=== PATIENT | female | born 1960 | race Caucasian/White ===

== ENCOUNTER 2020-01-24 10:11 | Outpatient (REF) | payer BC, SELFPAY ==
--- NOTE | 2020-01-24 10:43 | ECG_ITS ---
Test Reason : PREPROC CARDIOV EXAM Blood Pressure : / mmHG Vent. Rate : 066 BPM Atrial Rate : 066 BPM P-R Int : 158 ms QRS Dur : 082 ms QT Int : 404 ms P-R-T Axes : 062 -34 030 degrees QTc Int : 423 ms Normal sinus rhythm Left axis deviation Abnormal ECG When compared with ECG of 23-APR-2014 21:34, Vent. rate has decreased BY 39 BPM Referred By: Elmer Michelle Electronically Signed By:GISELLE HADLEY
[2020-01-24 15:58] LABS: MRSA Nasal PCR NEGATIVE (Negative); SA Nasal PCR POSITIVE (Negative)
== END 2020-01-24 10:12 | disposition home or self-care (01) ==
LOC: HO.LAB 10:11
PROVIDERS: Absent Provider Orthopaedic Surgery; PCP Internal Medicine; Visit Provider Internal Medicine
DX: Z01.810 Encounter for preprocedural cardiovascular examination (principal); E78.00 Pure hypercholesterolemia, unspecified; D51.9 Vitamin B12 deficiency anemia, unspecified; E55.9 Vitamin D deficiency, unspecified
CPT/HCPCS: 36415; 87640; 87641; 93005; 93010

== ENCOUNTER 2020-01-27 08:02 | Outpatient (REF) | payer BC, SELFPAY ==
--- NOTE | 2020-01-27 12:49 | MHC.AU.AEV ---
Adult Audiological Evaluation AUD- Audiology Adult New Evaluation Start: 01/27/20 11:34 Freq: Status: Active Protocol: Activity Type Activity Date Activity User E-Sign Co-Sign Detail Recorded Client Recorded Date Recorded By Document 01/27/20 11:35 LAKISHA [id number] 01/27/20 12:47 LAKISHA 01/27/20 11:35 Adult Audiological Evaluation [Date of Visit] -Date of Visit 01/27/20 [Reason For Appointment] -Reason for Appointment Audiologic re- evaluation due to increased hearing difficulties. Sharron reports a gradual change , particularly with understanding speech. She is asking others to repeat what was said more often and needs to raise the volume of the television significantly. Since the hearing test last year, Sharron was diagnosed with acute bronchitis in June to July 2019 and the hearing difficulties increased further. Sharron also continues to experience outer ear dermatitis/ psoriasis and uses eardrops prescribed by Dr. Wright on a regular basis . -Does patient feel they have a hearing Yes loss? -If Yes, Which Ear? Both Ears [Previous Testing] -Has hearing been tested previously? Yes -Previous Hearing Test Results 11/14/2018 Mild to moderate mixed hearing loss with 100% speech understanding at a listening level of 70 dB HL, bilateral [Hearing Instrument History- Right Ear] -Counter Former- Right Ear Oticon -Model- Right OPN 1 mini RITE -Serial Number- Right [id number] -Battery Size- Right 312 -Warranty- Right 11/30/2020 -Dispensed By [facility] -Date of Fittin11/10/2017 [Hearing Instrument History- Left] -Counter Former- Left Ear Oticon -Model- Left OPN 1 mini RITE -Serial Number- Left [id number] -Battery Size- Left 312 -Warranty- Left 11/30/2020 -Dispensed By [facility] -Date of Fittin11/10/2017 [Otoscopy] -Otoscopy- Right Ear Red canal with moisture visualized -Otoscopy- Left Ear Red canal with moisture visualized [Tympanometry] -Tympanometry- Right Ear Non-compliant Middle Ear System (Type B) -Tympanometry- Left Ear Non-compliant Middle Ear System (Type B) [Hearing Test Methods] -Transducer(s) Used Insert Earphones,Bone Conduction -Method Conventional Audiometry -Stimuli Used Pure Tones [Hearing- Right Ear] -Description of Hearing- Right Ear Mild to moderately- severe mixed hearing loss. [Hearing- Left Ear] -Description of Hearing- Left Ear Mild to moderately- severe mixed hearing loss. [Speech Recognition Threshold (SRT)] -Method Used Monitored Live Voice -Stimuli Used Spondee Words -Speech Recognition Threshold (SRT)- 40 dBHL Right Ear -Speech Recognition Threshold (SRT)- 45 dB HL Left Ear [Word Discrimination] -Method: Recorded Lists -Word Lists Used: NU-6 -Word Discrimination- Right Ear 96% at 80 dB HL -Word Discrimination- Left Ear 96% at 85 dB HL [Compared to Most Recent Evaluation:] -Compared to most recent evaluation: Hearing thresholds have decreased approximately 10-25 dB, left ear greater than right. Speech discrimination ability in the quiet ideal setting is stable for both ears. [Recommendations] -Recommendations Audiological re -evaluation in one year. -Recommendations (Other) Hearing aids were reprogrammed to today's test results, then further adjusted to Sharron's comfort in the office. If further adjustments are needed, she is advised to schedule another appointment. [Diagnosis] -Primary Diagnosis: H90.6 Mixed Hearing Loss, Bilateral -Secondary Diagnosis: H69.93 Unspecified Eustachian Tube Dysfunction, Bilateral [Services Performed] -Services Performed Comprehensive Audiological Evaluation (CPT 68300), Tympanometry ( CPT 81737) Signature [Window Installation Subcontractor] -Window Installation Subcontractor Clinician/Clinical No Fellow [Supervisory Statement] -I have reviewed/agreed with student/ N/A fellow documentation [Signature] -Provider Arnoldo Rondon, [facility]
== END 2020-01-27 08:03 | disposition home or self-care (01) ==
LOC: HO.SH 08:02
PROVIDERS: PCP Internal Medicine; Visit Provider Internal Medicine
DX: H90.6 Mixed conductive and sensorineural hearing loss, bilateral (principal); H69.93 Unspecified Eustachian tube disorder, bilateral
CPT/HCPCS: 92557; 92567

== ENCOUNTER 2020-01-27 10:36 | Outpatient (REF) | payer SELFPAY | END 2020-01-27 10:37 | disposition home or self-care (01) | LOC: HO.HAP 10:36 | PROVIDERS: Visit Provider Internal Medicine | DX: H90.6 Mixed conductive and sensorineural hearing loss, bilateral (principal); H69.93 Unspecified Eustachian tube disorder, bilateral | CPT/HCPCS: V5267 ==

== ENCOUNTER 2020-01-28 13:10 | Outpatient (REF) | payer SELFPAY | END 2020-01-28 13:11 | disposition home or self-care (01) | LOC: HO.HAP 13:10 | PROVIDERS: Visit Provider Internal Medicine | DX: H90.6 Mixed conductive and sensorineural hearing loss, bilateral (principal) | CPT/HCPCS: 92700 ==

== ENCOUNTER → 2020-01-29 08:32 | Outpatient (BNVA) | payer BC, SELFPAY | PROVIDERS: PCP Internal Medicine; Referring Provider Internal Medicine; Visit Provider Nurse Practitioner | DX: K59.04 Chronic idiopathic constipation (principal); L02.32 Furuncle of buttock; K63.3 Ulcer of intestine; K25.9 Gastric ulcer, unspecified as acute or chronic, without hemorrhage or perforation; Z77.22 Contact with and (suspected) exposure to environmental tobacco smoke (acute) (chronic) ==

== ENCOUNTER → 2020-01-31 09:27 | Outpatient (BNVA) | payer BC, SELFPAY | PROVIDERS: PCP Internal Medicine; Visit Provider Internal Medicine Pulmonary Disease | DX: Z76.89 Persons encountering health services in other specified circumstances (principal) ==

== ENCOUNTER 2020-02-06 10:20 | Outpatient (REF) | payer BC, SELFPAY | END 2020-02-06 10:21 | disposition home or self-care (01) | LOC: HO.LAB 10:20 | PROVIDERS: PCP Internal Medicine; Referring Provider Internal Medicine; Visit Provider Physician Assistant | DX: Z13.89 Encounter for screening for other disorder (principal) | CPT/HCPCS: 86850 ==

== ENCOUNTER 2020-02-10 06:08 | Inpatient (IN) | payer BC, SELFPAY ==
[2020-01-23 14:32] VITALS: BMI 34.3
[2020-01-24 12:41] VITALS: BP 140/68; PULSE 74; RESP 20; O2SAT 100; BMI 33.8
--- NOTE | 2020-01-24 13:35 | P.CONAN_ITS ---
Documented by User: Tonya Galeana 02/07/20 10:01 HPI - Anesthesia Eval Consult details Narrative: 59yo F for R total knee pcp cleared pulmonary cleared at low risk labs PMFSH Past Medical History Medical History Bronchitis Family history of Crohn's disease History of basal cell carcinoma Hx of diverticulitis of colon Hx of irritable bowel syndrome Intestinal perforation Lab test negative for COVID-19 virus Wears dentures Wears glasses Wears hearing aid in both ears Family History Family History Father Colitis COPD (chronic obstructive pulmonary disease) Mother Stroke Diabetes Hypertension Other Family history of Crohn's disease Family history of problems with anesthesia: No Surgical History Surgical History H/O colonoscopy History of colon resection History of colostomy reversal History of esophagogastroduodenoscopy (EGD) History of reversal of ileostomy History of tonsillectomy Hx of ileostomy Hx of tubal ligation History of Problems with Anesthesia: No Social History Social History Are you a primary youth care worker to a significant other at home: No Do you presently have visiting nurse or other home services: No Alcohol intake: never Smoking Status: Never smoker Second Hand Smoke Exposure: Yes Use of substances other than those prescribed or required for medical reasons: No Have you been hit, kicked, punched, or otherwise hurt by someone within the past year? If so, by whom?: No Ep[employer]opalian Healthcare Practices: pentecostal Advance Directives: Yes Advance Directives on File: Yes Advance Directives Date on File: 01/24/20 Recently lost weight without trying: No Narrative Narrative: asthma stabe >4 mets with edge blacker work as rn arthritis of sternum, cpwith cough non cardiav Meds Allergies Allergy/AdvReac Type Severity Reaction Status Date / Time bee pollen [BEE STINGS] Allergy Severe SWELLING,WE Verified 02/06/20 10:28 LTS Lactose Allergy Intermediate abdominal Verified 02/06/20 10:28 bloating, stomach upset latex [LATEX] Allergy Intermediate RASH Verified 02/06/20 10:28 Tetracyclines [TETRACYCLINES] Allergy Intermediate HIVES Verified 02/06/20 10:28 simvastatin AdvReac Intermediate myalgia Verified 02/06/20 10:28 Home Medications Medication Instructions Recorded Confirmed Type Lactobac. rhamnosus GG-inulin 1 cap PO BID 01/24/20 01/30/20 History [[facility]] albuterol sulfate [Ventolin HFA] 2 puff INHALATION Q4-6H PRN 01/24/20 01/30/20 History cholecalciferol (vitamin D3) 50 mcg PO DAILY 01/24/20 01/30/20 History [Vitamin D3] epinephrine [Epi E-Z Pen] 0.3 mg IM Q10M PRN 01/24/20 01/30/20 History folic acid 1 tab PO DAILY 01/24/20 01/30/20 History ipratropium-albuterol [DuoNeb] 3 ml INHALATION Q4-6H PRN 01/24/20 01/30/20 History lovastatin 1 tab PO BEDTIME 01/24/20 01/30/20 History methylcellulose (laxative) 1,000 mg PO BID 01/24/20 01/30/20 History [[facility]] montelukast 1 tab PO BEDTIME 01/24/20 01/30/20 History pseudoephedrine HCl [Sudafed] 30 mg PO Q4-6H PRN 01/24/20 01/30/20 History senna 17.2 mg PO BEDTIME 01/24/20 01/30/20 History baclofen 20 mg tablet 20 mg PO DAILY tab 01/29/20 01/30/20 History docusate sodium 100 mg capsule 100 mg PO DAILY 01/29/20 01/30/20 History Exam Exam Date and Time: January 24, 2020 1335 Height,Weight and Vital Signs: Height 5 ft 3 in Weight 86.636 kg Last Vital Signs Pulse 74 01/24/20 12:41 Resp 20 01/24/20 12:41 BP 140/68 H 01/24/20 12:41 Pulse Ox 100 01/24/20 12:41 Pertinent Lab Results Pertinent Lab Results: EKG 01/24/20 NSR @66, LAD Laboratory Tests 01/24/20 01/24/20 11:33 11:33 WBC 5.8 Hgb 11.0 L Hct 36.0 L Plt Count 219 Sodium 140 Potassium 4.4 Chloride 105 Carbon Dioxide 27 BUN 14 Creatinine 0.93 Total Bilirubin 0.4 AST 19 ALT 19 Alkaline Phosphatase 74 Total Protein 6.9 Albumin 4.1 Type and Screen done Airway Mallampati Class: I TM Dist: >3cm Neck ROM: Full Denture: Upper Loose/Missing/Broken Teeth: Lower (Capped molars, missing molars) Heart: RRR Lungs: CTAB Assessment and Plan Assessment Anesthesia Assessment: Anesthesia Plan Discussed, Consent Obtained and PAT Visit Documented by User: Tray Mackenzie MD 02/10/20 08:20 [facility] Past Medical History Medical History Bronchitis Family history of Crohn's disease History of basal cell carcinoma Hx of diverticulitis of colon Hx of irritable bowel syndrome Intestinal perforation Lab test negative for COVID-19 virus Wears dentures Wears glasses Wears hearing aid in both ears Family History Family History Father Colitis COPD (chronic obstructive pulmonary disease) Mother Stroke Diabetes Hypertension Other Family history of Crohn's disease Surgical History Surgical History H/O colonoscopy History of colon resection History of colostomy reversal History of esophagogastroduodenoscopy (EGD) History of reversal of ileostomy History of tonsillectomy Hx of ileostomy Hx of tubal ligation Social History Social History Are you a primary youth care worker to a significant other at home: No Do you presently have visiting nurse or other home services: No Alcohol intake: never Smoking Status: Never smoker Second Hand Smoke Exposure: Yes Use of substances other than those prescribed or required for medical reasons: No Have you been hit, kicked, punched, or otherwise hurt by someone within the past year? If so, by whom?: No [employer] Healthcare Practices: pentecostal Advance Directives: Yes Advance Directives on File: Yes Advance Directives Date on File: 01/24/20 Recently lost weight without trying: No Meds Allergies Allergy/AdvReac Type Severity Reaction Status Date / Time bee pollen [BEE STINGS] Allergy Severe SWELLING,WE Verified 02/06/20 10:28 LTS Lactose Allergy Intermediate abdominal Verified 02/06/20 10:28 bloating, stomach upset latex [LATEX] Allergy Intermediate RASH Verified 02/06/20 10:28 Tetracyclines [TETRACYCLINES] Allergy Intermediate HIVES Verified 02/06/20 10:28 simvastatin AdvReac Intermediate myalgia Verified 02/06/20 10:28 Home Medications Medication Instructions Recorded Confirmed Type Lactobac. rhamnosus GG-inulin 1 cap PO BID 01/24/20 01/30/20 History [[facility]] albuterol sulfate [Ventolin HFA] 2 puff INHALATION Q4-6H PRN 01/24/20 01/30/20 History cholecalciferol (vitamin D3) 50 mcg PO DAILY 01/24/20 01/30/20 History [Vitamin D3] epinephrine [Epi E-Z Pen] 0.3 mg IM Q10M PRN 01/24/20 01/30/20 History folic acid 1 tab PO DAILY 01/24/20 01/30/20 History ipratropium-albuterol [DuoNeb] 3 ml INHALATION Q4-6H PRN 01/24/20 01/30/20 History lovastatin 1 tab PO BEDTIME 01/24/20 01/30/20 History methylcellulose (laxative) 1,000 mg PO BID 01/24/20 01/30/20 History [[facility]] montelukast 1 tab PO BEDTIME 01/24/20 01/30/20 History pseudoephedrine HCl [Sudafed] 30 mg PO Q4-6H PRN 01/24/20 01/30/20 History senna 17.2 mg PO BEDTIME 01/24/20 01/30/20 History baclofen 20 mg tablet 20 mg PO DAILY tab 01/29/20 01/30/20 History docusate sodium 100 mg capsule 100 mg PO DAILY 01/29/20 01/30/20 History Exam Airway Mallampati Class: II TM Dist: >3cm Neck ROM: Full Denture: Upper Loose/Missing/Broken Teeth: No Heart: rrr Lungs: nl Other: ao3 Assessment and Plan Assessment Anesthesia Assessment: Anesthesia Plan Discussed, Consent Obtained, PAT Visit and Chart Reviewed Final Anesthetic Review NPO: Yes ASA Class: III Final Preanesthetic Review: No Changes in Pt Med Stat, Meds & Allergies Reviewed, Consent Obtained/Reviewed, Med/Surg/Anes Hx Reviewed and Anes Risks/Benef Reviewed Patient Risk: Intermediate Procedure Risk: Intermediate Anesthetic Plan Anesthetic Plan: MAC:, Spinal and Regional Block Disposition: Standard PACU
[2020-02-10] VITALS (11 sets, daily range): BP systolic 97–141; BP diastolic 50–74; PULSE 57–80; RESP 16–18; TEMP 35.8–37.1; O2SAT 98–100
[2020-02-10] MEDS: Gabapentin 600 MG TABLET PO (06:56)
[2020-02-10] MEDS: Lactated Ringers 1,000 ML 100 ML IVCONT (06:56)
[2020-02-10] MEDS: ceFAZolin Sodium/Dextrose,Iso 2 GM/50 ML PIGGYBACK IV ×2 (06:56→12:33)
--- NOTE | 2020-02-10 06:58 | MHC.SHP ---
Pre-Procedural Eval Section A The patient is an INPATIENT: No Changes since office visit: No Cold of Flu in the past 2 weeks, No New Medical Problems, No Changes in Medication and No Patient answered all questions The History & Physical has been completed within 30 days and I have reviewed it.: Yes Section B Chief Complaint: S/p right total knee replacement Allergies: Allergies Allergy/AdvReac Type Severity Reaction Status Date / Time bee pollen [BEE STINGS] Allergy Severe SWELLING,WE Verified 02/06/20 10:28 LTS Lactose Allergy Intermediate abdominal Verified 02/06/20 10:28 bloating, stomach upset latex [LATEX] Allergy Intermediate RASH Verified 02/06/20 10:28 Tetracyclines [TETRACYCLINES] Allergy Intermediate HIVES Verified 02/06/20 10:28 simvastatin AdvReac Intermediate myalgia Verified 02/06/20 10:28 Plan Patient has been examined and remains a candidate for the planned procedure
[2020-02-10 07:11] LABS: SARS COV2 PCR INHOUSE NEGATIVE (Negative)
--- NOTE | 2020-02-10 09:24 | P.PCNOP_ITS ---
Brief Operative Note Date of procedure: 02/10/20 Pre-op diagnosis: Osteoarthritis right knee Post-op diagnosis: same Procedure: right total knee arthroplasty- Danny NexGen CR flex size F right femur 4 x 10 to 3rd Surgeon: Elmer Michelle Industrial Specialist: Boyd Downing Estimated blood loss (mL): 30 Condition: stable Disposition: PACU
[2020-02-10] MEDS: 0.9 % Sodium Chloride 1,000 ML 80 ML IVCONT ×2 (11:14→22:32)
[2020-02-10] MEDS: Ketorolac Tromethamine 15 MG/ML VIAL IVPUSH ×3 (11:14→21:47)
[2020-02-10 12:21] LABS: Creatinine Clr Calc Pharmacy 74.2; Estimated Glomerular Filt Rate > 60
[2020-02-10] MEDS: oxyCODONE HCl Immed Release 5 MG TABLET 10 MG PO ×3 (12:33→23:13)
[2020-02-10] MEDS: Acetaminophen 325 MG TABLET 650 MG PO ×3 (12:33→23:13)
--- NOTE | 2020-02-10 12:57 | OP_ITS ---
SURGEON: Elmer Michelle MD PREOPERATIVE DIAGNOSIS: Osteoarthritis, right knee. POSTOPERATIVE DIAGNOSIS: Osteoarthritis, right knee. PROCEDURE PERFORMED: Right total knee arthroplasty - Danny NexGen CR-Flex size F, GSF femur, 4 x 10 mm monoblock tibial component, 32 mm monoblock patellar component. ESTIMATED BLOOD LOSS: COMPLICATIONS: ANESTHESIA: ASSISTANTS: SPECIMENS: CLINICAL NOTE: This lady has had ongoing problem with pain and discomfort involving her knee. She has failed nonoperative management. After explaining the risks, benefits, and alternatives and answering all her questions, it was mutually agreed upon to carry out the following procedure. DESCRIPTION OF PROCEDURE: Under regional block as well as a spinal anesthetic, the patient was placed supine on the operating table. Pneumatic tourniquet cuff was placed around the upper right thigh, inflated to 300 mmHg at the beginning of the case. The right knee was then prepped and draped in standard fashion with the right leg free. Surgical time-out was then performed. The patient was identified, procedure confirmed, site confirmed. Medical analogy and history reviewed. Preoperative antibiotics were given. Standard DVT prophylaxis was in place. All other items were discussed and agreed upon. Tranexamic acid was given as well. Standard midline incision of the knee was carried out, taken down through subcutaneous tissues. Hemostasis was achieved along the way using electrocautery, brought us down to the level of the extensor mechanism, where a medial parapatellar arthrotomy in a subvastus technique was then performed. The patella was retracted in a lateral gutter. Soft tissue elevated from the anterior aspect of the femur subperiosteally. At the level of the tibia, the soft tissue was elevated on the medial side of the knee, excising part of the medial meniscus and protecting the medial side of the soft tissues. Similarly on the lateral side, portion of the fat pad, portion of the meniscus was excised, and soft tissue elevated subperiosteally. The ACL was resected. We turned our attention to the femur. Standard intramedullary hole was established. Cutting guide was set for 5 degrees of valgus with standard cut. Surface was resected flat. It was then sized to a size F. The 3 degree external rotation pins were set. The all-in-one cutting guide was then placed over the pins and centered over the distal femur and following this, the anterior and anterior chamfer, posterior and posterior chamfer, and patellar recess cuts were all made. The lug holes were drilled. All the bony fragments were removed. The guide was removed. We turned our attention to the tibia. Extramedullary guide was used in standard fashion, referencing the tibial tubercle, subcutaneous port of the tibia, and the middle of the ankle. The slope was set. It was then set for minimal resection, referencing the medial side. It was resected flat. It was then sized to a size 4 and was aligned with the extramedullary guided pin. The 10 mm trial liner was put into place along with a size F, right CR-Flex GSF femur. This demonstrated excellent alignment, full extension, full flexion, stable mediolaterally at 0, 30, 60, and 90 degrees of flexion. We then turned our attention to the patella. Soft tissue elevated circumferentially. There was significant wear of the patella. It was resected flat. It sized to a 32. The lug hole for the 32 patella was placed. It was then trialed and it tracked centrally and therefore the size F right CR-Flex GSF femur with 4 x 10 mm monoblock tibial component and the 32 mm monoblock patellar component were selected and brought up on to the table. The trial components were all removed after the peg holes of the tibia was made. The tourniquet was then let down. Total tourniquet time was 38 minutes. The area of the lateral genicular artery was identified. There was no significant bleeding. The knee was then thoroughly irrigated. The permanent components were brought up on the table. The tibia followed by the femur, followed by the patella were all press-fit into place. The knee was placed through range of motion, demonstrated full flexion, full extension, stable mediolaterally at 0, 30, 60, and 90 degrees of flexion and the patella tracked centrally. Therefore, we proceeded to closure. Wound was thoroughly irrigated. The extensor mechanism was closed #2 Quill suture. Skin was approximated using interrupted 2-0 Dexon. Skin was closed with daniella. Sterile dressing was then applied. The patient's anesthesia was then reversed and transferred supine to the room bed, then taken to the recovery room in good condition. Intraoperatively, there was approximately 30 mL blood loss. No intraoperative transfusions or complications. A second unit of tranexamic acid was given at the time of closure. MD QUANG Majano/MODL / [id number]
--- NOTE | 2020-02-10 14:01 | P.CONIM_ITS ---
History of Present Illness Data of Consult Service Date: 02/10/20 Requesting physician: Elmer Michelle Primary Care Provider: Erlinda Newell MD [facility] Reason for consult: Medical management 59 emale with OA of knee, pernicious anemia on B12 replacement, mild ashma, HLD on lovastatin. She underwent elective right knee TKR due to osteoarthitis that no longer responded to conservative management. Doing well post op just hours ago. No other complaint. Review of Systems Review of Systems: Gen: well, no fever CV: no chest pain Resp: no SOB Musc Sk; knee pain from surgery Yes all other systems are reviewed and are negative [facility] Medical History Bronchitis Family history of Crohn's disease History of basal cell carcinoma Hx of diverticulitis of colon Hx of irritable bowel syndrome Intestinal perforation Lab test negative for COVID-19 virus Wears dentures Wears glasses Wears hearing aid in both ears Cognitive capacity: Functional capacity: independent ambulation Family History Father Colitis COPD (chronic obstructive pulmonary disease) Mother Stroke Diabetes Hypertension Other Family history of Crohn's disease Surgical History H/O colonoscopy History of colon resection History of colostomy reversal History of esophagogastroduodenoscopy (EGD) History of reversal of ileostomy History of tonsillectomy Hx of ileostomy Hx of tubal ligation Social History Are you a primary certified caregiver to a significant other at home: No Do you presently have visiting nurse or other home services: No Alcohol intake: never Smoking Status: Never smoker Second Hand Smoke Exposure: Yes Use of substances other than those prescribed or required for medical reasons: No Have you been hit, kicked, punched, or otherwise hurt by someone within the past year? If so, by whom?: No Jainism Healthcare Practices: jewish Advance Directives: Yes Advance Directives on File: Yes Advance Directives Date on File: 01/24/20 Recently lost weight without trying: No Meds Allergies Allergy/AdvReac Type Severity Reaction Status Date / Time bee pollen [BEE STINGS] Allergy Severe SWELLING,WE Verified 02/06/20 10:28 LTS Lactose Allergy Intermediate abdominal Verified 02/06/20 10:28 bloating, stomach upset latex [LATEX] Allergy Intermediate RASH Verified 02/06/20 10:28 Tetracyclines [TETRACYCLINES] Allergy Intermediate HIVES Verified 02/06/20 10:28 simvastatin AdvReac Intermediate myalgia Verified 02/06/20 10:28 Home Medications Medication Instructions Recorded Confirmed Type Lactobac. rhamnosus GG-inulin 1 cap PO BID 01/24/20 01/30/20 History [[facility]] albuterol sulfate [Ventolin HFA] 2 puff INHALATION Q4-6H PRN 01/24/20 01/30/20 History cholecalciferol (vitamin D3) 50 mcg PO DAILY 01/24/20 01/30/20 History [Vitamin D3] epinephrine [Epi E-Z Pen] 0.3 mg IM Q10M PRN 01/24/20 01/30/20 History folic acid 1 tab PO DAILY 01/24/20 01/30/20 History ipratropium-albuterol [DuoNeb] 3 ml INHALATION Q4-6H PRN 01/24/20 01/30/20 History lovastatin 1 tab PO BEDTIME 01/24/20 01/30/20 History methylcellulose (laxative) 1,000 mg PO BID 01/24/20 01/30/20 History [[facility]] montelukast 1 tab PO BEDTIME 01/24/20 01/30/20 History pseudoephedrine HCl [Sudafed] 30 mg PO Q4-6H PRN 01/24/20 01/30/20 History senna 17.2 mg PO BEDTIME 01/24/20 01/30/20 History baclofen 20 mg tablet 20 mg PO DAILY tab 01/29/20 01/30/20 History docusate sodium 100 mg capsule 100 mg PO DAILY 01/29/20 01/30/20 History Physical Exam Vital Signs and Narrative: Vital Signs: Last Vital Signs Temp 96.4 F L 02/10/20 11:55 Pulse 66 02/10/20 11:55 Resp 17 02/10/20 11:55 BP 119/54 L 02/10/20 11:55 Pulse Ox 100 02/10/20 11:55 Body Mass Index 33.8 Constitutional Awake and Alert, No apparent distress Neck Supple, No lymphadenopathy Cardiovascular RRR, No M/R/G, S1 S2, No S3 S4, No pedal edema Respiratory Lungs clear, No respiratory distress Gastrointestinal Non tender, Non-distended Skin No rash, knee dressing in place Neurological Alert & oriented x3 Psychological Appropriate affect Results Labs Labs: Laboratory Tests 01/24/20 02/06/20 02/10/20 13:30 11:38 05:50 Creatinine Estim Creat Clear Calc Estimated GFR Nasal Screen MRSA (PCR) Cancelled Nasal S. aureus Screen Cancelled Nasal MRSA/S.aureus Interp Cancelled Coronavirus (PCR) NEGATIVE Blood Type A Positive Antibody Screen NEGATIVE 02/10/20 10:58 Creatinine 0.83 Estim Creat Clear Calc 74.2 Estimated GFR > 60 Nasal Screen MRSA (PCR) Nasal S. aureus Screen Nasal MRSA/S.aureus Interp Coronavirus (PCR) Blood Type Antibody Screen Assessment and Plan (1) Asthma: Problem details: prn inhaler Status: Acute (2) HLD (hyperlipidemia): Status: Acute 1. s/p TKR, management by surgeon 2. HLD--continue Statin 3. Asthma stable, Albuterol PRN 4. B12-def, replacement on outpatient basi
--- NOTE | 2020-02-10 14:34 | MHC.CM.PN ---
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 PATIENT IS NOW S/P RIGHT TOTAL KNEE REPLACEMENT . OPERATIVE DAY. 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 AFTER REVIEW OF VNA AGENCIES SHE CHOSE THE [facility] FOR NRUSING ,NEW TO LOVENOX AND HOME PHYSICAL THEAPRY DISCAHRGE PLAN HOME WITH NEW REFERRAL TO THE [facility] FOR [facility]UR[facility] ([facility] [place]), AND HOME PHYSICAL THEAPRY PCP DR PERRY RCA PATIENT TO CALL FOR POST HOSPITAL DISCHARGE ORTHOPEDICAAL SURGICAL FLLOW UP PER DISCHARGE INSTRUCTIONS, TRANSPORTATION FAMILY
[2020-02-10] MEDS: Enoxaparin Sodium 40 MG/0.4 ML SYRINGE SUBCUT (15:12)
[2020-02-10] MEDS: Morphine Sulfate 2 MG/ML CARTRIDGE IVPUSH (18:50)
[2020-02-10] MEDS: Sennosides 8.6 MG TABLET PO (21:47)
[2020-02-10] MEDS: Docusate Sodium 100 MG CAPSULE PO (21:47)
[2020-02-10] MEDS: Omeprazole 20 MG CAPSULE.DR PO (21:47)
[2020-02-11] VITALS (11 sets, daily range): BP systolic 104–133; BP diastolic 39–55; PULSE 69–85; RESP 16–20; TEMP 36.3–37.8; O2SAT 90–99; BMI 33.8
[2020-02-11] MEDS: Morphine Sulfate 2 MG/ML CARTRIDGE IVPUSH ×3 (02:12→09:09)
[2020-02-11] MEDS: Acetaminophen 325 MG TABLET 650 MG PO ×3 (04:35→17:10)
[2020-02-11] MEDS: Ketorolac Tromethamine 15 MG/ML VIAL IVPUSH ×4 (04:35→22:31)
[2020-02-11] MEDS: oxyCODONE HCl Immed Release 5 MG TABLET 10 MG PO ×3 (04:36→17:09)
[2020-02-11 06:39] LABS: Hematocrit 30.1 % (37-47); Hemoglobin 9.3 g/dl (12.0-16.0)
--- NOTE | 2020-02-11 07:00 | XR_ITS ---
EXAMINATION: XR KNEE, RIGHT CLINICAL INFORMATION: Postop knee replacement COMPARISON: Previous x-ray May 2019 TECHNIQUE: Two views of the right knee. FINDINGS: There is a right knee replacement in satisfactory position. No fracture or dislocation is seen. There are postoperative changes to the soft tissues. IMPRESSION: Satisfactory appearance of right knee replacement.
--- NOTE | 2020-02-11 07:39 | PM.PNORT ---
Subjective Subjective Principal diagnosis: RT TKA Interval history: POD 1 s/p RT TKA -no overnight events, she has been out of bed working with PT. She amblated to the restroom this morning and felt pain afterwards. Has been resting with ice. Had some dizziness with getting up this morning, denies chest pain and sob. Physical Exam Vital Signs: Vital Signs: Vital Signs Temp Pulse Resp BP Pulse Ox 02/11/20 04:00 97.7 F 75 18 111/39 L 90 L 02/11/20 00:00 97.6 F 85 20 104/50 L 95 02/10/20 19:46 97.6 F 71 17 125/55 L 99 02/10/20 18:50 17 02/10/20 15:33 97.6 F 69 18 141/62 H 100 02/10/20 14:00 66 119/54 L 100 02/10/20 11:55 96.4 F L 66 17 119/54 L 100 02/10/20 09:57 57 16 125/60 99 02/10/20 09:40 97.4 F 67 16 116/65 99 02/10/20 09:35 68 16 113/61 98 02/10/20 09:30 68 16 101/54 L 98 02/10/20 09:25 98.7 F 80 16 97/50 L 98 Body Mass Index 33.8 Const: General: cooperative, healthy appearing and no acute distress Resp: Effort & Inspection: normal respiratory effort and able to speak in complete sentences Cardio: Rate: regular rate Peripheral pulses: Peripheral pulses 2+ throughout GI: Inspection: Yes normal to inspection Palpation (GI): Soft to palpation Skin: General skin exam: no rashes or lesions noted Extrem: Other: Right knee bandage intact, scant blood on dressing. No erythema, mild swelling, Calf supple non tender. Progress Note: A&P Assessment and plan (1) Status post total right knee replacement: Status: Acute Assessment and Plan: Continue pain mgmnt Begin PT for RT TKA begin lovenox for dvt ppx dispo planning-pending PT and pain mgmnt Fall Risk Details Current Medications: Current Medications Generic Name Dose Route Start Last Admin Trade Name Freq PRN Reason Stop Dose Admin Acetaminophen 650 mg 02/10/20 12:00 02/11/20 04:35 Acetaminophen 325 Mg Tablet PO 650 mg Q6H BETHANY Administration Docusate Sodium 100 mg 02/10/20 21:30 02/10/20 21:47 Docusate Sodium 100 Mg Capsule PO 100 mg DAILY BETHANY Administration Enoxaparin Sodium 40 mg 02/10/20 14:00 02/10/20 15:12 Enoxaparin Sodium 40 Mg/0.4 Ml Syringe SUBCUT 40 mg Q24H BETHANY Administration Ketorolac Tromethamine 15 mg 02/10/20 11:00 02/11/20 04:35 Ketorolac Tromethamine 15 Mg/Ml Vial IVPUSH 15 mg Q6H BETHANY Administration Morphine Sulfate 2 mg 02/10/20 10:42 02/11/20 05:52 Morphine Sulfate 2 Mg/Ml Cartridge IVPUSH 2 mg Q2H PRN Administration Pain, Severe (Pain Scale 7-10) Naloxone HCl 0.2 mg 02/10/20 10:42 Naloxone Hcl 0.4 Mg/Ml Vial IVPUSH Q2M PRN Excessive sedation or RR < 8 Omeprazole 20 mg 02/10/20 21:20 02/10/20 21:47 Omeprazole 20 Mg Capsule.Dr PO 20 mg BID BETHANY Administration Ondansetron HCl 4 mg 02/10/20 10:42 Ondansetron Hcl 4 Mg/2 Ml Vial IVPUSH Q8H PRN Nausea and Vomiting Oxycodone HCl 10 mg 02/10/20 12:00 02/11/20 04:36 Oxycodone Hcl Immed Release 5 Mg Tablet PO 10 mg Q6H BETHANY Administration Senna 8.6 mg 02/10/20 21:20 02/10/20 21:47 Sennosides 8.6 Mg Tablet PO 8.6 mg BEDTIME BETHANY Administration Sodium Chloride 3 ml 02/10/20 16:00 02/10/20 22:33 0.9 % Sodium Chloride Flush 3 Ml Syringe IVFLUSH Not Given QSHIFT BETHANY Time Spent With Patient Time: Total time spent is greater than 50% in coordination of care (as documented) at patient's floor/unit and/or counseling patient: Time with patient: 15 - 24 minutes
--- NOTE | 2020-02-11 08:05 | HO.POSTANES ---
Post Anesthesia Evaluation Post Anesthesia Evaluation Vital Signs: Vital Signs Temp Pulse Resp BP Pulse Ox 02/11/20 07:46 100.1 F 69 17 119/50 L 95 02/11/20 07:40 75 111/39 L 90 L 02/11/20 04:00 97.7 F 75 18 111/39 L 90 L 02/11/20 00:00 97.6 F 85 20 104/50 L 95 Anesthesia: Spinal Mental Status: Awake Pain Control: Satisfactory Nausea/Vomiting: None Hydration: Adequate Anesthesia-Related Issues: No Anes. Related Issues
[2020-02-11] MEDS: Docusate Sodium 100 MG CAPSULE PO (08:34)
[2020-02-11] MEDS: Omeprazole 20 MG CAPSULE.DR PO ×2 (08:34→22:30)
[2020-02-11] MEDS: 0.9 % Sodium Chloride Flush 3 ML SYRINGE IVFLUSH ×2 (08:34→17:11)
--- NOTE | 2020-02-11 09:12 | HO.PM.IMPN ---
Subjective Subjective Date of Service: 02/11/20 Interval History: Seen in follow up for for med consult for medical mangament s/p riht TKR on 02/09. Had some pain overnight but better this morning. Review of Systems Gen: no fever Muscular/sk: knee pain Physical Exam Vital Signs: Vital Signs: Vital Signs Temp Pulse Resp BP Pulse Ox 02/11/20 07:46 100.1 F 69 17 119/50 L 95 02/11/20 07:40 75 111/39 L 90 L 02/11/20 04:00 97.7 F 75 18 111/39 L 90 L 02/11/20 00:00 97.6 F 85 20 104/50 L 95 02/10/20 19:46 97.6 F 71 17 125/55 L 99 02/10/20 18:50 17 02/10/20 15:33 97.6 F 69 18 141/62 H 100 02/10/20 14:00 66 119/54 L 100 02/10/20 11:55 96.4 F L 66 17 119/54 L 100 02/10/20 09:57 57 16 125/60 99 02/10/20 09:40 97.4 F 67 16 116/65 99 02/10/20 09:35 68 16 113/61 98 02/10/20 09:30 68 16 101/54 L 98 02/10/20 09:25 98.7 F 80 16 97/50 L 98 Body Mass Index 33.8 Constitutional Awake and Alert, No apparent distress Neck Supple, No lymphadenopathy Cardiovascular RRR, No M/R/G, S1 S2, No S3 S4, No pedal edema Respiratory Lungs clear, No respiratory distress Gastrointestinal Non tender, Non-distended Skin No rash, knee dressing in place, generalized swelling around the knee Neurological Alert & oriented x3 Psychological Appropriate affect Objective Data Current Medications Generic Name Dose Route Start Last Admin Trade Name Freq PRN Reason Stop Dose Admin Acetaminophen 650 mg 02/10/20 12:00 02/11/20 04:35 Acetaminophen 325 Mg Tablet PO 650 mg Q6H BETHANY Administration Docusate Sodium 100 mg 02/10/20 21:30 02/11/20 08:34 Docusate Sodium 100 Mg Capsule PO 100 mg DAILY BETHANY Administration Enoxaparin Sodium 40 mg 02/10/20 14:00 02/10/20 15:12 Enoxaparin Sodium 40 Mg/0.4 Ml Syringe SUBCUT 40 mg Q24H BETHANY Administration Ketorolac Tromethamine 15 mg 02/10/20 11:00 02/11/20 04:35 Ketorolac Tromethamine 15 Mg/Ml Vial IVPUSH 15 mg Q6H BETHANY Administration Morphine Sulfate 2 mg 02/10/20 10:42 02/11/20 09:09 Morphine Sulfate 2 Mg/Ml Cartridge IVPUSH 2 mg Q2H PRN Administration Pain, Severe (Pain Scale 7-10) Naloxone HCl 0.2 mg 02/10/20 10:42 Naloxone Hcl 0.4 Mg/Ml Vial IVPUSH Q2M PRN Excessive sedation or RR < 8 Omeprazole 20 mg 02/10/20 21:20 02/11/20 08:34 Omeprazole 20 Mg Capsule.Dr PO 20 mg BID BETHANY Administration Ondansetron HCl 4 mg 02/10/20 10:42 Ondansetron Hcl 4 Mg/2 Ml Vial IVPUSH Q8H PRN Nausea and Vomiting Oxycodone HCl 10 mg 02/10/20 12:00 02/11/20 04:36 Oxycodone Hcl Immed Release 5 Mg Tablet PO 10 mg Q6H BETHANY Administration Senna 8.6 mg 02/10/20 21:20 02/10/20 21:47 Sennosides 8.6 Mg Tablet PO 8.6 mg BEDTIME BETHANY Administration Sodium Chloride 3 ml 02/10/20 16:00 02/11/20 08:34 0.9 % Sodium Chloride Flush 3 Ml Syringe IVFLUSH 3 ml QSHIFT BETHANY Administration Labs CBC & Chem 7: 02/11/20 05:52 Assessment and Plan (1) Status post total right knee replacement: Status: Acute (2) Asthma: Problem details: prn inhaler Status: Acute (3) HLD (hyperlipidemia): Status: Acute Assessment and Plan: 1. s/p TKR, management by surgeon 2. HLD--she says she take Lovastin but not on home med list, resume upon d/c 3. Asthma stable, Albuterol PRN 4. B12-def, replacement on outpatient basis PT/OT per ortho protocol Will sign off, call new issues.
--- NOTE | 2020-02-11 12:43 | MHC.CM.PN ---
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
[2020-02-11] MEDS: Enoxaparin Sodium 40 MG/0.4 ML SYRINGE SUBCUT (13:52)
--- NOTE | 2020-02-11 15:18 | PC.NURSE ---
Patient educated on lovenox. Able to self administer without difficulty.
[2020-02-11] MEDS: Sennosides 8.6 MG TABLET PO (22:30)
[2020-02-12] VITALS: BP 116/43; PULSE 71; RESP 16; TEMP 36.7; O2SAT 98
[2020-02-12] MEDS: oxyCODONE HCl Immed Release 5 MG TABLET 10 MG PO ×3 (00:31→12:18)
[2020-02-12] MEDS: Acetaminophen 325 MG TABLET 650 MG PO ×3 (00:33→12:17)
[2020-02-12] MEDS: 0.9 % Sodium Chloride Flush 3 ML SYRINGE IVFLUSH ×2 (00:36→10:45)
[2020-02-12 03:46] VITALS: BP 111/52; PULSE 78; RESP 16; TEMP 36.6; O2SAT 95
[2020-02-12] MEDS: Ketorolac Tromethamine 15 MG/ML VIAL IVPUSH ×2 (05:58→10:44)
[2020-02-12 07:23] VITALS: BP 114/41; PULSE 76; RESP 16; TEMP 36.1; O2SAT 96
[2020-02-12] MEDS: Docusate Sodium 100 MG CAPSULE PO (07:30)
[2020-02-12] MEDS: Omeprazole 20 MG CAPSULE.DR PO (07:30)
[2020-02-12 07:40] VITALS: O2SAT 95
[2020-02-12 08:02] VITALS: O2SAT 95
--- NOTE | 2020-02-12 08:04 | P.DS_ITS ---
DS: Providers Provider Date of admission: 02/10/20 06:08 Primary care physician: Erlinda Newell MD Consults: 02/10/20 10:42 Consult to Hospitalist Routine Consulting Provider: Hospitalist Reason for consultation: medical issues Has provider been notified: No DS: Diagnosis Discharge Diagnosis (1) Status post total right knee replacement: Status: Acute Problem details: 59 yo female presented to the office for ongoing rt knee pain. She was found to have osteoarthritis of the rt knee. she elected to proceed with a rt knee tka after failing all conservative treatment. (2) Asthma: Status: Acute Problem details: prn inhaler (3) HLD (hyperlipidemia): Status: Acute DS: Summary Hospital Course Hospital Course: pt. underwent a successful rt tka she was transferred to pacu and then to the floor where she recovered. POD1 she was started on lovenox for dvt ppx and received p.t. services twice a day. During her stay vitals were stable afebrile at 97.0. Labs unremarkable h/h 9.3/30.1. Prior to d/c aquacell dressing was changed. Incision was clean dry and intact. New aquacell dressing applied. Plan is to be d/c'ed home with VNA services. Time Spent with Patient Time attestation: Total time spent providing and/or coordinating discharge services: Physical Exam Vital Signs: Vital Signs: Vital Signs Temp Pulse Resp BP Pulse Ox 02/12/20 07:40 95 02/12/20 07:23 97.0 F 76 16 114/41 L 96 02/12/20 03:46 97.9 F 78 16 111/52 L 95 02/12/20 00:00 98.1 F 71 16 116/43 L 98 02/11/20 23:17 98.1 F 71 16 116/43 L 98 02/11/20 20:00 97.4 F 75 18 112/55 L 99 02/11/20 15:30 97.5 F 69 18 133/49 L 98 02/11/20 13:36 72 113/54 L 96 02/11/20 11:30 98.6 F 72 16 113/54 L 96 02/11/20 10:12 95 02/11/20 08:20 95 Body Mass Index 33.8 Extrem: Other: Rt knee daniella intact no drainage. ROM 0-90. Calf supple nontender. DS: Data Data Completed and Pending Completed studies during hospitalization [Text1]: Pending at discharge 02/10/20 09:09 Surgical [PTH] Routine Discharge Plan Discharge Patient Disposition: Home Health Service Referrals: jerilyn visiting nurse [Other] ([facility] for nrusing for sc lovenox reinforcement teaching and home physical thearpy patient to contact pcp and surgeon for post hospital discharge follow up) Boyd Downing PA-C [Physician [employer] Exchange Administrator] - (f/u with ortho 2 weeks post op ) Discharge Medications: New acetaminophen 325 mg Tablet 650 mg PO Q6H 30 Days Qty: 240 RF: 0 enoxaparin 40 mg/0.4 mL Syringe 40 mg subcut Q24H 14 Days Qty: 14 RF: 0 oxycodone 10 mg tablet 10 mg PO Q6H 7 Days Qty: 28 RF: 0 celecoxib [Celebrex] 200 mg capsule 200 mg PO BID 30 Days Qty: 60 RF: 0 Continued ipratropium-albuterol 0.5 mg-3 mg(2.5 mg base)/3 mL Solution For Nebulization 3 ml INHALATION Q4-6H PRN (Reason: Shortness Of Breath) RF: 0 lovastatin 10 mg tablet 1 tab PO BEDTIME RF: 0 Citrucel 500 mg Tablet 1,000 mg PO BID RF: 0 folic acid 1 mg tablet 1 tab PO DAILY RF: 0 pseudoephedrine HCl [Sudafed] 30 mg Tablet 30 mg PO Q4-6H PRN (Reason: Nasal Congestion) RF: 0 montelukast 10 mg tablet 1 tab PO BEDTIME RF: 0 epinephrine 0.3 mg/0.3 mL Auto-Injector 0.3 mg IM Q10M PRN (Reason: Anaphylaxis) RF: 0 albuterol sulfate [Ventolin HFA] 90 mcg/actuation HFA aerosol inhaler 2 puff inhalation Q4-6H PRN (Reason: Shortness Of Breath) RF: 0 senna 8.6 mg Capsule 17.2 mg PO BEDTIME RF: 0 cholecalciferol (vitamin D3) [Vitamin D3] 50 mcg (2,000 unit) Capsule 50 mcg PO DAILY RF: 0 Culturelle Digestive Health 10 billion cell -200 mg Capsule 1 cap PO BID RF: 0 fluticasone propion-salmeterol [Advair Diskus] 100-50 mcg/dose blister with device 1 inh inhalation BID 90 Days Qty: 3 RF: 4 (DME) walker Misc See Rx Instructions .MEDSUPPLY Qty: 1 RF: 0 omeprazole 20 mg capsule,delayed release(DR/EC) 20 mg PO BID 30 Days Qty: 60 RF: 3 docusate sodium [Colace] 100 mg capsule 100 mg PO DAILY RF: 0 baclofen 20 mg tablet 20 mg PO NEEDED PRN (Reason: Spasms) RF: 0 Discharge Orders: Discharge Order (Routine); Ordered 02/12/20 Ordered By: Boyd Downing Diet: regular diet Activity on Discharge: Use cane or walker Activity Restrictions/Additional Instructions: * Physical Therapy for ROM 0-120, quad strength, gait training . Use walker for ambulation * Limit stair climbing, No shower, No tub bath, No driving * Continue anticoagulant * Keep Aquacel dressing clean, dry and intact. * Follow up with orthopedics in 2 weeks Visit Report Forms: Patient Portal Discharge page Care Plan Goals: restore function of rt knee Health Concerns: none Plan of Treatment: Physical Therapy Pain management DVT prophylaxis
--- NOTE | 2020-02-12 09:06 | MHC.CM.PN ---
DC today. Female 59 S/P rt TKA. BECKY SMITH for post op management education and strengthening. Pt is independent w AC therapy. 02/11/20 She demonstrated ability to administer her daily Lovenox injection. Private transportation.
[2020-02-12 11:14] VITALS: BP 100/50; PULSE 72; RESP 17; TEMP 36.2; O2SAT 100
[2020-02-12] MEDS: Enoxaparin Sodium 40 MG/0.4 ML SYRINGE SUBCUT (12:18)
== END 2020-02-12 01:15 | disposition home health service (06) | DRG 302 ==
LOC: HO.SSSA 06:08 → HO.S3 09:34
PROVIDERS: Admitting Provider Orthopaedic Surgery; PCP Internal Medicine; Visit Provider Orthopaedic Surgery
PROC: 0SRC0JA Replacement of Right Knee Joint with Synthetic Substitute, Uncemented, Open Approach (ICD-10-PCS; CPT 27447; principal; 2020-02-10 07:30)
DX: M17.11 Unilateral primary osteoarthritis, right knee (principal); E78.5 Hyperlipidemia, unspecified; J45.909 Unspecified asthma, uncomplicated; Z20.828 Contact with and (suspected) exposure to other viral communicable diseases; Z79.51 Long term (current) use of inhaled steroids; Z79.899 Other long term (current) drug therapy
CPT/HCPCS: 36415; 73560; 82565; 85014; 85018; 86850; 86900; 86901; 87635; 88305; 88311; 97110; 97116; 97162; 97165; C1713; C1776; J0690; J1650; J1885; J2250; J2270

== ENCOUNTER → 2020-02-26 13:58 | Outpatient (BNVA) | payer BC, SELFPAY | PROVIDERS: PCP Internal Medicine; Referring Provider Internal Medicine; Visit Provider Physician Assistant | DX: Z76.89 Persons encountering health services in other specified circumstances (principal) ==

== ENCOUNTER 2020-03-16 10:18 | Outpatient (REF) | payer BC, SELFPAY | END 2020-03-16 10:19 | disposition home or self-care (01) | LOC: HO.HMGCLDS 10:18 | PROVIDERS: PCP Internal Medicine; Visit Provider Internal Medicine | DX: Z20.828 Contact with and (suspected) exposure to other viral communicable diseases (principal) | CPT/HCPCS: C9803; U0003 ==

== ENCOUNTER → 2020-04-07 10:01 | Outpatient (BNVA) | payer BC, SELFPAY | PROVIDERS: Visit Provider Orthopaedic Surgery | DX: Z76.89 Persons encountering health services in other specified circumstances (principal) ==

== ENCOUNTER 2020-05-22 09:09 | Outpatient (REF) | payer SELFPAY | END 2020-05-22 09:10 | disposition home or self-care (01) | LOC: HO.HAP 09:09 | PROVIDERS: Visit Provider Internal Medicine | DX: Z46.1 Encounter for fitting and adjustment of hearing aid (principal) | CPT/HCPCS: V5267 ==

== ENCOUNTER 2020-06-09 | Outpatient (REF) | payer SELFPAY ==
--- NOTE | ~2020-06-09 | XR_ITS ---
EXAMINATION: XR BILATERAL KNEE AP STANDING. LATERAL VIEW OF THE RIGHT KNEE. CLINICAL INFORMATION: Pain in right knee COMPARISON: 02/11/2020 TECHNIQUE: AP bilateral standing view of both knees and lateral view of the right knee were obtained. FINDINGS: Right knee: Status post right total knee arthroplasty including patellar prosthesis. Hardware remains well seated. No fracture, dislocation, or joint effusion. Left knee: Medial and lateral joint spaces are maintained. No fracture or dislocation seen. XR/XR knee standing BI IMPRESSION: Expected satisfactory postoperative appearance status post right total knee arthroplasty.
--- NOTE | ~2020-06-09 | XR_ITS ---
EXAMINATION: XR BILATERAL KNEE AP STANDING. LATERAL VIEW OF THE RIGHT KNEE. CLINICAL INFORMATION: Pain in right knee COMPARISON: 02/11/2020 TECHNIQUE: AP bilateral standing view of both knees and lateral view of the right knee were obtained. FINDINGS: Right knee: Status post right total knee arthroplasty including patellar prosthesis. Hardware remains well seated. No fracture, dislocation, or joint effusion. Left knee: Medial and lateral joint spaces are maintained. No fracture or dislocation seen. XR/XR knee RT 2V IMPRESSION: Expected satisfactory postoperative appearance status post right total knee arthroplasty.
== END 2020-06-09 00:01 | disposition home or self-care (01) ==
LOC: HO.HOSX
PROVIDERS: Visit Provider Orthopaedic Surgery
DX: M25.561 Pain in right knee (principal); M25.562 Pain in left knee
CPT/HCPCS: 73560; 73565

== ENCOUNTER → 2020-06-09 09:30 | Outpatient (BNVA) | payer BC, SELFPAY | PROVIDERS: PCP Internal Medicine; Visit Provider Orthopaedic Surgery | DX: M25.561 Pain in right knee (principal); M25.562 Pain in left knee ==

== ENCOUNTER → 2020-07-08 08:57 | Outpatient (BNVA) | payer BC, SELFPAY | PROVIDERS: PCP Internal Medicine; Visit Provider Internal Medicine Pulmonary Disease ==

== ENCOUNTER → 2020-07-27 11:07 | Outpatient (BNVA) | payer BC, SELFPAY | PROVIDERS: PCP Internal Medicine; Visit Provider Nurse Practitioner ==

== ENCOUNTER 2020-08-24 07:38 | Outpatient (REF) | payer BC, SELFPAY ==
[2020-08-24 12:23] LABS: Alanine Aminotransferase 13 U/L (0-31); Albumin Level 4.1 g/dL (3.5-5.0); Alkaline Phosphatase 74 U/L (39-117); Anion Gap 11 (12-20); Aspartate Amino Transferase 17 U/L (5-31); Bilirubin Total 0.4 mg/dL (0.0-1.0); Blood Urea Nitrogen 25 mg/dL (9-16); Calcium 9.4 mg/dL (8.4-10.2); Carbon Dioxide 29 mmol/L (22-29); Chloride 105 mmol/L (96-108); Cholesterol 187 mg/dL; Estimated Glomerular Filt Rate 55; Glucose Fasting 90 mg/dL (60-99); HDL Cholesterol 53 mg/dL; LDL Cholesterol Calculated 114 mg/dl; Potassium 4.4 mmol/L (3.3-5.1); Sodium 141 mmol/L (135-145); Total Protein 6.9 g/dL (6.5-8.0); Triglycerides 101 mg/dL
== END 2020-08-24 07:39 | disposition home or self-care (01) ==
LOC: HO.HMGCLDS 07:38
PROVIDERS: PCP Internal Medicine; Visit Provider Internal Medicine
DX: E78.00 Pure hypercholesterolemia, unspecified (principal); E78.5 Hyperlipidemia, unspecified
CPT/HCPCS: 36415; 80053; 80061

== ENCOUNTER → 2020-09-11 09:43 | Outpatient (BNVA) | payer BC, SELFPAY | PROVIDERS: PCP Internal Medicine; Visit Provider Orthopaedic Surgery ==

== ENCOUNTER 2020-09-16 10:54 | Outpatient (REF) | payer BC, SELFPAY | END 2020-09-16 10:55 | disposition home or self-care (01) | LOC: HO.LAB 10:54 | PROVIDERS: Visit Provider Nurse Practitioner Family | DX: L02.91 Cutaneous abscess, unspecified (principal) | CPT/HCPCS: 87071; 87077; 87186; 87205 ==

== ENCOUNTER 2020-09-29 10:40 | Outpatient (REF) | payer SELFPAY | END 2020-09-29 10:41 | disposition home or self-care (01) | LOC: HO.HAP 10:40 | PROVIDERS: Visit Provider Internal Medicine | DX: Z46.1 Encounter for fitting and adjustment of hearing aid (principal) | CPT/HCPCS: V5267 ==

== ENCOUNTER 2020-10-27 09:00 | Outpatient (RCR) | payer BC, SELFPAY ==
[2020-01-24 12:04] LABS: MANUAL DIFF FLAG NO
[2020-01-24 12:20] LABS: Basophils Percent Auto 0.3 % (0-2); Eosinophils Absolute Auto 0.1 X10*3/uL (0.0-0.4); Imm Gran Abs Auto 0.02 X10*3/uL (0.00-0.03); Imm Gran Pct Auto 0.3 % (0.0-0.4); Lymphocytes Absolute Auto 1.1 X10*3/uL (1.2-4.9); Lymphocytes Percent Auto 19.1 % (20-40); Mean Corpuscular HGB Conc 30.6 g/dl (31.0-35.0); Mean Corpuscular Hemoglobin 26.7 pg (27.0-33.0); Mean Corpuscular Volume 87.4 fL (80-98); Mean Platelet Volume 10.5 fL (9.4-12.3); Monocytes Absolute Auto 0.3 X10*3/uL (0.1-1.2); Monocytes Percent Auto 4.5 % (2-11); Neutrophils Absolute Auto 4.3 X10*3/uL (2.0-8.3); Neutrophils Percent Auto 74.8 % (45-73); Platelet Count 219 X10*3/uL (160-400); Red Blood Count 4.12 X10*6/uL (4.20-5.50); Red Cell Distribution Width 14.9 % (11.0-16.0); White Blood Count 5.8 X10*3/uL (4.8-10.8)
[2020-01-24 12:38] LABS: Cholesterol 174 mg/dL; HDL Cholesterol 66 mg/dL; LDL Cholesterol Calculated 100 mg/dl; Triglycerides 44 mg/dL
[2020-01-24 12:40] LABS: Alanine Aminotransferase 19 U/L (0-31); Albumin Level 4.1 g/dL (3.5-5.0); Alkaline Phosphatase 74 U/L (39-117); Anion Gap 12 (12-20); Aspartate Amino Transferase 19 U/L (5-31); Bilirubin Total 0.4 mg/dL (0.0-1.0); Blood Urea Nitrogen 14 mg/dL (9-16); Calcium 9.3 mg/dL (8.4-10.2); Carbon Dioxide 27 mmol/L (22-29); Chloride 105 mmol/L (96-108); Estimated Glomerular Filt Rate > 60; Glucose Random 95 mg/dL (60-115); Potassium 4.4 mmol/l (3.3-5.1); Sodium 140 mmol/L (135-145); Total Protein 6.9 g/dL (6.5-8.0)
[2020-01-24 12:59] LABS: Vitamin D 25-OH Total 54.1 ng/mL (>30)
--- NOTE | 2020-01-24 13:34 | MHC.HEMONC ---
Labs reviewed, Dr. Jalloh made aware. No new orders at this time.
[2020-01-24 13:41] LABS: Folate > 20.0 ng/mL (> or = 4.0); Vitamin B12 971 pg/mL (200-900)
[2020-04-30 09:34] LABS: MANUAL DIFF FLAG NO
[2020-04-30 09:36] VITALS: BP 137/63; PULSE 82; RESP 14; TEMP 36.6; O2SAT 99; BMI 34.2
[2020-04-30 09:38] LABS: Basophils Percent Auto 0.4 % (0-2); Eosinophils Absolute Auto 0.2 X10*3/uL (0.0-0.4); Hematocrit 37.4 % (37-47); Hemoglobin 11.2 g/dl (12.0-16.0); Imm Gran Abs Auto 0.03 X10*3/uL (0.00-0.03); Imm Gran Pct Auto 0.4 % (0.0-0.4); Lymphocytes Absolute Auto 1.3 X10*3/uL (1.2-4.9); Lymphocytes Percent Auto 15.7 % (20-40); Mean Corpuscular HGB Conc 29.9 g/dl (31.0-35.0); Mean Corpuscular Hemoglobin 27.1 pg (27.0-33.0); Mean Corpuscular Volume 90.6 fL (80-98); Monocytes Absolute Auto 0.4 X10*3/uL (0.1-1.2); Monocytes Percent Auto 4.9 % (2-11); Neutrophils Absolute Auto 6.3 X10*3/uL (2.0-8.3); Neutrophils Percent Auto 76.6 % (45-73); Platelet Count 233 X10*3/uL (160-400); Red Blood Count 4.13 X10*6/uL (4.20-5.50); Red Cell Distribution Width 16.1 % (11.0-16.0); White Blood Count 8.2 X10*3/uL (4.8-10.8)
--- NOTE | 2020-04-30 09:46 | PM.HEMONCPN ---
Medical Summary - Medical Summary Date of Service: 05/08/20 Chief complaint: Follow-up for: Multifactorial anemia 1. Iron deficiency 2. B12 deficiency. Medical Summary: DIAGNOSES: Multifactorial Anemia: 1. Iron deficiency. 2. B12 deficiency. CURRENT THERAPY: 1. Iron Dextran, last received in May 2014. 2. B12 injection monthly. 3. Folic acid 1 mg by mouth daily. Interval History Interval history: This is a pleasant 59-year-old lady, here for a follow-up visit. She is doing quite well. Denies much fatigue. No headache no dizziness. Denies chest pain or trouble breathing. She denies any abdominal pain nausea vomiting heartburn indigestion. Her bowels are working without any gross blood in the stools. She denies diarrhea. Her appetite is okay. She has gained weight. Energy level is reasonable but she gets tired at times. Part of it is related to her arthritis pain in her knees. She is in good spirits. Rest of the review of systems is unremarkable. 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 Previous history: She was seen in the emergency room on July 20 for flu like symptoms. Her COVID-19, flu swab and RSV were all negative. She was diagnosed with bronchitis. She was given a nebulizer treatment. She was sent home on oral antibiotics. She is currently on Advair inhaler, with DuoNeb p.r.n. She is feeling better. She had some GI complaints. She underwent an upper endoscopy and colonoscopy on May [address] Canales which revealed: Gastric ulcer with erosive gastritis, multiple erosions, and from the colonoscopy, ileal erosions. Pathology revealed: A. Stomach, random, biopsy: Antral-type and oxyntic mucosa with moderate chronic active inflammation; no Helicobacter organisms seen. B. Terminal ileum, biopsy: Terminal ileal mucosa with rare small lymphohistiocytic aggregates, mild expansion of lamina propria chronic inflammatory cells and focal partial villous blunting; no dysplasia seen. C. Colon, random right, biopsy: Colonic mucosa with few small lymphohistiocytic aggregates, crypt regenerative changes, surface epithelial injury and mild expansion of lamina propria chronic inflammatory cells; no dysplasia seen. D. Colon, random left, biopsy: Colonic mucosa with rare small lymphohistiocytic aggregates and mild melanosis coli; otherwise within normal limits; no dysplasis seen. Had dad had colitis and a sister has Crohn's disease. 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 She was advised to hold the nonsteroidals she was taking, for arthritis. The Celebrex and Daypro. She has just been reintroduced to the Celebrex couple weeks ago. Review of Systems - Constitutional Reports system reviewed and no additional complaints, except as documented - Eyes Reports system reviewed and no additional complaints, except as documented - ENT Reports system reviewed and no additional complaints, except as documented - Cardiovascular Reports system reviewed and no additional complaints, except as documented - Respiratory Reports no additional respiratory complaints - Gastrointestinal Reports system reviewed and no additional complaints, except as documented - Genitourinary Reports no additional female genitourinary complaints - Musculoskeletal Reports system reviewed and no additional complaints, except as documented - Integumentary/Breasts Skin/Breast: Reports no additional skin complaints - Neurologic Reports system reviewed and no additional complaints, except as documented - Psychiatric Reports system reviewed and no additional complaints, except as documented - Endocrine Reports no additional endocrine complaints - Hematologic/Lymphatic Reports system reviewed and no additional complaints, except as documented - Allergic/Immunologic Reports system reviewed and no additional complaints, except as documented PMF Medical History: Medical History (Last Reviewed 05/06/20 @ 09:53 by Erlinda Newell MD) Asthma Bronchitis Family history of Crohn's disease GERD (gastroesophageal reflux disease) History of basal cell carcinoma HLD (hyperlipidemia) Hx of diverticulitis of colon Hx of irritable bowel syndrome Intestinal perforation Lab test negative for COVID-19 virus Wears dentures Wears glasses Wears hearing aid in both ears Functional capacity: independent ambulation Patient : No Family History: Family History (Last Reviewed 02/26/20 @ 14:03 by BEE Mishra) Father Colitis COPD (chronic obstructive pulmonary disease) Mother Stroke Diabetes Hypertension Other Family history of Crohn's disease Surgical History: Surgical History (Last Reviewed 02/10/20 @ 19:25 by Galen Hinkle RN) H/O colonoscopy History of colon resection History of colostomy reversal History of esophagogastroduodenoscopy (EGD) History of reversal of ileostomy History of tonsillectomy Hx of ileostomy Hx of tubal ligation Home Medications and Allergies Home Medications Medication Instructions Recorded Confirmed Type Citrucel 1,000 mg PO BID 01/24/20 05/06/20 History [facility] 1 cap PO BID 01/24/20 05/06/20 History albuterol sulfate [Ventolin HFA] 2 puff INHALATION Q4-6H PRN 01/24/20 05/06/20 History cholecalciferol (vitamin D3) 50 mcg PO DAILY 01/24/20 05/06/20 History [Vitamin D3] epinephrine 0.3 mg IM Q10M PRN 01/24/20 05/06/20 History folic acid 1 tab PO DAILY 01/24/20 05/06/20 History ipratropium-albuterol 3 ml INHALATION Q4-6H PRN 01/24/20 05/06/20 History lovastatin 1 tab PO BEDTIME 01/24/20 05/06/20 History pseudoephedrine HCl [Sudafed] 30 mg PO Q4-6H PRN 01/24/20 05/06/20 History senna 17.2 mg PO BEDTIME 01/24/20 05/06/20 History baclofen 20 mg tablet 20 mg PO NEEDED PRN tab 01/29/20 05/06/20 History docusate sodium 100 mg capsule 100 mg PO DAILY 01/29/20 05/06/20 History Allergies Allergy/AdvReac Type Severity Reaction Status Date / Time bee pollen [BEE STINGS] Allergy Severe SWELLING,WE Verified 05/06/20 09:03 LTS Lactose Allergy Intermediate abdominal Verified 05/06/20 09:03 bloating, stomach upset latex [LATEX] Allergy Intermediate RASH Verified 05/06/20 09:03 Tetracyclines [TETRACYCLINES] Allergy Intermediate HIVES Verified 05/06/20 09:03 simvastatin AdvReac Intermediate myalgia Verified 05/06/20 09:03 Exam Vital signs: Vital Signs Temp 97.8 F 04/30/20 09:36 Pulse 82 04/30/20 09:36 Resp 14 04/30/20 09:36 BP 137/63 04/30/20 09:36 Pulse Ox 99 04/30/20 09:36 Intake & Output 04/29/20 04/30/20 04/30/20 18:59 06:59 18:59 Other: Weight 87.6 kg Weight 87.6 kg Body Mass Index 34.2 - Constitutional Present: no acute distress - Routine HEENT Exam Head: Present: normal inspection Eye: Present: normal appearance ENT: Present: mucous membranes moist - Routine Neck Exam Present: full ROM - Routine Respiratory Exam Present: CTAB - Routine Cardiovascular Exam Cardiovascular: Present: RRR, S1, S2 - Routine Abdominal Exam Present: soft, nontender - Routine Rectal Exam Patient deferred: digital exam - Routine Extremities Exam Present: nontender - Routine Back/Spine/Pelvis Exam Back/Spine: Present: full ROM - Routine Skin Exam Present: intact - Routine Neurological Exam Present: alert, oriented X3 - Routine Psychiatric Exam Present: normal affect Data - Labs CBC & Chem 7: 04/30/20 09:30 04/30/20 09:30 Labs: 01/24/20 11:33 CMP [Comprehensive Met. Panel] Routine Complete Blood Count Auto Diff Routine Lipid Panel Routine Vitamin B12 and Folate Routine Vitamin D 25-OH Total Routine 04/22/20 08:42 Cyanocobalamin (Vitamin B-12) [Vitamin B-12] 1,000 mcg IM ONCE ONE 04/30/20 09:30 Complete Blood Count Auto Diff Routine Laboratory Last Values WBC 8.2 X10*3/uL (4.8-10.8) 04/30/20 09:30 RBC 4.13 X10*6/uL (4.20-5.50) L 04/30/20 09:30 Hgb 11.2 g/dl (12.0-16.0) L D 04/30/20 09:30 Hct 37.4 % (37-47) D 04/30/20 09:30 MCV 90.6 fL (80-98) 04/30/20 09:30 MCH 27.1 pg (27.0-33.0) 04/30/20 09:30 MCHC 29.9 g/dl (31.0-35.0) L 04/30/20 09:30 RDW 16.1 % (11.0-16.0) H 04/30/20 09:30 Plt Count 233 X10*3/uL (160-400) 04/30/20 09:30 MPV 10.0 fL (9.4-12.3) 04/30/20 09:30 Immature Gran % (Auto) 0.4 % (0.0-0.4) 04/30/20 09:30 Neut % (Auto) 76.6 % (45-73) H 04/30/20 09:30 Lymph % (Auto) 15.7 % (20-40) L 04/30/20 09:30 [place] % (Auto) 4.9 % (2-11) 04/30/20 09:30 Eos % (Auto) 2.0 % (0-4) 04/30/20 09:30 Baso % (Auto) 0.4 % (0-2) 04/30/20 09:30 Neut # (Auto) 4.3 X10*3/uL (2.0-8.3) 01/24/20 11:33 Lymph # (Auto) 1.3 X10*3/uL (1.2-4.9) 04/30/20 09:30 [place] # (Auto) 0.4 X10*3/uL (0.1-1.2) 04/30/20 09:30 Eos # (Auto) 0.2 X10*3/uL (0.0-0.4) 04/30/20 09:30 Baso # (Auto) 0.0 X10*3/uL (0.0-0.2) 04/30/20 09:30 Abs Immat Gran (auto) 0.03 X10*3/uL (0.00-0.03) 04/30/20 09:30 Absolute Neuts (auto) 6.3 X10*3/uL (2.0-8.3) 04/30/20 09:30 Absolute Nucleated RBC 0.000 X10*3/uL (0.0-0.012) 04/30/20 09:30 Nucleated RBC % (auto) 0.0 /100WBC (0.0-0.2) 04/30/20 09:30 Sodium 140 mmol/L (135-145) 01/24/20 11:33 Potassium 4.4 mmol/l (3.3-5.1) 01/24/20 11:33 Chloride 105 mmol/L (96-108) 01/24/20 11:33 Carbon Dioxide 27 mmol/L (22-29) 01/24/20 11:33 Anion Gap 12 (12-20) 01/24/20 11:33 BUN 14 mg/dL (9-16) 01/24/20 11:33 Creatinine 0.93 mg/dL (0.5-1.4) 01/24/20 11:33 Estim Creat Clear Calc TNP 01/24/20 11:33 Estimated GFR > 60 01/24/20 11:33 Random Glucose 95 mg/dL (60-115) 01/24/20 11:33 Calcium 9.3 mg/dL (8.4-10.2) 01/24/20 11:33 Total Bilirubin 0.4 mg/dL (0.0-1.0) 01/24/20 11:33 AST 19 U/L (5-31) 01/24/20 11:33 ALT 19 U/L (0-31) 01/24/20 11:33 Alkaline Phosphatase 74 U/L (39-117) 01/24/20 11:33 Total Protein 6.9 g/dL (6.5-8.0) 01/24/20 11:33 Albumin 4.1 g/dL (3.5-5.0) 01/24/20 11:33 Triglycerides 44 mg/dL 01/24/20 11:33 Cholesterol 174 mg/dL 01/24/20 11:33 LDL Cholesterol, Calc 100 mg/dl 01/24/20 11:33 HDL Cholesterol 66 mg/dL 01/24/20 11:33 Vitamin B12 971 pg/mL (200-900) H 01/24/20 11:33 25-OH Vitamin D Total 54.1 ng/mL (>30) 01/24/20 11:33 Folate > 20.0 ng/mL (> or = 4.0) 01/24/20 11:33 Progress Note: A/P (1) Anemia Problem details: sees Dr. Jalloh/hx iron infusions/saw Dr. Jalloh 01/24/20 Status: Acute Assessment and plan: 59 year-old lady with history of Anemia, that is Bifactorial. She has Iron Deficiency as well as B12 Deficiency. She is currently on B12 replacement. She takes oral Folic Acid. She used to require intermittent parenteral Iron Therapy. Her last infusion was in September 2015. Her hemoglobin is a bit lower, although, she does feel rather fatigued. 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 She presented today for the B12 injection. Her iron studies, were normal back in August. She is holding stable. Hemoglobin is stable above 11. PLAN: If her H&H drops, to below 10 g, I will arrange for IV iron, since she is unable to tolerate p.o. on account of GI upset. The plan is to continue to follow her along. She will return monthly for the B12 injections. She will return for a followup in 6 months. She will call if she is more fatigued. Thank you, cc: Dr. Hanna Newell MD - Time Spent With Patient Total time spent is greater than 50% in coordination of care (as documented) at patient's floor/unit and/or counseling patient: 25 - 35 minutes
[2020-04-30 10:09] LABS: Alanine Aminotransferase 14 U/L (0-31); Albumin Level 3.9 g/dL (3.5-5.0); Alkaline Phosphatase 63 U/L (39-117); Anion Gap 15 (12-20); Aspartate Amino Transferase 24 U/L (5-31); Bilirubin Total 0.4 mg/dL (0.0-1.0); Blood Urea Nitrogen 23 mg/dL (9-16); Calcium 8.7 mg/dL (8.4-10.2); Carbon Dioxide 24 mmol/L (22-29); Chloride 107 mmol/L (96-108); Creatinine Clr Calc Pharmacy 70.4; Estimated Glomerular Filt Rate > 60; Glucose Random 93 mg/dL (60-115); Potassium 4.7 mmol/l (3.3-5.1); Sodium 141 mmol/L (135-145); Total Protein 7.1 g/dL (6.5-8.0)
[2020-04-30] MEDS: Cyanocobalamin (Vitamin B-12) 1,000 MCG/ML VIAL 1000 MCG IM (10:11)
--- NOTE | 2020-04-30 11:30 | MHC.HEMONCMA ---
Patient came in for a follow up, vitamin b12 deficiency. States she is feeling good, thinks she is going to retire in May when she turns 60. Medications and allergies reviewed and updated. She had her b12 injection today, and was scheduled for her next months.
[2020-05-28 10:33] VITALS: BP 137/70; PULSE 80; RESP 18; TEMP 36.6; O2SAT 97; BMI 34.7
[2020-05-28] MEDS: Cyanocobalamin (Vitamin B-12) 1,000 MCG/ML VIAL 1000 MCG IM (10:40)
[2020-10-27 09:26] VITALS: BP 131/62; PULSE 78; RESP 18; TEMP 36.2; O2SAT 100; BMI 35.2
--- NOTE | 2020-10-27 09:34 | PM.HEMONCPN ---
Medical Summary - Medical Summary Date of Service: 10/27/20 Chief complaint: follow-up for: Anemia. B12 deficiency. Medical Summary: DIAGNOSES: Multifactorial Anemia: 1. Iron deficiency. 2. B12 deficiency. CURRENT THERAPY: 1. Iron Dextran, last received in May 2014. 2. B12 injection monthly. 3. Folic acid 1 mg by mouth daily. Interval History Interval history: This is a pleasant 60 year-old lady, here for a follow-up visit. She is doing quite well. She recently retired. 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 Michelle. so work was getting to be a bit difficult to manage. Denies much fatigue. She is trying to exercise. She is up to 5000 steps a day. She walks outside twice a day. She still keeps her cane to be safe. If weather is not good she walks on the treadmill. No headache no dizziness. Denies chest pain or trouble breathing. She denies any abdominal pain nausea vomiting heartburn indigestion. Her bowels are working without any gross blood in the stools. She denies diarrhea. She has history of IBS. she also had ulcers in her small bowel. She is on omeprazole b.i.d. She has a family history of IBD. She follows with [facility]. Her appetite is okay. She has gained weight. Energy level is reasonable but she gets tired at times. She is in good spirits. Rest of the review of systems is unremarkable. Previous history: She was seen in the emergency room on July 21, 2019, for flu like symptoms. Her COVID-19, flu swab and RSV were all negative. She was diagnosed with bronchitis. She was given a nebulizer treatment. She was sent home on oral antibiotics. She is currently on Advair inhaler, with DuoNeb p.r.n. She is feeling better. She had some GI complaints. She underwent an upper endoscopy and colonoscopy on May [address] Canales which revealed: Gastric ulcer with erosive gastritis, multiple erosions, and from the colonoscopy, ileal erosions. Pathology revealed: A. Stomach, random, biopsy: Antral-type and oxyntic mucosa with moderate chronic active inflammation; no Helicobacter organisms seen. B. Terminal ileum, biopsy: Terminal ileal mucosa with rare small lymphohistiocytic aggregates, mild expansion of lamina propria chronic inflammatory cells and focal partial villous blunting; no dysplasia seen. C. Colon, random right, biopsy: Colonic mucosa with few small lymphohistiocytic aggregates, crypt regenerative changes, surface epithelial injury and mild expansion of lamina propria chronic inflammatory cells; no dysplasia seen. D. Colon, random left, biopsy: Colonic mucosa with rare small lymphohistiocytic aggregates and mild melanosis coli; otherwise within normal limits; no dysplasis seen. Had dad had colitis and a sister has Crohn's disease. 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 She was advised to hold the nonsteroidals she was taking, for arthritis. The Celebrex and Daypro. She has just been reintroduced to the Celebrex couple weeks ago. Review of Systems - Constitutional Reports no additional constitutional complaints, Reports lack of energy, Reports weakness, Reports weight gain - Eyes Reports no additional eye complaints - ENT Reports no additional ear, nose, mouth, and throat complaints, Denies vertigo - Cardiovascular Reports no additional cardiovascular complaints, Denies fast heart rate - Respiratory Reports no additional respiratory complaints, Denies chest congestion - Gastrointestinal Reports no additional gastrointestinal complaints, Denies black, tarry stools, Reports bloating, Denies diarrhea - Genitourinary Reports no additional female genitourinary complaints - Musculoskeletal Reports no additional musculoskeletal complaints - Integumentary/Breasts Skin/Breast: Reports no additional skin complaints - Neurologic Reports no additional neurologic complaints - Psychiatric Reports no additional psychiatric complaints - Endocrine Reports no additional endocrine complaints - Hematologic/Lymphatic Reports no additional hematologic/lymphatic complaints - Allergic/Immunologic Reports no additional allergic/immunologic complaints [facility] Medical History: Medical History (Last Reviewed 10/27/20 @ 09:41 by Vicki Birch RN) Asthma Bronchitis Family history of Crohn's disease GERD (gastroesophageal reflux disease) History of basal cell carcinoma HLD (hyperlipidemia) Hx of diverticulitis of colon Hx of irritable bowel syndrome Intestinal perforation Lab test negative for COVID-19 virus Wears dentures Wears glasses Wears hearing aid in both ears Functional capacity: independent ambulation Patient : No Family History: Family History (Last Reviewed 10/27/20 @ 09:41 by Vicki Birch RN) Father Colitis COPD (chronic obstructive pulmonary disease) Mother Stroke Diabetes Hypertension Other Family history of Crohn's disease Surgical History: Surgical History (Last Reviewed 05/21/21 @ 09:53 by Nisha Elizondo CMA) H/O colonoscopy History of colon resection History of colostomy reversal History of esophagogastroduodenoscopy (EGD) History of reversal of ileostomy History of tonsillectomy Hx of ileostomy Hx of total knee replacement Onset Date: ~01/2020 Hx of tubal ligation Social History: Social History (Last Reviewed 10/27/20 @ 09:41 by Vicki Birch RN) Living Situation History: Are you a primary child care to a significant other at home: No Do you presently have visiting nurse or other home services: No Alcohol History: Alcohol intake: never Tobacco History: Second Hand Smoke Exposure: Yes Advance Directives: Advance Directives: No Advance Directives Information Provided: Yes Advance Directives Date on File: 01/24/20 Nutrition Assessment: Patient : No Occupation Assessmet: service: No Current occupational status: employed Current occupational status: retired Current occupational status: disabled 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 - ECOG Performance Status ECOG Performance Status: 0 Home Medications and Allergies Current Medications: Current Medications Generic Name Dose Route Start Last Admin Trade Name Freq PRN Reason Stop Dose Admin Cyanocobalamin 1,000 mcg 10/27/20 09:15 Cyanocobalamin (Vitamin B-12) 1,000 Mcg/Ml Vial IM Q30D [facility] Home Medications Medication Instructions Recorded Confirmed Type Citrucel 1,000 mg PO BID 01/24/20 10/27/20 History [facility] 1 cap PO BID 01/24/20 10/27/20 History cholecalciferol (vitamin D3) 50 mcg PO DAILY 01/24/20 10/27/20 History [Vitamin D3] folic acid 1 tab PO DAILY 01/24/20 10/27/20 History ipratropium-albuterol 3 ml INHALATION Q4-6H PRN 01/24/20 10/27/20 History pseudoephedrine HCl [Sudafed] 30 mg PO Q4-6H PRN 01/24/20 10/27/20 History baclofen 20 mg tablet 20 mg PO NEEDED PRN tab 01/29/20 10/27/20 History mecobalamin (vitamin B12) 10,000 1,000 mcg IM QMONTH 07/27/20 10/27/20 History mcg solution for injection acetaminophen 650 mg PO Q8-10H 10/27/20 10/27/20 History celecoxib 200 mg PO QAM 10/27/20 10/27/20 History Allergies Allergy/AdvReac Type Severity Reaction Status Date / Time bee pollen [BEE STINGS] Allergy Severe SWELLING,WE Verified 07/27/20 11:09 LTS Lactose Allergy Intermediate abdominal Verified 07/27/20 11:09 bloating, stomach upset latex [LATEX] Allergy Intermediate RASH Verified 07/27/20 11:09 simvastatin AdvReac Intermediate myalgia Verified 07/27/20 11:09 Exam Vital signs: Vital Signs Temp 97.1 F 10/27/20 09:26 Pulse 78 10/27/20 09:26 Resp 18 10/27/20 09:26 BP 131/62 10/27/20 09:26 Pulse Ox 100 10/27/20 09:26 Intake & Output 10/26/20 10/27/20 10/27/20 18:59 06:59 18:59 Other: Weight 90.2 kg Weight in Grams [id number] Weight 90.2 kg Body Mass Index 35.2 - Constitutional Present: no acute distress - Routine HEENT Exam Head: Present: normal inspection Eye: Present: normal appearance ENT: Present: mucous membranes moist - Routine Neck Exam Present: full ROM - Routine Respiratory Exam Present: CTAB - Routine Cardiovascular Exam Cardiovascular: Present: RRR, S1, S2 - Routine Abdominal Exam Present: soft, tenderness. Absent: nontender - Routine Rectal Exam Patient deferred: digital exam - Routine Extremities Exam Present: nontender - Routine Back/Spine/Pelvis Exam Back/Spine: Present: full ROM - Routine Skin Exam Present: intact - Routine Neurological Exam Present: alert, oriented X3 - Routine Psychiatric Exam Present: normal affect Data - Labs CBC & Chem 7: 10/27/20 10:14 10/27/20 10:14 Labs: 01/24/20 11:33 CMP [Comprehensive Met. Panel] Routine Complete Blood Count Auto Diff Routine Lipid Panel Routine Vitamin B12 and Folate Routine Vitamin D 25-OH Total Routine 04/22/20 08:42 Cyanocobalamin (Vitamin B-12) [Vitamin B-12] 1,000 mcg IM ONCE ONE 04/30/20 09:30 Complete Blood Count Auto Diff Routine Laboratory Last Values WBC 8.2 X10*3/uL (4.8-10.8) 04/30/20 09:30 RBC 4.13 X10*6/uL (4.20-5.50) L 04/30/20 09:30 Hgb 11.2 g/dl (12.0-16.0) L D 04/30/20 09:30 Hct 37.4 % (37-47) D 04/30/20 09:30 MCV 90.6 fL (80-98) 04/30/20 09:30 MCH 27.1 pg (27.0-33.0) 04/30/20 09:30 MCHC 29.9 g/dl (31.0-35.0) L 04/30/20 09:30 RDW 16.1 % (11.0-16.0) H 04/30/20 09:30 Plt Count 233 X10*3/uL (160-400) 04/30/20 09:30 MPV 10.0 fL (9.4-12.3) 04/30/20 09:30 Immature Gran % (Auto) 0.4 % (0.0-0.4) 04/30/20 09:30 Neut % (Auto) 76.6 % (45-73) H 04/30/20 09:30 Lymph % (Auto) 15.7 % (20-40) L 04/30/20 09:30 Whitfield % (Auto) 4.9 % (2-11) 04/30/20 09:30 Eos % (Auto) 2.0 % (0-4) 04/30/20 09:30 Baso % (Auto) 0.4 % (0-2) 04/30/20 09:30 Neut # (Auto) 4.3 X10*3/uL (2.0-8.3) 01/24/20 11:33 Lymph # (Auto) 1.3 X10*3/uL (1.2-4.9) 04/30/20 09:30 Whitfield # (Auto) 0.4 X10*3/uL (0.1-1.2) 04/30/20 09:30 Eos # (Auto) 0.2 X10*3/uL (0.0-0.4) 04/30/20 09:30 Baso # (Auto) 0.0 X10*3/uL (0.0-0.2) 04/30/20 09:30 Abs Immat Gran (auto) 0.03 X10*3/uL (0.00-0.03) 04/30/20 09:30 Absolute Neuts (auto) 6.3 X10*3/uL (2.0-8.3) 04/30/20 09:30 Absolute Nucleated RBC 0.000 X10*3/uL (0.0-0.012) 04/30/20 09:30 Nucleated RBC % (auto) 0.0 /100WBC (0.0-0.2) 04/30/20 09:30 Sodium 140 mmol/L (135-145) 01/24/20 11:33 Potassium 4.4 mmol/l (3.3-5.1) 01/24/20 11:33 Chloride 105 mmol/L (96-108) 01/24/20 11:33 Carbon Dioxide 27 mmol/L (22-29) 01/24/20 11:33 Anion Gap 12 (12-20) 01/24/20 11:33 BUN 14 mg/dL (9-16) 01/24/20 11:33 Creatinine 0.93 mg/dL (0.5-1.4) 01/24/20 11:33 Estim Creat Clear Calc TNP 01/24/20 11:33 Estimated GFR > 60 01/24/20 11:33 Random Glucose 95 mg/dL (60-115) 01/24/20 11:33 Calcium 9.3 mg/dL (8.4-10.2) 01/24/20 11:33 Total Bilirubin 0.4 mg/dL (0.0-1.0) 01/24/20 11:33 AST 19 U/L (5-31) 01/24/20 11:33 ALT 19 U/L (0-31) 01/24/20 11:33 Alkaline Phosphatase 74 U/L (39-117) 01/24/20 11:33 Total Protein 6.9 g/dL (6.5-8.0) 01/24/20 11:33 Albumin 4.1 g/dL (3.5-5.0) 01/24/20 11:33 Triglycerides 44 mg/dL 01/24/20 11:33 Cholesterol 174 mg/dL 01/24/20 11:33 LDL Cholesterol, Calc 100 mg/dl 01/24/20 11:33 HDL Cholesterol 66 mg/dL 01/24/20 11:33 Vitamin B12 971 pg/mL (200-900) H 01/24/20 11:33 25-OH Vitamin D Total 54.1 ng/mL (>30) 01/24/20 11:33 Folate > 20.0 ng/mL (> or = 4.0) 01/24/20 11:33 Progress Note: A/P (1) Anemia Problem details: sees Dr. Jalloh/hx iron infusions/saw Dr. Jalloh 01/24/20 Status: Acute Assessment and plan: 60 year-old lady with history of Anemia, that is Mulitifactorial. She has ACD, Iron Deficiency as well as B12 Deficiency. She is currently on B12 replacement. She takes oral Folic Acid. She used to require intermittent parenteral Iron Therapy. Her last infusion was in September 2015. Her hemoglobin is actually improved, she does not feel fatigued. She presented today for the B12 injection. Her iron studies, were normal back in . She is holding stable. Hemoglobin is stable above 11.6, today. Iron studies from today: 56/303/18/49. They are consistent with ACD. PLAN: The plan is to continue to follow her along. She will return monthly for the B12 injections. She will return for a followup in 6 months. She will call if she is more fatigued. Thank you, CC: Dr. Hanna Newell MD. CHARLOTTE THOMPSON. - Time Spent With Patient 15 - 24 minutes
[2020-10-27] MEDS: Cyanocobalamin (Vitamin B-12) 1,000 MCG/ML VIAL 1000 MCG IM (09:43)
[2020-10-27 10:57] LABS: MANUAL DIFF FLAG NO
[2020-10-27 11:17] LABS: Basophils Percent Auto 0.4 % (0-2); Eosinophils Absolute Auto 0.1 X10*3/uL (0.0-0.4); Eosinophils Percent Auto 1.5 % (0-4); Hematocrit 37.6 % (37-47); Hemoglobin 11.6 g/dl (12.0-16.0); Imm Gran Abs Auto 0.02 X10*3/uL (0.00-0.03); Imm Gran Pct Auto 0.3 % (0.0-0.4); Lymphocytes Absolute Auto 1.2 X10*3/uL (1.2-4.9); Lymphocytes Percent Auto 17.8 % (20-40); Mean Corpuscular HGB Conc 30.9 g/dl (31.0-35.0); Mean Corpuscular Hemoglobin 27.7 pg (27.0-33.0); Mean Corpuscular Volume 89.7 fL (80-98); Mean Platelet Volume 10.5 fL (9.4-12.3); Monocytes Absolute Auto 0.3 X10*3/uL (0.1-1.2); Monocytes Percent Auto 4.7 % (2-11); Neutrophils Absolute Auto 5.2 X10*3/uL (2.0-8.3); Neutrophils Percent Auto 75.3 % (45-73); Platelet Count 207 X10*3/uL (160-400); Red Blood Count 4.19 X10*6/uL (4.20-5.50); Red Cell Distribution Width 14.8 % (11.0-16.0); White Blood Count 6.9 X10*3/uL (4.8-10.8)
[2020-10-27 11:21] LABS: Alanine Aminotransferase 14 U/L (0-31); Albumin Level 4.1 g/dL (3.5-5.0); Alkaline Phosphatase 79 U/L (39-117); Anion Gap 13 (12-20); Aspartate Amino Transferase 18 U/L (5-31); Bilirubin Total 0.5 mg/dL (0.0-1.0); Blood Urea Nitrogen 20 mg/dL (9-16); Calcium 9.5 mg/dL (8.4-10.2); Carbon Dioxide 26 mmol/L (22-29); Chloride 108 mmol/L (96-108); Creatinine Clr Calc Pharmacy 69.8; Estimated Glomerular Filt Rate > 60; Glucose Random 118 mg/dL (60-115); Iron 56 mcg/dL (30-160); Percent Iron Saturation 18 % (15-50); Potassium 4.3 mmol/L (3.3-5.1); Sodium 143 mmol/L (135-145); Total Iron Binding Capacity 303 mcg/dL (228-428); Total Protein 7.1 g/dL (6.5-8.0); Unsaturated Iron Binding 247 ug/dL
[2020-10-27 11:44] LABS: Ferritin 49 ng/mL (10-250)
== END 2020-12-03 10:58 | disposition home or self-care (01) ==
LOC: HO.ONC 09:00
PROVIDERS: PCP Internal Medicine; Visit Provider Internal Medicine Medical Oncology
DX: D51.9 Vitamin B12 deficiency anemia, unspecified (principal); D50.9 Iron deficiency anemia, unspecified; D63.8 Anemia in other chronic diseases classified elsewhere; Z79.899 Other long term (current) drug therapy
CPT/HCPCS: 36415; 80053; 80061; 82306; 82607; 82728; 82746; 83540; 85025; 96372; 99214

== ENCOUNTER → 2020-10-27 09:00 | Outpatient (BNV) | payer BC, SELFPAY | PROVIDERS: PCP Internal Medicine; Visit Provider Internal Medicine Medical Oncology | DX: E53.8 Deficiency of other specified B group vitamins (principal); D64.9 Anemia, unspecified | CPT/HCPCS: 99213 ==

== ENCOUNTER → 2020-11-10 14:28 | Outpatient (BNVA) | payer BC, SELFPAY | PROVIDERS: PCP Internal Medicine; Visit Provider Internal Medicine Pulmonary Disease ==

== ENCOUNTER → 2021-01-04 14:19 | Outpatient (BNVA) | payer BC, SELFPAY | PROVIDERS: Visit Provider Nurse Practitioner ==

== ENCOUNTER 2021-01-14 10:33 | Outpatient (REF) | payer BC, SELFPAY ==
--- NOTE | ~2021-01-14 | MM_ITS ---
EXAMINATION: MM SCREENING DIGITAL BREAST TOMOSYNTHESIS, BILATERAL CLINICAL INFORMATION: Screening. Asymptomatic. The lifetime risk of breast cancer based on the Tyrer-Cuzick Model is 7.4%. COMPARISON: Mammography: February 03, 2018 and studies dating back to December 22, 2015 TECHNIQUE: Digital breast tomosynthesis is performed in both the craniocaudal and mediolateral oblique views along with computer-aided detection (CAD). Synthesized 2D images are generated from the tomosynthesis. FINDINGS: There are scattered areas of fibroglandular density (ACR BI-RADS breast composition Category b). There are no significant masses, abnormal calcifications, or other abnormalities. MM/MM tomosynthesis screening BI IMPRESSION: There are no significant changes from prior study. ASSESSMENT: BI-RADS 1: Negative RECOMMENDATION: Routine annual mammography screening. This patient's information was entered into a reminder system with a target due date for their next mammogram.
== END 2021-01-14 10:34 | disposition home or self-care (01) ==
LOC: HO.MAMMO 10:33
PROVIDERS: PCP Internal Medicine; Visit Provider Internal Medicine
DX: Z12.31 Encounter for screening mammogram for malignant neoplasm of breast (principal)
CPT/HCPCS: 77063; 77067

== ENCOUNTER 2021-01-27 08:18 | Outpatient (REF) | payer BC, SELFPAY ==
--- NOTE | ~2021-01-27 | XR_ITS ---
EXAMINATION: XR KNEE, RIGHT XR KNEE AP STANDING CLINICAL INFORMATION: Pain. COMPARISON: Radiographs dated 06/09/2020. TECHNIQUE: AP and lateral views of the right knee. AP bilateral standing view of the knees was obtained. FINDINGS: Prosthetic components of the right total knee arthroplasty are appropriately aligned without periprosthetic fracture or lucency. No component migration. No joint effusion. The lateral and medial joint space compartment of the left knee are well-maintained and shows slight peripheral osteophyte formation. XR/XR knee RT 2V IMPRESSION: Appropriate alignment of the right total knee arthroplasty without evidence of complications.
--- NOTE | ~2021-01-27 | XR_ITS ---
EXAMINATION: XR KNEE, RIGHT XR KNEE AP STANDING CLINICAL INFORMATION: Pain. COMPARISON: Radiographs dated 06/09/2020. TECHNIQUE: AP and lateral views of the right knee. AP bilateral standing view of the knees was obtained. FINDINGS: Prosthetic components of the right total knee arthroplasty are appropriately aligned without periprosthetic fracture or lucency. No component migration. No joint effusion. The lateral and medial joint space compartment of the left knee are well-maintained and shows slight peripheral osteophyte formation. XR/XR knee standing BI IMPRESSION: Appropriate alignment of the right total knee arthroplasty without evidence of complications.
== END 2021-01-27 08:19 | disposition home or self-care (01) ==
LOC: HO.HOSX 08:18
PROVIDERS: Visit Provider Physician Assistant
DX: M25.561 Pain in right knee (principal); M25.562 Pain in left knee; E78.5 Hyperlipidemia, unspecified; J40 Bronchitis, not specified as acute or chronic; Z96.651 Presence of right artificial knee joint; Z88.8 Allergy status to other drugs, medicaments and biological substances; Z91.030 Bee allergy status; Z91.040 Latex allergy status; Z91.011 Allergy to milk products
CPT/HCPCS: 73560; 73565

== ENCOUNTER 2021-01-28 08:28 | Outpatient (REF) | payer BC, SELFPAY ==
--- NOTE | 2021-01-28 10:25 | MHC.AU.AHA ---
Adult Audiological Evaluation Date of Visit: 01/28/21 Reason for Appointment: Audiological re-evaluation to monitor the status of Ms. Aguilar's hearing loss. She has a known bilateral, mixed hearing loss and uses hearing aids binaurally. Ms. Aguilar has a history of middle-ear dysfunction and drainage from her ears. She notes that she continues to have difficulties hearing in the presence of background noise. Previous Hearing Test Results: [facility], 01/27/2020 - Bilateral mild to moderately-severe mixed hearing loss. 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 Clear canal Left Ear: Clear canal, some moisture in canal Tympanometry: Tympanometry performed due to: History of middle ear dysfunction Right Ear: Non-compliant Middle Ear System (Type B) Left Ear: Non-compliant Middle Ear System (Type B) Hearing Evaluation: Transducer(s) Used: Insert Earphones, Bone Conduction Method: Conventional Audiometry Stimuli Used: Pure Tones Right Ear: Description of Hearing: Mild to moderate mixed hearing loss from 250-500 Hz, rising to mild sensorineural hearing loss at 1000 Hz, then sloping to a moderate sensorineural hearing loss from 4931-4959 Hz, rising to a mild mixed hearing at 3000 Hz, and sloping to a moderate mixed hearing loss from 1820-2883 Hz. Left Ear: Description of Hearing: Mild to moderate mixed hearing loss from 250-1000 Hz, sloping to a moderately-severe sensorineural hearing loss from 1599-7616 Hz, rising to a moderate mixed hearing loss at 9015-5362 Hz. Speech Recognition Threshold (SRT): Method Used: Monitored Live Voice Stimuli Used: Spondee Words Right Ear: 40 dBHL Left Ear: 40 dBHL Word Discrimination: Method: Recorded Lists Word Lists Used: NU-6 Right Ear: 88% at 80 dBHL Left Ear: 92% at 80 dBHL Comparison: Compared to the most recent evaluation: Hearing is stable. Recommendations: Audiological re-evaluation in one year. Hearing aid maintenance performed today. Hearing aid(s) reprogrammed with updated test results. Ms. Aguilar notes that she may be interested in pursuing new hearing aids in the next few months. She was welcomed to return for a hearing aid consultation to talk about new hearing options, styles, and technologies. Medical clearance for hearing aid use is being requested from her PCP in preparation for pursuing new hearing aids. Ms. Aguilar may also benefit from following up with ENT or getting a second opinion from another ENT practice regarding her middle-ear dysfunction. Diagnosis: Primary Diagnosis: H90.6 Mixed Hearing Loss, Bilateral Secondary Diagnosis: H69.93 Unspecified Eustachian Tube Dysfunction, Bilateral Signature: Provider: Arnoldo Doll, CCC-A
--- NOTE | 2021-01-28 10:29 | MHC.AU.MED ---
Medical Clearance for Hearing Instrumentation Date: 01/28/21 Patient Name: Sharron Aguilar Date of : 1960 Referring Provider: Erlinda Newell MD We have seen your patient on 01/28/21 and have determined that they are a candidate for amplification (See accompanying report). Specifically, they would benefit from: Hearing aid use in both ears There is a statute that addresses Medical Evaluation Requirements prior to fitting a patient with a hearing aid. According to [place] statute 265 CMR:6.03(1), (a) General. Except as provided in 265 CMR 6.03(1)(b), a deaf and hard of hearing teacher shall not sell a hearing aid unless the prospective user has presented to the deaf and hard of hearing teacher a written statement signed by a licensed physician that states that the patient's hearing loss has been medically evaluated and the patient may be considered a candidate for a hearing aid. The medical evaluation must have taken place within the preceding six months. Please note: Due to the [place] Statute referenced above, we cannot accept a signature other than that of a licensed physician. FURNITURE STAINER and PA signatures cannot be accepted. I am in agreement with the above recommendation. There is no medical contraindication for hearing instrumentation. Physician Signature Date Physician Name (Printed)
== END 2021-01-28 08:29 | disposition home or self-care (01) ==
LOC: HO.SH 08:28
PROVIDERS: Visit Provider Internal Medicine
DX: H90.5 Unspecified sensorineural hearing loss (principal)
CPT/HCPCS: 92557; 92567

== ENCOUNTER 2021-01-28 10:01 | Outpatient (REF) | payer SELFPAY | END 2021-01-28 10:02 | disposition home or self-care (01) | LOC: HO.HAP 10:01 | PROVIDERS: Visit Provider Internal Medicine | DX: Z46.1 Encounter for fitting and adjustment of hearing aid (principal); H90.6 Mixed conductive and sensorineural hearing loss, bilateral | CPT/HCPCS: V5267 ==

== ENCOUNTER → 2021-04-06 12:49 | Outpatient (BNVA) | payer BC, SELFPAY | PROVIDERS: PCP Internal Medicine; Visit Provider Internal Medicine Pulmonary Disease ==

== ENCOUNTER 2021-04-27 08:48 | Outpatient (REF) | payer BC, SELFPAY | END 2021-04-27 08:49 | disposition home or self-care (01) | LOC: HO.LAB 08:48 | PROVIDERS: PCP Internal Medicine; Visit Provider Internal Medicine | DX: Z13.89 Encounter for screening for other disorder (principal) ==

== ENCOUNTER 2021-06-07 09:15 | Outpatient (REF) | payer BC, SELFPAY ==
[2021-06-09 20:51] LABS: HPV mRNA E6/E7 rflx Not Detected (Not Detected)
== END 2021-06-07 09:16 | disposition home or self-care (01) ==
LOC: HO.LAB 09:15
PROVIDERS: PCP Internal Medicine; Visit Provider Obstetrics & Gynecology
DX: Z01.419 Encounter for gynecological examination (general) (routine) without abnormal findings (principal); Z11.51 Encounter for screening for human papillomavirus (HPV)
CPT/HCPCS: 87624; 88142

== ENCOUNTER → 2021-07-05 14:19 | Outpatient (BNVA) | payer BC, SELFPAY | PROVIDERS: PCP Internal Medicine; Referring Provider Internal Medicine; Visit Provider Nurse Practitioner | DX: K21.9 Gastro-esophageal reflux disease without esophagitis (principal); K63.3 Ulcer of intestine; K25.9 Gastric ulcer, unspecified as acute or chronic, without hemorrhage or perforation; K59.04 Chronic idiopathic constipation; Z79.899 Other long term (current) drug therapy | CPT/HCPCS: 99212 ==

== ENCOUNTER → 2021-08-10 09:31 | Outpatient (BNVA) | payer BC, SELFPAY | PROVIDERS: PCP Internal Medicine; Visit Provider Internal Medicine Pulmonary Disease | DX: Z12.89 Encounter for screening for malignant neoplasm of other sites (principal) ==

== ENCOUNTER 2021-08-12 08:21 | Outpatient (REF) | payer BC, SELFPAY ==
--- NOTE | ~2021-08-12 | XR_ITS ---
EXAMINATION: XR KNEES, STANDING AP SR KNEE, LEFT CLINICAL INFORMATION: Knee pain COMPARISON: Standing AP knees 01/27/2021, right knee 02/11/2020, left knee 05/28/2019. TECHNIQUE: Standing AP view of both knees is performed. Left knee is also imaged in lateral x2 and axial patella views. FINDINGS: Left: There is tricompartment osteoarthritis with narrowing patellofemoral joint and lateral patellar spur. There is borderline lateralization patella. There is also narrowing medial knee joint compartment with osteophytes medial femoral condyle and tibial plateau. No erosive change or visible chondrocalcinosis. There is small linear calcification adjacent to the proximal portion lateral femoral condyle, similar to prior exam. No suprapatellar effusion. Hoffa's fat pad appears normal. There is spurring at the quadriceps insertion patella and at the origin of the patellar tendon. Right: Prior knee arthroplasty. Hardware intact. No destructive process or osteolysis. No periostitis. XR/XR knee LT 2V IMPRESSION: Left: -Tricompartment osteoarthritis. -Patella spurring at quadriceps insertion, origin patellar tendon, and lateral patella. Right: -Prior knee arthroplasty.
--- NOTE | ~2021-08-12 | XR_ITS ---
EXAMINATION: XR KNEES, STANDING AP SR KNEE, LEFT CLINICAL INFORMATION: Knee pain COMPARISON: Standing AP knees 01/27/2021, right knee 02/11/2020, left knee 05/28/2019. TECHNIQUE: Standing AP view of both knees is performed. Left knee is also imaged in lateral x2 and axial patella views. FINDINGS: Left: There is tricompartment osteoarthritis with narrowing patellofemoral joint and lateral patellar spur. There is borderline lateralization patella. There is also narrowing medial knee joint compartment with osteophytes medial femoral condyle and tibial plateau. No erosive change or visible chondrocalcinosis. There is small linear calcification adjacent to the proximal portion lateral femoral condyle, similar to prior exam. No suprapatellar effusion. Hoffa's fat pad appears normal. There is spurring at the quadriceps insertion patella and at the origin of the patellar tendon. Right: Prior knee arthroplasty. Hardware intact. No destructive process or osteolysis. No periostitis. XR/XR knee standing BI IMPRESSION: Left: -Tricompartment osteoarthritis. -Patella spurring at quadriceps insertion, origin patellar tendon, and lateral patella. Right: -Prior knee arthroplasty.
== END 2021-08-12 08:22 | disposition home or self-care (01) ==
LOC: HO.HOSX 08:21
PROVIDERS: Visit Provider Orthopaedic Surgery
DX: M17.12 Unilateral primary osteoarthritis, left knee (principal)
CPT/HCPCS: 73560; 73565

== ENCOUNTER → 2021-09-01 13:32 | Outpatient (RCR) | payer BC, SELFPAY ==
--- NOTE | 2020-03-03 13:37 | MHC.PT.EP ---
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 Pt is deemed an appropriate candidate to receive skilled PT services to address her physical impairments in order to improve her functional ability. Frequency and Duration: The patient will be seen 2x/ wk x 8 wks. Short Term Goals: In 1 week: initiate HEP with evidence of compliance. In 3 weeks: full knee extension ROM achieved; initial 12 degrees flexion. In 3 weeks: > 119 degrees knee flexion achieved; initial 80 degrees. In 6 weeks: performs stairs in reciprocal fashion w/o compensation. Auto Phone Installer Goals: In 8 weeks: Pt will be able to walk 1 mile with managed Sx; initial: unable or with extreme difficulty. In 8 weeks: I with home program. Treatment Plan: Modalities to reduce pain, spasms and effusion. Manual therapy to restore motion and function. Therapeutic exercise to improve strength and flexibility. Neuromuscular re-education for posture and balance. Therapeutic activities to return to functional activities of daily living. Please sign and return to therapist. Thank you for your referral.
--- NOTE | 2020-07-03 16:24 | MHC.PT.DC ---
[facility] [place] Office [place] [facility] [place] [facility] [address] David Ayala [address] [phone] F: [phone] F: [phone] F: [phone] F: [phone] Physical Therapy Discharge Report Diagnosis: R TKA DOS: 02/10/20 Date of Surgery: 02/10/20 Date of Evaluation: 03/03/20 Date of Discharge: 07/03/20 Treatments to Date: 33 Cancellations to Date: 0 No Shows to Date: 0 Discharge Status: Improved Function Independent with HEP Discharge Summary: Sharron has been an active participant in her therapy in and out of the clinic. Pt has had an extended course of PT d/t COVID 19 Dx early in her recovery and low motivation to adopt HEP early. Pt has achieved all of her therapeutic goals save for some compensation descending stairs though is descending reciprocally which she has not been able to do for years. knee ROM 3- 124 degrees. Pt is in agreement with Dc at this time and is I with her home program. Electronically signed by: Antonio Garg PT. Please sign and return to therapist. Thank you for your referral.
== END | disposition home or self-care (01) ==
LOC: HO.PTCHIC 03-03 09:38
PROVIDERS: PCP Internal Medicine; Visit Provider Physician Assistant
DX: Z47.1 Aftercare following joint replacement surgery (principal); Z96.651 Presence of right artificial knee joint
CPT/HCPCS: 97014; 97035; 97110; 97116; 97140; 97161; 97530

== ENCOUNTER 2021-10-21 10:51 | Outpatient (REF) | payer BC, SELFPAY ==
[2021-10-21 11:16] LABS: Prothrombin Time 11.6 SEC (10.0-13.1)
[2021-10-21 12:22] LABS: TSH reflex Free T4 1.38 uIU/mL (0.32-4.0)
== END 2021-10-21 10:52 | disposition home or self-care (01) ==
LOC: HO.LAB 10:51
PROVIDERS: PCP Internal Medicine; Visit Provider Nurse Practitioner Family
DX: Z01.818 Encounter for other preprocedural examination (principal)
CPT/HCPCS: 36415; 84443; 85610

== ENCOUNTER 2021-11-02 10:07 | Inpatient (IN) | payer BC, SELFPAY ==
--- NOTE | 2021-10-20 | ECG_ITS ---
Test Reason : preop Blood Pressure : / mmHG Vent. Rate : 066 BPM Atrial Rate : 066 BPM P-R Int : 182 ms QRS Dur : 080 ms QT Int : 400 ms P-R-T Axes : 015 -33 022 degrees QTc Int : 419 ms Normal sinus rhythm Left axis deviation Abnormal ECG When compared with ECG of 24-JAN-2020 10:46, No significant change was found Referred By: Viry Koroma Electronically Signed By:SATURNINO ADAMES
[2021-10-20 12:13] VITALS: BP 139/63; PULSE 70; RESP 20; O2SAT 98; BMI 36.7
--- NOTE | 2021-10-20 12:26 | HO.ANESPROP2 ---
Documented by User: Tonya Galeana NP 11/01/21 09:00 HPI - Anesthesia Eval Consult details Narrative: 61yo F for Left Knee Replacement Total s/p right side 01/2020 with spinal/block - went smoothly per pt PMFSH Active Problems Active Problems: All Active Problems (Updated 10/19/21 @ 09:36 by Jenny Veras, REGINALDO) Asthma (Acute) Hx of diverticulitis of colon (Acute) Anemia (Acute) Arthritis (Acute) Psoriasis (Acute) Recurrent boils of anus (Acute) Chronic idiopathic constipation (Acute) Gastric ulcer (Acute) Ileal erosions (Acute) Moderate persistent asthma (Acute) Environmental allergies (Acute) Encounter for preoperative pulmonary examination (Acute) Osteoarthritis of right knee (Acute) Primary osteoarthritis of right knee (Acute) HLD (hyperlipidemia) (Acute) Status post total right knee replacement (Acute) Bilateral otitis media (Acute) GERD (gastroesophageal reflux disease) (Acute) Abscess (Acute) B12 deficiency anemia (Acute) Hearing loss (Acute) Screening for cervical cancer (Acute) Well woman exam (Acute) Tricompartment osteoarthritis of left knee (Acute) Past Medical History Medical History Anemia Asthma Bronchitis COVID-19 vaccine series completed Family history of Crohn's disease GERD (gastroesophageal reflux disease) Hearing loss History of basal cell carcinoma History of COVID-19 HLD (hyperlipidemia) Hx of diverticulitis of colon Hx of irritable bowel syndrome Screening for cervical cancer Wears hearing aid in both ears Family History Family History (Updated 10/26/21 @ 08:31 by Torri Wood CMA) Father Colitis COPD (chronic obstructive pulmonary disease) Mother Diabetes Mental health disorder Hypertension Stroke Sister Lung cancer Paternal Grandmother Stomach cancer Family/Other Breast cancer Ovarian cancer Other Family history of Crohn's disease Family history of problems with anesthesia: No Surgical History Surgical History H/O colonoscopy History of colon resection History of colostomy reversal History of esophagogastroduodenoscopy (EGD) History of reversal of ileostomy History of tonsillectomy Hx of ileostomy Hx of total knee replacement (~01/2020) Hx of tubal ligation History of Problems with Anesthesia: No Social History Social History (Updated 10/26/21 @ 08:33 by Torri Wood [facility]) Household Members: Spouse, Family and Children Housing: House Are you a primary zoo caretaker to a significant other at home: No Do you presently have visiting nurse or other home services: No Alcohol intake: never Patient Tobacco Use Status: Never used Tobacco e-Cigarette/Vaping Use: Never Used Second Hand Smoke Exposure: Yes Use of substances other than those prescribed or required for medical reasons: No Have you been hit, kicked, punched, or otherwise hurt by someone within the past year? 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 needs: No Hearing needs: Yes Vision needs: Yes Narrative Narrative: No recent illness No CP/SOB within limits of knee pain Meds Allergies Allergy/AdvReac Type Severity Reaction Status Date / Time bee pollen [BEE STINGS] Allergy Severe SWELLING,WE Verified 10/28/21 13:57 LTS latex [LATEX] Allergy Mild RASH Verified 10/28/21 13:57 Lactose AdvReac Intermediate abdominal Verified 10/28/21 13:57 bloating, stomach upset simvastatin AdvReac Intermediate myalgia Verified 10/28/21 13:57 Home Medications Medication Instructions Recorded Confirmed Last Taken Type Lactobacillus rhamnosus GG 10 1 cap PO BID 01/24/20 10/26/21 Unknown History billion cell-inulin 200 mg capsule ([facility] [employer] [facility]) cholecalciferol (vitamin D3) 50 50 mcg PO DAILY 01/24/20 10/26/21 Unknown History mcg (2,000 unit) capsule (Vitamin D3) methylcellulose (laxative) 500 mg 1,000 mg PO BID 01/24/20 10/26/21 Unknown History tablet (Citrucel) baclofen 20 mg tablet 20 mg PO NEEDED PRN Spasms 01/29/20 10/26/21 Unknown History mecobalamin (vitamin B12) 10,000 1,000 mcg IM QMONTH 07/27/20 10/26/21 Unknown History mcg solution for injection celecoxib 200 mg capsule (Celebrex) 200 mg PO BID 10/27/20 10/26/21 Unknown History ciclopirox 0.77 % topical cream 1 appl topical BID 11/19/20 10/26/21 Unknown History ketoconazole 1 % shampoo 1 appl topical 2XW 11/19/20 10/26/21 Unknown History triamcinolone acetonide 0.025 % 1 appl topical BID 11/19/20 10/26/21 Unknown History topical cream fluticasone 250 mcg-salmeterol 50 1 inh inhalation BID 08/10/21 10/26/21 11/02/21 History mcg/dose blistr powdr for inhalation (Advair Diskus) lovastatin 10 mg tablet 10 mg PO BEDTIME 08/26/21 10/26/21 Unknown History famotidine 40 mg tablet 40 mg PO BEDTIME 10/19/21 10/26/21 Unknown History tacrolimus 0.1 % topical ointment 1 appl topical BID 10/19/21 10/26/21 Unknown History Exam Exam Date and Time: October 20, 2021 1226 Height,Weight and Vital Signs: Height 5 ft 3 in Weight 94.1 kg Last Vital Signs Pulse 70 10/20/21 12:13 Resp 20 10/20/21 12:13 BP 139/63 10/20/21 12:13 Pulse Ox 98 10/20/21 12:13 O2 Del Method 10/20/21 12:13 Pertinent Lab Results Pertinent Lab Results: Laboratory Tests 10/20/21 10/20/21 13:01 13:01 WBC 6.4 Hgb 11.1 L Hct 36.3 L Plt Count 230 Sodium 141 Potassium 4.6 Chloride 107 Carbon Dioxide 28 BUN 22 H Creatinine 0.92 Narrative Narrative: EKG 09/2021 Vent. Rate : 066 BPM ? ? Atrial Rate : 066 BPM ?? P-R Int : 182 ms? QRS Dur : 080 ms ? ? QT Int : 400 ms ? ? ? P-R-T Axes : 015 -33 022 degrees ?? QTc Int : 419 ms ? Normal sinus rhythm Left axis deviation Abnormal ECG When compared with ECG of 24-JAN-2020 10:46, No significant change was found Airway Mallampati Class: III TM Dist: >3cm Neck ROM: Full Denture: Upper Loose/Missing/Broken Teeth: Yes (Lower Molar missing, crowned lower molar x 2) Heart: RRR Lungs: CTAB Assessment and Plan Assessment Anesthesia Assessment: Anesthesia Plan Discussed and PAT Visit Final Anesthetic Review Family History of Problems with Anesthesia: No History of Problems with Anesthesia: No Documented by User: Darrel Lopez MD 11/02/21 16:32 [facility] Past Medical History Medical History Anemia Asthma Bronchitis COVID-19 vaccine series completed Family history of Crohn's disease GERD (gastroesophageal reflux disease) Hearing loss History of basal cell carcinoma History of COVID-19 HLD (hyperlipidemia) Hx of diverticulitis of colon Hx of irritable bowel syndrome Screening for cervical cancer Wears hearing aid in both ears Family History Family History (Updated 10/26/21 @ 08:31 by Torri Wood CMA) Father Colitis COPD (chronic obstructive pulmonary disease) Mother Diabetes Mental health disorder Hypertension Stroke Sister Lung cancer Paternal Grandmother Stomach cancer Family/Other Breast cancer Ovarian cancer Other Family history of Crohn's disease Surgical History Surgical History H/O colonoscopy History of colon resection History of colostomy reversal History of esophagogastroduodenoscopy (EGD) History of reversal of ileostomy History of tonsillectomy Hx of ileostomy Hx of total knee replacement (~01/2020) Hx of tubal ligation Social History Social History (Updated 10/26/21 @ 08:33 by Torri Wood CMA) Household Members: Spouse, Family and Children Housing: House Are you a primary zoo caretaker to a significant other at home: No Do you presently have visiting nurse or other home services: No Alcohol intake: never Patient Tobacco Use Status: Never used Tobacco e-Cigarette/Vaping Use: Never Used Second Hand Smoke Exposure: Yes Use of substances other than those prescribed or required for medical reasons: No Have you been hit, kicked, punched, or otherwise hurt by someone within the past year? 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 needs: No Hearing needs: Yes Vision needs: Yes Meds Allergies Allergy/AdvReac Type Severity Reaction Status Date / Time bee pollen [BEE STINGS] Allergy Severe SWELLING,WE Verified 10/28/21 13:57 LTS latex [LATEX] Allergy Mild RASH Verified 10/28/21 13:57 Lactose AdvReac Intermediate abdominal Verified 10/28/21 13:57 bloating, stomach upset simvastatin AdvReac Intermediate myalgia Verified 10/28/21 13:57 Home Medications Medication Instructions Recorded Confirmed Last Taken Type Lactobacillus rhamnosus GG 10 1 cap PO BID 01/24/20 10/26/21 Unknown History billion cell-inulin 200 mg capsule ([facility]) cholecalciferol (vitamin D3) 50 50 mcg PO DAILY 01/24/20 10/26/21 Unknown History mcg (2,000 unit) capsule (Vitamin D3) methylcellulose (laxative) 500 mg 1,000 mg PO BID 01/24/20 10/26/21 Unknown History tablet (Citrucel) baclofen 20 mg tablet 20 mg PO NEEDED PRN Spasms 01/29/20 10/26/21 Unknown History mecobalamin (vitamin B12) 10,000 1,000 mcg IM QMONTH 07/27/20 10/26/21 Unknown History mcg solution for injection celecoxib 200 mg capsule (Celebrex) 200 mg PO BID 10/27/20 10/26/21 Unknown History ciclopirox 0.77 % topical cream 1 appl topical BID 11/19/20 10/26/21 Unknown History ketoconazole 1 % shampoo 1 appl topical 2XW 11/19/20 10/26/21 Unknown History triamcinolone acetonide 0.025 % 1 appl topical BID 11/19/20 10/26/21 Unknown History topical cream fluticasone 250 mcg-salmeterol 50 1 inh inhalation BID 08/10/21 10/26/21 11/02/21 History mcg/dose blistr powdr for inhalation (Advair Diskus) lovastatin 10 mg tablet 10 mg PO BEDTIME 08/26/21 10/26/21 Unknown History famotidine 40 mg tablet 40 mg PO BEDTIME 10/19/21 10/26/21 Unknown History tacrolimus 0.1 % topical ointment 1 appl topical BID 10/19/21 10/26/21 Unknown History Assessment and Plan Assessment Anesthesia Assessment: Chart Reviewed Final Anesthetic Review NPO: Yes ASA Class: III Final Preanesthetic Review: Meds/Allgs Chart Reviewed, Consent Obtained/Reviewed and Anes Risks/Benef Reviewed Patient Risk: Intermediate Procedure Risk: Intermediate Anesthetic Plan Anesthetic Plan: Spinal and Regional Block
[2021-10-20 13:02] LABS: MANUAL DIFF FLAG NO
[2021-10-20 13:15] LABS: Basophils Percent Auto 0.5 % (0-2); Eosinophils Absolute Auto 0.1 X10*3/uL (0.0-0.4); Eosinophils Percent Auto 1.5 % (0-4); Hematocrit 35.3 % (37.0-47.0); Hemoglobin 11.2 g/dl (12.0-16.0); Imm Gran Abs Auto 0.04 X10*3/uL (0.00-0.03); Imm Gran Pct Auto 0.6 % (0.0-0.4); Lymphocytes Absolute Auto 1.2 X10*3/uL (1.2-4.9); Lymphocytes Percent Auto 19.2 % (20-40); Mean Corpuscular HGB Conc 31.7 g/dl (31.0-35.0); Mean Corpuscular Hemoglobin 28.4 pg (27.0-33.0); Mean Corpuscular Volume 89.6 fL (80.0-98.0); Mean Platelet Volume 10.1 fL (9.4-12.3); Monocytes Absolute Auto 0.4 X10*3/uL (0.1-1.2); Monocytes Percent Auto 6.3 % (2-11); Neutrophils Absolute Auto 4.5 x10*3/uL (2.0-8.3); Neutrophils Percent Auto 71.9 % (45-73); Platelet Count 225 X10*3/uL (160-400); Red Blood Count 3.94 X10*6/uL (4.20-5.50); Red Cell Distribution Width 14.6 % (11.0-16.0); White Blood Count 6.2 X10*3/uL (4.8-10.8)
[2021-10-20 13:16] LABS: Basophils Percent Auto 0.5 % (0-2); Eosinophils Absolute Auto 0.1 X10*3/uL (0.0-0.4); Eosinophils Percent Auto 1.4 % (0-4); Hematocrit 36.3 % (37.0-47.0); Hemoglobin 11.1 g/dl (12.0-16.0); Imm Gran Abs Auto 0.03 X10*3/uL (0.00-0.03); Imm Gran Pct Auto 0.5 % (0.0-0.4); Lymphocytes Absolute Auto 1.3 X10*3/uL (1.2-4.9); Lymphocytes Percent Auto 19.4 % (20-40); Mean Corpuscular HGB Conc 30.6 g/dl (31.0-35.0); Mean Corpuscular Hemoglobin 27.3 pg (27.0-33.0); Mean Corpuscular Volume 89.2 fL (80.0-98.0); Monocytes Absolute Auto 0.4 X10*3/uL (0.1-1.2); Monocytes Percent Auto 5.7 % (2-11); Neutrophils Absolute Auto 4.7 x10*3/uL (2.0-8.3); Neutrophils Percent Auto 72.5 % (45-73); Platelet Count 230 X10*3/uL (160-400); Red Blood Count 4.07 X10*6/uL (4.20-5.50); Red Cell Distribution Width 14.6 % (11.0-16.0); White Blood Count 6.4 X10*3/uL (4.8-10.8)
[2021-10-20 13:34] LABS: Anion Gap 10 (12-20); Blood Urea Nitrogen 21 mg/dL (9-16); Carbon Dioxide 28 mmol/L (22-29); Chloride 106 mmol/L (96-108); Creatinine Clr Calc Pharmacy 69.7; Estimated Glomerular Filt Rate > 60; Potassium 4.4 mmol/L (3.3-5.1); Sodium 140 mmol/L (135-145)
[2021-10-20 13:50] LABS: Alanine Aminotransferase 15 U/L (0-31); Albumin Level 4.1 g/dL (3.5-5.0); Alkaline Phosphatase 73 U/L (39-117); Anion Gap 11 (12-20); Aspartate Amino Transferase 16 U/L (5-31); Bilirubin Total 0.3 mg/dL (0.0-1.0); Blood Urea Nitrogen 22 mg/dL (9-16); Calcium 9.1 mg/dL (8.4-10.2); Carbon Dioxide 28 mmol/L (22-29); Chloride 107 mmol/L (96-108); Creatinine Clr Calc Pharmacy 68.3; Estimated Glomerular Filt Rate > 60; Glucose Random 112 mg/dL (60-115); Potassium 4.6 mmol/L (3.3-5.1); Sodium 141 mmol/L (135-145); Total Protein 7.2 g/dL (6.5-8.0)
[2021-10-20 13:58] LABS: Ferritin 64 ng/mL (10-250)
[2021-10-20 14:16] LABS: MRSA Nasal PCR NEGATIVE (Negative); SA Nasal PCR POSITIVE (Negative)
[2021-11-02] VITALS (10 sets, daily range): BP systolic 98–160; BP diastolic 37–65; PULSE 56–86; RESP 13–20; TEMP 36–36.6; O2SAT 95–100
--- NOTE | ~2021-11-02 | XR_ITS ---
EXAMINATION: XR KNEE, LEFT CLINICAL INFORMATION: Left knee replacement COMPARISON: Previous x-ray July 2021 TECHNIQUE: 2 of the left knee. FINDINGS: There is a new 3 component left knee replacement in satisfactory position. No fracture or dislocation is seen. There are postoperative changes to the soft tissues. XR/XR knee LT 2V IMPRESSION: Satisfactory appearance of left knee replacement.
[2021-11-02 10:48] LABS: Hematocrit 37.2 % (37.0-47.0); Hemoglobin 11.8 g/dl (12.0-16.0)
[2021-11-02 10:56] LABS: COVID-19 Test Negative (Negative)
[2021-11-02] MEDS: Lactated Ringers 1,000 ML 100 ML IVCONT ×3 (11:17→22:41)
--- NOTE | 2021-11-02 11:51 | MHC.SHP ---
Pre-Procedural Eval Section A Date of Service: 11/02/21 The patient is an INPATIENT: No Changes since office visit: Yes Patient answered all questions; No Cold of Flu in the past 2 weeks, No New Medical Problems and No Changes in Medication The History & Physical has been completed within 30 days and I have reviewed it.: Yes Section B Chief Complaint: Ortho surgery Allergies: Allergies Allergy/AdvReac Type Severity Reaction Status Date / Time bee pollen [BEE STINGS] Allergy Severe SWELLING,WE Verified 10/28/21 13:57 LTS latex [LATEX] Allergy Mild RASH Verified 10/28/21 13:57 Lactose AdvReac Intermediate abdominal Verified 10/28/21 13:57 bloating, stomach upset simvastatin AdvReac Intermediate myalgia Verified 10/28/21 13:57 Plan I have reviewed the history and physical and performed a pertinent physical examination on my patient. No changes have occurred unless specified.
--- NOTE | 2021-11-02 14:06 | P.BOP_ITS ---
Brief Operative Note Date of Service: 11/02/21 Pre-op diagnosis: Left knee OA Post-op diagnosis: same Procedure: Left TKA Implants: [place] Triathalon press fit cruciate retaining s/32a Surgeon: Broderick Graham MD Anesthesia: regional and spinal Was an Railroad Firer/Fireman used for this Procedure?: Yes Railroad Firer/Fireman: Boyd Downing Estimated blood loss (mL): 150 IV fluids (mL): 1,000 Pathology: other Condition: stable Disposition: PACU
--- NOTE | 2021-11-02 14:06 | PM.OP ---
Brief Operative Note Date of Service: 11/02/21 Pre-op diagnosis: Left knee OA Post-op diagnosis: same Procedure: Left TKA Implants: [place] Triathalon press fit cruciate retaining s/32a Surgeon: Broderick Graham MD Anesthesia: regional and spinal Was an Tool And Cutter Grinder used for this Procedure?: Yes Tool And Cutter Grinder: Boyd Downing Estimated blood loss (mL): 150 IV fluids (mL): 1,000 Pathology: other Condition: stable Disposition: PACU
[2021-11-02] MEDS: oxyCODONE HCl Immed Release 5 MG TABLET PO (15:12)
[2021-11-02] MEDS: HYDROmorphone HCl 0.5 MG/0.5 ML SYRINGE 0.25 MG IVPUSH (15:41)
[2021-11-02] MEDS: ondansetron HCL 4 MG/2 ML VIAL IVPUSH (16:20)
[2021-11-02] MEDS: ceFAZolin Sodium/Dextrose,Iso 2 GM/50 ML PIGGYBACK IV (18:11)
[2021-11-02] MEDS: oxyCODONE HCl Immed Release 5 MG TABLET 10 MG PO ×2 (18:16→22:03)
--- NOTE | 2021-11-02 18:33 | PC.NURSE ---
pt arrived to unit at 1430 , pt c/o pain in left knee 08/31 , pt given 5mg po oxycodone at 1512 , pt given ice pack . At 1541 pt given 0.25 iv Dilaudid for pain 12/01 . 1600 pt continues to c/o 10/10 pain Viry Koroma notified , pt thrashing around in bed, pain medication adjusted , IV Tylenol ordered, iv dilaudid increased to 0.5 mg and oxycodone increased to 10mg Q4H PRN . iv Tylenol given at 1640 with minimal relief , pt states pain is at an 8 . pt continues to cry in pain . Viry Watkins notified again and states to give 10mg oxycodone early . 10mg oxycodone given at 1816. new ice applied . pt oob to commode with 1 assist.
[2021-11-02] MEDS: HYDROmorphone HCl 0.5 MG/0.5 ML SYRINGE IVPUSH (20:18)
[2021-11-02] MEDS: Sennosides 8.6 MG TABLET 25.8 MG PO (20:19)
[2021-11-02] MEDS: Famotidine 20 MG TABLET 40 MG PO (20:20)
[2021-11-02] MEDS: oxyCODONE HCl ER 10 MG TAB.ER.12H PO (20:20)
[2021-11-02] MEDS: Pravastatin Sodium 10 MG TABLET PO (20:20)
[2021-11-02] MEDS: Celecoxib 200 MG CAPSULE PO (20:20)
[2021-11-02] MEDS: Docusate Sodium 100 MG CAPSULE PO (20:21)
[2021-11-02] MEDS: Montelukast Sodium 10 MG TABLET PO (20:21)
[2021-11-02] MEDS: Clotrimazole 1 % Cream 15 GM TUBE 1 APPL TOPICAL (20:35)
[2021-11-03] MEDS: HYDROmorphone HCl 0.5 MG/0.5 ML SYRINGE IVPUSH ×5 (01:00→19:44)
[2021-11-03] MEDS: oxyCODONE HCl Immed Release 5 MG TABLET 10 MG PO ×4 (03:08→22:32)
[2021-11-03 04:00] VITALS: BP 149/65; PULSE 87; RESP 18; TEMP 36.7; O2SAT 99
[2021-11-03] MEDS: Omeprazole 20 MG CAPSULE.DR PO (04:51)
[2021-11-03 05:52] LABS: MANUAL DIFF FLAG NO
[2021-11-03 05:56] LABS: Basophils Percent Auto 0.2 % (0-2); Hemoglobin 10.1 g/dl (12.0-16.0); Imm Gran Abs Auto 0.04 X10*3/uL (0.00-0.03); Imm Gran Pct Auto 0.4 % (0.0-0.4); Lymphocytes Percent Auto 10.4 % (20-40); Mean Corpuscular HGB Conc 31.6 g/dl (31.0-35.0); Mean Corpuscular Hemoglobin 27.9 pg (27.0-33.0); Mean Corpuscular Volume 88.4 fL (80.0-98.0); Mean Platelet Volume 10.5 fL (9.4-12.3); Monocytes Absolute Auto 0.5 X10*3/uL (0.1-1.2); Monocytes Percent Auto 5.3 % (2-11); Neutrophils Percent Auto 83.7 % (45-73); Platelet Count 182 X10*3/uL (160-400); Red Blood Count 3.62 X10*6/uL (4.20-5.50); Red Cell Distribution Width 14.5 % (11.0-16.0); White Blood Count 9.6 X10*3/uL (4.8-10.8)
[2021-11-03 06:27] LABS: Anion Gap 12 (12-20); Blood Urea Nitrogen 16 mg/dL (9-16); Calcium 8.3 mg/dL (8.4-10.2); Carbon Dioxide 26 mmol/L (22-29); Chloride 104 mmol/L (96-108); Creatinine Clr Calc Pharmacy 76.5; Estimated Glomerular Filt Rate > 60; Glucose Fasting 132 mg/dL (60-99); Potassium 4.1 mmol/L (3.3-5.1); Sodium 138 mmol/L (135-145)
[2021-11-03 07:17] VITALS: BP 118/60; PULSE 81; RESP 18; TEMP 36.8; O2SAT 95
--- NOTE | 2021-11-03 07:29 | PHA.MEDREC ---
Pharmacy Consult ? Medication Reconciliation Pharmacy has reviewed the medication reconciliation competed by nursing. Lisbeth Hurd, MohitD
[2021-11-03] MEDS: Cholecalciferol (Vitamin D3) 25 MCG TABLET 50 MCG PO (07:36)
[2021-11-03] MEDS: Folic Acid 1 MG TABLET PO (07:37)
[2021-11-03] MEDS: Docusate Sodium 100 MG CAPSULE PO ×2 (07:37→19:45)
[2021-11-03] MEDS: oxyCODONE HCl ER 10 MG TAB.ER.12H PO ×2 (07:37→19:45)
[2021-11-03] MEDS: Celecoxib 200 MG CAPSULE PO ×2 (07:37→19:45)
[2021-11-03] MEDS: Clotrimazole 1 % Cream 15 GM TUBE 1 APPL TOPICAL ×2 (07:39→19:47)
--- NOTE | 2021-11-03 08:05 | PM.PNORT ---
Subjective Subjective Date of Service: 11/03/21 Interval history: POD 1 s/p LT TKA overnight she had difficulty controllin her pain meds were adjusted multiple times she denies cp,palpitations, sob Physical Exam Vital Signs: Vital Signs: Last Vital Signs Temp 98.3 F 11/03/21 07:17 Pulse 81 11/03/21 07:17 Resp 18 11/03/21 07:17 BP 118/60 11/03/21 07:17 Pulse Ox 95 11/03/21 07:17 O2 Del Method 11/03/21 07:17 O2 Flow Rate 1.5 11/03/21 04:00 BMI result Body Mass Index 36.7 Const: General: cooperative, healthy appearing and no acute distress Resp: Effort & Inspection: normal respiratory effort and able to speak in complete sentences Cardio: Rate: regular rate Peripheral pulses: Peripheral pulses 2+ throughout GI: Palpation (GI): Soft to palpation Skin: General skin exam: no rashes or lesions noted Extrem: Other: incision clean dry and intact. [place] intact. No erythema or joint effusion. Calf supple nontender. Neurovascularly intact. Procedures Date of Service Date of Service: 11/03/21 Progress Note: A&P Assessment and plan (1) Status post total left knee replacement: Status: Acute Assessment and Plan: Continue pain mgmnt Begin lovenox for dvt begin PT for LT TKA Dispo planning-Pending PT eval, pain mgmnt Time Spent With Patient Time: Total time spent is greater than 50% in coordination of care (as documented) at patient's floor/unit and/or counseling patient: Quality Stroke Does the patient have a stroke diagnosis?: No VTE Prior VTE?: No VTE Risk Level:: Surgical - very high VTE Device Contraindication: N/A - Device Ordered VTE Drug Contraindication: N/A - Med Ordered
--- NOTE | 2021-11-03 08:49 | W.PM.OPN ---
Operative Note Operative Note Date of Service: 11/02/21 Narrative: Date of Service: 11/02/21 Pre-op diagnosis: Left knee OA Post-op diagnosis: same Procedure: Left TKA Implants: [place] Triathalon press fit cruciate retaining 3/4/9cs/32a Surgeon: Broderick Graham MD Anesthesia: regional and spinal Was an Plate Shear Operator used for this Procedure?: Yes Plate Shear Operator: Boyd Downing Estimated blood loss (mL): 150 IV fluids (mL): 1,000 Pathology: other Condition: stable Disposition: PACU Procedure in detail: The patient was brought to the operating room and prepped and draped in standard sterile fashion. A time-out was called to identify proper site proper procedure proper surgeon and IV antibiotics were administered. 1 g of IV tranexamic acid was administered. I began by making a midline incision to the retinaculum and performed a medial parapatellar arthrotomy. The patella was translated laterally and the knee was flexed up. The tibia-femoral joint was eburnated and the PFJ was defromed. I performed a small medial peel and resected the infrapatellar fat pad. Jessica's line was then used to drill my intramedullary femoral guide and my distal femur cut of 10 mm was made in 5 degrees of valgus while protecting the soft tissues. I then measured a #3 femur and placed my cutting guide and made my anterior posterior and chamfer cuts in 3 deg of valgus while protecting the soft tissues at all times. Once I was satisfied with my cuts I turned my attention to the tibia. I removed the meniscus medially and laterally and , using an external cutting guide, in line with the tibial crest and the third ray, I made my distal tibial cut in 3 deg slope of while protecting the PCL the posterior soft tissues at all times. An extension block was used to confirm appropriate amount of bony resection. I then sized a #4 tibia and once I was satisfied that there was complete tibial coverage I placed my trial and with the trial femur in place took the knee through range of motion. I was satisfied with the extension and flexion as well as the stability and balance at 0, 30 and 90 degrees. I then turned my attention to the patella where I removed 1 cm from the undersurface of the patella and then trialed a 32a patellar button. Again the knee was taken through range of motion I was satisfied with the tracking. I then returned to the femur and drilled my femoral lug holes and prepared the tibia. A femoral bone plug was placed and the knee was irrigated copiously. I then press fit the patella, tibia and femur in standard fashion. I trialed different inserts until I selected a #9 insert. The final insert was placed and a 3 minutes iodine soak with local TXA was performed. A Werewolf cautery wand was used to maintain hemostasis over the capsule and meniscal beds, the gutters and peripatellar soft tissues. The knee was then closed with a running Quill suture, a 3 0 Vicryl and daniella on the skin. Patient was then placed in sterile dressing and brought to recovery room in stable condition there were no known complications.
[2021-11-03] MEDS: Ketorolac Tromethamine 15 MG/ML VIAL IVPUSH (10:50)
[2021-11-03] MEDS: Enoxaparin Sodium 40 MG/0.4 ML SYRINGE SUBCUT (10:50)
--- NOTE | 2021-11-03 11:31 | HO.POSTANES ---
Post Anesthesia Evaluation Post Anesthesia Evaluation Vital Signs: Vital Signs Temp Pulse Resp BP Pulse Ox O2 Del Method O2 Flow Rate 11/03/21 07:17 98.3 F 81 18 118/60 95 Room Air 11/03/21 04:00 98.1 F 87 18 149/65 H 99 Nasal Cannula 1.5 11/02/21 23:56 97.2 F 71 17 140/63 H 95 Nasal Cannula 1.5 Anesthesia: Spinal and Nerve Block Mental Status: Awake Pain Control: Satisfactory (difficulty controlling pain) Nausea/Vomiting: None Hydration: Adequate Anesthesia-Related Issues: No Anes. Related Issues
[2021-11-03 11:45] VITALS: BP 112/57; PULSE 80; RESP 15; TEMP 36.3; O2SAT 94
[2021-11-03 15:30] VITALS: BP 128/54; PULSE 97; RESP 16; TEMP 36.7; O2SAT 95
[2021-11-03] MEDS: Lactated Ringers 1,000 ML 100 ML IVCONT (15:41)
--- NOTE | 2021-11-03 15:53 | MHC.CM.PN ---
EMR REVIEWED, PT ADMITTED S/P L TKA, PT REC'S STR, CM MET W/PT FOR INTAKE PT REPORTS SHE WOULD LIKE TO GO TO STR HER DOESN'T THINK HE'LL BE [place] TO MANAGE, PT PREFERS [facility] AND REFERRAL PLACED. PT REPORTS SHE HAS A WALKER, HIGH TOILET, WALK IN TUB AND GRAB BARS NEXT TO TOILET, PT DENIES HOME SERVICES AND REPORTS HER SON AND HCP LIZZY HIS GF AND THEIR 2 CHILDREN LIVE W/PT AND HER . PFIZER X3 ON FILE, HCP ON FILE IN EXPANSE D/C PLAN: STR W/BLS TRANSPORT
[2021-11-03 19:07] VITALS: BP 136/61; PULSE 104; RESP 18; TEMP 36.8; O2SAT 97
[2021-11-03] MEDS: Sennosides 8.6 MG TABLET 25.8 MG PO (19:45)
[2021-11-03] MEDS: Montelukast Sodium 10 MG TABLET PO (19:45)
[2021-11-03] MEDS: Famotidine 20 MG TABLET 40 MG PO (19:45)
[2021-11-03] MEDS: Pravastatin Sodium 10 MG TABLET PO (19:46)
[2021-11-03] MEDS: 0.9 % Sodium Chloride Flush 3 ML SYRINGE IVFLUSH (19:47)
[2021-11-03 23:11] VITALS: BP 121/59; PULSE 102; RESP 18; TEMP 36.7; O2SAT 92
[2021-11-04] MEDS: Lactated Ringers 1,000 ML 100 ML IVCONT (01:47)
[2021-11-04] MEDS: oxyCODONE HCl Immed Release 5 MG TABLET 10 MG PO ×4 (02:30→21:40)
[2021-11-04 03:42] VITALS: BP 110/58; PULSE 77; RESP 18; TEMP 36.2; O2SAT 97
[2021-11-04] MEDS: Omeprazole 20 MG CAPSULE.DR PO (05:16)
[2021-11-04 05:55] LABS: MANUAL DIFF FLAG NO
[2021-11-04 05:59] LABS: Basophils Percent Auto 0.2 % (0-2); Eosinophils Absolute Auto 0.1 X10*3/uL (0.0-0.4); Eosinophils Percent Auto 0.8 % (0-4); Hemoglobin 8.9 g/dl (12.0-16.0); Imm Gran Abs Auto 0.04 X10*3/uL (0.00-0.03); Imm Gran Pct Auto 0.5 % (0.0-0.4); Lymphocytes Absolute Auto 1.2 X10*3/uL (1.2-4.9); Mean Corpuscular HGB Conc 30.7 g/dl (31.0-35.0); Mean Corpuscular Hemoglobin 27.5 pg (27.0-33.0); Mean Corpuscular Volume 89.5 fL (80.0-98.0); Mean Platelet Volume 10.5 fL (9.4-12.3); Monocytes Absolute Auto 0.6 X10*3/uL (0.1-1.2); Monocytes Percent Auto 7.2 % (2-11); Neutrophils Absolute Auto 6.7 x10*3/uL (2.0-8.3); Neutrophils Percent Auto 77.3 % (45-73); Platelet Count 161 X10*3/uL (160-400); Red Blood Count 3.24 X10*6/uL (4.20-5.50); Red Cell Distribution Width 14.6 % (11.0-16.0); White Blood Count 8.6 X10*3/uL (4.8-10.8)
[2021-11-04 06:28] LABS: Anion Gap 12 (12-20); Blood Urea Nitrogen 13 mg/dL (9-16); Calcium 8.2 mg/dL (8.4-10.2); Carbon Dioxide 26 mmol/L (22-29); Chloride 105 mmol/L (96-108); Creatinine Clr Calc Pharmacy 72.2; Estimated Glomerular Filt Rate > 60; Glucose Fasting 103 mg/dL (60-99); Potassium 4.1 mmol/L (3.3-5.1); Sodium 139 mmol/L (135-145)
[2021-11-04 07:15] VITALS: BP 135/63; PULSE 96; RESP 17; TEMP 36.7; O2SAT 98
[2021-11-04] MEDS: Cholecalciferol (Vitamin D3) 25 MCG TABLET 50 MCG PO (07:31)
[2021-11-04] MEDS: Clotrimazole 1 % Cream 15 GM TUBE 1 APPL TOPICAL ×2 (07:32→20:20)
[2021-11-04] MEDS: Celecoxib 200 MG CAPSULE PO ×2 (07:32→20:19)
[2021-11-04] MEDS: oxyCODONE HCl ER 10 MG TAB.ER.12H PO ×2 (07:32→20:19)
[2021-11-04] MEDS: Folic Acid 1 MG TABLET PO (07:32)
[2021-11-04] MEDS: Docusate Sodium 100 MG CAPSULE PO ×2 (07:32→20:19)
--- NOTE | 2021-11-04 07:45 | P.CDIC_ITS ---
CDI Concurrent Query Documentation Clarification: PHYSICIAN'S DOCUMENTATION REQUEST Date of Query: 11/04/21 0745 Patient Name: Sharron Aguilar Admit Date: 11/02/21 Dear Doctor, A review of the medical record indicates additional documentation may be needed. Please review below and update the documentation accordingly. Clinical Indicators: Risk Factors/Clinical Indicators/Treatments Body mass index: 36.7 5' 3 in height TKR If possible, please provide an associated diagnosis related to the abnormal BMI, such as: For a BMI >= 35: * Overweight * Obesity * Due to excess calories * Drug induced * Due to other cause Or: * BMI is not significant * Other (please specify) * Unable to determine Use of terms such as suspected, likely, concern for, or probable (associated with a specific diagnosis that is being evaluated, monitored, or treated as if it exists) are acceptable and can be coded in the inpatient setting, when documented at the time of discharge. Thank you, Tennille An [facility], CDIS Extension: [phone] Please use your independent medical judgment in providing your response. THIS QUERY IS PART OF THE PERMANENT MEDICAL RECORD
--- NOTE | 2021-11-04 08:46 | PM.PNORT ---
Subjective Subjective Date of Service: 11/04/21 Interval history: POD2 s/p LTKA. Patient is resting in the chair. Awaiting physical therapy who is at bedside. No overnight evetns. Pain is manged. No additional complaints. Physical Exam Vital Signs: Vital Signs: Last Vital Signs Temp 98.0 F 11/04/21 07:15 Pulse 96 11/04/21 07:15 Resp 17 11/04/21 07:15 BP 135/63 11/04/21 07:15 Pulse Ox 98 11/04/21 07:15 O2 Del Method 11/04/21 07:15 O2 Flow Rate 1.5 11/03/21 04:00 BMI result Body Mass Index 36.7 Const: General: cooperative, healthy appearing and no acute distress Resp: Effort & Inspection: normal respiratory effort and able to speak in complete sentences Cardio: Rate: regular rate Peripheral pulses: Peripheral pulses 2+ throughout GI: Palpation (GI): Soft to palpation Skin: General skin exam: no rashes or lesions noted Extrem: Other: Incision clean dry and intact. [place] intact. No erythema or joint effusion. New Aquacel dressing applied. Calf supple non-tender. NVI. Procedures Date of Service Date of Service: 11/04/21 Progress Note: A&P Assessment and plan (1) Status post total left knee replacement: Status: Acute Plan Continue pain mgmnt Continue ASA for dvt ppx Continiue PT for LTKA Dispo planning-PT, pain mgmnt Time Spent With Patient Time: Total time spent is greater than 50% in coordination of care (as documented) at patient's floor/unit and/or counseling patient: Quality Stroke Does the patient have a stroke diagnosis?: No VTE Prior VTE?: No VTE Risk Level:: Surgical - very high VTE Device Contraindication: N/A - Device Ordered VTE Drug Contraindication: N/A - Med Ordered
--- NOTE | 2021-11-04 09:40 | MHC.CM.PN ---
CM MET W/PT TO DISCUSS STR OPTIONS REQUESTED [facility] IS NOT CONTRACTED W/PT'S INSURANCE, PT REPORTED SHE WOULD CALL AND DISCUSS W/HER , WHEN CM FOLLOWED UP W/PT SHE REPORTED SHE WILL GO HOME W/SERVICES AND NOT TO STR. REFERRAL PLACED TO NA.
[2021-11-04] MEDS: Enoxaparin Sodium 40 MG/0.4 ML SYRINGE SUBCUT (10:54)
[2021-11-04 11:39] VITALS: BP 116/53; PULSE 93; RESP 18; TEMP 36.9; O2SAT 97
[2021-11-04 15:03] VITALS: BP 103/50; PULSE 100; RESP 18; TEMP 36.6; O2SAT 95
[2021-11-04 19:26] VITALS: BP 120/59; PULSE 94; RESP 18; TEMP 36.7; O2SAT 98
[2021-11-04] MEDS: Famotidine 20 MG TABLET 40 MG PO (20:19)
[2021-11-04] MEDS: Sennosides 8.6 MG TABLET 25.8 MG PO (20:19)
[2021-11-04] MEDS: Montelukast Sodium 10 MG TABLET PO (20:19)
[2021-11-04] MEDS: Pravastatin Sodium 10 MG TABLET PO (20:19)
[2021-11-04 23:40] VITALS: BP 132/63; PULSE 89; RESP 18; TEMP 37.1; O2SAT 97
[2021-11-04] MEDS: 0.9 % Sodium Chloride Flush 3 ML SYRINGE IVFLUSH (23:54)
[2021-11-05 03:35] VITALS: BP 127/46; PULSE 86; RESP 18; TEMP 36.6; O2SAT 99
[2021-11-05 04:00] VITALS: RESP 18
[2021-11-05 05:41] LABS: MANUAL DIFF FLAG NO
[2021-11-05 05:46] LABS: Basophils Percent Auto 0.4 % (0-2); Eosinophils Absolute Auto 0.2 X10*3/uL (0.0-0.4); Eosinophils Percent Auto 2.6 % (0-4); Hematocrit 26.5 % (37.0-47.0); Hemoglobin 8.2 g/dl (12.0-16.0); Imm Gran Abs Auto 0.01 X10*3/uL (0.00-0.03); Imm Gran Pct Auto 0.1 % (0.0-0.4); Lymphocytes Absolute Auto 1.1 X10*3/uL (1.2-4.9); Lymphocytes Percent Auto 13.8 % (20-40); Mean Corpuscular HGB Conc 30.9 g/dl (31.0-35.0); Mean Corpuscular Hemoglobin 27.4 pg (27.0-33.0); Mean Corpuscular Volume 88.6 fL (80.0-98.0); Mean Platelet Volume 10.4 fL (9.4-12.3); Monocytes Absolute Auto 0.4 X10*3/uL (0.1-1.2); Monocytes Percent Auto 5.8 % (2-11); Neutrophils Absolute Auto 5.9 x10*3/uL (2.0-8.3); Neutrophils Percent Auto 77.3 % (45-73); Platelet Count 145 X10*3/uL (160-400); Red Blood Count 2.99 X10*6/uL (4.20-5.50); Red Cell Distribution Width 14.6 % (11.0-16.0); White Blood Count 7.6 X10*3/uL (4.8-10.8)
[2021-11-05 05:58] LABS: Anion Gap 12 (12-20); Blood Urea Nitrogen 13 mg/dL (9-16); Calcium 7.9 mg/dL (8.4-10.2); Carbon Dioxide 26 mmol/L (22-29); Chloride 105 mmol/L (96-108); Creatinine Clr Calc Pharmacy 75.7; Estimated Glomerular Filt Rate > 60; Glucose Fasting 107 mg/dL (60-99); Potassium 3.9 mmol/L (3.3-5.1); Sodium 139 mmol/L (135-145)
[2021-11-05] MEDS: Omeprazole 20 MG CAPSULE.DR PO (06:11)
[2021-11-05 07:33] VITALS: BP 113/57; PULSE 85; RESP 18; TEMP 36.3; O2SAT 95
[2021-11-05] MEDS: Folic Acid 1 MG TABLET PO (08:01)
[2021-11-05] MEDS: Docusate Sodium 100 MG CAPSULE PO (08:01)
[2021-11-05] MEDS: Cholecalciferol (Vitamin D3) 25 MCG TABLET 50 MCG PO (08:01)
[2021-11-05] MEDS: oxyCODONE HCl ER 10 MG TAB.ER.12H PO (08:01)
[2021-11-05] MEDS: oxyCODONE HCl Immed Release 5 MG TABLET 10 MG PO (08:03)
[2021-11-05] MEDS: Celecoxib 200 MG CAPSULE PO (08:03)
[2021-11-05] MEDS: 0.9 % Sodium Chloride Flush 3 ML SYRINGE IVFLUSH (08:04)
--- NOTE | 2021-11-05 08:09 | P.DS_ITS ---
DS: Providers Provider Date of Service: 11/05/21 Date of admission: 11/02/21 10:07 Primary care physician: Erlinda Newell MD DS: Diagnosis Discharge Diagnosis (1) Status post total left knee replacement: Status: Acute DS: Summary Hospital Course Hospital Course: The patient underwent a successful left total knee arthroplasty, they were transferred to PACU and then to the floor to recover. During their stay, their vitals were stable, afebrile at 97.6. Labs were unremarkable, H/H 8.2/26.5. POD 1 they were started on Lovenox for DVT ppx, they also received Physical Therapy services twice a day. Prior to discharge, their dressing was changed, incision clean dry and intact, new Aquacel dressing applied and the plan was to be discharged home with VNA services. Time Spent with Patient Time attestation: Total time spent providing and/or coordinating discharge services: Discharge coordination time: Less than 30 minutes Quality: Safe Use of Opioids Does Pt have an Active Cancer Diagnosis on the Problem List?: No Quality: Stroke Does the patient have a stroke diagnosis?: No Physical Exam Vital Signs: Vital Signs: Last Vital Signs Temp 97.4 F 11/05/21 07:33 Pulse 85 11/05/21 07:33 Resp 18 11/05/21 07:33 BP 113/57 L 11/05/21 07:33 Pulse Ox 95 11/05/21 07:33 O2 Del Method 11/05/21 07:33 O2 Flow Rate 1.5 11/03/21 04:00 BMI result Body Mass Index 36.7 Const: General: cooperative, healthy appearing and no acute distress Resp: Effort & Inspection: normal respiratory effort and able to speak in complete sentences Cardio: Rate: regular rate Peripheral pulses: Peripheral pulses 2+ throughout GI: Palpation (GI): Soft to palpation Skin: Lesions: no lesions Rashes: no rashes Extrem: Other: Left knee Aquacel clean, dry, and intact. Patient is ambulating in the hallway. Dorsiflex and plantarflex. NVI. DS: Data Data Completed and Pending Completed studies during hospitalization [Text1]: Pending at discharge 11/02/21 12:39 Surgical [PTH] Routine Procedures Replacement of Right Knee Joint with Synthetic Substitute, Uncemented, Open Approach (02/10/20) Labs on day of discharge: Laboratory Results - last 24 hr 11/05/21 11/05/21 05:18 05:18 WBC 7.6 RBC 2.99 L Hgb 8.2 L Hct 26.5 L MCV 88.6 MCH 27.4 MCHC 30.9 L RDW 14.6 Plt Count 145 L MPV 10.4 Immature Gran % (Auto) 0.1 Neut % (Auto) 77.3 H Lymph % (Auto) 13.8 L [place] % (Auto) 5.8 Eos % (Auto) 2.6 Baso % (Auto) 0.4 Lymph # (Auto) 1.1 L [place] # (Auto) 0.4 Eos # (Auto) 0.2 Baso # (Auto) 0.0 Abs Immat Gran (auto) 0.01 Absolute Neuts (auto) 5.9 Absolute Nucleated RBC 0.000 Nucleated RBC % (auto) 0.0 Sodium 139 Potassium 3.9 Chloride 105 Carbon Dioxide 26 Anion Gap 12 BUN 13 Creatinine 0.83 Estim Creat Clear Calc 75.7 Estimated GFR > 60 Fasting Glucose 107 H Calcium 7.9 L Discharge Plan Discharge Patient Disposition: Home Health Service Discharge Diagnosis: s/p LTKA Referrals: Ele[facility] TESFAYE [Outside] - 1 Day Viry Koroma PA-C [Physician Wireless Communications Engineer] - 2 Weeks (11/18/21 2:00 [facility] [place] [facility] Viry Koroma PA-C) Discharge Medications: New enoxaparin 40 mg/0.4 mL Syringe 40 mg subcut Q24H 42 Days Qty: 16.8 0RF docusate sodium 100 mg Capsule 100 mg PO BID 30 Days Qty: 60 0RF celecoxib [Celebrex] 200 mg capsule 200 mg PO BID PRN (Reason: pain) 30 Days Qty: 60 0RF oxycodone 10 mg tablet 10 mg PO Q4H PRN (Reason: pain) 7 Days Qty: 42 0RF Rx Instructions: Partial Fill upon patient request. Continued albuterol sulfate [ProAir HFA] 90 mcg/actuation HFA aerosol inhaler 2 puff inhalation Q6H PRN (Reason: shortness of breath or wheezing) 30 Days Qty: 8.5 6RF epinephrine 0.3 mg/0.3 mL auto-injector 0.3 mg IM Q10M PRN (Reason: Anaphylaxis) 30 Days Qty: 2 6RF montelukast 10 mg tablet 10 mg PO BEDTIME Qty: 30 0RF omeprazole 20 mg capsule,delayed release(DR/EC) 20 mg PO DAILY Qty: 30 6RF sennosides [Doreen-leora] 8.6 mg tablet 25.8 mg PO BEDTIME 90 Days Qty: 270 2RF folic acid 1 mg tablet 1 tab PO DAILY Qty: 90 3RF Citrucel 500 mg Tablet 1,000 mg PO BID cholecalciferol (vitamin D3) [Vitamin D3] 50 mcg (2,000 unit) Capsule 50 mcg PO DAILY [facility] 10 billion cell -200 mg Capsule 1 cap PO BID celecoxib [Celebrex] 200 mg capsule 200 mg PO BID tacrolimus 0.1 % ointment 1 appl topical BID famotidine 40 mg tablet 40 mg PO BEDTIME ketoconazole 1 % shampoo 1 appl topical 2XW triamcinolone acetonide 0.025 % cream 1 appl topical BID ciclopirox 0.77 % cream 1 appl topical BID lovastatin 10 mg tablet 10 mg PO BEDTIME azelastine 137 mcg (0.1 %) aerosol,spray 1 spray intranasal BID 30 Days Qty: 30 3RF Rx Instructions: administer into each nostril docusate sodium [Colace] 100 mg capsule 100 mg PO BID 30 Days Qty: 60 6RF baclofen 20 mg tablet 20 mg PO NEEDED PRN (Reason: Spasms) mecobalamin (vitamin B12) 10,000 mcg recon soln 1,000 mcg IM QMONTH fluticasone propion-salmeterol [Advair Diskus] 250-50 mcg/dose blister with device 1 inh inhalation BID ipratropium-albuterol 0.5 mg-3 mg(2.5 mg base)/3 mL solution for nebulization 3 ml INHALATION Q4-6H PRN (Reason: Shortness Of Breath) 30 Days Qty: 90 3RF Discharge Orders: Discharge Order (Routine); Ordered 11/05/21 Ordered By: Viry Koroma Diet: Regular diet Activity on Discharge: Use cane or walker Stand Alone Forms: Patient Portal Discharge page Activity Restrictions/Additional Instructions: Physical Therapy for ROM 0-120, quad strength, gait training. Use walker for ambulation Limit stair climbing, No shower, No tub bath, No driving Continue anticoagulant Keep Aquacel dressing clean, dry and intact. Follow up with orthopedics in 2 weeks Care Plan Goals: Restore function of joint Health Concerns: none Plan of Treatment: Physical Therapy Pain management DVT prophylaxis Assessment: Physical Therapy for Total knee arthroplasty: WBAT, gait training, ROM 0-12, quad strength * Limit stair climbing * No showering, no tub bath-keep dressing clean, dry and intact * No driving x6 weeks * Continue lovenox once a day x 6 weeks * Follow up with [facility] [place] [facility]ics in 2 weeks: * --you will also have your first out patient PT eval on the day of your post op appt-so please plan on being in the office that day for an extended period of time.
--- NOTE | 2021-11-05 08:29 | P.F2F_ITS ---
Service Date Service Date: 11/05/21 Encounter Date of encounter: 11/05/21 Reasons for Services Signs and symptoms assessed: Pt. is considered homebound due to recent surgery. Unable to drive, poor balance, poor gait mechanics. Reason for physical therapy: home safety and mobility, therapeutic exercises, restore joint function, gait/transfer training, assess need for DME and ADL training Reason for occupational therapy: home safety and mobility, therapeutic exercises, restore joint function, gait/transfer training, assess need for DME and ADL training Homebound: Leaving the home is medically contraindicated at this time without the asist of a device and/or another person due th the listed conditions above and below. Reason homebound: unsteady gait / fall risk, leg weakness, pain with ambulation, pain with transfers, poor balance / fall risk and unable to drive Certification: Based on the above findings, I certify that this patient is confined to the home and needs intermittent care home care, physical therapy and/or speech therapy, or continues to need occupational therapy. The patient is under my care, and I have initiated the establishment of the plan of care. The patient will be followed by a physician who will periodically review the plan of care.
--- NOTE | 2021-11-05 08:35 | MHC.CM.PN ---
PT MEDICALLY CLEARED FOR D/C HOME W/[facility] FOR HOME OT/PT, FAMILY FOR TRANSPORT
[2021-11-05 08:58] VITALS: BP 113/57; PULSE 85; O2SAT 95
[2021-11-05] MEDS: Enoxaparin Sodium 40 MG/0.4 ML SYRINGE SUBCUT (11:04)
[2021-11-05] MEDS: Clotrimazole 1 % Cream 15 GM TUBE 1 APPL TOPICAL (11:07)
== END 2021-11-05 11:47 | disposition home health service (06) | DRG 302 ==
LOC: HO.SSSA 11:13 → HO.S3 13:33
PROVIDERS: Internal Medicine Medical Oncology; Physician Assistant; Admitting Provider Orthopaedic Surgery; PCP Internal Medicine; Visit Provider Orthopaedic Surgery
PROC: 0SRD0JA Replacement of Left Knee Joint with Synthetic Substitute, Uncemented, Open Approach (ICD-10-PCS; CPT 27447; principal; 2021-11-02 11:30)
DX: M17.12 Unilateral primary osteoarthritis, left knee (principal); E78.5 Hyperlipidemia, unspecified; K21.9 Gastro-esophageal reflux disease without esophagitis; Z20.822 Contact with and (suspected) exposure to COVID-19; Z86.16 Personal history of COVID-19; Z97.4 Presence of external hearing-aid; Z96.651 Presence of right artificial knee joint; Z91.040 Latex allergy status; Z91.030 Bee allergy status; Z79.51 Long term (current) use of inhaled steroids; Z79.899 Other long term (current) drug therapy
CPT/HCPCS: 36415; 73560; 80048; 80051; 80053; 82565; 82728; 84520; 85014; 85018; 85025; 86850; 86900; 86901; 87635; 87640; 87641; 88305; 88311; 93005; 97110; 97116; 97162; 97530; C1776; J0131; J0690; J1170; J1650; J1885; J2250; J2405; J2795; J3010

== ENCOUNTER 2021-12-22 07:53 | Outpatient (REF) | payer BC, SELFPAY ==
[2021-12-22 11:48] LABS: Alanine Aminotransferase 13 U/L (0-31); Albumin Level 4.3 g/dL (3.5-5.0); Alkaline Phosphatase 70 U/L (39-117); Anion Gap 15 (12-20); Aspartate Amino Transferase 15 U/L (5-31); Bilirubin Total 0.3 mg/dL (0.0-1.0); Blood Urea Nitrogen 19 mg/dL (9-16); Calcium 9.3 mg/dL (8.4-10.2); Carbon Dioxide 26 mmol/L (22-29); Chloride 106 mmol/L (96-108); Cholesterol 163 mg/dL; Estimated Glomerular Filt Rate 59; Glucose Fasting 100 mg/dL (60-99); HDL Cholesterol 54 mg/dL; LDL Cholesterol Calculated 89 mg/dl; Potassium 4.3 mmol/L (3.3-5.1); Sodium 143 mmol/L (135-145); Total Protein 7.2 g/dL (6.5-8.0); Triglycerides 102 mg/dL
[2021-12-22 12:11] LABS: Vitamin D 25-OH Total 70.6 ng/mL (>30)
== END 2021-12-22 07:54 | disposition home or self-care (01) ==
LOC: HO.HMGCLDS 07:53
PROVIDERS: PCP Internal Medicine; Visit Provider Internal Medicine
DX: E55.9 Vitamin D deficiency, unspecified (principal); E78.00 Pure hypercholesterolemia, unspecified; E78.5 Hyperlipidemia, unspecified
CPT/HCPCS: 36415; 80053; 80061; 82306

== ENCOUNTER 2022-01-07 13:00 | Outpatient (RCR) | payer BC, SELFPAY ==
--- NOTE | 2021-11-18 14:54 | MHC.PT.EP ---
[facility] [place] Office [place] Office [place] Office [address] David Ayala [address] [phone] F: [phone] F: [phone] F: [phone] F: [phone] Physical Therapy Plan of Care Date of Evaluation: Date of Surgery: 11/02/21 Diagnosis: L TKA on 11/02/21 Assessment: pt is a 61 y/o female presenting to physical therapy evaluation in orthopedic office w/ referring diagnosis of L TKA on 11/02/21. Impairments include pain, decreased range of motion, decreased strength, impaired functional mobility, impaired postural awareness. pt is a good candidate for skilled PT due to age, potential remediation of impairments, typical disease/condition progression and prognosis, comorbidities, and motivation. pt would benefit from tailored strengthening and stretching exercise program, functional training, gait training, postural re-training, neuromuscular re-education, modalities as needed for pain, equipment safety demonstration. Frequency and Duration: The patient will be seen 2x/wk for 8 wks Short Term Goals: recumbent bike for warm-up, gait training (progression of ADs), stair training, transfer training, static and dynamic balance activities, B LE strengthening program, knee AAROM>AROM, cryotherapy as needed, scar tissue management Assisted Goals: Pt will report a statistically significant improvement in self-reported outcome measure, LEFI, to promote return to PLOF. Pt will ascend/descend 5 stairs mod I reciprocal pattern w/ LRAD to promote access to primary living spaces. Treatment Plan: Modalities to reduce pain, spasms and effusion. Manual therapy to restore motion and function. Therapeutic exercise to improve strength and flexibility. Neuromuscular re-education for posture and balance. Therapeutic activities to return to functional activities of daily living. Electronically signed by: Nena Dennye PT, DPT Please sign and return to therapist. Thank you for your referral.
--- NOTE | 2022-01-07 14:30 | MHC.PT.DC ---
[facility] [place] Office [place] Office [place] Office [address] David Ayala [address] [phone] F: [phone] F: [phone] F: [phone] F: [phone] Physical Therapy Discharge Report Diagnosis: L TKA on 11/02/21 Date of Surgery: 11/02/21 Date of Evaluation: 11/18/21 Date of Discharge: 01/07/22 Treatments to Date: 12 Cancellations to Date: 0 No Shows to Date: 0 Discharge Status: Achieved Goals Improved Function Independent with HEP Discharge Summary: Sharron has been an active and motivated participant in her therapy in and out of the clinic. She is in agreement with [place] today as she is I with her home program, has met her therapeutic goals and is managed of her pain. ROM 0-130 Electronically signed by: Antonio Garg PT. Please sign and return to therapist. Thank you for your referral.
== END 2022-01-07 14:31 | disposition home or self-care (01) ==
LOC: HO.PTCHIC 13:00
PROVIDERS: Visit Provider Physician Assistant
DX: Z96.652 Presence of left artificial knee joint (principal)
CPT/HCPCS: 97110; 97116; 97140; 97162; 97530

== ENCOUNTER 2022-01-18 10:19 | Outpatient (REF) | payer BC, SELFPAY ==
--- NOTE | ~2022-01-18 | MM_ITS ---
EXAMINATION: MM SCREENING DIGITAL BREAST TOMOSYNTHESIS, BILATERAL CLINICAL INFORMATION: Screening. Asymptomatic. The lifetime risk of breast cancer based on the Tyrer-Cuzick Model is 9%. COMPARISON: Mammography: 01/14/2021, 02/03/2018, 01/02/2017 TECHNIQUE: Digital breast tomosynthesis is performed in both the craniocaudal and mediolateral oblique views along with computer-aided detection (CAD). Synthesized 2D images are generated from the tomosynthesis. FINDINGS: There are scattered areas of fibroglandular density (ACR BI-RADS breast composition Category b). There are no significant masses, abnormal calcifications, or other abnormalities. Breast tissue composition borders on predominantly fatty. Background stromal markings are normal. No developing density. The skin contours are smooth. No significant changes. MM/MM tomosynthesis screening BI IMPRESSION: No mammographic evidence of malignancy. ASSESSMENT: BI-RADS 1: Negative RECOMMENDATION: Routine annual mammography screening. This patient's information was entered into a reminder system with a target due date for their next mammogram.
[2022-01-18 13:56] LABS: MANUAL DIFF FLAG NO
[2022-01-18 14:18] LABS: Basophils Percent Auto 0.5 % (0-2); Eosinophils Absolute Auto 0.1 X10*3/uL (0.0-0.4); Eosinophils Percent Auto 1.3 % (0-4); Hematocrit 36.8 % (37.0-47.0); Hemoglobin 11.2 g/dl (12.0-16.0); Imm Gran Abs Auto 0.02 X10*3/uL (0.00-0.03); Imm Gran Pct Auto 0.3 % (0.0-0.4); Lymphocytes Absolute Auto 1.3 X10*3/uL (1.2-4.9); Lymphocytes Percent Auto 20.9 % (20-40); Mean Corpuscular HGB Conc 30.4 g/dl (31.0-35.0); Mean Corpuscular Hemoglobin 27.3 pg (27.0-33.0); Mean Corpuscular Volume 89.8 fL (80.0-98.0); Mean Platelet Volume 10.5 fL (9.4-12.3); Monocytes Absolute Auto 0.4 X10*3/uL (0.1-1.2); Monocytes Percent Auto 6.1 % (2-11); Neutrophils Absolute Auto 4.5 x10*3/uL (2.0-8.3); Neutrophils Percent Auto 70.9 % (45-73); Platelet Count 272 X10*3/uL (160-400); Red Cell Distribution Width 15.3 % (11.0-16.0); White Blood Count 6.3 X10*3/uL (4.8-10.8)
== END 2022-01-18 10:20 | disposition home or self-care (01) ==
LOC: HO.MAMMO 10:19
PROVIDERS: PCP Internal Medicine; Visit Provider Internal Medicine
DX: Z12.31 Encounter for screening mammogram for malignant neoplasm of breast (principal); D64.9 Anemia, unspecified
CPT/HCPCS: 36415; 77063; 77067; 85025

== ENCOUNTER 2022-01-27 09:05 | Outpatient (REF) | payer BC, SELFPAY ==
--- NOTE | ~2022-01-27 | XR_ITS ---
EXAMINATION: XR AP BILATERAL KNEE XR RIGHT KNEE XR LEFT KNEE CLINICAL INFORMATION: Bilateral knee pain. COMPARISON: Right knee 11/02/2021. Left knee 08/12/2021. TECHNIQUE: AP bilateral knee standing. 2 views each knee. FINDINGS: AP Bilateral Knee: There are bilateral knee prosthesis with prosthetic components in satisfactory alignment. No loosening, periprosthetic fracture or soft tissue swelling. Right Knee: On lateral view and patellofemoral view the patella prosthesis is in alignment with the femoral component. No visible fracture or bony abnormality seen. There is no joint effusion seen either. Left Knee: There is a total knee prosthesis with prosthetic components in satisfactory alignment. No periprosthetic loosening or fracture seen. There is no abnormal joint effusion. XR/XR knee RT 2V IMPRESSION: Total bilateral knee prosthesis in alignment. No abnormality seen on the present exam. No major change. Since 08/12/2021, there is a left knee prosthesis. The right knee prosthesis is unchanged since 11/02/2021.
--- NOTE | ~2022-01-27 | XR_ITS ---
EXAMINATION: XR AP BILATERAL KNEE XR RIGHT KNEE XR LEFT KNEE CLINICAL INFORMATION: Bilateral knee pain. COMPARISON: Right knee 11/02/2021. Left knee 08/12/2021. TECHNIQUE: AP bilateral knee standing. 2 views each knee. FINDINGS: AP Bilateral Knee: There are bilateral knee prosthesis with prosthetic components in satisfactory alignment. No loosening, periprosthetic fracture or soft tissue swelling. Right Knee: On lateral view and patellofemoral view the patella prosthesis is in alignment with the femoral component. No visible fracture or bony abnormality seen. There is no joint effusion seen either. Left Knee: There is a total knee prosthesis with prosthetic components in satisfactory alignment. No periprosthetic loosening or fracture seen. There is no abnormal joint effusion. XR/XR knee standing BI IMPRESSION: Total bilateral knee prosthesis in alignment. No abnormality seen on the present exam. No major change. Since 08/12/2021, there is a left knee prosthesis. The right knee prosthesis is unchanged since 11/02/2021.
--- NOTE | ~2022-01-27 | XR_ITS ---
EXAMINATION: XR AP BILATERAL KNEE XR RIGHT KNEE XR LEFT KNEE CLINICAL INFORMATION: Bilateral knee pain. COMPARISON: Right knee 11/02/2021. Left knee 08/12/2021. TECHNIQUE: AP bilateral knee standing. 2 views each knee. FINDINGS: AP Bilateral Knee: There are bilateral knee prosthesis with prosthetic components in satisfactory alignment. No loosening, periprosthetic fracture or soft tissue swelling. Right Knee: On lateral view and patellofemoral view the patella prosthesis is in alignment with the femoral component. No visible fracture or bony abnormality seen. There is no joint effusion seen either. Left Knee: There is a total knee prosthesis with prosthetic components in satisfactory alignment. No periprosthetic loosening or fracture seen. There is no abnormal joint effusion. XR/XR knee LT 2V IMPRESSION: Total bilateral knee prosthesis in alignment. No abnormality seen on the present exam. No major change. Since 08/12/2021, there is a left knee prosthesis. The right knee prosthesis is unchanged since 11/02/2021.
== END 2022-01-27 09:06 | disposition home or self-care (01) ==
LOC: HO.HOSX 09:05
PROVIDERS: Visit Provider Orthopaedic Surgery
DX: M25.562 Pain in left knee (principal); M25.561 Pain in right knee
CPT/HCPCS: 73560; 73565

== ENCOUNTER 2022-02-22 14:02 | Outpatient (REF) | payer BC, SELFPAY ==
--- NOTE | ~2022-02-22 | XR_ITS ---
EXAMINATION: XR FOOT, RIGHT CLINICAL INFORMATION: Right foot pain COMPARISON: None TECHNIQUE: AP, lateral, and oblique views of the right foot. FINDINGS: There is hallux valgus deformity first MTP joint. Visualized ankle mortise, intertarsal and tarsometatarsal joint space is maintained normal. There is no fracture or dislocation. Especially no abnormality seen along the base of the fifth metatarsal where patient complains of pain. There is a small calcaneal heel enthesophyte. Minimal dorsal talar calcaneal spurring is seen. XR/XR foot RT min 3V IMPRESSION: 1. No acute fracture or dislocation. 2. Small calcaneal heel enthesophyte. 3. Minimal dorsal talar calcaneal spurring. 4.No abnormality seen along the base of fifth metatarsal where patient complains of pain.
== END 2022-02-22 14:03 | disposition home or self-care (01) ==
LOC: HO.HOSX 14:02
PROVIDERS: Visit Provider Physician Assistant
DX: M79.641 Pain in right hand (principal)
CPT/HCPCS: 73630

== ENCOUNTER → 2022-04-29 08:35 | Outpatient (BNVA) | payer BC, SELFPAY | PROVIDERS: PCP Internal Medicine; Visit Provider Psychiatry & Neurology Neurology | DX: R25.1 Tremor, unspecified (principal) ==

== ENCOUNTER → 2022-06-14 09:16 | Outpatient (BNVA) | payer BC, SELFPAY | PROVIDERS: PCP Internal Medicine; Visit Provider Obstetrics & Gynecology | DX: Z13.89 Encounter for screening for other disorder (principal) ==

== ENCOUNTER → 2022-07-29 08:47 | Outpatient (BNVA) | payer BC, SELFPAY | PROVIDERS: PCP Internal Medicine; Visit Provider Nurse Practitioner | DX: Z13.89 Encounter for screening for other disorder (principal) ==

== ENCOUNTER 2022-08-11 16:31 | Outpatient (REF) | payer BC, SELFPAY | END 2022-08-11 16:32 | disposition home or self-care (01) | LOC: HO.LAB 16:31 | PROVIDERS: Visit Provider Nurse Practitioner Family | DX: R30.0 Dysuria (principal) | CPT/HCPCS: 87086 ==

== ENCOUNTER → 2022-08-31 13:17 | Outpatient (BNVA) | payer BC, SELFPAY | PROVIDERS: PCP Internal Medicine; Visit Provider Internal Medicine Pulmonary Disease ==

== ENCOUNTER 2022-09-28 07:00 | Outpatient (REF) | payer MEDICARE, SELFPAY ==
[2022-09-28 11:40] LABS: Alanine Aminotransferase 15 U/L (0-31); Albumin Level 3.9 g/dL (3.5-5.0); Alkaline Phosphatase 82 U/L (39-117); Anion Gap 13 (12-20); Aspartate Amino Transferase 15 U/L (5-31); Bilirubin Total 0.5 mg/dL (0.0-1.0); Blood Urea Nitrogen 22 mg/dL (9-16); Calcium 9.6 mg/dL (8.4-10.2); Carbon Dioxide 28 mmol/L (22-29); Chloride 106 mmol/L (96-108); Cholesterol 178 mg/dL; Estimated Glomerular Filt Rate 56; Glucose Fasting 96 mg/dL (60-99); HDL Cholesterol 54 mg/dL; LDL Cholesterol Calculated 108 mg/dl; Potassium 4.5 mmol/L (3.3-5.1); Sodium 142 mmol/L (135-145); Triglycerides 80 mg/dL
== END 2022-09-28 07:01 | disposition home or self-care (01) ==
LOC: HO.HMGCLDS 07:00
PROVIDERS: PCP Internal Medicine; Visit Provider Internal Medicine
DX: E78.5 Hyperlipidemia, unspecified (principal); M19.90 Unspecified osteoarthritis, unspecified site
CPT/HCPCS: 36415; 80053; 80061

== ENCOUNTER 2022-11-30 07:57 | Outpatient (AMB) | payer BC, SELFPAY ==
[2022-11-30 08:00] VITALS: BP 122/62; PULSE 72; O2SAT 98; BMI 37.2
--- NOTE | 2022-11-30 08:00 | MHC.PC.OV ---
Vital Signs 11/30/22 08:00 Height 5 ft 3 in Weight 210 lb BMI 37.2 BP 122/62 Blood Pressure Location Lt brachial Position Sitting Pulse 72 Pulse Source Pulse Oximeter Pulse Oximetry (%) 98 Oxygen Delivery Method Room Air Intake Visit Reasons: asthma,bp Form Building Supervisor Required: No Accompanied by: Self / Same As Patient Allergies bee pollen [BEE STINGS] Allergy (Severe, Verified 11/30/22 08:20) SWELLING,WELTS latex [LATEX] Allergy (Mild, Verified 11/30/22 08:20) RASH simvastatin Adverse Reaction (Intermediate, Verified 11/30/22 08:20) myalgia Medication List - Last Reconciled 11/30/22 by Erlinda Newell MD albuterol sulfate 90 mcg/actuation (ProAir HFA) 2 puffs inhalation Q6H PRN 30 days azelastine 1 spray intranasal BID 30 days baclofen 20 mg PO NEEDED PRN celecoxib (Celebrex) 200 mg PO BID cholecalciferol (vitamin D3) 25 mcg PO DAILY 90 days ciclopirox 0.77% 1 appl topical BID docusate sodium (Colace) 100 mg PO BID 30 days epinephrine 0.3 mg (0.3 mL) IM Q10M PRN 30 days famotidine 40 mg PO BEDTIME fluticasone propion-salmeterol 500-50 mcg/dose (Advair Diskus) 1 inh inhalation BID 30 days ipratropium bromide 17 mcg/actuation 2 puffs inhalation TID 30 days ipratropium-albuterol 0.5 mg-3 mg(2.5 mg base)/3 mL 3 mL inhalation Q4-6H PRN 30 days ketoconazole 2% 2 appl topical DAILY lovastatin 10 mg PO BEDTIME 90 days mecobalamin (vitamin B12) 1,000 mcg IM QMONTH methylcellulose (laxative) (Citrucel) 1,000 mg PO BID montelukast 10 mg PO BEDTIME 90 days riuxqpcg-jddqfbkbc-PM 3.5-10,000-1 mg/mL-unit/mL-% 1 drp otic (ears) DAILY omeprazole 20 mg PO BID 30 days sennosides (Doreen-leora) 25.8 mg (3 x 8.6 mg) PO BEDTIME 90 days sodium,potassium,mag sulfates 17.5-3.13-1.6 gram (Suprep Bowel Prep Kit) 480 mL orally; tacrolimus 0.1% 1 appl topical BID triamcinolone acetonide 0.025% 1 appl topical BID Tobacco use date assessed: 08/11/22 Fall risk assessment: No Falls in past year Last assessed Fall Risk: 11/30/22 Dental Screening Dental Screen Date: 11/30/22 Did you have a dental visit in the last 12 months?: Yes Did you have a dental problem in the last 6 months where you did not have access to dental care?: No Was dental information given to patient?: Patient has dentist HPI HPI Comments History of Present Illness Details This is a 62-year-old female with GERD, chronic idiopathic constipation, hyperlipidemia, asthma and B12 deficiency that comes today accompanied by for follow-up on her conditions. GERD stable with famotidine and omeprazole. Follow by Gastroenterology. Constipation well controlled with docusate, Citrucel and senna. Will have colonoscopy next month. Cholesterol well controlled. She requires rescue inhaler 2 to 3 times a month and asthma is follow by pulmonology every 6 months. Has B12 deficiency on B12 injections and is follow by Hematology-Oncology. No chest pain or shortness of breath. She is obese with a BMI of 37.2 and was advised to diet and exercise to reach BMI goal less than 30. [facility] Medical History Anemia Asthma Bronchitis COVID-19 vaccine series completed Family history of Crohn's disease GERD (gastroesophageal reflux disease) Hearing loss History of basal cell carcinoma History of COVID-19 HLD (hyperlipidemia) Hx of diverticulitis of colon Hx of irritable bowel syndrome Screening for cervical cancer Wears hearing aid in both ears Surgical History H/O colonoscopy History of colon resection History of colostomy reversal History of esophagogastroduodenoscopy (EGD) History of left knee surgery History of reversal of ileostomy History of tonsillectomy Hx of ileostomy Hx of total knee replacement (~01/2020) Hx of tubal ligation Family History Father Colitis COPD (chronic obstructive pulmonary disease) Mother Diabetes Mental health disorder Hypertension Stroke Sister Lung cancer Paternal Grandmother Stomach cancer Family/Other Breast cancer Ovarian cancer Brother No problems noted. 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 1. Little interest or pleasure in doing things: not at all 2. Feeling down, depressed, or hopeless: not at all 3. Trouble falling or staying asleep, or sleeping too much: not at all 4. Feeling tired or having little energy: not at all 5. Poor appetite or overeating: not at all 6. Feeling bad about yourself - or that you are a failure or have let yourself or your family down: not at all 7. Trouble concentrating on things, such as reading the newspaper or watching television: not at all 8. Moving or speaking so slowly that other people could have noticed. Or the opposite - being so fidgety or restless that you have been moving around a lot more than usual: not at all 9. Thoughts that you would be better off or of hurting yourself in some way: not at all Total score: 0 Depression Screening Interpretation: Negative 85718 - PHQ-9 Billing: Yes Source: Developed by Drs. Azam Navarro, Aaliyah Lawrence, Yosvany Miranda and colleagues, with an educational julia from [employer]. Thrive Questionnaire Date Thrive assessed: 06/13/22 AUDIT C Alcohol Use Questionnaire (AUDIT-C) 1. How often do you have a drink containing alcohol?: Never Total Score: 0 Score Reviewed/Action Taken: No KENAN-7 AMB Questionnaire KENAN-7 Date KENAN - 7 assessed: 06/13/22 Source: Developed by Drs. Azam Navarro, Aaliyah Lawrence, Yosvany Miranda and colleagues, with an educational julia from [employer]. Review of Systems Const All systems reviewed & are unremarkable except as noted in HPI and below Eyes Reports no additional complaints, Denies change in vision and Denies other visual disturbances Card Denies chest pain at rest, Denies chest pain with activity, Denies edema, Denies irregular heart rhythm, Denies claudication, Denies dyspnea, Denies dyspnea on exertion, Denies orthopnea, Denies paroxysmal nocturnal dyspnea and Denies slow heart rate Resp Denies cough, Denies dyspnea and Denies dyspnea on exertion GI Denies abdominal pain, Denies change in bowel habits, Denies excessive flatus, Denies nausea and Denies vomiting Denies urinary incontinence, Denies urinary hesitancy and Denies urinary urgency Musc Denies abnormal gait, Denies atrophy, Denies deformity and Denies limited range of motion Skin/Breast Denies bleeding lesions, Denies changing lesions and Denies rash Neuro Denies abnormal gait and Denies lack of coordination Physical exam (Primary Care) Vital Signs: Last Vital Signs Pulse 72 11/30/22 08:00 BP 122/62 11/30/22 08:00 Pulse Ox 98 11/30/22 08:00 Oxygen Delivery Method Room Air 11/30/22 08:00 BMI result Body Mass Index 37.2 Tobacco/Smoking Status: Tobacco use Status Tobacco use date assessed 08/11/22 11/30/22 08:02 Patient Tobacco Use Status Never used Tobacco 11/30/22 08:02 e-Cigarette/Vaping Use Never Used 11/30/22 08:02 PHQ-9: PHQ-9 Score PHQ-9: Total score 0 11/30/22 08:23 Depression Screening Interpretation: Negative Thrive Assessment: Date of Thrive Assessment Date Thrive assessed 06/13/22 11/30/22 08:02 Eyes General: appearance normal, both eyes and all related structures Eyelids: Yes eyelids normal Conjunctivae: conjunctivae normal Neck Neck: Yes normal visual inspection and Yes supple Resp Effort & Inspection: normal respiratory effort Auscultation: clear to auscultation bilaterally Cardio Jugular venous distension: no JVD Rate: regular rate Rhythm: regular rhythm Heart sounds: S1 normal heart sound present and S2 normal heart sound present Extrem General: Yes full ROM Assessment and Plan Assessment & Plan (1) B12 deficiency anemia: Code(s): D51.9 - Vitamin B12 deficiency anemia, unspecified Plan: Continue B12 injections. Follow-up with Hematology-Oncology. (2) GERD (gastroesophageal reflux disease): Code(s): K21.9 - Gastro-esophageal reflux disease without esophagitis Qualifiers: Esophagitis presence: esophagitis presence not specified Qualified Code(s): K21.9 - Gastro-esophageal reflux disease without esophagitis Plan: Continue famotidine and omeprazole. Follow up with Gastroenterology. (3) HLD (hyperlipidemia): Code(s): E78.5 - Hyperlipidemia, unspecified Qualifiers: Hyperlipidemia type: pure hypercholesterolemia Qualified Code(s): E78.00 - Pure hypercholesterolemia, unspecified Plan: Continue statins (4) Chronic idiopathic constipation: Code(s): K59.04 - Chronic idiopathic constipation Plan: Continue docusate, Citrucel and senna. Follow up with Gastroenterology. (5) Asthma: Code(s): J45.909 - Unspecified asthma, uncomplicated Plan: Continue Advair. Use rescue inhaler as needed. Follow-up with pulmonology. Orders: Orders Comprehensive [place]. Panel Fast 5 Months M19.90 - Unspecified osteoarthritis, unspecified site Lipid Panel 5 Months E78.5 - Hyperlipidemia, unspecified Medications: Discontinued folic acid 1 tab PO DAILY 90 tabs 3RF Coding Level of Care Code Est Pt Level 4 (87567) Diagnoses B12 deficiency anemia D51.9 GERD (gastroesophageal reflux disease) K21.9 Esophagitis presence: esophagitis presence not specified HLD (hyperlipidemia) E78.00 Hyperlipidemia type: pure hypercholesterolemia Chronic idiopathic constipation K59.04 Asthma J45.909 Time Spent (min) 21
== END 2022-11-30 08:41 | disposition home or self-care (01) ==
PROVIDERS: Visit Provider Internal Medicine
DX: K21.9 Gastro-esophageal reflux disease without esophagitis (principal); J45.909 Unspecified asthma, uncomplicated; D51.9 Vitamin B12 deficiency anemia, unspecified; E78.00 Pure hypercholesterolemia, unspecified; K59.04 Chronic idiopathic constipation
CPT/HCPCS: 99214

== ENCOUNTER 2022-12-22 08:28 | Outpatient (REF) | payer MEDICARE, SELFPAY ==
--- NOTE | ~2022-12-22 | XR_ITS ---
EXAMINATIONS: BILATERAL KNEES 4 VIEWS CLINICAL INFORMATION: Pain. Pain COMPARISON: 01/27/2022 TECHNIQUE: AP, lateral, tunnel, sunrise views of each knee were obtained. FINDINGS: The right and left knee prostheses appear intact and demonstrate normal alignment. Left knee shows no effusion. Right lateral was not obtained. XR/XR knee LT 2V IMPRESSION: Intact right and left knee prosthesis. No acute abnormalities.
--- NOTE | ~2022-12-22 | XR_ITS ---
EXAMINATIONS: BILATERAL KNEES 4 VIEWS CLINICAL INFORMATION: Pain. Pain COMPARISON: 01/27/2022 TECHNIQUE: AP, lateral, tunnel, sunrise views of each knee were obtained. FINDINGS: The right and left knee prostheses appear intact and demonstrate normal alignment. Left knee shows no effusion. Right lateral was not obtained. XR/XR knee standing BI IMPRESSION: Intact right and left knee prosthesis. No acute abnormalities.
== END 2022-12-22 08:29 | disposition home or self-care (01) ==
LOC: HO.HOSX 08:28
PROVIDERS: Visit Provider Orthopaedic Surgery
DX: Z96.653 Presence of artificial knee joint, bilateral (principal)
CPT/HCPCS: 73560; 73565

== ENCOUNTER 2022-12-22 09:11 | Outpatient (AMB) | payer BC, SELFPAY ==
[2022-12-22 09:12] VITALS: BMI 37.2
--- NOTE | 2022-12-22 09:12 | MHC.OFFVIS ---
Intake Vital Signs 12/22/22 09:12 Height 5 ft 3 in Weight 210 lb BMI 37.2 Intake Visit Reasons: ov-S/P- Lt TKA 1 year follow up Intake Note: Sharron is a 62 year old female who presents today for her one year follow up of the left knee. Left TKA 11/02/21 Allergies bee pollen [BEE STINGS] Allergy (Severe, Verified 12/22/22 09:23) SWELLING,WELTS latex [LATEX] Allergy (Mild, Verified 12/22/22 09:23) RASH simvastatin Adverse Reaction (Intermediate, Verified 12/22/22 09:23) myalgia HPI ov-S/P- Lt TKA 1 year follow up HPI Details Sharron is a 62 year old woman ~13 months S/P left TKA. She has a hx of right TKA performed in by Dr. Michelle. She says she is doing well, without complaints, and is happy with the results of her surgery. She says she has some mild pain in her knees with prolonged walking, but this is tolerable. [facility] Medical History Anemia Asthma Bronchitis COVID-19 vaccine series completed Family history of Crohn's disease GERD (gastroesophageal reflux disease) Hearing loss History of basal cell carcinoma History of COVID-19 HLD (hyperlipidemia) Hx of diverticulitis of colon Hx of irritable bowel syndrome Screening for cervical cancer Wears hearing aid in both ears Surgical History H/O colonoscopy History of colon resection History of colostomy reversal History of esophagogastroduodenoscopy (EGD) History of left knee surgery History of reversal of ileostomy History of tonsillectomy Hx of ileostomy Hx of total knee replacement (~01/2020) Hx of tubal ligation Family History Father Colitis COPD (chronic obstructive pulmonary disease) Mother Diabetes Mental health disorder Hypertension Stroke Sister Lung cancer Paternal Grandmother Stomach cancer Family/Other Breast cancer Ovarian cancer Brother No problems noted. 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 needs: No Hearing needs: Yes Vision needs: Yes Female Reproductive History Menstrual Age of Menarche: 11 Review of Systems Const All systems reviewed & are unremarkable except as noted in HPI and below Physical Exam Vital Signs: BMI result Body Mass Index 37.2 Const General: no acute distress, alert and awake Orientation/consciousness: patient oriented x3 HEENT Head: Yes normocephalic and Yes atraumatic Eyes EOM: EOMs intact bilaterally Resp Effort & Inspection: normal respiratory effort and able to speak in complete sentences Cardio Jugular venous distension: no JVD Skin General skin exam: turgor normal Rashes: no rashes Neuro General: patient oriented x3 Extrem Other: Left Knee: No effusion 0-130 degrees ROM Stable to V/V stress Normal gait Psych Appearance: grossly normal Affect: normal affect Attitude: cooperative Results Reviewed Results Reviewed: I personally reviewed relevant radiographs. Left total knee arthroplasty in expected post operative position with no hardware complications or evidence of loosening Assessment & Plan Assessment & Plan (1) Status post total left knee replacement: Code(s): Z96.652 - Presence of left artificial knee joint Plan: This is a 62 year old woman S/P left TKA, DOS: 11/02/21. She is doing well, without complaints. I recommend she activity as tolerated. Discussed dental prophylaxis. She can follow up prn. (2) Status post total right knee replacement: Comment: 02/10/[address] Michelle Code(s): Z96.651 - Presence of right artificial knee joint Plan: No issues Plan Scribed for Broderick Graham MD by Js Hale, medical coordinator pesticide use, on 12/22/22 at 9:40 AM, EST. Orders: Orders XR knee LT 2V Today M25.569 - Pain in unspecified knee XR knee standing BI Today M25.569 - Pain in unspecified knee Medications: Discontinued folic acid 1 tab PO DAILY 90 tabs 3RF Coding Level of Care Code Est Pt Level 3 (82499) Diagnoses Status post total left knee replacement Z96.652 Status post total right knee replacement Z96.651
== END 2022-12-22 09:43 | disposition home or self-care (01) ==
PROVIDERS: Visit Provider Orthopaedic Surgery
DX: Z47.89 Encounter for other orthopedic aftercare (principal); Z96.653 Presence of artificial knee joint, bilateral
CPT/HCPCS: 99213

== ENCOUNTER 2023-01-06 14:01 | Outpatient (AMB) | payer BC, SELFPAY ==
--- NOTE | 2023-01-06 14:12 | A.OFFVIS_ITS ---
Intake Vital Signs 01/06/23 14:13 Weight 211 lb 10.3 oz BP 104/62 Blood Pressure Location Rt brachial Position Sitting Pulse 70 Pulse Source Doppler Pulse Oximetry (%) 100 Oxygen Delivery Method Room Air Intake Visit Reasons: COPD Allergies bee pollen [BEE STINGS] Allergy (Severe, Verified 01/06/23 14:14) SWELLING,WELTS latex [LATEX] Allergy (Mild, Verified 01/06/23 14:14) RASH simvastatin Adverse Reaction (Intermediate, Verified 01/06/23 14:14) myalgia HPI COPD HPI Details 62-year-old lady, nonsmoker, followed fo r underlying moderate persistent asthma, GERD, and environmental allergies. At the last office visit patient has been switched to Advair 500 with significant improvement in her symptom control. She continues to use nasal ipratropium as needed with good control of her allergic rhinitis symptoms. Her GERD is also better controlled on twice a day omeprazole. She denies any recent exacerbations. [facility] Medical History Anemia Asthma Bronchitis COVID-19 vaccine series completed Family history of Crohn's disease GERD (gastroesophageal reflux disease) Hearing loss History of basal cell carcinoma History of COVID-19 HLD (hyperlipidemia) Hx of diverticulitis of colon Hx of irritable bowel syndrome Screening for cervical cancer Wears hearing aid in both ears Surgical History H/O colonoscopy History of colon resection History of colostomy reversal History of esophagogastroduodenoscopy (EGD) History of left knee surgery History of reversal of ileostomy History of tonsillectomy Hx of ileostomy Hx of total knee replacement (~01/2020) Hx of tubal ligation Family History Father Colitis COPD (chronic obstructive pulmonary disease) Mother Diabetes Mental health disorder Hypertension Stroke Sister Lung cancer Paternal Grandmother Stomach cancer Family/Other Breast cancer Ovarian cancer Brother No problems noted. 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 needs: No Hearing needs: Yes Vision needs: Yes Female Reproductive History Menstrual Age of Menarche: 11 Review of Systems Const Denies daytime sleepiness, Denies excessive sweating, Denies fatigue, Denies fever(s), Denies lethargy, Denies malaise, Denies night sweats, Denies snoring and Denies weight loss Eyes Denies blurry vision and Denies itchy eyes ENT Denies nasal congestion, Denies post nasal drip, Denies sinus pain, Denies sinus pressure and Denies other ( Thrush) Card Denies chest pain, Denies pedal edema, Denies dyspnea, Denies orthopnea and Denies paroxysmal nocturnal dyspnea Resp Denies cough, Denies hemoptysis, Denies excessive phlegm production, Denies dyspnea, Denies snoring and Denies wheezing GI Denies abdominal pain and Denies heartburn Musc Denies myalgias, Denies arthralgias and Denies joint swelling Skin/Breast Denies rash Neuro Denies memory loss and Denies seizure-like activity Psych Denies abnormal sleep pattern, Denies anxiety and Denies memory loss Endo Denies excessive sweating, Denies fatigue and Denies heat intolerance Senthil/Lymph Denies easy bruising Aller/Immun Denies itchy eyes, Denies seasonal rhinorrhea and Denies wheezing Physical Exam Vital Signs: Last Vital Signs Pulse 70 01/06/23 14:13 BP 104/62 01/06/23 14:13 Pulse Ox 100 01/06/23 14:13 Oxygen Delivery Method Room Air 01/06/23 14:13 Const General: no acute distress and alert Nutritional Appearance: not obese Orientation/consciousness: Other orientation findings ( oriented) HEENT Head: Yes atraumatic Eyes General: appearance normal, both eyes and all related structures Sclerae: sclerae normal EOM: EOMs intact bilaterally Neck Neck: Yes supple Lymphatic: no lymphadenopathy noted Resp Effort & Inspection: normal respiratory effort and no use of accessory muscles Auscultation: clear to auscultation bilaterally Cardio Rate: regular rate Rhythm: regular rhythm Heart sounds: no gallops, no murmurs and no rubs Skin General skin exam: other ( warm) Extrem General: No clubbing, No cyanosis and No edema Assessment & Plan Assessment & Plan (1) Moderate persistent asthma: Code(s): J45.40 - Moderate persistent asthma, uncomplicated Plan: Well controlled on Advair 500 and albuterol MDI. Continue current regimen. (2) Environmental allergies: Code(s): Z91.09 - Other allergy status, other than to drugs and biological substances Plan: Will controlled on Singulair and nasal ipratropium. Continue current regimen. (3) GERD (gastroesophageal reflux disease): Code(s): K21.9 - Gastro-esophageal reflux disease without esophagitis Qualifiers: Esophagitis presence: esophagitis presence not specified Qualified Code(s): K21.9 - Gastro-esophageal reflux disease without esophagitis Plan: Well controlled on omeprazole 40 mg b.i.d.. Continue current regimen. Medications: Refilled montelukast 10 mg PO BEDTIME 90 tabs 3RF 90 days Z91.09 - Other allergy status, other than to drugs and biological substances Coding Level of Care Code Est Pt Level 4 (01941) Diagnoses Moderate persistent asthma J45.40 Environmental allergies Z91.09 Gastroesophageal reflux disease, unspecified whether esophagitis present K21.9 Esophagitis presence: esophagitis presence not specified
[2023-01-06 14:13] VITALS: BP 104/62; PULSE 70; O2SAT 100
== END 2023-01-06 14:40 | disposition home or self-care (01) ==
PROVIDERS: PCP Internal Medicine; Visit Provider Internal Medicine Pulmonary Disease
DX: J45.40 Moderate persistent asthma, uncomplicated (principal); Z91.09 Other allergy status, other than to drugs and biological substances; K21.9 Gastro-esophageal reflux disease without esophagitis
CPT/HCPCS: 99214

== ENCOUNTER → 2023-01-06 14:01 | Outpatient (BNVA) | payer BC, SELFPAY | PROVIDERS: PCP Internal Medicine; Visit Provider Internal Medicine Pulmonary Disease ==

== ENCOUNTER 2023-01-10 10:19 | Day surgery (SDC) | payer BC, SELFPAY ==
[2023-01-06 08:13] VITALS: BMI 36.7
--- NOTE | 2023-01-09 11:45 | P.CONAN_ITS ---
Documented by User: Tonya Galeana NP 01/09/23 11:46 HPI - Anesthesia Eval Consult details Narrative: 62yo F for Upper Endoscopy and Colonoscopy PMF Active Problems Active Problems: All Active Problems (Updated 11/28/22 @ 10:44 by Tonja Jalloh MD) Colon cancer screening (Acute) Dysuria (Acute) Physical exam (Acute) Tremors of nervous system (Acute) Anemia (Acute) Arthritis (Acute) Psoriasis (Acute) Recurrent boils of anus (Acute) Chronic idiopathic constipation (Acute) Gastric ulcer (Acute) Ileal erosions (Acute) Moderate persistent asthma (Acute) Environmental allergies (Acute) Encounter for preoperative pulmonary examination (Acute) Osteoarthritis of right knee (Acute) Primary osteoarthritis of right knee (Acute) Status post total right knee replacement (Acute) Bilateral otitis media (Acute) Abscess (Acute) B12 deficiency anemia (Acute) Well woman exam (Acute) Tricompartment osteoarthritis of left knee (Acute) Preoperative clearance (Acute) Obesity (BMI 30-39.9) (Acute) Osteoarthritis of left knee (Acute) Status post total left knee replacement (Acute) History of skin cancer (Acute) Resting tremor (Acute) Otitis media of right ear (Acute) High ankle sprain of right lower extremity (Acute) Asthma (Acute) Hx of diverticulitis of colon (Acute) HLD (hyperlipidemia) (Acute) GERD (gastroesophageal reflux disease) (Acute) Hearing loss (Acute) Screening for cervical cancer (Acute) Past Medical History Medical History Anemia COVID-19 vaccine series completed History of COVID-19 Screening for cervical cancer Hearing loss GERD (gastroesophageal reflux disease) HLD (hyperlipidemia) Family history of Crohn's disease Hx of irritable bowel syndrome Wears hearing aid in both ears History of basal cell carcinoma Hx of diverticulitis of colon Bronchitis Asthma Family History Family History Father Colitis COPD (chronic obstructive pulmonary disease) Mother Diabetes Mental health disorder Hypertension Stroke Sister Lung cancer Paternal Grandmother Stomach cancer Family/Other Breast cancer Ovarian cancer Brother No problems noted. Other Family history of Crohn's disease Family history of problems with anesthesia: No Surgical History Surgical History History of left knee surgery Hx of total knee replacement (~01/2020) History of tonsillectomy History of reversal of ileostomy Hx of ileostomy History of colostomy reversal History of colon resection Hx of tubal ligation History of esophagogastroduodenoscopy (EGD) H/O colonoscopy History of Problems with Anesthesia: No Social History Social History Household Members: Spouse, Family and Children Housing: House Are you a primary skin care specialist to a significant other at home: No Do you presently have visiting nurse or other home services: No Alcohol intake: never Patient Tobacco Use Status: Never used Tobacco e-Cigarette/Vaping Use: Never Used Second Hand Smoke Exposure: Yes Use of substances other than those prescribed or required for medical reasons: No Are you DNR?: No Advance Directives: No Advance Directives Information Provided: Yes Advance Directives Date on File: 01/24/20 service: No Current occupational status: retired and disabled 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 Cognitive needs: No Hearing needs: Yes Vision needs: Yes Meds Allergies Allergy/AdvReac Type Severity Reaction Status Date / Time bee pollen [BEE STINGS] Allergy Severe SWELLING,WE Verified 01/06/23 14:14 LTS latex [LATEX] Allergy Mild RASH Verified 01/06/23 14:14 simvastatin AdvReac Intermediate myalgia Verified 01/06/23 14:14 Home Medications Medication Instructions Recorded Confirmed Last Taken Type methylcellulose (laxative) 500 mg 1,000 mg PO BID 01/24/20 11/30/22 Unknown History tablet (Citrucel) baclofen 20 mg tablet 20 mg PO NEEDED PRN Spasms 01/29/20 11/30/22 Unknown History mecobalamin (vitamin B12) 10,000 1,000 mcg IM QMONTH 07/27/20 11/30/22 Unknown History mcg solution for injection celecoxib 200 mg capsule (Celebrex) 200 mg PO BID 10/27/20 01/10/23 01/10/23 History ciclopirox 0.77 % topical cream 1 appl topical BID 11/19/20 11/30/22 Unknown History triamcinolone acetonide 0.025 % 1 appl topical BID 11/19/20 11/30/22 Unknown History topical cream tacrolimus 0.1 % topical ointment 1 appl topical BID 10/19/21 11/30/22 Unknown History ketoconazole 2 % shampoo 2 appl topical DAILY 04/29/22 11/30/22 Unknown History xmiwzcaz-sfvedacha-biugyrone 3.5 1 drp otic (ears) DAILY 04/29/22 11/30/22 Unknown History mg-10,000 unit/mL-1 % ear drops,susp Exam Exam Date and Time: January 09, 2023 1145 Height,Weight and Vital Signs: Height 5 ft 3 in Weight 93.894 kg Pertinent Lab Results Pertinent Lab Results: Laboratory Tests 11/28/22 10:49 WBC 6.9 Hgb 11.9 L Hct 38.6 Plt Count 227 Sodium 141 Potassium 4.4 Chloride 106 Carbon Dioxide 25 BUN 17 H Creatinine 1.06 Assessment and Plan Assessment Anesthesia Assessment: Chart Reviewed Final Anesthetic Review Family History of Problems with Anesthesia: No History of Problems with Anesthesia: No Documented by User: Tray Mackenzie MD 01/10/23 11:32 [facility] Past Medical History Medical History Anemia COVID-19 vaccine series completed History of COVID-19 Screening for cervical cancer Hearing loss GERD (gastroesophageal reflux disease) HLD (hyperlipidemia) Family history of Crohn's disease Hx of irritable bowel syndrome Wears hearing aid in both ears History of basal cell carcinoma Hx of diverticulitis of colon Bronchitis Asthma Family History Family History Father Colitis COPD (chronic obstructive pulmonary disease) Mother Diabetes Mental health disorder Hypertension Stroke Sister Lung cancer Paternal Grandmother Stomach cancer Family/Other Breast cancer Ovarian cancer Brother No problems noted. Other Family history of Crohn's disease Surgical History Surgical History History of left knee surgery Hx of total knee replacement (~01/2020) History of tonsillectomy History of reversal of ileostomy Hx of ileostomy History of colostomy reversal History of colon resection Hx of tubal ligation History of esophagogastroduodenoscopy (EGD) H/O colonoscopy Social History Social History Household Members: Spouse, Family and Children Housing: House Are you a primary skin care specialist to a significant other at home: No Do you presently have visiting nurse or other home services: No Alcohol intake: never Patient Tobacco Use Status: Never used Tobacco e-Cigarette/Vaping Use: Never Used Second Hand Smoke Exposure: Yes Use of substances other than those prescribed or required for medical reasons: No Are you DNR?: No Advance Directives: No Advance Directives Information Provided: Yes Advance Directives Date on File: 01/24/20 service: No Current occupational status: 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 and disabled 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 Cognitive needs: No Hearing needs: Yes Vision needs: Yes Meds Allergies Allergy/AdvReac Type Severity Reaction Status Date / Time bee pollen [BEE STINGS] Allergy Severe SWELLING,WE Verified 01/06/23 14:14 LTS latex [LATEX] Allergy Mild RASH Verified 01/06/23 14:14 simvastatin AdvReac Intermediate myalgia Verified 01/06/23 14:14 Home Medications Medication Instructions Recorded Confirmed Last Taken Type methylcellulose (laxative) 500 mg 1,000 mg PO BID 01/24/20 11/30/22 Unknown History tablet (Citrucel) baclofen 20 mg tablet 20 mg PO NEEDED PRN Spasms 01/29/20 11/30/22 Unknown History mecobalamin (vitamin B12) 10,000 1,000 mcg IM QMONTH 07/27/20 11/30/22 Unknown History mcg solution for injection celecoxib 200 mg capsule (Celebrex) 200 mg PO BID 10/27/20 01/10/23 01/10/23 History ciclopirox 0.77 % topical cream 1 appl topical BID 11/19/20 11/30/22 Unknown History triamcinolone acetonide 0.025 % 1 appl topical BID 11/19/20 11/30/22 Unknown History topical cream tacrolimus 0.1 % topical ointment 1 appl topical BID 10/19/21 11/30/22 Unknown History ketoconazole 2 % shampoo 2 appl topical DAILY 04/29/22 11/30/22 Unknown History jgigtyse-atacvaokw-dkybprjow 3.5 1 drp otic (ears) DAILY 04/29/22 11/30/22 Unknown History mg-10,000 unit/mL-1 % ear drops,susp Exam Airway Mallampati Class: II TM Dist: >3cm Neck ROM: Full Denture: Upper Loose/Missing/Broken Teeth: Yes Assessment and Plan Assessment Anesthesia Assessment: Anesthesia Plan Discussed Final Anesthetic Review NPO: Yes ASA Class: III Final Preanesthetic Review: No Changes in Pt Med Stat, Meds/Allgs Chart Reviewed, Consent Obtained/Reviewed and Anes Risks/Benef Reviewed Patient Risk: Intermediate Procedure Risk: Low Anesthetic Plan Anesthetic Plan: MAC: Disposition: Standard PACU
[2023-01-10 10:39] VITALS: BP 136/70; PULSE 73; RESP 16; TEMP 36.3; O2SAT 100
[2023-01-10] MEDS: Lactated Ringers 1,000 ML 100 ML IVCONT (11:00)
--- NOTE | 2023-01-10 11:27 | MHC.SHP ---
Pre-Procedural Eval Section A Date of Service: 01/10/23 Section B Chief Complaint: Ulcer of intestine, Personal history of other dise Details of Present Illness: fh of ibd Relevant Family History (Specify if Yes): Yes Relevant Social History: None Present Medications: see Short Stay Collaborative assessment Medical History: Significant History (Anemia Asthma Bronchitis COVID-19 vaccine series completed Family history of Crohn's disease GERD (gastroesophageal reflux disease) Hearing loss History of basal cell carcinoma History of COVID-19 HLD (hyperlipidemia) Hx of diverticulitis of colon Hx of irritable bowel syndrome Screening for cervica) History of Previous Operations: Relevant previous surgery/procedure and date(s) (H/O colonoscopy History of colon resection History of colostomy reversal History of esophagogastroduodenoscopy (EGD) History of left knee surgery History of reversal of ileostomy History of tonsillectomy Hx of ileostomy Hx of total knee replacement (~01/2020) Hx of tubal ligation) Allergies: Allergies Allergy/AdvReac Type Severity Reaction Status Date / Time bee pollen [BEE STINGS] Allergy Severe SWELLING,WE Verified 01/06/23 14:14 LTS latex [LATEX] Allergy Mild RASH Verified 01/06/23 14:14 simvastatin AdvReac Intermediate myalgia Verified 01/06/23 14:14 Review of Systems Sugical H&P ROS: Negative: Constitution, Cardiovascular, Respiratory, Neurological, Psychiatric, Hem-Onc, Allergic/Immunologic, Gastrointestinal, Genitourinary, Musculoskeletal, Integumentary, Endocrine and Eyes/Ears/Nose/Throat Exam Surgical H&P Exam: Normal: HEENT, Normal: Heart, Normal: Lungs, Normal: Extremities, Normal: Abdomen, Normal: Skin and Normal: Neurological Plan Diagnosis/Plan: Unchanged I have reviewed the history and physical and performed a pertinent physical examination on my patient. No changes have occurred unless specified. Time Spent With Patient Time: Total time managing care of this patient today ____ minutes.
--- NOTE | 2023-01-10 11:55 | W.PM.OPN ---
Operative Note Operative Note Date of Service: 01/10/23 Narrative: Operative Information Procedure Description: EGD, Colonoscopy Indication: hx of gerd, colon screening Anesthesia: MAC FLEXIBLE TRANSORAL UPPER GASTROINTESTINAL ENDOSCOPY AND COLONOSCOPY PROCEDURE NOTE UPPER ENDOSCOPY Consent: Indications for the procedure and potential complications of bleeding, perforation, reaction to medications and missed diagnosis were discussed with the patient and informed consent was obtained. Instrument: Olympus GIF H 190 J mid size upper endoscope Monitoring: Vital signs and clinical assessment, continuous EKG monitoring, Pulse oximetry, Carbon Dioxide monitoring and blood pressure monitoring were done throughout the procedure. Procedure: The patient was placed in the left lateral decubitis position and pre-procedure medications were administered and a bite block was placed. The endoscope was inserted into the mouth and advanced under direct vision to the third part of duodenum. A careful inspection was made as the upper endoscope was withdrawn including a retroflexed examination of the proximal stomach; Findings and interventions are described below. Findings: Larynx:normal Esophagus: GE junction at 38 cm, diaphragm hiatus at 38 cm, irregular z line, bx from GEJ and distal esophagus Stomach: Mild erythema. Biopsies were obtained. Grade 2 flap valve on retroflexed examination of the cardia. Duodenum: Normal bulb and descending duodenum, Intervention: Biopsies as noted above COLONOSCOPY Instrument: Olympus variable stiffness pediatric scope 190L Colonoscopy Monitoring: Vital signs and clinical assessment, continuous EKG monitoring, Pulse oximetry, Carbon Dioxide monitoring and blood pressure monitoring were done throughout the procedure. Colon withdrawal time was 10 minutes. Procedure: The patient was placed in the left lateral decubitis position and pre-procedure medications were administered. After a digital rectal examination of the ano-rectum, the video colonoscope was inserted into the rectum and advanced through the colon to the cecum/TI. The colonoscope was slowly withdrawn in a retrograde panoramic fashion and the colon mucosa was carefully examined including a retroflexed view of the rectum. Findings and interventions are described below. Procedure Difficulty:easy Findings: Redundant colon Melanosis colon noted, worse on the left Terminal Ileum-normal Cecum: 4-5 mm sessile polyp removed with cold forceps, 8-9 mm sessile removed with cold snare Ascending Colon: normal Transverse Colon -normal Descending Colon:normal Sigmoid Colon: mild to moderate diverticulosis Rectum: Retroflexion with small internal hemorrhoids, grade I Anorectum - normal Colon preparation: [place] Bowel Preparation Scale Right colon; 2 Transverse colon: 3 Left colon; 3 (0 = Unprepared colon segment with mucosa not seen due to solid stool that cannot be cleared. 1 = Portion of mucosa of the colon segment seen, but other areas of the colon segment not well seen due to staining, residual stool and/or opaque liquid. 2 = Minor amount of residual staining, small fragments of stool and/or opaque liquid, but mucosa of colon segment seen well. 3 = Entire mucosa of colon segment seen well with no residual staining, small fragments of stool or opaque liquid) Impression and Post Procedure Diagnosis: Endoscopy Findings: mild gastritis mild esophagitis Colonoscopy Findings: polyps internal hemorrhoids diverticular disease redundant colon melanosis coli Plan: Await Pathology results Repeat Colonoscopy in 3-5 years due to polyps or earlier if clinically indicated High fiber diet leaflet avoid straining at stool, epsom salts and sitz bath, anusol supps or cream cont with PPI Above findings were reviewed with the patient and relevant handouts were provided if indicated.
[2023-01-10 12:20] VITALS: BP 136/70; PULSE 84; RESP 16; TEMP 36.1; O2SAT 97
[2023-01-10 12:35] VITALS: BP 147/67; PULSE 68; RESP 14; TEMP 36.1; O2SAT 97
== END 2023-01-10 13:02 | disposition home or self-care (01) ==
PROVIDERS: PCP Internal Medicine; Visit Provider Internal Medicine Gastroenterology
PROC: (CPT 45385; principal; 2023-01-10 12:10)
DX: Z12.11 Encounter for screening for malignant neoplasm of colon (principal); D12.0 Benign neoplasm of cecum; K57.30 Diverticulosis of large intestine without perforation or abscess without bleeding; Z87.19 Personal history of other diseases of the digestive system; Z90.49 Acquired absence of other specified parts of digestive tract; K64.0 First degree hemorrhoids; K63.89 Other specified diseases of intestine; K63.3 Ulcer of intestine; K21.9 Gastro-esophageal reflux disease without esophagitis; K22.89 Other specified disease of esophagus; K20.80 Other esophagitis without bleeding; K29.50 Unspecified chronic gastritis without bleeding; K44.9 Diaphragmatic hernia without obstruction or gangrene; D64.9 Anemia, unspecified; E78.5 Hyperlipidemia, unspecified; J45.909 Unspecified asthma, uncomplicated; Z79.899 Other long term (current) drug therapy; Z88.8 Allergy status to other drugs, medicaments and biological substances; Z91.040 Latex allergy status; Z85.828 Personal history of other malignant neoplasm of skin; Z86.16 Personal history of COVID-19
CPT/HCPCS: 45385; 45380; 43239; 88305; 88342

== ENCOUNTER → 2023-01-10 10:19 | Outpatient (BNV) | payer BC, SELFPAY | PROVIDERS: PCP Internal Medicine; Visit Provider Internal Medicine Gastroenterology | DX: K29.70 Gastritis, unspecified, without bleeding (principal); K20.90 Esophagitis, unspecified without bleeding; Z12.11 Encounter for screening for malignant neoplasm of colon; K63.89 Other specified diseases of intestine; K63.5 Polyp of colon; K57.90 Diverticulosis of intestine, part unspecified, without perforation or abscess without bleeding | CPT/HCPCS: 43239; 45380; 45385 ==

== ENCOUNTER 2023-01-23 09:39 | Outpatient (REF) | payer BC, SELFPAY ==
--- NOTE | ~2023-01-23 | MM_ITS ---
EXAMINATION: MM SCREENING DIGITAL BREAST TOMOSYNTHESIS, BILATERAL CLINICAL INFORMATION: Screening. Asymptomatic. COMPARISON: Mammography: 01/18/2022, 01/14/2021, 02/03/2018, 01/02/2017 TECHNIQUE: Digital breast tomosynthesis is performed in both the craniocaudal and mediolateral oblique views along with computer-aided detection (CAD). Synthesized 2D images are generated from the tomosynthesis. FINDINGS: There are scattered areas of fibroglandular density (ACR BI-RADS breast composition Category b). There are no suspicious masses, suspicious grouped calcifications, or areas of architectural distortion in either breast. The parenchymal pattern is stable from prior exams. No skin or axillary abnormalities. MM/MM tomosynthesis screening BI IMPRESSION: No mammographic evidence of malignancy. ASSESSMENT: BI-RADS BI-RADS 1 - Negative RECOMMENDATION: Routine annual mammography screening. 1 year F/U This examination should not preclude the clinical evaluation of a suspicious palpable abnormality. This patient's information was entered into a reminder system with a target due date for their next mammogram.
== END 2023-01-23 09:40 | disposition home or self-care (01) ==
LOC: HO.MAMMO 09:39
PROVIDERS: PCP Internal Medicine; Visit Provider Internal Medicine
DX: Z12.31 Encounter for screening mammogram for malignant neoplasm of breast (principal)
CPT/HCPCS: 77063; 77067

== ENCOUNTER → 2023-01-23 09:45 | Outpatient (BNV) | payer BC, SELFPAY | PROVIDERS: PCP Internal Medicine; Visit Provider Radiology Diagnostic Radiology | DX: Z12.31 Encounter for screening mammogram for malignant neoplasm of breast (principal) | CPT/HCPCS: 77063; 77067; 99213 ==

== ENCOUNTER 2023-01-25 13:10 | Outpatient (AMB) | payer MEDICARE, SELFPAY ==
[2023-01-25 13:15] VITALS: BP 133/63; PULSE 69; BMI 37.3
--- NOTE | 2023-01-25 13:15 | A.OFFVIS_ITS ---
Intake Vital Signs 01/25/23 13:15 Height 5 ft 3 in Weight 210 lb 5.136 oz BMI 37.3 BP 133/63 Blood Pressure Location Lt brachial Position Sitting Pulse 69 Intake Visit Reasons: S/p egd/colon- Gómez Intake Note: Patient presents to in office visit today in follow up of colonoscopy and EGD. Patient underwent EGD and colonoscopy on 01/10/23 w/Dr. Gómez. CC: Denies having any GI concerns today. Interventional Physician Required: No Accompanied by: Self / Same As Patient Allergies bee pollen [BEE STINGS] Allergy (Severe, Verified 01/25/23 13:17) SWELLING,WELTS latex [LATEX] Allergy (Mild, Verified 01/25/23 13:17) RASH simvastatin Adverse Reaction (Intermediate, Verified 01/25/23 13:17) myalgia HPI S/p egd/colon- Rico HPI Details Assessment & Plan (1) GERD (gastroesophageal reflux diseas e): Code(s): K21.9 - Gastro-esophageal reflux disease without esophagitis Qualifiers: Esophagitis presence: esophagitis presence not specified Qualified Code(s): K21.9 - Gastro-esophageal reflux disease without esophagitis Plan: She continues to do well, only very occasional LLQ pain. She feels that she continues to heal well after her severe bout of diverticulitis with a microperforation. She continues to utilize senna and Colace we needed to keep her bowels moving. Her GERD is well controlled on omeprazole in the morning and famotidine at night. She is agreeable to a colonoscopy. She also has PUD so an upper endoscopy will be ordered as well. There are no prior problems with anesthesia or sedation. Asthma well controlled,no cardiac - may need antibiotic prophylaxis for bilateral knee replacements. No ID problems. She has an FHX of IBD but unsure of CRC FHX. Sharron had severe TICS with microperf. She now is on Medicare, so will resend medications to [facility] because she was paying for all OTC. ROV 6 mos. (2) Gastric ulcer: Comment: discovered on 2019 EGD with erosive gastritis question related to NSAIDs Code(s): K25.9 - Gastric ulcer, unspecified as acute or chronic, without hemorrhage or perforation (3) Ileal erosions: Comment: uncertain etiology discovered on 2019 colonoscopy patient has a family history of Crohn's but also extensive NSAID use with a negative Axium NanofibersethBaseTrace genetics study this will bear watching Code(s): K63.3 - Ulcer of intestine (4) Hx of diverticulitis of colon: Comment: with perforation and abscess Code(s): Z87.19 - Personal history of other diseases of the digestive system (5) Pre-op exam: Code(s): Z01.818 - Encounter for other preprocedural examination Medications: New sodium polystyrene sulfonate Plea se disregard order for Go lytely as pt can not drink l arge volume 30 grams PO ONCE 30 grams 0RF Refilled sennosides (Doreen-k ot) 25.8 mg (3 x 8.6 m g) PO BEDTIME 90 d ays 270 tabs 2RF K59.04 - Chronic i diopathic constipa tion omeprazole 20 mg PO DAILY 30 caps 6RF K21.9 - Gastro-eso phageal reflux dis ease without esoph agitis famotidine 40 mg PO BEDTIME 30 tabs 6RF EGD/COLONOSCOPY 01/10/23 Findings: Larynx:normal Esophagus: GE junction at 38 cm, diaphragm hiatus at 38 cm, irregular z line, bx from GEJ and distal esophagus Stomach: Mild erythema. Biopsies were obtained. Grade 2 flap valve on retroflexed examination of the cardia. Duodenum: Normal bulb and descending duodenum, Findings: Redundant colon Melanosis colon noted, worse on the left Terminal Ileum-normal Cecum: 4-5 mm sessile polyp removed with cold forceps, 8-9 mm sessile removed with cold snare Ascending Colon: normal Transverse Colon -normal Descending Colon:normal Sigmoid Colon: mild to moderate diverticulosis Rectum: Retroflexion with small internal hemorrhoids, grade I Anorectum - normal Impression and Post Procedure Diagnosis: Endoscopy Findings: mild gastritis mild esophagitis Colonoscopy Findings: polyps internal hemorrhoids diverticular disease redundant colon melanosis coli Plan: Await Pathology results Repeat Colonoscopy in 3-5 years due to polyps or earlier if clinically indicated High fiber diet leaflet avoid straining at stool, epsom salts and sitz bath, anusol supps or cream cont with PPI BIOPSY Received: 01/10/23 Diagnosis A. Stomach, biopsy: Antral-type mucosa with mild chronic inactive inflammation; no Helicobacter organisms seen. B. GE junction, biopsy: - Cardiofundic-type mucosa with moderate chronic inactive inflammation; no intestinal metaplasia seen. - Squamous epithelium within normal limi ts. C. Esophagus, distal, biopsy: Squamous epithelium within normal limits; no inflammation seen. D. Cecum, polypectomies (2): Tubular adenomata; negative for high-grade dysplasia or carcinoma.. TODAY'S VISIT The procedure should be repeated in 5 years due finding of to cecal adenoma. The procedure was well tolerated. The results were explained and the patient is agreeable to the follow-up interval as stated. The bowel pattern has returned to normal. Education was provided to tell any 1st degree relatives about their findings to be sure that they are screened by age 45. Educated that they will be put on a recall list when it is time for their repeat scope but should they move out of state or away from the hospital they will need to remember along with their primary to repeat the procedure in a timely fashion to avoid any adverse complications. She continues to utilize senna and Colace we needed to keep her bowels moving. Her GERD is well controlled on omeprazole now bid, she also has famotidine available for breakthrough. She was on famotidine for a time because of voice problems and they wanted her on it for allergy reasons. But her voice improved when she was restarted on her Advair. Apparently, the Advair was not covered for a time r/t insurance. she fell recently and has scratches on her face and left hand pain. She tripped on something, maybe a crack in the sidewalk. Also, she has a bruise on the lateral right elbow from an unsuccessful IV stick. ROV 6 mos. [facility] Medical History Anemia COVID-19 vaccine series completed History of COVID-19 Screening for cervical cancer Hearing loss GERD (gastroesophageal reflux disease) HLD (hyperlipidemia) Family history of Crohn's disease Hx of irritable bowel syndrome Wears hearing aid in both ears History of basal cell carcinoma Hx of diverticulitis of colon Bronchitis Asthma Surgical History History of left knee surgery Hx of total knee replacement (~01/2020) History of tonsillectomy History of reversal of ileostomy Hx of ileostomy History of colostomy reversal History of colon resection Hx of tubal ligation History of esophagogastroduodenoscopy (EGD) H/O colonoscopy Family History Father Colitis COPD (chronic obstructive pulmonary disease) Mother Diabetes Mental health disorder Hypertension Stroke Sister Lung cancer Paternal Grandmother Stomach cancer Family/Other Breast cancer Ovarian cancer Brother No problems noted. 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 Cognitive needs: No Hearing needs: Yes Vision needs: Yes Female Reproductive History Menstrual Age of Menarche: 11 Review of Systems Const Denies fatigue, Denies fever(s), Denies night sweats, Denies poor appetite and Denies weight loss Eyes Details: glasses Reports requires corrective lenses ENT Reports Normal hearing present, Denies dental pain, Denies dysphagia, Denies hearing loss, Denies mouth pain, Denies odynophagia, Denies throat swelling, Denies tongue swelling and Reports other (Dentition adequate) Card Reports no additional complaints Resp Reports no additional complaints GI Denies abdominal pain, Denies melena, Denies bloating, Denies hematochezia, Reports constipation, Denies GI cramping, Denies dysphagia, Denies excessive flatus, Denies early satiety, Reports heartburn, Denies diarrhea, Denies nausea, Denies odynophagia, Denies vomiting and Denies hematemesis Skin/Breast Denies pruritus, Denies lesions, Denies rash and Denies jaundice Neuro Reports Normal hearing present and Denies Abnormal speech present Endo Denies fatigue Aller/Immun Denies throat swelling and Denies tongue swelling Physical Exam Vital Signs: Last Vital Signs Pulse 69 01/25/23 13:15 BP 133/63 01/25/23 13:15 BMI result Body Mass Index 37.3 Const General: cooperative, no acute distress, well developed and well groomed Nutritional Appearance: well nourished and obese Orientation/consciousness: oriented to person, oriented to place and oriented to time Limitations: No language barrier HEENT Head: Yes normocephalic and Yes atraumatic Eyes General: appearance normal, both eyes and all related structures Pupils: Equal, round and reactive pupils present Neck Neck: Yes normal visual inspection and Yes no lymphadenopathy Thyroid: Thyroid normal Resp Effort & Inspection: normal respiratory effort and able to speak in complete sentences Auscultation: clear to auscultation bilaterally Cardio Rate: regular rate Rhythm: regular rhythm Heart sounds: Normal, physiologic split S2 sound present Peripheral pulses: radial pulses present and posterior tibial pulses present GI Inspection: No distended, Yes Abdominal panniculus present and Yes obesity Palpation (GI): Soft to palpation, nontender, no guarding, not rigid and No hepatosplenomegaly present Percussion: Yes normal to percussion Auscultation: normal bowel sounds Rectal Exam - Female: deferred Skin General skin exam: no rashes or lesions noted, turgor normal, skin not dry, no jaundice, No spider nevi and no striae Rashes: no rashes Nails: normal Neuro General: oriented to person, oriented to place and oriented to time Cranial nerves: Yes Equal, round and reactive pupils present and Yes Normal hearing present Speech: No Abnormal speech present Extrem General: Yes normal to inspection, No clubbing, No cyanosis and No edema Psych Appearance: grossly normal and well kempt Mental Status: mental status grossly normal Speech and movement: Normal speech and movement present Affect: normal affect Attitude: cooperative Thought process: Normal thought process present and not confabulating Thought content: Normal thought content present Insight: Fair insight present (Psych) Judgement: Fair judgement present (Psych) Results Reviewed Results Reviewed: EGD/COLONOSCOPY 01/10/23 Findings: Larynx:normal Esophagus: GE junction at 38 cm, diaphragm hiatus at 38 cm, irregular z line, bx from GEJ and distal esophagus Stomach: Mild erythema. Biopsies were obtained. Grade 2 flap valve on retroflexed examination of the cardia. Duodenum: Normal bulb and descending duodenum, Findings: Redundant colon Melanosis colon noted, worse on the left Terminal Ileum-normal Cecum: 4-5 mm sessile polyp removed with cold forceps, 8-9 mm sessile removed with cold snare Ascending Colon: normal Transverse Colon -normal Descending Colon:normal Sigmoid Colon: mild to moderate diverticulosis Rectum: Retroflexion with small internal hemorrhoids, grade I Anorectum - normal Impression and Post Procedure Diagnosis: Endoscopy Findings: mild gastritis mild esophagitis Colonoscopy Findings: polyps internal hemorrhoids diverticular disease redundant colon melanosis coli Plan: Await Pathology results Repeat Colonoscopy in 3-5 years due to polyps or earlier if clinically indicated High fiber diet leaflet avoid straining at stool, epsom salts and sitz bath, anusol supps or cream cont with PPI BIOPSY Received: 01/10/23 Diagnosis A. Stomach, biopsy: Antral-type mucosa with mild chronic inactive inflammation; no Helicobacter organisms seen. B. GE junction, biopsy: - Cardiofundic-type mucosa with moderate chronic inactive inflammation; no intestinal metaplasia seen. - Squamous epithelium within normal limits. C. Esophagus, distal, biopsy: Squamous epithelium within normal limits; no inflammation seen. D. Cecum, polypectomies (2): Tubular adenomata; negative for high-grade dysplasia or carcinoma.. Assessment & Plan Assessment & Plan (1) Tubular adenoma of colon: Comment: 2022 scope=2 TA repeat in 1 year due to poor prep Code(s): D12.6 - Benign neoplasm of colon, unspecified Plan: The procedure should be repeated in 5 years due finding of to cecal adenoma. The procedure was well tolerated. The results were explained and the patient is agreeable to the follow-up interval as stated. The bowel pattern has returned to normal. Education was provided to tell any 1st degree relatives about their findings to be sure that they are screened by age 45. Educated that they will be put on a recall list when it is time for their repeat scope but should they move out of state or away from the hospital they will need to remember along with their primary to repeat the procedure in a timely fashion to avoid any adverse complications. She continues to utilize senna and Colace we needed to keep her bowels moving. Her GERD is well controlled on omeprazole now bid, she also has famotidine available for breakthrough. She was on famotidine for a time because of voice problems and they wanted her on it for allergy reasons. But her voice improved when she was restarted on her Advair. Apparently, the Advair was not covered for a time r/t insurance. she fell recently and has scratches on her face and left hand pain. She tripped on something, maybe a crack in the sidewalk. Also, she has a bruise on the lateral right elbow from an unsuccessful IV stick. ROV 6 mos. (2) Ileal erosions: Comment: uncertain etiology discovered on 2019 colonoscopy patient has a family history of Crohn's but also extensive NSAID use with a negative Axium NanofibersethBaseTrace genetics study this will bear watching Code(s): K63.3 - Ulcer of intestine (3) Gastric ulcer: Comment: discovered on 2019 EGD with erosive gastritis question related to NSAIDs Code(s): K25.9 - Gastric ulcer, unspecified as acute or chronic, without hemorrhage or perforation (4) Chronic idiopathic constipation: Code(s): K59.04 - Chronic idiopathic constipation (5) GERD (gastroesophageal reflux disease): Code(s): K21.9 - Gastro-esophageal reflux disease without esophagitis Qualifiers: Esophagitis presence: esophagitis presence not specified Qualified Code(s): K21.9 - Gastro-esophageal reflux disease without esophagitis Coding Level of Care Code Est Pt Level 3 (86274) Diagnoses Tubular adenoma of colon D12.6 Ileal erosions K63.3 Gastric ulcer K25.9 Chronic idiopathic constipation K59.04 Gastroesophageal reflux disease, unspecified whether esophagitis present K21.9 Esophagitis presence: esophagitis presence not specified
== END 2023-01-25 14:06 | disposition home or self-care (01) ==
PROVIDERS: PCP Internal Medicine; Visit Provider Nurse Practitioner
DX: D12.6 Benign neoplasm of colon, unspecified (principal); K63.3 Ulcer of intestine; K25.9 Gastric ulcer, unspecified as acute or chronic, without hemorrhage or perforation; K59.04 Chronic idiopathic constipation; K21.9 Gastro-esophageal reflux disease without esophagitis
CPT/HCPCS: 99213

== ENCOUNTER → 2023-01-25 13:10 | Outpatient (BNVA) | payer MEDICARE, SELFPAY | PROVIDERS: PCP Internal Medicine; Visit Provider Nurse Practitioner | DX: Z01.818 Encounter for other preprocedural examination (principal); K21.9 Gastro-esophageal reflux disease without esophagitis; K63.3 Ulcer of intestine; K25.9 Gastric ulcer, unspecified as acute or chronic, without hemorrhage or perforation; K59.04 Chronic idiopathic constipation; D12.6 Benign neoplasm of colon, unspecified; Z87.19 Personal history of other diseases of the digestive system | CPT/HCPCS: 99212 ==

== ENCOUNTER 2023-04-08 09:20 | Outpatient (AMB) | payer MEDICARE, SELFPAY ==
--- NOTE | 2023-04-08 10:41 | MHC.OFFWIV ---
Intake Vital Signs 04/08/23 10:42 Weight 92.079 kg BP 120/82 Blood Pressure Location Rt brachial Position Sitting Pulse 77 Pulse Source Pulse Oximeter Pulse Oximetry (%) 96 Oxygen Delivery Method Room Air Intake Visit Reasons: EP boil on buttucks Intake Note: Patient here for boil/cyst on buttocks. she has had this happen in the past but on thigh. Patient Tobacco Use Status: Never used Tobacco Allergies bee pollen [BEE STINGS] Allergy (Severe, Verified 04/08/23 10:44) SWELLING,WELTS latex [LATEX] Allergy (Mild, Verified 04/08/23 10:44) RASH simvastatin Adverse Reaction (Intermediate, Verified 04/08/23 10:44) myalgia Do you need a note to return to daycare/school/sports/work: No HPI HPI Comments History of Present Illness Details 1128 62 year old female presents w/ boil to buttocks has been worsening over the past few days. Patient reports she has had this before. She has been applying warm compresses to the area with little to no relief. She shows me a picture on her phone that appears like a developing abscess, no overlying erythema or warmth. Denies fevers, chills, chest pain, shortness of breath, abdominal pain. On exam there is a small 1 centimeter indurated area with surrounding erythema and warmth appears like developing abscess. No signs of fluctuance at this time. Rupa davila. This is likely developing abscess with overlying cellulitis. No signs of Darren is gangrene, acute abscess requiring drainage, necrotizing infection Will discharge on doxycycline and Keflex. Educated patient on diagnosis and treatment plan, answered all question, patient verbalizes understanding. At this time patient will be discharged home, advised to return with new or worsening symptoms. Educated on worrisome signs and symptoms and when to return. At this time I feel comfortable discharge home. [facility] Medical History Anemia COVID-19 vaccine series completed History of COVID-19 Screening for cervical cancer Hearing loss GERD (gastroesophageal reflux disease) HLD (hyperlipidemia) Family history of Crohn's disease Hx of irritable bowel syndrome Wears hearing aid in both ears History of basal cell carcinoma Hx of diverticulitis of colon Bronchitis Asthma Surgical History History of left knee surgery Hx of total knee replacement (~01/2020) History of tonsillectomy History of reversal of ileostomy Hx of ileostomy History of colostomy reversal History of colon resection Hx of tubal ligation History of esophagogastroduodenoscopy (EGD) H/O colonoscopy Family History Father Colitis COPD (chronic obstructive pulmonary disease) Mother Diabetes Mental health disorder Hypertension Stroke Sister Lung cancer Paternal Grandmother Stomach cancer Family/Other Breast cancer Ovarian cancer Brother No problems noted. 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 Cognitive needs: No Hearing needs: Yes Vision needs: Yes Female Reproductive History Menstrual Age of Menarche: 11 Review of Systems Const Details: Constitutional : No Weight loss, No Fever, No Chills, No Fatigue, No Malaise ENT/Mouth : No sore throat, No Rhinorrhea Eyes: No Eye Pain, No Swelling, No Redness Cardiovascular : No Chest Pain, No SOB, No Dyspnea on Exertion, No Orthopnea, No Edema, No Palpitations Respiratory : No Cough, No Sputum, No Wheezing Gastrointestinal : No Nausea, No Vomiting, No Diarrhea, No Constipation, No abdominal Pain, No Hematochezia, No Melena Genitourinary : No Dysuria, No Urinary Frequency, No Hematuria, Musculoskeletal : No joint pain, No Myalgias, No Joint Swelling Skin : No Skin Lesions, No rash, + developing abscess Neuro : No Weakness, No Numbness, No Dizziness, No Headache Psych : No Anxiety/Panic, No Depression All other systems reviewed and are negative All systems reviewed & are unremarkable except as noted in HPI and below Physical Exam Vital Signs: Last Vital Signs Pulse 77 04/08/23 10:42 BP 120/82 04/08/23 10:42 Pulse Ox 96 04/08/23 10:42 Oxygen Delivery Method Room Air 04/08/23 10:42 vss Appearance: Alert.? Oriented X3.? No acute distress.? Head: Normocephalic, atraumatic, no step-offs or deformities Eyes: Pupils equal, round and reactive to light.? ENT: Pharynx normal.? Neck: Normal inspection.? Neck supple.? CVS: Normal heart rate and rhythm.? Pulses normal.? Respiratory: No respiratory distress.? Breath sounds normal.? Abdomen: Soft and nontender.? Skin: Skin warm and dry.? Normal skin color.? Normal skin turgor.?small 1 centimeter indurated area with surrounding erythema and warmth appears like developing abscess. No signs of fluctuance at this time. 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 Extremities: No lower extremity edema.? No calf ttp. 5/5 strength to bilateral upper and lower extremities Neuro: Oriented X 3.? No motor deficit.? No sensory deficit. CN 2-12 intact Assessment & Plan Assessment & Plan (1) Abscess: Code(s): L02.91 - Cutaneous abscess, unspecified Plan Take your medications as prescribed. If you were prescribed antibiotics today, it is important that you take your medication to their entirety, do not skip any doses, do not finish them early. Follow-up with your primary care provider this week. Return to the emergency department with new or worsening symptoms. Such as fevers, chills, chest pain, shortness of breath, nausea, vomiting, dizziness, headache, vision changes, lethargy In case of emergency call 911 Medications: New cephalexin 500 mg PO QID 28 caps 0RF 7 days doxycycline hyclate 100 mg PO BID 14 caps 0RF 7 days Coding Level of Care Code Est Pt Level 3 (48273) Diagnoses Abscess L02.91
[2023-04-08 10:42] VITALS: BP 120/82; PULSE 77; O2SAT 96
== END 2023-04-08 11:06 | disposition home or self-care (01) ==
PROVIDERS: PCP Internal Medicine; Visit Provider Physician Assistant
DX: L02.91 Cutaneous abscess, unspecified (principal)
CPT/HCPCS: 99213

== ENCOUNTER 2023-05-25 07:16 | Outpatient (REF) | payer MEDICARE, SELFPAY ==
[2023-05-25 11:52] LABS: Alanine Aminotransferase 17 U/L (0-31); Albumin Level 3.7 g/dL (3.5-5.0); Alkaline Phosphatase 71 U/L (39-117); Anion Gap 11 (12-20); Aspartate Amino Transferase 16 U/L (5-31); Bilirubin Total 0.2 mg/dL (0.0-1.0); Blood Urea Nitrogen 23 mg/dL (9-16); Calcium 9.8 mg/dL (8.4-10.2); Carbon Dioxide 26 mmol/L (22-29); Chloride 107 mmol/L (96-108); Cholesterol 178 mg/dL (<200); Estimated Glomerular Filt Rate 54; Glucose Fasting 95 mg/dL (60-99); HDL Cholesterol 52 mg/dL (>40); LDL Cholesterol Calculated 110 mg/dL (<100); Potassium 4.2 mmol/L (3.3-5.1); Sodium 140 mmol/L (135-145); Total Protein 7.2 g/dL (6.5-8.0); Triglycerides 84 mg/dL (<150)
== END 2023-05-25 07:17 | disposition home or self-care (01) ==
LOC: HO.HMGCLDS 07:16
PROVIDERS: PCP Internal Medicine; Visit Provider Internal Medicine
DX: M19.90 Unspecified osteoarthritis, unspecified site (principal); E78.5 Hyperlipidemia, unspecified
CPT/HCPCS: 36415; 80053; 80061

== ENCOUNTER 2023-06-19 09:40 | Outpatient (AMB) | payer BC, SELFPAY ==
--- NOTE | 2023-06-19 09:43 | A.OFFVIS_ITS ---
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 No complaints. Last Pap/HPV was negative in 06/15 Last Mammogram was BI-RADS 1 in 02/13 Last Colonoscopy was in 01/14, the recommendation was to repeat in 3-5 years No previous screening DEXA scan PFSH Medical History Anemia COVID-19 vaccine series completed History of COVID-19 Screening for cervical cancer Hearing loss GERD (gastroesophageal reflux disease) HLD (hyperlipidemia) Family history of Crohn's disease Hx of irritable bowel syndrome Wears hearing aid in both ears History of basal cell carcinoma Hx of diverticulitis of colon Bronchitis Asthma Surgical History History of left knee surgery Hx of total knee replacement (~01/2020) History of tonsillectomy History of reversal of ileostomy Hx of ileostomy History of colostomy reversal History of colon resection Hx of tubal ligation History of esophagogastroduodenoscopy (EGD) H/O colonoscopy Family History Father Colitis COPD (chronic obstructive pulmonary disease) Mother Diabetes Mental health disorder Hypertension Stroke Sister Lung cancer Paternal Grandmother Stomach cancer Family/Other Breast cancer Ovarian cancer Brother No problems noted. 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 Cognitive needs: No Hearing needs: Yes Vision needs: Yes Female Reproductive History Menstrual Age of Menarche: 11 control method: none Total pregnancies: 3 Full term: 3 Number of Living Children: 3 Date of last pap smear: 06/08/22 History of abnormal pap smear: No History of STI: No Date of Mammogram: 01/23/23 History of abnormal mammogram: No Review of Systems Const All systems reviewed & are unremarkable except as noted in HPI and below Card Reports as per HPI Resp Reports as per HPI GI Reports as per HPI and Reports no additional complaints Reports as per HPI Physical Exam Vital Signs: Last Vital Signs BP 120/72 06/19/23 09:52 BMI result Body Mass Index 38.1 Const General: cooperative, healthy appearing and comfortable Chest Chest palpation & inspection: normal inspection of the chest and normal palpation of entire chest wall Breast/axilla inspection: normal inspection of the breasts and normal inspection of the axillae Breast/axilla palpation: normal palpation of the breasts, normal palpation of the axillae and no axillary lymphadenopathy Resp Effort & Inspection: normal respiratory effort Auscultation: clear to auscultation bilaterally Percussion: percussion normal Cardio Palpation: normal PMI Rate: regular rate Rhythm: regular rhythm Heart sounds: no murmurs and no rubs Peripheral pulses: Peripheral pulses 2+ throughout GI Inspection: Yes normal to inspection Palpation (GI): Soft to palpation, nontender, no guarding, not rigid and No hepatosplenomegaly present Percussion: Yes normal to percussion Auscultation: normal bowel sounds Rectal Exam - Female: deferred General: Yes bladder normal to palpation External Female Exam: No lesion Speculum Exam - Vagina: normal appearance of the vagina, normal palpation, n ormal vaginal discharge and not erythematous Speculum Exam - Cervix: normal appearance of the cervix and normal palpation Bimanual exam- vagina & uterus: normal bimanual exam, normal palpation, uterine size normal, bladder normal to palpation, consistency normal and normal palpation Bimanual Exam- Adnexa, other: normal adnexae, no masses and no tenderness Assessment & Plan Assessment & Plan (1) Well woman exam: Code(s): Z01.419 - Encounter for gynecological examination (general) (routine) without abnormal findings Plan: Co testing not indicated since the patient 's age is above 65 with no history of abnormal Pap smears last 25 years. Counseled the patient about the recommended dietary allowance of 1200 mg of Calcium & 800 IU of vitamin D. Instructions given to patient to schedule her neferred her for screening colonoscopy done. Will order DEXA scan . The patient was instructed to perform monthly self-breast exams and to schedule a 2 week DEXA scan follow-up appointment and an annual exam in a year; All questions answered and the patient verbalized understanding. Orders: Orders XR DEXA axial skeleton Today Z78.0 - Asymptomatic menopausal state Coding Level of Care Code Est Pt Prev Care >65y(57240) Diagnoses Well woman exam Z01.419
[2023-06-19 09:52] VITALS: BP 120/72; BMI 38.1
== END 2023-06-19 11:16 | disposition home or self-care (01) ==
LOC: HO.HWS 09:41
PROVIDERS: Visit Provider Obstetrics & Gynecology
DX: Z01.419 Encounter for gynecological examination (general) (routine) without abnormal findings (principal)
CPT/HCPCS: 99397

== ENCOUNTER → 2023-06-19 09:40 | Outpatient (BNVA) | payer BC, SELFPAY | PROVIDERS: Visit Provider Obstetrics & Gynecology ==

== ENCOUNTER 2023-06-22 08:19 | Outpatient (AMB) | payer MEDICARE, SELFPAY ==
[2023-06-22 08:23] VITALS: BP 132/70; BMI 37.6
--- NOTE | 2023-06-22 08:23 | A.OFFPC_ITS ---
Vital Signs 06/22/23 08:23 Height 5 ft 3 in Weight 212 lb BMI 37.6 BP 132/70 Blood Pressure Location Lt brachial Position Sitting Intake Visit Reasons: Annual exam Intake Note: Patient here for physical exam Forms Examiner Required: No Accompanied by: Self / Same As Patient Allergies bee pollen [BEE STINGS] Allergy (Severe, Verified 06/22/23 08:51) SWELLING,WELTS latex [LATEX] Allergy (Mild, Verified 06/22/23 08:51) RASH simvastatin Adverse Reaction (Intermediate, Verified 06/22/23 08:51) myalgia Medication List - Last Reconciled 06/22/23 by Erlinda Newell MD albuterol sulfate 90 mcg/actuation (ProAir HFA) 2 puffs inhalation Q6H PRN 30 days azelastine 1 spray intranasal BID 30 days baclofen 20 mg PO NEEDED PRN celecoxib (Celebrex) 200 mg PO BID cholecalciferol (vitamin D3) 25 mcg PO DAILY 90 days ciclopirox 0.77% 1 appl topical BID cyanocobalamin (vitamin B-12) 1,000 mcg IM QMONTH docusate sodium (Colace) 100 mg PO BID 30 days epinephrine 0.3 mg (0.3 mL) IM Q10M PRN 30 days famotidine 40 mg PO BEDTIME fluticasone propion-salmeterol 500-50 mcg/dose (Wixela Inhub) 1 inh inhalation BID 30 days ipratropium bromide 17 mcg/actuation 2 puffs inhalation TID 30 days ipratropium-albuterol 0.5 mg-3 mg(2.5 mg base)/3 mL 3 mL inhalation Q4-6H PRN 30 days ketoconazole 2% 2 appl topical DAILY lovastatin 10 mg PO BEDTIME 90 days methylcellulose (laxative) (Citrucel) 1,000 mg PO BID montelukast 10 mg PO BEDTIME 90 days vdamkujx-ifogadxrg-GK 3.5-10,000-1 mg/mL-unit/mL-% 1 drp otic (ears) DAILY omeprazole 20 mg PO BID 30 days sennosides (Doreen-leora) 25.8 mg (3 x 8.6 mg) PO BEDTIME 90 days tacrolimus 0.1% 1 appl topical BID triamcinolone acetonide 0.025% 1 appl topical BID Tobacco use date assessed: 06/22/23 Fall risk assessment: 1 Fall in past year Last assessed Fall Risk: 06/22/23 Dental Screening Dental Screen Date: 06/22/23 Did you have a dental visit in the last 12 months?: Yes Did you have a dental problem in the last 6 months where you did not have access to dental care?: No Was dental information given to patient?: Patient has dentist HPI HPI Comments History of Present Illness Details This is a 63-year-old female that comes for her physical exam. Last mammogram was 2022 and was normal. Last Pap smear was 2021 and was normal. Last colonoscopy was 2022 showing tubular adenoma next colonoscopy should be 2027. Is scheduled for bone density soon. Compliant with medications. 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 No chest pain or shortness of breath. Use hearing aids due to hearing loss. [facility] Medical History Anemia COVID-19 vaccine series completed History of COVID-19 Screening for cervical cancer Hearing loss GERD (gastroesophageal reflux disease) HLD (hyperlipidemia) Family history of Crohn's disease Hx of irritable bowel syndrome Wears hearing aid in both ears History of basal cell carcinoma Hx of diverticulitis of colon Bronchitis Asthma Surgical History History of left knee surgery Hx of total knee replacement (~01/2020) History of tonsillectomy History of reversal of ileostomy Hx of ileostomy History of colostomy reversal History of colon resection Hx of tubal ligation History of esophagogastroduodenoscopy (EGD) H/O colonoscopy Family History (Updated 06/22/23 @ 08:59 by Erlinda Newell MD) Father Colitis COPD (chronic obstructive pulmonary disease) Mother Diabetes Mental health disorder Hypertension Stroke Sister Lung cancer Ulcerative colitis Rheumatoid aortitis Paternal Grandmother Stomach cancer Family/Other Breast cancer Ovarian cancer Brother No problems noted. 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 1. Little interest or pleasure in doing things: not at all 2. Feeling down, depressed, or hopeless: not at all 3. Trouble falling or staying asleep, or sleeping too much: not at all 4. Feeling tired or having little energy: not at all 5. Poor appetite or overeating: not at all 6. Feeling bad about yourself - or that you are a failure or have let yourself or your family down: not at all 7. Trouble concentrating on things, such as reading the newspaper or watching television: not at all 8. Moving or speaking so slowly that other people could have noticed. Or the opposite - being so fidgety or restless that you have been moving around a lot more than usual: not at all 9. Thoughts that you would be better off or of hurting yourself in some way: not at all Total score: 0 Depression Screening Interpretation: Negative Depression Screening Done: Yes 08908 - PHQ-9 Billing: Yes Source: Developed by Drs. Azam Navarro, Aaliyah Lawrence, Yosvany Miranda and colleagues, with an educational julia from [employer]. Thrive Questionnaire Date Thrive assessed: 06/22/23 I am a: Patient What is your living situation today?: I have a steady place to live Within the past 12 months, did the food you bought not last and you didn't have the money to get more?: Never true Within the past 12 months, did you worry whether your food would run out before you got money to buy more?: Never true Do you have trouble paying for medicines?: No Do you have trouble getting transportation to medical appointments?: No Do you have trouble paying your heating and electricity bill?: No Do you have trouble taking care of your child, family member or friend?: No Do you have trouble with day-to-day activities such as bathing, preparing meals, shopping, managing finances, etc.?: No Are you currently unemployed and looking for a job?: No Are you interested in more education?: No Please select the resources that you would like help with: None Currently or been in a relationship where the following occur: no concerns reported THRIVE Score: 0 AUDIT C Alcohol Use Questionnaire (AUDIT-C) 1. How often do you have a drink containing alcohol?: Never Total Score: 0 Score Reviewed/Action Taken: No KENAN-7 AMB Questionnaire KENAN-7 Date KENAN - 7 assessed: 06/22/23 Feeling nervous, anxious, or on edge: 0 = Not at all Not being able to stop or control worryin = Not at all Worrying too much about different things: 0 = Not at all Trouble relaxin = Not at all Being so restless that it is hard to sit still: 0 = Not at all Becoming easily annoyed or irritable: 0 = Not at all Feeling afraid as if something awful might happen: 0 = Not at all Total KENAN-7 score (0-4 normal; 5-9 mild; 10-14 moderate; 15-21 severe): 0 Source: Developed by Drs. Azam Navarro, Aaliyah Lawrence, Yosvany Miranda and colleagues, with an educational julia from [employer]. KENAN-7 Assessment Billing KENAN-7 Assessment Tool: KENAN-7 Assessment 21078 Review of Systems Const All systems reviewed & are unremarkable except as noted in HPI and below Eyes Reports no additional complaints, Denies change in vision and Denies other visual disturbances Card Denies chest pain at rest, Denies chest pain with activity, Denies edema, Denies irregular heart rhythm, Denies claudication, Denies dyspnea, Denies dyspnea on exertion, Denies orthopnea, Denies paroxysmal nocturnal dyspnea and Denies slow heart rate Resp Denies cough, Denies dyspnea and Denies dyspnea on exertion GI Denies abdominal pain, Denies change in bowel habits, Denies excessive flatus, Denies nausea and Denies vomiting Denies urinary incontinence, Denies urinary hesitancy and Denies urinary urgency Musc Denies abnormal gait, Denies atrophy, Denies deformity and Denies limited range of motion Skin/Breast Denies bleeding lesions, Denies changing lesions and Denies rash Neuro Denies abnormal gait, Denies behavioral changes, Denies confusion and Denies lack of coordination Psych Denies behavioral changes and Denies confusion Physical exam (Primary Care) Vital Signs: Last Vital Signs BP 132/70 06/22/23 08:23 BMI result Body Mass Index 37.6 Tobacco/Smoking Status: Tobacco use Status Tobacco use date assessed 06/22/23 06/22/23 08:27 Patient Tobacco Use Status Never used Tobacco 06/22/23 08:27 e-Cigarette/Vaping Use Never Used 06/22/23 08:27 PHQ-9: PHQ-9 Score PHQ-9: Total score 0 06/22/23 09:16 Depression Screening Interpretation: Negative Thrive Assessment: Date of Thrive Assessment Date Thrive assessed 06/22/23 06/22/23 08:27 Currently or been in a relationship where the following occur: no concerns reported Const General: No confusion Orientation/consciousness: patient oriented x3 and No confusion HENMT Head: Yes normal to inspection, Yes normocephalic and Yes atraumatic Ears: external ears normal Eyes General: appearance normal, both eyes and all related structures Eyelids: Yes eyelids normal Conjunctivae: conjunctivae normal Neck Neck: Yes normal visual inspection and Yes supple Resp Effort & Inspection: normal respiratory effort Auscultation: clear to auscultation bilaterally Cardio Jugular venous distension: no JVD Rate: regular rate Rhythm: regular rhythm Heart sounds: S1 normal heart sound present and S2 normal heart sound present GI Inspection: Yes normal to inspection Palpation (GI): Soft to palpation and nontender Auscultation: normal bowel sounds Skin General skin exam: no rashes or lesions noted Neuro General: patient oriented x3, no focal motor deficits and No confusion Extrem General: Yes full ROM Psych Appearance: grossly normal Assessment and Plan Assessment & Plan (1) Physical exam: Code(s): Z00.00 - Encounter for general adult medical examination without abnormal findings Plan: Repeat in a year. Coding Level of Care Code Est Pt Prev Care >65y(42290) Diagnoses Physical exam Z00.00 Additional Codes KENAN-7 Assessment Billing - KENAN-7 Assessment Tool: KENAN-7 Assessment 02410 ([id number]) Time Spent (min) 32
== END 2023-06-22 09:55 | disposition home or self-care (01) ==
PROVIDERS: Visit Provider Internal Medicine
DX: Z00.00 Encounter for general adult medical examination without abnormal findings (principal)
CPT/HCPCS: 99397

== ENCOUNTER 2023-06-30 13:30 | Outpatient (REF) | payer MEDICARE, SELFPAY ==
--- NOTE | ~2023-06-30 | MM_ITS ---
EXAMINATION: BONE DENSITOMETRY CLINICAL INDICATION: Menopause. COMPARISON: This is the patient's baseline examination. TECHNIQUE: Using a [employer] DXA System (software version: 13.1) manufactured by [employer], dual-energy x-ray absorptiometry was performed of the lumbar spine and left hip. The images are of good technical quality. Summary results are attached. FINDINGS: LEFT FEMUR, NECK: BMD 0.876 g/cm2, Z-score -0.3, T-score -1.2, osteopenia. LEFT FEMUR, TOTAL: BMD 1.049 g/cm2, Z-score 0.8, T-score 0.3, normal. AP SPINE L1-L4: BMD 1.163 g/cm2, Z-score 0.5, T-score -0.1, normal. IDENTIFIED RISK FACTORS: Menopause, recurrent falls, glucocorticoids (chronic), secondary osteoporosis (intestinal or bowel disease). HISTORY OF FRACTURE: None listed. MEDICATIONS: Calcium, vitamin D. MM/XR DEXA axial skeleton IMPRESSION: 1. DIAGNOSIS: Osteopenia based on the lowest T-score value of -1.2 in the femoral neck applying World Health Organization criteria. 2. 10-YEAR FRACTURE RISK PREDICTION, FRAX: Major osteoporotic fracture (clinical spine, forearm, hip or shoulder) 12.0%. Hip fracture 1.1%. 3. Treatment Recommendations: NOF guidelines recommend consideration for treatment in postmenopausal women and men age 50 and older presenting with the following: -A hip or vertebral (clinical or morphometric) fracture. -T-score less than or equal to -2.5 at the femoral neck or spine after appropriate evaluation to exclude secondary causes. -Low bone mass at the hip or spine and a 10-year fracture probability by FRAX of greater than or equal to 3% for hip fracture or greater than or equal to 20% for major osteoporotic fracture based on the [place] adapted WHO algorithm. 4. Other Recommendations: All treatment decisions require clinical judgment and consideration of individual patient factors, including patient preferences, comorbidities, previous drug use, risk factors not captured in the FRAX model (e.g. frailty, falls, vitamin D deficiency, increased bone turnover, interval significant decline in bone density) and possible under or overestimation of fracture risk by FRAX. Additional medical evaluation for secondary cause of low bone mineral density may be appropriate. FUTURE SCAN RECOMMENDATION: People with diagnosed cases of osteoporosis or at high risk for fracture should have regular bone mineral density tests. For patients eligible for Medicare, routine testing is allowed once every 2 years. The testing frequency can be increased to one year for patients who have rapidly progressing disease, those who are receiving or discontinuing medical therapy to restore bone mass, or have additional risk factors.
== END 2023-06-30 13:31 | disposition home or self-care (01) ==
LOC: HO.MAMMO 13:30
PROVIDERS: PCP Internal Medicine; Visit Provider Obstetrics & Gynecology
DX: Z13.820 Encounter for screening for osteoporosis (principal); Z78.0 Asymptomatic menopausal state
CPT/HCPCS: 77080

== ENCOUNTER 2023-07-07 09:59 | Outpatient (AMB) | payer BC, SELFPAY ==
--- NOTE | 2023-07-07 10:12 | MHC.OFFVIS ---
Intake Vital Signs 07/07/23 10:13 Height 5 ft 3 in Weight 213 lb 13.574 oz BMI 37.9 BP 138/72 Blood Pressure Location Rt brachial Position Sitting Pulse 76 Pulse Source Doppler Pulse Oximetry (%) 99 Oxygen Delivery Method Room Air Intake Visit Reasons: COPD Allergies bee pollen [BEE STINGS] Allergy (Severe, Verified 07/07/23 10:15) SWELLING,WELTS latex [LATEX] Allergy (Mild, Verified 07/07/23 10:15) RASH simvastatin Adverse Reaction (Intermediate, Verified 07/07/23 10:15) myalgia HPI COPD HPI Details 63-year-old lady, nonsmoker, followed for underlying moderate persistent asthma, GERD, and environmental allergies. She continues on Wixela, duo nebs, and albuterol MDI with good control of her asthma symptoms. She has been using Singulair and as needed ipratropium bromide for her environmental allergies. Patient has GERD is reasonably well controlled on b.i.d. omeprazole. She denies recent exacerbations. Patient did have COVID in March of 2024, but now has recovered back to baseline. [facility] Medical History Anemia COVID-19 vaccine series completed History of COVID-19 Screening for cervical cancer Hearing loss GERD (gastroesophageal reflux disease) HLD (hyperlipidemia) Family history of Crohn's disease Hx of irritable bowel syndrome Wears hearing aid in both ears History of basal cell carcinoma Hx of diverticulitis of colon Bronchitis Asthma Surgical History History of left knee surgery Hx of total knee replacement (~01/2020) History of tonsillectomy History of reversal of ileostomy Hx of ileostomy History of colostomy reversal History of colon resection Hx of tubal ligation History of esophagogastroduodenoscopy (EGD) H/O colonoscopy Family History (Updated 06/22/23 @ 08:59 by Erlinda Newell MD) Father Colitis COPD (chronic obstructive pulmonary disease) Mother Diabetes Mental health disorder Hypertension Stroke Sister Lung cancer Ulcerative colitis Rheumatoid aortitis Paternal Grandmother Stomach cancer Family/Other Breast cancer Ovarian cancer Brother No problems noted. 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 Cognitive needs: No Hearing needs: Yes Vision needs: Yes Female Reproductive History Menstrual Age of Menarche: 11 Review of Systems Const Denies daytime sleepiness, Denies excessive sweating, Denies fatigue, Denies fever(s), Denies lethargy, Denies malaise, Denies night sweats, Denies snoring and Denies weight loss Eyes Denies blurry vision and Denies itchy eyes ENT Denies nasal congestion, Denies post nasal drip, Denies sinus pain, Denies sinus pressure and Denies other ( Thrush) Card Denies chest pain, Denies pedal edema, Denies dyspnea, Denies orthopnea and Denies paroxysmal nocturnal dyspnea Resp Reports cough, Denies hemoptysis, Denies excessive phlegm production, Denies dyspnea, Denies snoring and Denies wheezing GI Denies abdominal pain and Denies heartburn Musc Denies myalgias, Denies arthralgias and Denies joint swelling Skin/Breast Denies rash Neuro Denies memory loss and Denies seizure-like activity Psych Denies abnormal sleep pattern, Denies anxiety and Denies memory loss Endo Denies excessive sweating, Denies fatigue and Denies heat intolerance Senthil/Lymph Denies easy bruising Aller/Immun Denies itchy eyes, Denies seasonal rhinorrhea and Denies wheezing Physical Exam Vital Signs: Last Vital Signs Pulse 76 07/07/23 10:13 BP 138/72 07/07/23 10:13 Pulse Ox 99 07/07/23 10:13 Oxygen Delivery Method Room Air 07/07/23 10:13 BMI result Body Mass Index 37.9 Const General: no acute distress and alert Nutritional Appearance: not obese Orientation/consciousness: Other orientation findings ( oriented) HEENT Head: Yes atraumatic Eyes General: appearance normal, both eyes and all related structures Sclerae: sclerae normal EOM: EOMs intact bilaterally Neck Neck: Yes supple Lymphatic: no lymphadenopathy noted Resp Effort & Inspection: normal respiratory effort and no use of accessory muscles Auscultation: clear to auscultation bilaterally Cardio Rate: regular rate Rhythm: regular rhythm Heart sounds: no gallops, no murmurs and no rubs Skin General skin exam: other ( warm) Extrem General: No clubbing, No cyanosis and No edema Assessment & Plan Assessment & Plan (1) Moderate persistent asthma: Code(s): J45.40 - Moderate persistent asthma, uncomplicated Plan: Well controlled on Wixela, duo nebs, and albuterol MDI. Continue current regimen. (2) Environmental allergies: Code(s): Z91.09 - Other allergy status, other than to drugs and biological substances Plan: Well controlled on Singulair and as needed ipratropium nasal spray. Continue current regimen. (3) GERD (gastroesophageal reflux disease): Code(s): K21.9 - Gastro-esophageal reflux disease without esophagitis Qualifiers: Esophagitis presence: esophagitis presence not specified Qualified Code(s): K21.9 - Gastro-esophageal reflux disease without esophagitis Plan: Well controlled on b.i.d. omeprazole. Continue current regimen. Coding Level of Care Code Est Pt Level 4 (33753) Diagnoses Moderate persistent asthma J45.40 Environmental allergies Z91.09 Gastroesophageal reflux disease, unspecified whether esophagitis present K21.9 Esophagitis presence: esophagitis presence not specified
[2023-07-07 10:13] VITALS: BP 138/72; PULSE 76; O2SAT 99; BMI 37.9
== END 2023-07-07 10:27 | disposition home or self-care (01) ==
PROVIDERS: PCP Internal Medicine; Visit Provider Internal Medicine Pulmonary Disease
DX: J45.40 Moderate persistent asthma, uncomplicated (principal); Z91.09 Other allergy status, other than to drugs and biological substances; K21.9 Gastro-esophageal reflux disease without esophagitis
CPT/HCPCS: 99214

== ENCOUNTER → 2023-07-07 09:59 | Outpatient (BNVA) | payer BC, SELFPAY | PROVIDERS: PCP Internal Medicine; Visit Provider Internal Medicine Pulmonary Disease ==

== ENCOUNTER 2023-07-25 11:58 | Outpatient (AMB) | payer BC, SELFPAY ==
[2023-07-25 12:20] VITALS: BP 134/74; BMI 37.7
--- NOTE | 2023-07-25 12:20 | A.OFFVIS_ITS ---
Intake Vital Signs 07/25/23 12:20 Height 5 ft 3 in Weight 213 lb BMI 37.7 BP 134/74 Intake Visit Reasons: DEXA Results/DO NOT RS Engagement Liaison Required: No Allergies bee pollen [BEE STINGS] Allergy (Severe, Verified 07/25/23 12:21) SWELLING,WELTS latex [LATEX] Allergy (Mild, Verified 07/25/23 12:21) RASH simvastatin Adverse Reaction (Intermediate, Verified 07/25/23 12:21) myalgia Is last menstrual period known: No Post menopausal: Yes Patient : No HPI HPI Comments History of Present Illness Details The patient is presenting for follow up regarding DEXA scan results. T score @ spine and femoral Neck respectively were=-0.1 /-1.2 and 10 year FRAX risk = 12/1.1% for severe osteoporosis and fracture. [facility] Medical History Anemia COVID-19 vaccine series completed History of COVID-19 Screening for cervical cancer Hearing loss GERD (gastroesophageal reflux disease) HLD (hyperlipidemia) Family history of Crohn's disease Hx of irritable bowel syndrome Wears hearing aid in both ears History of basal cell carcinoma Hx of diverticulitis of colon Bronchitis Asthma Surgical History History of left knee surgery Hx of total knee replacement (~01/2020) History of tonsillectomy History of reversal of ileostomy Hx of ileostomy History of colostomy reversal History of colon resection Hx of tubal ligation History of esophagogastroduodenoscopy (EGD) H/O colonoscopy Family History Father Colitis COPD (chronic obstructive pulmonary disease) Mother Diabetes Mental health disorder Hypertension Stroke Sister Lung cancer Ulcerative colitis Rheumatoid aortitis Paternal Grandmother Stomach cancer Family/Other Breast cancer Ovarian cancer Brother No problems noted. 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 needs: No Hearing needs: Yes Vision needs: Yes Female Reproductive History Menstrual Age of Menarche: 11 control method: permanent sterilization Review of Systems Const All systems reviewed & are unremarkable except as noted in HPI and below Reports as per HPI and Reports no additional complaints GI Reports no additional complaints Reports no additional complaints Physical Exam Vital Signs: Last Vital Signs BP 134/74 07/25/23 12:20 BMI result Body Mass Index 37.7 Assessment & Plan Assessment & Plan (1) Osteopenia: Code(s): M85.80 - Other specified disorders of bone density and structure, unspecified site Plan: Discussed with the patient the DEXA results and FRAX risk. FRAX risk and T score showed no evidence of osteoporosis. Discussed with the patient all the options for osteoporosis prevention including lifestyle modifications including Ca+D supplements 1200 mg po qd/800 MIU, Weight bearing exercises and proteine supplements. The patient verbalized understanding and agreed plan will repeat DEXA in 2 years. Coding Level of Care Code Est Pt Level 3 (56377) Diagnoses Osteopenia M85.80
== END 2023-07-25 12:33 | disposition home or self-care (01) ==
PROVIDERS: PCP Internal Medicine; Visit Provider Obstetrics & Gynecology
DX: M85.80 Other specified disorders of bone density and structure, unspecified site (principal)
CPT/HCPCS: 99213

== ENCOUNTER → 2023-07-25 11:58 | Outpatient (BNVA) | payer BC, SELFPAY | PROVIDERS: PCP Internal Medicine; Visit Provider Obstetrics & Gynecology ==

== ENCOUNTER 2023-07-27 12:58 | Outpatient (AMB) | payer MEDICARE, SELFPAY ==
[2023-07-27 13:01] VITALS: BP 125/59; PULSE 80; BMI 37.6
--- NOTE | 2023-07-27 13:01 | A.OFFVIS_ITS ---
Intake Vital Signs 07/27/23 13:01 Height 5 ft 3 in Weight 212 lb 1.355 oz BMI 37.6 BP 125/59 L Blood Pressure Location Lt brachial Position Sitting Pulse 80 Intake Visit Reasons: 6 mnth follow up Intake Note: Patient presents to in office visit today in 6 months follow up of [facility]. CC: Patient reports doing well. She states she occasionally has abdominal pain but it goes away by itself. 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 The procedure was well tolerated. The results were explained and the patient is agreeable to the follow-up interval as stated. The bowel pattern has returned to normal. Education was provided to tell any 1st degree relatives about their findings to be sure that they are screened by age 45. Educated that they will be put on a recall list when it is time for their repeat scope but should they move out of state or away from the hospital they will need to remember along with their primary to repeat the procedure in a timely fashion to avoid any adverse complications. She continues to utilize senna and Colace we needed to keep her bowels moving. Her GERD is well controlled on omeprazole now bid, she also has famotidine available for breakthrough. She was on famotidine for a time because of voice problems and they wanted her on it for allergy reasons. But her voice improved when she was restarted on her Advair. Apparently, the Advair was not covered for a time r/t insurance. she fell recently and has scratches on her face and left hand pain. She tripped on something, maybe a crack in the sidewalk. Also, she has a bruise on the lateral right elbow from an unsuccessful IV stick. ROV 6 mos. (2) Ileal erosions: Comment: uncertain etiology discovered on 2019 colonoscopy patient has a family history of Crohn's but also extensive NSAID use with a negative [employer] genetics study this will bear watching Code(s): K63.3 - Ulcer of intestine (3) Gastric ulcer: Comment: discovered on 2019 EGD with erosive gastritis question related to NSAIDs Code(s): K25.9 - Gastric ulcer, unspecified as acute or chronic, without hemorrhage or perforation (4) Chronic idiopathic constipation: Code(s): K59.04 - Chronic idiopathic constipation (5) GERD (gastroesophageal reflux diseas e): Code(s): K21.9 - Gastro-esophageal reflux disease without esophagitis Qualifiers: Esophagitis presence: esophagitis presence not specified Qualified Code(s): K21.9 - Gastro-esophageal reflux disease without esophagitis Laboratory Tests 05/25/23 06/01/23 07:32 13:00 WBC 9.5 RBC 4.01 L Hgb 11.1 L Hct 35.1 L MCV 87.5 Plt Count 239 Estimated GFR 54 Total Bilirubin 0.2 AST 16 ALT 17 Alkaline Phosphata se 71 TODAY'S VISIT She continues on her omeprazole, famotidine and senna and Colace. She is due for repeat of her colonoscopy because of insufficient prep a year ago. She has occasional spasms that were usually on the LLQ but have happened on the RLQ, they will happen when she is moving her bowels. This is brief and not very painful. She says that her automotive salesperson, Dr. Link has been trying to change her GI medications, which is very strange. I advise her to inform him that she is managed by GI for her erosive gastritis and esophagitis. ROV 6 mos. PFS Medical History (Updated 07/27/23 @ 13:25 by CAMPBELL Bonner) Colon cancer screening Physical exam Tremors of nervous system Arthritis Asthma Encounter for preoperative pulmonary examination Osteoarthritis of right knee Primary osteoarthritis of right knee Bilateral otitis media Abscess Well woman exam Osteoarthritis of left knee Preoperative clearance History of skin cancer Otitis media of right ear High ankle sprain of right lower extremity Screening for cervical cancer Anemia COVID-19 vaccine series completed History of COVID-19 Hearing loss GERD (gastroesophageal reflux disease) HLD (hyperlipidemia) Family history of Crohn's disease Hx of irritable bowel syndrome Wears hearing aid in both ears History of basal cell carcinoma Hx of diverticulitis of colon Bronchitis Surgical History (Updated 07/27/23 @ 13:11 by CAMPBELL Bonner) Status post total right knee replacement Status post total left knee replacement History of left knee surgery Hx of total knee replacement (~01/2020) History of tonsillectomy History of reversal of ileostomy Hx of ileostomy History of colostomy reversal History of colon resection Hx of tubal ligation History of esophagogastroduodenoscopy (EGD) H/O colonoscopy Family History Father Colitis COPD (chronic obstructive pulmonary disease) Mother Diabetes Mental health disorder Hypertension Stroke Sister Lung cancer Ulcerative colitis Rheumatoid aortitis Paternal Grandmother Stomach cancer Family/Other Breast cancer Ovarian cancer Brother No problems noted. Other Family history of Crohn's disease Social History Household Members: Spouse, Family and Children Housing: House Are you a primary care director to a significant other at home: No Do you presently have visiting nurse or other home services: No Alcohol intake: never Comment: pt asleep Patient Tobacco Use Status: Never used Tobacco e-Cigarette/Vaping Use: Never Used Second Hand Smoke Exposure: Yes Use of substances other than those prescribed or required for medical reasons: No Have you been hit, kicked, punched, or otherwise hurt by someone within the past year? 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: No Hearing needs: Yes Vision needs: Yes Female Reproductive History Menstrual Age of Menarche: 11 Review of Systems Const Denies fatigue, Denies fever(s), Denies night sweats, Denies poor appetite and Denies weight loss Eyes Details: glasses Reports requires corrective lenses ENT Reports Normal hearing present, Denies dental pain, Denies dysphagia, Denies hearing loss, Denies mouth pain, Denies odynophagia, Denies throat swelling, Denies tongue swelling and Reports other (Dentition adequate) Card Reports no additional complaints and Reports dyspnea on exertion Resp Reports dyspnea on exertion GI Details: Denies abdominal pain, Denies melena, Denies bloating, Denies hematochezia, Reports constipation, Denies GI cramping, Denies dysphagia, Denies excessive flatus, Denies early satiety, Reports heartburn, Denies diarrhea, Denies nausea, Denies odynophagia, Denies vomiting and Denies hematemesis Skin/Breast Denies pruritus, Denies lesions, Denies rash and Denies jaundice Neuro Reports Normal hearing present and Denies Abnormal speech present Endo Denies fatigue Aller/Immun Denies throat swelling and Denies tongue swelling Physical Exam Vital Signs: Last Vital Signs Pulse 80 07/27/23 13:01 BP 125/59 L 07/27/23 13:01 BMI result Body Mass Index 37.6 Const General: cooperative, no acute distress, well developed and well groomed Nutritional Appearance: well nourished and obese Orientation/consciousness: oriented to person, oriented to place and oriented to time Limitations: No language barrier HEENT Head: Yes normocephalic and Yes atraumatic Eyes General: appearance normal, both eyes and all related structures Pupils: Equal, round and reactive pupils present Neck Neck: Yes normal visual inspection and Yes no lymphadenopathy Thyroid: Thyroid normal Resp Effort & Inspection: normal respiratory effort and able to speak in complete sentences Auscultation: clear to auscultation bilaterally Cardio Rate: regular rate Rhythm: regular rhythm Heart sounds: Normal, physiologic split S2 sound present Peripheral pulses: radial pulses present and posterior tibial pulses present GI Inspection: No distended, Yes Abdominal panniculus present and Yes obesity Palpation (GI): Soft to palpation, nontender, no guarding, not rigid and No hepatosplenomegaly present Percussion: Yes normal to percussion Auscultation: normal bowel sounds Rectal Exam - Female: deferred Skin General skin exam: no rashes or lesions noted, turgor normal, skin not dry, no jaundice, No spider nevi and no striae Rashes: no rashes Nails: normal Neuro General: oriented to person, oriented to place and oriented to time Cranial nerves: Yes Equal, round and reactive pupils present and Yes Normal hearing present Speech: No Abnormal speech present Extrem General: Yes normal to inspection, No clubbing, No cyanosis and No edema Psych Appearance: grossly normal and well kempt Mental Status: mental status grossly normal Speech and movement: Normal speech and movement present Affect: normal affect Attitude: cooperative Thought process: Normal thought process present and not confabulating Thought content: Normal thought content present Insight: Fair insight present (Psych) Judgement: Fair judgement present (Psych) Assessment & Plan Assessment & Plan (1) Chronic idiopathic constipation: Code(s): K59.04 - Chronic idiopathic constipation (2) GERD (gastroesophageal reflux disease): Code(s): K21.9 - Gastro-esophageal reflux disease without esophagitis Qualifiers: Esophagitis presence: esophagitis presence not specified Qualified Code(s): K21.9 - Gastro-esophageal reflux disease without esophagitis (3) Tubular adenoma of colon: Comment: 2022 scope=2 TA repeat in 5 year due to poor prep Code(s): D12.6 - Benign neoplasm of colon, unspecified (4) Gastric ulcer: Comment: discovered on 2019 EGD with erosive gastritis question related to NSAIDs Code(s): K25.9 - Gastric ulcer, unspecified as acute or chronic, without hemorrhage or perforation (5) Ileal erosions: Comment: uncertain etiology discovered on 2019 colonoscopy patient has a family history of Crohn's but also extensive NSAID use with a negative [employer] genetics study this will bear watching Code(s): K63.3 - Ulcer of intestine Plan She continues on her omeprazole, famotidine and senna and Colace. She is due for repeat of her colonoscopy because of insufficient prep a year ago. She has occasional spasms that were usually on the LLQ but have happened on the RLQ, they will happen when she is moving her bowels. This is brief and not very painful. She says that her automotive salesperson, Dr. Link has been trying to change her GI medications, which is very strange. I advise her to inform him that she is managed by GI for her erosive gastritis and esophagitis. ROV 6 mos. Medications: Refilled famotidine 40 mg PO BEDTIME 30 tabs 6RF omeprazole 20 mg PO BID 60 caps 6RF 30 days K21.9 - Gastro-esophageal reflux disease without esophagitis docusate sodium (Colace) 100 mg PO BID 60 caps 6RF 30 days sennosides (Doreen-leora) 25.8 mg (3 x 8.6 mg) PO BEDTIME 270 tabs 2RF 90 days K59.04 - Chronic idiopathic constipation Coding Level of Care Code Est Pt Level 3 (19539) Diagnoses Chronic idiopathic constipation K59.04 Gastroesophageal reflux disease, unspecified whether esophagitis present K21.9 Esophagitis presence: esophagitis presence not specified Tubular adenoma of colon D12.6 Gastric ulcer K25.9 Ileal erosions K63.3
== END 2023-07-27 14:31 | disposition home or self-care (01) ==
PROVIDERS: PCP Internal Medicine; Visit Provider Nurse Practitioner
DX: K59.04 Chronic idiopathic constipation (principal); K21.9 Gastro-esophageal reflux disease without esophagitis; D12.6 Benign neoplasm of colon, unspecified; K25.9 Gastric ulcer, unspecified as acute or chronic, without hemorrhage or perforation; K63.3 Ulcer of intestine
CPT/HCPCS: 99213

== ENCOUNTER → 2023-07-27 12:58 | Outpatient (BNVA) | payer MEDICARE, SELFPAY | PROVIDERS: PCP Internal Medicine; Visit Provider Nurse Practitioner | DX: K59.04 Chronic idiopathic constipation (principal); K21.9 Gastro-esophageal reflux disease without esophagitis; K25.9 Gastric ulcer, unspecified as acute or chronic, without hemorrhage or perforation; K63.3 Ulcer of intestine; D12.6 Benign neoplasm of colon, unspecified | CPT/HCPCS: 99212 ==

== ENCOUNTER 2023-10-24 12:45 | Outpatient (AMB) | payer MEDICARE, SELFPAY ==
[2023-10-24 13:01] VITALS: BP 110/68; PULSE 80; O2SAT 93; BMI 36.8
--- NOTE | 2023-10-24 13:01 | A.OFFPC_ITS ---
Vital Signs 10/24/23 13:01 Height 5 ft 3 in Weight 208 lb 0.6 oz BMI 36.8 BP 110/68 Blood Pressure Location Lt brachial Position Sitting Pulse 80 Pulse Source Pulse Oximeter Pulse Oximetry (%) 93 Oxygen Delivery Method Room Air Intake Visit Reasons: asthma Blending Kettle Tender Required: No Accompanied by: Self / Same As Patient Allergies bee pollen [BEE STINGS] Allergy (Severe, Verified 10/24/23 13:32) SWELLING,WELTS latex [LATEX] Allergy (Mild, Verified 10/24/23 13:32) RASH simvastatin Adverse Reaction (Intermediate, Verified 10/24/23 13:32) myalgia Medication List - Last Reconciled 10/24/23 by Erlinda Newell MD albuterol sulfate 90 mcg/actuation (ProAir HFA) 2 puffs inhalation Q6H PRN 30 days amoxicillin 2,000 mg (4 x 500 mg) PO ONCE 1 day azelastine 1 spray intranasal BID 30 days baclofen 20 mg PO NEEDED PRN celecoxib (Celebrex) 200 mg PO BID cholecalciferol (vitamin D3) 25 mcg PO DAILY 90 days ciclopirox 0.77% 1 appl topical BID cyanocobalamin (vitamin B-12) 1,000 mcg IM QMONTH docusate sodium (Colace) 100 mg PO BID 30 days epinephrine 0.3 mg (0.3 mL) IM Q10M PRN 30 days famotidine 40 mg PO BEDTIME fluticasone propion-salmeterol 500-50 mcg/dose (Wixela Inhub) 1 inh inhalation BID 30 days ipratropium bromide 17 mcg/actuation 2 puffs inhalation TID 30 days ipratropium-albuterol 0.5 mg-3 mg(2.5 mg base)/3 mL 3 mL inhalation Q4-6H PRN 30 days ketoconazole 2% 2 appl topical DAILY lovastatin 10 mg PO BEDTIME 90 days methylcellulose (laxative) (Citrucel) 1,000 mg PO BID montelukast 10 mg PO BEDTIME 90 days aanzzttb-eqsvbjxag-FV 3.5-10,000-1 mg/mL-unit/mL-% 1 drp otic (ears) DAILY omeprazole 20 mg PO BID 30 days sennosides (Doreen-leora) 25.8 mg (3 x 8.6 mg) PO BEDTIME 90 days tacrolimus 0.1% 1 appl topical BID triamcinolone acetonide 0.025% 1 appl topical BID Tobacco use date assessed: 06/22/23 Fall risk assessment: No Falls in past year Last assessed Fall Risk: 10/24/23 Dental Screening Dental Screen Date: 06/22/23 HPI HPI Comments History of Present Illness Details This is a 63-year-old female with moderate persistent asthma, chronic idiopathic constipation, GERD and hyperlipidemia that comes today accompanied by for follow-up on her conditions. Asthma has been well controlled with long-acting inhaler and this is follow by pulmonology. Constipation stable with medications as needed. Was advised a high-fiber diet. GERD stable with PPIs and famotidine. Cholesterol well controlled with statins. No chest pain or sh ortness on breath. She has obese with a BMI of 36.9 and was advised to do diet and exercise to reach BMI goal less than 30. [facility] Medical History (Updated 10/24/23 @ 14:52 by Erlinda Newell MD) Colon cancer screening Physical exam Tremors of nervous system Arthritis Asthma Encounter for preoperative pulmonary examination Osteoarthritis of right knee Primary osteoarthritis of right knee Bilateral otitis media Abscess Well woman exam Osteoarthritis of left knee Preoperative clearance History of skin cancer Otitis media of right ear High ankle sprain of right lower extremity Screening for cervical cancer Anemia COVID-19 vaccine series completed History of COVID-19 Hearing loss GERD (gastroesophageal reflux disease) HLD (hyperlipidemia) Family history of Crohn's disease Hx of irritable bowel syndrome Wears hearing aid in both ears History of basal cell carcinoma Hx of diverticulitis of colon Bronchitis Surgical History Status post total right knee replacement Status post total left knee replacement History of left knee surgery Hx of total knee replacement (~01/2020) History of tonsillectomy History of reversal of ileostomy Hx of ileostomy History of colostomy reversal History of colon resection Hx of tubal ligation History of esophagogastroduodenoscopy (EGD) H/O colonoscopy Family History Father Colitis COPD (chronic obstructive pulmonary disease) Mother Diabetes Mental health disorder Hypertension Stroke Sister Lung cancer Ulcerative colitis Rheumatoid aortitis Paternal Grandmother Stomach cancer Family/Other Breast cancer Ovarian cancer Brother No problems noted. 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 How often do you have a drink containing alcohol?: Never 3. How often do you have six or more drinks on one occasion?: Never Total Score: 0 Score Reviewed/Action Taken: No KENAN-7 AMB Questionnaire KENAN-7 Date KENAN - 7 assessed: 06/22/23 Source: Developed by Drs. Azam Navarro, Aaliyah Lawrence, Yosvany Miranda and colleagues, with an educational julia from Seen. Review of Systems Const All systems reviewed & are unremarkable except as noted in HPI and below Card Denies chest pain at rest, Denies chest pain with activity, Denies edema, Denies irregular heart rhythm, Denies claudication, Denies dyspnea, Denies dyspnea on exertion, Denies orthopnea, Denies paroxysmal nocturnal dyspnea and Denies slow heart rate Resp Denies cough, Denies dyspnea and Denies dyspnea on exertion GI Denies abdominal pain, Denies change in bowel habits, Denies excessive flatus, Denies nausea and Denies vomiting Denies urinary incontinence, Denies urinary hesitancy and Denies urinary urgency Physical exam (Primary Care) Vital Signs: Last Vital Signs Pulse 80 10/24/23 13:01 BP 110/68 10/24/23 13:01 Pulse Ox 93 10/24/23 13:01 Oxygen Delivery Method Room Air 10/24/23 13:01 BMI result Body Mass Index 36.8 BMI Assessment/Plan discussion: High BMI High, discussed plan: lifestyle, weight reduction, dietary and physical activity Tobacco/Smoking Status: Tobacco use Status Tobacco use date assessed 06/22/23 10/24/23 13:02 Patient Tobacco Use Status Never used Tobacco 10/24/23 13:02 e-Cigarette/Vaping Use Never Used 10/24/23 13:02 Thrive Assessment: Date of Thrive Assessment Date Thrive assessed 06/22/23 10/24/23 13:02 Resp Effort & Inspection: normal respiratory effort Auscultation: clear to auscultation bilaterally Cardio Jugular venous distension: no JVD Rate: regular rate Rhythm: regular rhythm Heart sounds: S1 normal heart sound present and S2 normal heart sound present Extrem General: Yes full ROM Assessment and Plan Assessment & Plan (1) Chronic idiopathic constipation: Code(s): K59.04 - Chronic idiopathic constipation Plan: Continue senna as needed. (2) GERD (gastroesophageal reflux disease): Code(s): K21.9 - Gastro-esophageal reflux disease without esophagitis Qualifiers: Esophagitis presence: esophagitis presence not specified Qualified Code(s): K21.9 - Gastro-esophageal reflux disease without esophagitis Plan: Continue PPIs and famotidine. (3) HLD (hyperlipidemia): Code(s): E78.5 - Hyperlipidemia, unspecified Qualifiers: Hyperlipidemia type: pure hypercholesterolemia Qualified Code(s): E78.00 - Pure hypercholesterolemia, unspecified Plan: Continue statins. (4) Moderate persistent asthma: Code(s): J45.40 - Moderate persistent asthma, uncomplicated Qualifiers: Asthma complication type: uncomplicated Qualified Code(s): J45.40 - Moderate persistent asthma, uncomplicated Plan: Continue long-acting inhaler. Use rescue inhaler as needed. Follow-up with pulmonology. Coding Level of Care Code Est Pt Level 4 (37927) Complex EM visit Add On G2211 Diagnoses Chronic idiopathic constipation K59.04 Gastroesophageal reflux disease, unspecified whether esophagitis present K21.9 Esophagitis presence: esophagitis presence not specified Pure hypercholesterolemia E78.00 Hyperlipidemia type: pure hypercholesterolemia Moderate persistent asthma without complication J45.40 Asthma complication type: uncomplicated Time Spent (min) 23
== END 2023-10-24 13:50 | disposition home or self-care (01) ==
PROVIDERS: PCP Internal Medicine; Visit Provider Internal Medicine
DX: K59.04 Chronic idiopathic constipation (principal); K21.9 Gastro-esophageal reflux disease without esophagitis; E78.00 Pure hypercholesterolemia, unspecified; J45.40 Moderate persistent asthma, uncomplicated
CPT/HCPCS: 99214; G2211

== ENCOUNTER 2023-11-15 09:10 | Outpatient (AMB) | payer MEDICARE, SELFPAY ==
--- NOTE | 2023-11-15 09:13 | A.OFFVIS_ITS ---
Vital Signs 11/15/23 09:17 Height 5 ft 3 in Weight 207 lb BMI 36.7 BP 145/65 H Blood Pressure Location Rt brachial Position Sitting Pulse 80 Intake Visit Reasons: Cyst on buttock Intake Note: Patient referred for recurrent cyst on buttock near rectum. Patient c/o: tender to touch, oozing at times. Remote Broadcast Technician Required: No Accompanied by: Self / Same As Patient Allergies bee pollen [BEE STINGS] Allergy (Severe, Verified 11/15/23 09:18) SWELLING,WELTS latex [LATEX] Allergy (Mild, Verified 11/15/23 09:18) RASH simvastatin Adverse Reaction (Intermediate, Verified 11/15/23 09:18) myalgia HPI Comments Details: PATIENT PRESENTS FOR EVALUATION OF A RECURRENT CYST INVOLVING HER RIGHT PERITONEUM. HAS BEEN GOING ON FOR MANY YEARS TIME. IT GETS INFECTED AND SPONTANEOUSLY DRAINED. SHE WOULD LIKE TO HAVE REMOVED. Chart was reviewed and patient evaluated. Patient has very complex past surgical history including perforated diverticulitis with ostomy, reanastomosis with anastomotic leak, diverting ileostomy which was then reversed. This happened [facility] Medical History Colon cancer screening Physical exam Tremors of nervous system Arthritis Asthma Encounter for preoperative pulmonary examination Osteoarthritis of right knee Primary osteoarthritis of right knee Bilateral otitis media Abscess Well woman exam Osteoarthritis of left knee Preoperative clearance History of skin cancer Otitis media of right ear High ankle sprain of right lower extremity Screening for cervical cancer Anemia COVID-19 vaccine series completed History of COVID-19 Hearing loss GERD (gastroesophageal reflux disease) HLD (hyperlipidemia) Family history of Crohn's disease Hx of irritable bowel syndrome Wears hearing aid in both ears History of basal cell carcinoma Hx of diverticulitis of colon Bronchitis Surgical History Status post total right knee replacement Status post total left knee replacement History of left knee surgery Hx of total knee replacement (~01/2020) History of tonsillectomy History of reversal of ileostomy Hx of ileostomy History of colostomy reversal History of colon resection Hx of tubal ligation History of esophagogastroduodenoscopy (EGD) H/O colonoscopy Family History Father Colitis COPD (chronic obstructive pulmonary disease) Mother Diabetes Mental health disorder Hypertension Stroke Sister Lung cancer Ulcerative colitis Rheumatoid aortitis Paternal Grandmother Stomach cancer Family/Other Breast cancer Ovarian cancer Brother No problems noted. 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 Multiple scars all well healed Other: Patient was a large right perineal mass/cyst wishes the symptomatic problem. This measures approximately 4 x 3 cm Assessment & Plan Assessment & Plan (1) Perineal mass in female: Code(s): N90.89 - Other specified noninflammatory disorders of vulva and perineum Category: Surgical Plan Patient has noted above like to have this removed. Risks, benefits, alternatives of perineal right side cyst excision were reviewed with the patient and included but not limited to bleeding, infection, recurrence, numbness, pain, scarring, wound dehiscence, seroma formation and the patient wishes to proceed. All questions answered. Arrangements were made for this. Coding Level of Care Code New Pt Level 5 (83260) Diagnoses Perineal mass in female N90.89
[2023-11-15 09:17] VITALS: BP 145/65; PULSE 80; BMI 36.7
== END 2023-11-15 09:29 | disposition home or self-care (01) ==
PROVIDERS: PCP Internal Medicine; Visit Provider Surgery
DX: N90.89 Other specified noninflammatory disorders of vulva and perineum (principal)
CPT/HCPCS: 99204

== ENCOUNTER → 2023-11-15 09:10 | Outpatient (BNVA) | payer MEDICARE, SELFPAY | PROVIDERS: PCP Internal Medicine; Visit Provider Surgery | DX: N90.89 Other specified noninflammatory disorders of vulva and perineum (principal) | CPT/HCPCS: 99202 ==

== ENCOUNTER 2023-12-08 08:47 | Day surgery (SDC) | payer MEDICARE, SELFPAY ==
[2023-12-06 09:00] VITALS: BMI 36.7
--- NOTE | 2023-12-06 14:45 | HO.ANESPROP2 ---
Documented by User: Tonya Galeana NP 12/06/23 14:46 HPI - Anesthesia Eval Consult details Narrative: 63yo F for Wide Local Excision of Mass Perineal Mass PMFSH Active Problems Active Problems: All Active Problems Perineal mass in female (Acute) Osteopenia (Acute) Tubular adenoma of colon (Acute) Dysuria (Acute) Resting tremor (Acute) Obesity (BMI 30-39.9) (Acute) Tricompartment osteoarthritis of left knee (Acute) B12 deficiency anemia (Acute) Environmental allergies (Acute) Moderate persistent asthma (Acute) Ileal erosions (Acute) Gastric ulcer (Acute) Chronic idiopathic constipation (Acute) Recurrent boils of anus (Acute) Psoriasis (Acute) Anemia (Acute) Hx of diverticulitis of colon (Acute) HLD (hyperlipidemia) (Acute) GERD (gastroesophageal reflux disease) (Acute) Hearing loss (Acute) Past Medical History Medical History Wears hearing aid in both ears Seasonal allergies Colon cancer screening Physical exam Tremors of nervous system High ankle sprain of right lower extremity Otitis media of right ear History of skin cancer Osteoarthritis of left knee Preoperative clearance Anemia COVID-19 vaccine series completed History of COVID-19 Well woman exam Screening for cervical cancer Hearing loss Abscess GERD (gastroesophageal reflux disease) Bilateral otitis media HLD (hyperlipidemia) Primary osteoarthritis of right knee Osteoarthritis of right knee Encounter for preoperative pulmonary examination Family history of Crohn's disease Hx of irritable bowel syndrome Wears hearing aid in both ears History of basal cell carcinoma Arthritis Hx of diverticulitis of colon Bronchitis Asthma Family History Family History Father Colitis COPD (chronic obstructive pulmonary disease) Mother Diabetes Mental health disorder Hypertension Stroke Sister Lung cancer Ulcerative colitis Rheumatoid aortitis Paternal Grandmother Stomach cancer Family/Other Breast cancer Ovarian cancer Brother No problems noted. Other Family history of Crohn's disease Family history of problems with anesthesia: No Surgical History Surgical History Hx of basal cell carcinoma excision History of left knee surgery Status post total left knee replacement Hx of total knee replacement (~01/2020) Status post total right knee replacement History of tonsillectomy History of reversal of ileostomy Hx of ileostomy History of colostomy reversal History of colon resection Hx of tubal ligation History of esophagogastroduodenoscopy (EGD) H/O colonoscopy History of Problems with Anesthesia: No Social History Social History Household Members: Spouse, Family and Children Housing: House Are you a primary acute care occupational therapist to a significant other at home: No Do you presently have visiting nurse or other home services: No Alcohol intake: never Comment: pt asleep Patient Tobacco Use Status: Never used Tobacco e-Cigarette/Vaping Use: Never Used Second Hand Smoke Exposure: Yes Use of substances other than those prescribed or required for medical reasons: No Have you been hit, kicked, punched, or otherwise hurt by someone within the past year? 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 Hearing needs: Yes Vision needs: Yes Meds Allergies Allergy/AdvReac Type Severity Reaction Status Date / Time bee pollen [BEE STINGS] Allergy Severe SWELLING,WE Verified 12/08/23 09:05 LTS latex [LATEX] Allergy Mild RASH Verified 12/08/23 09:05 simvastatin AdvReac Intermediate myalgia Verified 12/08/23 09:05 Home Medications ?Medication ?Instructions ?Recorded ?Confirmed ?Last Taken ?Type methylcellulose (laxative) 500 mg 1,000 mg PO BID 01/24/20 12/08/23 Unknown History tablet (Citrucel) baclofen 20 mg tablet 20 mg PO NEEDED PRN Spasms 01/29/20 12/08/23 Unknown History celecoxib 200 mg capsule (Celebrex) 200 mg PO BID 10/27/20 12/08/23 12/05/23 History ciclopirox 0.77 % topical cream 1 appl topical BID 11/19/20 12/08/23 Unknown History triamcinolone acetonide 0.025 % 1 appl topical BID 11/19/20 12/08/23 Unknown History topical cream tacrolimus 0.1 % topical ointment 1 appl topical BID 10/19/21 12/08/23 Unknown History ketoconazole 2 % shampoo 2 appl topical DAILY 04/29/22 12/08/23 Unknown History pgzupswi-oydzmswli-hdddwktyc 3.5 1 drp otic (ears) DAILY 04/29/22 12/08/23 Unknown History mg-10,000 unit/mL-1 % ear drops,susp azelastine 137 mcg (0.1 %) nasal 1 spray intranasal BID PRN Allergy 12/06/23 12/08/23 Unknown History spray Symptoms Exam Height,Weight and Vital Signs: Height 5 ft 3 in Weight 93.894 kg Pertinent Lab Results Pertinent Lab Results: Laboratory Tests 11/30/23 11:10 WBC 7.5 Hgb 11.0 L Hct 34.9 L Plt Count 188 Sodium 140 Potassium 4.2 Chloride 107 Carbon Dioxide 27 BUN 16 Creatinine 1.04 Assessment and Plan Assessment Anesthesia Assessment: Chart Reviewed Final Anesthetic Review Family History of Problems with Anesthesia: No History of Problems with Anesthesia: No Documented by User: Lila Lakhani MD 12/08/23 10:57 HPI - Anesthesia Eval Consult details Narrative: 63yo F for Wide Local Excision of Perineal Mass PMFSH Past Medical History Medical History Wears hearing aid in both ears Seasonal allergies Colon cancer screening Physical exam Tremors of nervous system High ankle sprain of right lower extremity Otitis media of right ear History of skin cancer Osteoarthritis of left knee Preoperative clearance Anemia COVID-19 vaccine series completed History of COVID-19 Well woman exam Screening for cervical cancer Hearing loss Abscess GERD (gastroesophageal reflux disease) Bilateral otitis media HLD (hyperlipidemia) Primary osteoarthritis of right knee Osteoarthritis of right knee Encounter for preoperative pulmonary examination Family history of Crohn's disease Hx of irritable bowel syndrome Wears hearing aid in both ears History of basal cell carcinoma Arthritis Hx of diverticulitis of colon Bronchitis Asthma Family History Family History Father Colitis COPD (chronic obstructive pulmonary disease) Mother Diabetes Mental health disorder Hypertension Stroke Sister Lung cancer Ulcerative colitis Rheumatoid aortitis Paternal Grandmother Stomach cancer Family/Other Breast cancer Ovarian cancer Brother No problems noted. Other Family history of Crohn's disease Family history of problems with anesthesia: No Surgical History Surgical History Hx of basal cell carcinoma excision History of left knee surgery Status post total left knee replacement Hx of total knee replacement (~01/2020) Status post total right knee replacement History of tonsillectomy History of reversal of ileostomy Hx of ileostomy History of colostomy reversal History of colon resection Hx of tubal ligation History of esophagogastroduodenoscopy (EGD) H/O colonoscopy History of Problems with Anesthesia: No Social History Social History Household Members: Spouse, Family and Children Housing: House Are you a primary acute care occupational therapist to a significant other at home: No Do you presently have visiting nurse or other home services: No Alcohol intake: never Comment: pt asleep Patient Tobacco Use Status: Never used Tobacco e-Cigarette/Vaping Use: Never Used Second Hand Smoke Exposure: Yes Use of substances other than those prescribed or required for medical reasons: No Have you been hit, kicked, punched, or otherwise hurt by someone within the past year? 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 Hearing needs: Yes Vision needs: Yes Meds Allergies Allergy/AdvReac Type Severity Reaction Status Date / Time bee pollen [BEE STINGS] Allergy Severe SWELLING,WE Verified 12/08/23 09:05 LTS latex [LATEX] Allergy Mild RASH Verified 12/08/23 09:05 simvastatin AdvReac Intermediate myalgia Verified 12/08/23 09:05 Home Medications ?Medication ?Instructions ?Recorded ?Confirmed ?Last Taken ?Type methylcellulose (laxative) 500 mg 1,000 mg PO BID 10/02/20 08/16/24 Unknown History tablet (Citrucel) baclofen 20 mg tablet 20 mg PO NEEDED PRN Spasms 01/29/20 12/08/23 Unknown History celecoxib 200 mg capsule (Celebrex) 200 mg PO BID 10/27/20 12/08/23 12/05/23 History ciclopirox 0.77 % topical cream 1 appl topical BID 11/19/20 12/08/23 Unknown History triamcinolone acetonide 0.025 % 1 appl topical BID 11/19/20 12/08/23 Unknown History topical cream tacrolimus 0.1 % topical ointment 1 appl topical BID 10/19/21 12/08/23 Unknown History ketoconazole 2 % shampoo 2 appl topical DAILY 04/29/22 12/08/23 Unknown History atsloxyb-srnnfekwo-nsvlzprmt 3.5 1 drp otic (ears) DAILY 04/29/22 12/08/23 Unknown History mg-10,000 unit/mL-1 % ear drops,susp azelastine 137 mcg (0.1 %) nasal 1 spray intranasal BID PRN Allergy 12/06/23 12/08/23 Unknown History spray Symptoms Exam Height,Weight and Vital Signs: Height 5 ft 3 in Weight 93.894 kg Vital Signs Temp Pulse Resp BP Pulse Ox O2 Del Method 12/08/23 09:09 97.5 F 73 16 150/69 H 99 Room Air Airway Mallampati Class: II TM Dist: >3cm Neck ROM: Full Denture: Upper Loose/Missing/Broken Teeth: Yes (Dentures top. Denies loose or broken teeth) Heart: RRR Lungs: CTAB Assessment and Plan Assessment Anesthesia Assessment: Anesthesia Plan Discussed and Chart Reviewed Final Anesthetic Review Family History of Problems with Anesthesia: No History of Problems with Anesthesia: No NPO: Yes ASA Class: III Final Preanesthetic Review: No Changes in Pt Med Stat, Meds/Allgs Chart Reviewed, Consent Obtained/Reviewed and Anes Risks/Benef Reviewed Patient Risk: Intermediate Procedure Risk: Low Assessment/Block/Sedation in SS: Assess/Block/Sedation-SS Anesthetic Plan Anesthetic Plan: GA and TIVA Disposition: Standard PACU
--- NOTE | 2023-12-07 10:02 | MHC.SHP ---
Pre-Procedural Eval Section A - 24 Hr Update-Section A only Date of Service: 12/08/23 The patient is an INPATIENT: No Changes since office visit: No Cold of Flu in the past 2 weeks, No New Medical Problems, No Changes in Medication and No Patient answered all questions Section B - Complete if H&P > 30 days Chief Complaint: noninflammatory disorders of vulva Allergies: Allergies Allergy/AdvReac Type Severity Reaction Status Date / Time bee pollen [BEE STINGS] Allergy Severe SWELLING,WE Verified 11/30/23 11:18 LTS latex [LATEX] Allergy Mild RASH Verified 11/30/23 11:18 simvastatin AdvReac Intermediate myalgia Verified 11/30/23 11:18 Review of Systems Sugical H&P ROS: Negative: Constitution, Cardiovascular, Respiratory, Neurological, Psychiatric, Hem-Onc, Allergic/Immunologic, Gastrointestinal, Genitourinary, Musculoskeletal, Integumentary, Endocrine and Eyes/Ears/Nose/Throat Exam Surgical H&P Exam: Normal: HEENT, Normal: Heart, Normal: Lungs, Normal: Extremities, Normal: Abdomen, Normal: Skin and Normal: Neurological Plan I have reviewed the history and physical and performed a pertinent physical examination on my patient. No changes have occurred unless specified. Time Spent With Patient Time: Total time managing care of this patient today ____ minutes.
[2023-12-08 09:09] VITALS: BP 150/69; PULSE 73; RESP 16; TEMP 36.4; O2SAT 99
[2023-12-08] MEDS: Lactated Ringers 1,000 ML 100 ML IVCONT (10:05)
--- NOTE | 2023-12-08 10:06 | MHC.SHP ---
Pre-Procedural Eval Section A - 24 Hr Update-Section A only Date of Service: 12/08/23 The patient is an INPATIENT: No Changes since office visit: No Cold of Flu in the past 2 weeks, No New Medical Problems, No Changes in Medication and No Patient answered all questions Section B - Complete if H&P > 30 days Chief Complaint: noninflammatory disorders of vulva Allergies: Allergies Allergy/AdvReac Type Severity Reaction Status Date / Time bee pollen [BEE STINGS] Allergy Severe SWELLING,WE Verified 12/08/23 09:05 LTS latex [LATEX] Allergy Mild RASH Verified 12/08/23 09:05 simvastatin AdvReac Intermediate myalgia Verified 12/08/23 09:05 Plan I have reviewed the history and physical and performed a pertinent physical examination on my patient. No changes have occurred unless specified. Time Spent With Patient Time: Total time managing care of this patient today ____ minutes.
--- NOTE | 2023-12-08 10:50 | P.OP_ITS ---
Operative Note Operative Note Date of Service: 12/08/23 Narrative: Preoperative diagnosis: [] Right perineal/para- Vulval symptomatic recurrent sebaceous cyst Postop diagnosis: [] The same Procedure [] wide local excision perineal sebaceous cyst Surgeon: [] Mehrdad Cardiothoracic Physiotherapist: [] Type of Anesthesia: [] Mass Indication for surgery: [] Final specimen measured roughly 4 x 2 cm consistent with a large sebaceous cyst Findings: [] Patient was brought to the operating room, placed on operative table supine position, after an adequate level of MAC anesthesia was induced, patient was placed in lithotomy position and right perineal area was prepped and draped in usual sterile fashion. Using a longitudinal by elliptical incision encompassing seeing the sebaceous cyst/ mass , this carried down through skin, subcutaneous tissue, and undermined using Bovie. Specimen was sent to pathology. Wound was irrigated, secured hemostasis, and closed using interrupted inverted dermal 3-0 Vicryl sutures followed by Steri-Strips sterile dressings. Wound was infiltrated the beginning at the end with 0.5% Marcaine/1% lidocaine. Sponge, needle, and instrument counts were reported correct. Patient tolerated the procedure well and emerged from anesthesia stable condition. EBL minimal
[2023-12-08 10:57] VITALS: BP 136/60; PULSE 83; RESP 16; TEMP 36.6; O2SAT 97
[2023-12-08 11:13] VITALS: BP 123/60; PULSE 75; RESP 16; TEMP 36.8; O2SAT 97
[2023-12-08 11:28] VITALS: BP 138/54; PULSE 73; RESP 18; TEMP 36.8; O2SAT 98
== END 2023-12-08 12:31 | disposition home or self-care (01) ==
PROVIDERS: PCP Internal Medicine; Visit Provider Surgery
PROC: (CPT 11424; principal; 2023-12-08 10:10)
DX: L72.3 Sebaceous cyst (principal); J45.909 Unspecified asthma, uncomplicated
CPT/HCPCS: 11424; 88304; J0690; J1100; J1596; J2250; J2405; J2704; J2795; J3010

== ENCOUNTER → 2023-12-08 08:47 | Outpatient (BNV) | payer MEDICARE, SELFPAY | PROVIDERS: PCP Internal Medicine; Visit Provider Surgery | DX: L72.0 Epidermal cyst (principal) | CPT/HCPCS: 11424 ==

== ENCOUNTER → 2023-12-12 09:40 | Outpatient (BNVA) | payer MEDICARE, SELFPAY | PROVIDERS: PCP Internal Medicine; Visit Provider Surgery | DX: Z48.00 Encounter for change or removal of nonsurgical wound dressing (principal) | CPT/HCPCS: 99211 ==

== ENCOUNTER 2023-12-19 09:52 | Outpatient (AMB) | payer MEDICARE, SELFPAY ==
--- NOTE | 2023-12-19 09:55 | A.OFFVIS_ITS ---
Intake Visit Reasons: S/P WLE Rt. perineal mass Intake Note: Patient here s/p WLE R. perianal mass on 12-08-2023. Reports incision healing well. Patient c/o: swelling, tender to touch. Had a nurse visit with [place] on 12-12-23. No longer taking rx pain meds. 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 She has no wound issues or complaints. Pathology is benign. [facility] Medical History (Updated 12/19/23 @ 10:11 by Earnest Cronin MD) Wears hearing aid in both ears Seasonal allergies Colon cancer screening Physical exam Tremors of nervous system High ankle sprain of right lower extremity Otitis media of right ear History of skin cancer Osteoarthritis of left knee Preoperative clearance Anemia COVID-19 vaccine series completed History of COVID-19 Well woman exam Screening for cervical cancer Hearing loss Abscess GERD (gastroesophageal reflux disease) Bilateral otitis media HLD (hyperlipidemia) Primary osteoarthritis of right knee Osteoarthritis of right knee Encounter for preoperative pulmonary examination Family history of Crohn's disease Hx of irritable bowel syndrome Wears hearing aid in both ears History of basal cell carcinoma Arthritis Hx of diverticulitis of colon Bronchitis Asthma Surgical History (Updated 12/15/23 @ 09:18 by YOLY Menjivar) Hx of surgical procedure (12/08/23) Hx of basal cell carcinoma excision History of left knee surgery Status post total left knee replacement Hx of total knee replacement (~01/2020) Status post total right knee replacement History of tonsillectomy History of reversal of ileostomy Hx of ileostomy History of colostomy reversal History of colon resection Hx of tubal ligation History of esophagogastroduodenoscopy (EGD) H/O colonoscopy Family History Father Colitis COPD (chronic obstructive pulmonary disease) Mother Diabetes Mental health disorder Hypertension Stroke Sister Lung cancer Ulcerative colitis Rheumatoid aortitis Paternal Grandmother Stomach cancer Family/Other Breast cancer Ovarian cancer Brother No problems noted. 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 Assessment & Plan Assessment & Plan (1) Postop check: Code(s): Z09 - Encounter for follow-up examination after completed treatment for conditions other than malignant neoplasm Category: Medical Plan Patient was given local instructions including avoiding strenuous activities next few weeks time and will otherwise follow-up p.r.n.. All questions answered. Coding Level of Care Code Global (22903) Diagnoses Postop check Z09
== END 2023-12-19 10:05 | disposition home or self-care (01) ==
PROVIDERS: PCP Internal Medicine; Visit Provider Surgery
DX: Z09 Encounter for follow-up examination after completed treatment for conditions other than malignant neoplasm (principal)
CPT/HCPCS: 99024

== ENCOUNTER → 2023-12-19 09:52 | Outpatient (BNVA) | payer MEDICARE, SELFPAY | PROVIDERS: PCP Internal Medicine; Visit Provider Surgery | DX: Z09 Encounter for follow-up examination after completed treatment for conditions other than malignant neoplasm (principal) | CPT/HCPCS: 99212 ==

== ENCOUNTER 2024-01-17 09:50 | Outpatient (AMB) | payer BC, SELFPAY ==
[2024-01-17 09:55] VITALS: BP 122/67; PULSE 64; O2SAT 100; BMI 36.5
--- NOTE | 2024-01-17 09:55 | MHC.OFFVIS ---
Vital Signs 01/17/24 09:55 Height 5 ft 3 in Weight 206 lb 2.115 oz BMI 36.5 BP 122/67 Blood Pressure Location Rt brachial Position Sitting Pulse 64 Pulse Source Doppler Pulse Oximetry (%) 100 Oxygen Delivery Method Room Air Intake Visit Reasons: COPD Allergies bee pollen [BEE STINGS] Allergy (Severe, Verified 12/19/23 09:56) SWELLING,WELTS latex [LATEX] Allergy (Mild, Verified 12/19/23 09:56) RASH simvastatin Adverse Reaction (Intermediate, Verified 12/19/23 09:56) myalgia HPI HPI COPD: Details: 63-year-old lady, nonsmoker, followed for underlying moderate persistent asthma, GERD, and environmental allergies. She continues on Wixela, duo nebs, and albuterol MDI with good control of her asthma symptoms. She has been using Singulair and as needed ipratropium bromide for her environmental allergies. Patient has GERD is reasonably well controlled on b.i.d. omeprazole and famotidine. She denies recent exacerbations. Patient does complain of significant snoring and is interested in evaluation for obstructive sleep apnea. [facility] Medical History (Updated 01/17/24 @ 10:10 by Ced Link MD) Wears hearing aid in both ears Seasonal allergies Colon cancer screening Physical exam Tremors of nervous system High ankle sprain of right lower extremity Otitis media of right ear History of skin cancer Osteoarthritis of left knee Preoperative clearance Anemia COVID-19 vaccine series completed History of COVID-19 Well woman exam Screening for cervical cancer Hearing loss Abscess GERD (gastroesophageal reflux disease) Bilateral otitis media HLD (hyperlipidemia) Primary osteoarthritis of right knee Osteoarthritis of right knee Encounter for preoperative pulmonary examination Family history of Crohn's disease Hx of irritable bowel syndrome Wears hearing aid in both ears History of basal cell carcinoma Arthritis Hx of diverticulitis of colon Bronchitis Asthma Surgical History (Updated 12/15/23 @ 09:18 by YOLY Menjivar) Hx of surgical procedure (12/08/23) Hx of basal cell carcinoma excision History of left knee surgery Status post total left knee replacement Hx of total knee replacement (~01/2020) Status post total right knee replacement History of tonsillectomy History of reversal of ileostomy Hx of ileostomy History of colostomy reversal History of colon resection Hx of tubal ligation History of esophagogastroduodenoscopy (EGD) H/O colonoscopy Family History Father Colitis COPD (chronic obstructive pulmonary disease) Mother Diabetes Mental health disorder Hypertension Stroke Sister Lung cancer Ulcerative colitis Rheumatoid aortitis Paternal Grandmother Stomach cancer Family/Other Breast cancer Ovarian cancer Brother No problems noted. 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 Cognitive needs: No Hearing needs: Yes Vision needs: Yes Female Reproductive History Menstrual Age of Menarche: 11 Review of Systems Const Reports daytime sleepiness, Denies excessive sweating, Denies fatigue, Denies fever(s), Denies lethargy, Denies malaise, Denies night sweats, Reports snoring and Denies weight loss Eyes Denies blurry vision and Denies itchy eyes ENT Denies nasal congestion, Denies post nasal drip, Denies sinus pain, Denies sinus pressure and Denies other ( Thrush) Card Denies chest pain, Denies pedal edema, Denies dyspnea, Denies orthopnea and Denies paroxysmal nocturnal dyspnea Resp Denies cough, Denies hemoptysis, Denies excessive phlegm production, Denies dyspnea, Reports snoring and Denies wheezing GI Denies abdominal pain and Denies heartburn Musc Denies myalgias, Denies arthralgias and Denies joint swelling Skin/Breast Denies rash Neuro Denies memory loss and Denies seizure-like activity Psych Denies abnormal sleep pattern, Denies anxiety and Denies memory loss Endo Denies excessive sweating, Denies fatigue and Denies heat intolerance Senthil/Lymph Denies easy bruising Aller/Immun Denies itchy eyes, Denies seasonal rhinorrhea and Denies wheezing Physical Exam Vital Signs: Last Vital Signs Pulse 64 01/17/24 09:55 BP 122/67 01/17/24 09:55 Pulse Ox 100 01/17/24 09:55 Oxygen Delivery Method Room Air 01/17/24 09:55 BMI result Body Mass Index 36.5 Const General: no acute distress and alert Nutritional Appearance: obese Orientation/consciousness: Other orientation findings ( oriented) HEENT Head: Yes atraumatic Eyes General: appearance normal, both eyes and all related structures Sclerae: sclerae normal EOM: EOMs intact bilaterally Neck Neck: Yes supple Lymphatic: no lymphadenopathy noted Resp Effort & Inspection: normal respiratory effort and no use of accessory muscles Auscultation: clear to auscultation bilaterally Cardio Rate: regular rate Rhythm: regular rhythm Heart sounds: no gallops, no murmurs and no rubs Skin General skin exam: other ( warm) Extrem General: No clubbing, No cyanosis and No edema Assessment & Plan Assessment & Plan (1) Moderate persistent asthma: Code(s): J45.40 - Moderate persistent asthma, uncomplicated Category: Medical Qualifiers: Asthma complication type: uncomplicated Qualified Code(s): J45.40 - Moderate persistent asthma, uncomplicated Plan: Well controlled on current regimen of Wixela, duo nebs, and albuterol MDI. Continue current regimen. (2) Environmental allergies: Code(s): Z91.09 - Other allergy status, other than to drugs and biological substances Category: Medical Plan: Well controlled on Singulair and nasal ipratropium. Continue current regimen. (3) GERD (gastroesophageal reflux disease): Code(s): K21.9 - Gastro-esophageal reflux disease without esophagitis Category: Medical Qualifiers: Esophagitis presence: esophagitis presence not specified Qualified Code(s): K21.9 - Gastro-esophageal reflux disease without esophagitis Plan: Well controlled on current regimen of omeprazole and famotidine. Continue current regimen. (4) KETAN (obstructive sleep apnea): Code(s): G47.33 - Obstructive sleep apnea (adult) (pediatric) Category: Medical Plan: Snoring, unrestful sleep, daytime sleepiness. Bowie Sleepiness Scale score of 16. Will obtain home sleep study. Orders: Orders RT home sleep study Today G47.33 - Obstructive sleep apnea (adult) (pediatric) Medications: Changed From albuterol sulfate 90 mcg/actuation (ProAir HFA) 2 puffs inhalation Q6H 30 days PRN 8.5 grams 6RF shortness of breath or wheezing To albuterol sulfate 90 mcg/actuation 2 puffs inhalation Q6H PRN 8.5 grams 6RF shortness of breath or wheezing 30 days Coding Level of Care Code Est Pt Level 5 (25716) Diagnoses Moderate persistent asthma without complication J45.40 Asthma complication type: uncomplicated Environmental allergies Z91.09 Gastroesophageal reflux disease, unspecified whether esophagitis present K21.9 Esophagitis presence: esophagitis presence not specified KETAN (obstructive sleep apnea) G47.33
== END 2024-01-17 10:09 | disposition home or self-care (01) ==
PROVIDERS: PCP Internal Medicine; Visit Provider Internal Medicine Pulmonary Disease
DX: J45.40 Moderate persistent asthma, uncomplicated (principal); G47.33 Obstructive sleep apnea (adult) (pediatric); K21.9 Gastro-esophageal reflux disease without esophagitis
CPT/HCPCS: 99214

== ENCOUNTER → 2024-01-17 09:50 | Outpatient (BNVA) | payer BC, SELFPAY | PROVIDERS: PCP Internal Medicine; Visit Provider Internal Medicine Pulmonary Disease ==

== ENCOUNTER 2024-01-25 08:02 | Outpatient (AMB) | payer BC, SELFPAY ==
[2024-01-25 08:07] VITALS: BP 124/80; PULSE 64; O2SAT 98; BMI 36.8
--- NOTE | 2024-01-25 08:07 | AM.OFFWIN_ITS ---
Intake Vital Signs 01/25/24 08:07 Height 5 ft 3 in Weight 208 lb BMI 36.8 BP 124/80 Blood Pressure Location Rt brachial Position Sitting Pulse 64 Pulse Source Pulse Oximeter Pulse Oximetry (%) 98 Oxygen Delivery Method Room Air Intake Visit Reasons: EP Abscess on groin/leg Intake Note: Patient here for abscess in groin area that has been present for some time now and is now open. Patient Tobacco Use Status: Never used Tobacco Allergies bee pollen [BEE STINGS] Allergy (Severe, Verified 01/25/24 08:15) SWELLING,WELTS latex [LATEX] Allergy (Mild, Verified 01/25/24 08:15) RASH simvastatin Adverse Reaction (Intermediate, Verified 01/25/24 08:15) myalgia Do you need a note to return to daycare/school/sports/work: No HPI HPI Comments History of Present Illness Details Patient is a 63-year-old female complaining of an abscess in her right groin. She states it has been there for awhile but all of a sudden in the middl e of the night last night it started bleeding. She denies any purulent fluid from the wound or any clear fluid, she said it has just been mostly blood. She states it is tender and hard deeper in the skin. She tells me she had a cyst removed on the left side in November and was supposed to have this 1 removed soon but was waiting into the other 1 healed completely. 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 PFSH Medical History (Updated 01/25/24 @ 08:38 by Aspen Grimaldo PA-C) Abscess Wears hearing aid in both ears Seasonal allergies Colon cancer screening Physical exam Tremors of nervous system High ankle sprain of right lower extremity Otitis media of right ear History of skin cancer Osteoarthritis of left knee Preoperative clearance Anemia COVID-19 vaccine series completed History of COVID-19 Well woman exam Screening for cervical cancer Hearing loss GERD (gastroesophageal reflux disease) Bilateral otitis media HLD (hyperlipidemia) Primary osteoarthritis of right knee Osteoarthritis of right knee Encounter for preoperative pulmonary examination Family history of Crohn's disease Hx of irritable bowel syndrome Wears hearing aid in both ears History of basal cell carcinoma Arthritis Hx of diverticulitis of colon Bronchitis Asthma Surgical History (Updated 12/15/23 @ 09:18 by YOLY Menjivar) Hx of surgical procedure (12/08/23) Hx of basal cell carcinoma excision History of left knee surgery Status post total left knee replacement Hx of total knee replacement (~01/2020) Status post total right knee replacement History of tonsillectomy History of reversal of ileostomy Hx of ileostomy History of colostomy reversal History of colon resection Hx of tubal ligation History of esophagogastroduodenoscopy (EGD) H/O colonoscopy Family History Father Colitis COPD (chronic obstructive pulmonary disease) Mother Diabetes Mental health disorder Hypertension Stroke Sister Lung cancer Ulcerative colitis Rheumatoid aortitis Paternal Grandmother Stomach cancer Family/Other Breast cancer Ovarian cancer Brother No problems noted. 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 needs: No Hearing needs: Yes Vision needs: Yes Female Reproductive History Menstrual Age of Menarche: 11 Review of Systems Const All systems reviewed & are unremarkable except as noted in HPI and below Physical Exam Vital Signs: Last Vital Signs Pulse 64 01/25/24 08:07 BP 124/80 01/25/24 08:07 Pulse Ox 98 01/25/24 08:07 Oxygen Delivery Method Room Air 01/25/24 08:07 BMI result Body Mass Index 36.8 Const General: cooperative, healthy appearing, comfortable, no acute distress and well developed Orientation/consciousness: patient oriented x3 Limitations: no limitations HEENT Head: Yes normal to inspection Ears: hearing grossly normal bilaterally General nose exam: Normal external nose present Face and sinus: Yes normal facial exam Eyes General: appearance normal, both eyes and all related structures Neck Neck: Yes normal visual inspection and Yes full ROM Resp Effort & Inspection: normal respiratory effort and able to speak in complete sentences Skin Other: right groin has 1cm round hard area over area that has scant blood - no erythema or ecchymosis noted, TTP Neuro General: patient oriented x3 Extrem General: Yes normal to inspection Assessment & Plan Assessment & Plan (1) Abscess: Code(s): L02.91 - Cutaneous abscess, unspecified Plan: Sent antibiotics to pharmacy to cover both MSSA and MRSA. Plan see above Medications: New cefuroxime axetil 500 mg PO Q12H 10 tabs 0RF doxycycline hyclate 100 mg PO Q12H 10 tabs 0RF Coding Level of Care Code Est Pt Level 3 (28297) Diagnoses Abscess L02.91
== END 2024-01-25 08:50 | disposition home or self-care (01) ==
PROVIDERS: PCP Internal Medicine; Visit Provider Physician Assistant
DX: L02.91 Cutaneous abscess, unspecified (principal)

== ENCOUNTER → 2024-01-25 08:02 | Outpatient (BNVA) | payer BC, SELFPAY | PROVIDERS: PCP Internal Medicine ==

== ENCOUNTER 2024-01-26 10:36 | Outpatient (AMB) | payer MEDICARE, SELFPAY ==
--- NOTE | 2024-01-26 10:50 | MHC.OFFVIS ---
Vital Signs 01/26/24 11:00 Height 5 ft 3 in Weight 205 lb 11.06 oz BMI 36.4 BP 140/64 H Blood Pressure Location Lt brachial Position Sitting Pulse 66 Intake Visit Reasons: Follow up 6 months Intake Note: Patient presents to in office follow up of CIC. CC: Patient reports having acid reflux and that her ENT went down my throat and it still red . 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 Accompanied by: Self / Same As Patient Allergies bee pollen [BEE STINGS] Allergy (Severe, Verified 01/26/24 11:06) SWELLING,WELTS latex [LATEX] Allergy (Mild, Verified 01/26/24 11:06) RASH simvastatin Adverse Reaction (Intermediate, Verified 01/26/24 11:06) myalgia HPI HPI Follow up 6 months: Details: Assessment & Plan (1) Chronic idiopathic constipation: Code(s): K59.04 - Chronic idiopathic constipation (2) GERD (gastroesophageal reflux disease): Code(s): K21.9 - Gastro-esophageal reflux disease without esophagitis Qualifiers: Esophagitis presence: esophagitis presence not specified Qualified Code(s): K21.9 - Gastro-esophageal reflux disease without esophagitis (3) Tubular adenoma of colon: Comment: 2022 scope=2 TA repeat in 5 year due to poor prep Code(s): D12.6 - Benign neoplasm of colon, unspecified (4) Gastric ulcer: Comment: discovered on 2019 EGD with erosive gastritis question related to NSAIDs Code(s): K25.9 - Gastric ulcer, unspecified as acute or chronic, without hemorrhage or perforation (5) Ileal erosions: Comment: uncertain etiology discovered on 2019 colonoscopy patient has a family history of Crohn's but also extensive NSAID use with a negative [employer] genetics study this will bear watching Code(s): K63.3 - Ulcer of intestine Plan She continues on her omeprazole, famotidine and senna and Colace. She is due for repeat of her colonoscopy because of insufficient prep a year ago. She has occasional spasms that were usually on the LLQ but have happened on the RLQ, they will happen when she is moving her bowels. This is brief and not very painful. She says that her ceramic plater, Dr. Link has been trying to change her GI medications, which is very strange. I advise her to inform him that she is managed by GI for her erosive gastritis and esophagitis. ROV 6 mos. Medications: Refilled famotidine 40 mg PO BEDTIME 30 tabs 6RF omeprazole 20 mg PO BID 60 caps 6RF 30 days K21.9 - Gastro-esophageal reflux disease without esophagitis docusate sodium (Colace) 100 mg PO BID 60 caps 6RF 30 days sennosides (Doreen-leora) 25.8 mg (3 x 8.6 mg) PO BEDTIME 270 tabs 2RF 90 days K59.04 - Chronic idiopathic constipation CORRESPONDENCE On 09/19/23 @ 11:16 Charlotte Ramos Wrote To Charlotte Ramos (2) No, I will refer her to gen surgery as urgent. Its also ok if she wants to see me to have me look at it. On 09/19/23 @ 09:00 Sri Mcdaniel Wrote To Charlotte Ramos Should patient follow up with PCP for this? or schedule with you for a follow up to then be referred? sorry for the many messages, I was out of office on Monday and health portal messages were not addressed. 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 I have been on antibiotics a lot of times. Through urgent care. I am not on anything at this point but it is near rectum tree area. Could you assist me in getting it taken care of? It has been coming back since 2014 when I had my perforated bowel surgeries. Sharron Aguilar 1960 TODAY'S VISIT She continues on her omeprazole, famotidine and senna and Colace. She had her labial cyst removed but now she has 2 more in the inguinal areas. She was told not to take her omeprazole and famotidine while she is on abs - she just started today. She is still getting hoarse and she just saw her ENT and he said her vocal cords are still red. We will change form o2o 20mg bid to pantoprazole 40mg bid. She also will be having a sleep study soon r/t snoring. ROV 8 weeks. [facility] Medical History (Updated 01/26/24 @ 11:39 by CAMPBELL Bonner) Hx of diverticulitis of colon Abscess Wears hearing aid in both ears Seasonal allergies Colon cancer screening Physical exam Tremors of nervous system High ankle sprain of right lower extremity Otitis media of right ear History of skin cancer Osteoarthritis of left knee Preoperative clearance Anemia COVID-19 vaccine series completed History of COVID-19 Well woman exam Screening for cervical cancer Hearing loss GERD (gastroesophageal reflux disease) Bilateral otitis media HLD (hyperlipidemia) Primary osteoarthritis of right knee Osteoarthritis of right knee Encounter for preoperative pulmonary examination Family history of Crohn's disease Hx of irritable bowel syndrome Wears hearing aid in both ears History of basal cell carcinoma Arthritis Bronchitis Asthma Surgical History Hx of surgical procedure (12/08/23) Hx of basal cell carcinoma excision History of left knee surgery Status post total left knee replacement Hx of total knee replacement (~01/2020) Status post total right knee replacement History of tonsillectomy History of reversal of ileostomy Hx of ileostomy History of colostomy reversal History of colon resection Hx of tubal ligation History of esophagogastroduodenoscopy (EGD) H/O colonoscopy Family History Father Colitis COPD (chronic obstructive pulmonary disease) Mother Diabetes Mental health disorder Hypertension Stroke Sister Lung cancer Ulcerative colitis Rheumatoid aortitis Paternal Grandmother Stomach cancer Family/Other Breast cancer Ovarian cancer Brother No problems noted. 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 Cognitive needs: No Hearing needs: Yes Vision needs: Yes Female Reproductive History Menstrual Age of Menarche: 11 Review of Systems Const Denies fatigue, Denies fever(s), Denies night sweats, Denies poor appetite, Reports snoring, Reports weight gain and Denies weight loss Eyes Details: glasses Reports requires corrective lenses ENT Reports Normal hearing present, Denies dental pain, Denies dysphagia, Denies hearing loss, Reports hoarseness, Denies mouth pain, Denies odynophagia, Denies throat swelling, Denies tongue swelling and Reports other (Dentition adequate) Card Reports no additional complaints Resp Reports snoring GI Details: Denies abdominal pain, Denies melena, Denies bloating, Denies hematochezia, Reports constipation, Denies GI cramping, Denies dysphagia, Denies excessive flatus, Denies early satiety, Reports heartburn, Denies diarrhea, Denies nausea, Denies odynophagia, Denies vomiting and Denies hematemesis Skin/Breast Reports furuncle, Denies pruritus, Denies lesions, Denies rash and Denies jaundice Neuro Reports Normal hearing present and Denies Abnormal speech present Endo Denies fatigue Aller/Immun Denies throat swelling and Denies tongue swelling Physical Exam Vital Signs: Last Vital Signs Pulse 66 01/26/24 11:00 BP 140/64 H 01/26/24 11:00 BMI result Body Mass Index 36.4 Const General: cooperative, no acute distress, well developed and well groomed Nutritional Appearance: well nourished and obese Orientation/consciousness: oriented to person, oriented to place and oriented to time Limitations: No language barrier HEENT Head: Yes normocephalic and Yes atraumatic Eyes General: appearance normal, both eyes and all related structures Pupils: Equal, round and reactive pupils present Neck Neck: Yes normal visual inspection and Yes no lymphadenopathy Thyroid: Thyroid normal Resp Effort & Inspection: normal respiratory effort and able to speak in complete sentences Auscultation: clear to auscultation bilaterally Cardio Rate: regular rate Rhythm: regular rhythm Heart sounds: Normal, physiologic split S2 sound present Peripheral pulses: radial pulses present and posterior tibial pulses present GI Inspection: No distended and No Abdominal panniculus present Palpation (GI): Soft to palpation, nontender, no guarding, not rigid, No hepatosplenomegaly present and Hepatosplenomegaly present Percussion: Yes normal to percussion Auscultation: normal bowel sounds Rectal Exam - Female: deferred Skin General skin exam: no rashes or lesions noted, turgor normal, skin not dry, no jaundice, No spider nevi and no striae Rashes: no rashes Nails: normal Neuro General: oriented to person, oriented to place and oriented to time Cranial nerves: Yes Equal, round and reactive pupils present and Yes Normal hearing present Speech: No Abnormal speech present Extrem General: Yes normal to inspection, No clubbing, No cyanosis and No edema Psych Thought process: Normal thought process present and not confabulating Thought content: Normal thought content present Insight: Good insight present (Psych) Judgement: Good judgement present (Psych) Assessment & Plan Assessment & Plan (1) Gastric ulcer: Comment: discovered on 2019 EGD with erosive gastritis question related to NSAIDs Code(s): K25.9 - Gastric ulcer, unspecified as acute or chronic, without hemorrhage or perforation Category: Medical (2) GERD (gastroesophageal reflux disease): Code(s): K21.9 - Gastro-esophageal reflux disease without esophagitis Category: Medical Qualifiers: Esophagitis presence: esophagitis presence not specified Qualified Code(s): K21.9 - Gastro-esophageal reflux disease without esophagitis (3) Chronic idiopathic constipation: Code(s): K59.04 - Chronic idiopathic constipation Category: Medical Plan She continues on her omeprazole, famotidine and senna and Colace. She had her labial cyst removed but now she has 2 more in the inguinal areas. She was told not to take her omeprazole and famotidine while she is on abs - she just started today. She is still getting hoarse and she just saw her ENT and he said her vocal cords are still red. We will change form o2o 20mg bid to pantoprazole 40mg bid. She also will be having a sleep study soon r/t snoring. ROV 8 weeks. Medications: New pantoprazole (Protonix) 40 mg PO BID 60 tabs 6RF 30 days K21.9 - Gastro-esophageal reflux disease without esophagitis, K25.9 - Gastric ulcer, unspecified as acute or chronic, without hemorrhage or perforation Discontinued omeprazole Discontinued Reason: Doctor's Order 20 mg PO BID 30 days 60 caps 6RF K21.9 - Gastro-esophageal reflux disease without esophagitis Coding Level of Care Code Est Pt Level 3 (36605) Diagnoses Gastric ulcer K25.9 Gastroesophageal reflux disease, unspecified whether esophagitis present K21.9 Esophagitis presence: esophagitis presence not specified Chronic idiopathic constipation K59.04
[2024-01-26 11:00] VITALS: BP 140/64; PULSE 66; BMI 36.4
== END 2024-01-26 16:12 | disposition home or self-care (01) ==
PROVIDERS: PCP Internal Medicine; Referring Provider Internal Medicine; Visit Provider Nurse Practitioner
DX: K25.9 Gastric ulcer, unspecified as acute or chronic, without hemorrhage or perforation (principal); K21.9 Gastro-esophageal reflux disease without esophagitis; K59.04 Chronic idiopathic constipation
CPT/HCPCS: 99213

== ENCOUNTER → 2024-01-26 10:36 | Outpatient (BNVA) | payer MEDICARE, SELFPAY | PROVIDERS: PCP Internal Medicine; Visit Provider Nurse Practitioner | DX: K59.04 Chronic idiopathic constipation (principal); K21.9 Gastro-esophageal reflux disease without esophagitis; K25.9 Gastric ulcer, unspecified as acute or chronic, without hemorrhage or perforation | CPT/HCPCS: 99212 ==

== ENCOUNTER 2024-01-29 09:28 | Outpatient (REF) | payer MEDICARE, SELFPAY ==
--- NOTE | ~2024-01-29 | MM_ITS ---
EXAMINATION: MM SCREENING DIGITAL BREAST TOMOSYNTHESIS, BILATERAL CLINICAL INFORMATION: Screening. Asymptomatic. COMPARISON: Mammography: Comparison is made with available priors TECHNIQUE: Digital breast mammography with tomosynthesis is performed in both the craniocaudal and mediolateral oblique views along with computer-aided detection (CAD). FINDINGS: There are scattered areas of fibroglandular density (ACR BI-RADS breast composition Category b). There are no significant masses, abnormal calcifications, or other abnormalities. MM/MM tomosynthesis screening BI IMPRESSION: No mammographic evidence of malignancy. ASSESSMENT: BI-RADS BI-RADS 1 - Negative RECOMMENDATION: Routine annual mammography screening. 1 year F/U This examination should not preclude the clinical evaluation of a suspicious palpable abnormality. This patient's information was entered into a reminder system with a target due date for their next mammogram. Electronically signed by: Bridget Lee DO 02/09/2024 09:51 AM EDT
== END 2024-01-29 09:29 | disposition home or self-care (01) ==
LOC: HO.MAMMO 09:28
PROVIDERS: PCP Internal Medicine; Visit Provider Internal Medicine
DX: Z12.31 Encounter for screening mammogram for malignant neoplasm of breast (principal)
CPT/HCPCS: 77063; 77067

== ENCOUNTER → 2024-01-29 09:45 | Outpatient (BNV) | payer MEDICARE, SELFPAY | PROVIDERS: PCP Internal Medicine; Visit Provider Internal Medicine | DX: Z12.31 Encounter for screening mammogram for malignant neoplasm of breast (principal) | CPT/HCPCS: 77063; 77067 ==

== ENCOUNTER 2024-02-20 13:37 | Outpatient (AMB) | payer MEDICARE, SELFPAY ==
--- NOTE | 2024-02-20 13:38 | MHC.OFFVIS ---
Vital Signs 02/20/24 13:43 Height 5 ft 3 in Weight 206 lb BMI 36.5 BP 162/68 H Blood Pressure Location Rt brachial Position Sitting Pulse 82 Intake Visit Reasons: wound check~ Rt buttock Intake Note: Patient called to schedule today's appointment. C/o re-current cyst on Rt buttock. Patient c/o: inflammation, pain when sitting. Denies bleeding, oozing. Hx of WLE cyst /Right perineal on 12-08-2023. 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 She has been given antibiotics with what she said has been a very good response and presents here for follow-up. Patient whom I know well from previous evaluations. [facility] History (Updated 01/26/24 @ 11:39 by CAMPBELL Bonner) Hx of diverticulitis of colon Abscess Wears hearing aid in both ears Seasonal allergies Colon cancer screening Physical exam Tremors of nervous system High ankle sprain of right lower extremity Otitis media of right ear History of skin cancer Osteoarthritis of left knee Preoperative clearance Anemia COVID-19 vaccine series completed History of COVID-19 Well woman exam Screening for cervical cancer Hearing loss GERD (gastroesophageal reflux disease) Bilateral otitis media HLD (hyperlipidemia) Primary osteoarthritis of right knee Osteoarthritis of right knee Encounter for preoperative pulmonary examination Family history of Crohn's disease Hx of irritable bowel syndrome Wears hearing aid in both ears History of basal cell carcinoma Arthritis Bronchitis Asthma Surgical History (Updated 02/20/24 @ 13:51 by Earnest Cronin MD) Hx of surgical procedure (12/08/23) Hx of basal cell carcinoma excision History of left knee surgery Status post total left knee replacement Hx of total knee replacement (~01/2020) Status post total right knee replacement History of tonsillectomy History of reversal of ileostomy Hx of ileostomy History of colostomy reversal History of colon resection Hx of tubal ligation History of esophagogastroduodenoscopy (EGD) H/O colonoscopy Family History Father Colitis COPD (chronic obstructive pulmonary disease) Mother Diabetes Mental health disorder Hypertension Stroke Sister Lung cancer Ulcerative colitis Rheumatoid aortitis Paternal Grandmother Stomach cancer Family/Other Breast cancer Ovarian cancer Brother No problems noted. 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 No evidence of any active infection, cellulitis, or abscess. Both areas show resolving/healing inflammation Assessment & Plan Assessment & Plan (1) Carbuncle and furuncle of buttock: Code(s): L02.33 - Carbuncle of buttock Category: Surgical (2) Carbuncle and furuncle of leg: Code(s): L02.429 - Furuncle of limb, unspecified; L02.439 - Carbuncle of limb, unspecified Category: Surgical Plan At present, we will continue conservative therapy. Patient has been given local instructions including warm compresses and will otherwise follow-up p.r.n.. All questions answered. Coding Level of Care Code Est Pt Level 4 (05304) Diagnoses Carbuncle and furuncle of buttock L02.33 Carbuncle and furuncle of leg L02.429; L02.439
[2024-02-20 13:43] VITALS: BP 162/68; PULSE 82; BMI 36.5
== END 2024-02-20 14:11 | disposition home or self-care (01) ==
LOC: HO.HGS 13:37
PROVIDERS: PCP Internal Medicine; Visit Provider Surgery
DX: L02.33 Carbuncle of buttock (principal); L02.429 Furuncle of limb, unspecified; L02.439 Carbuncle of limb, unspecified
CPT/HCPCS: 99214

== ENCOUNTER → 2024-02-20 13:37 | Outpatient (BNVA) | payer MEDICARE, SELFPAY | PROVIDERS: PCP Internal Medicine; Visit Provider Surgery | DX: L02.33 Carbuncle of buttock (principal); L02.429 Furuncle of limb, unspecified; L02.439 Carbuncle of limb, unspecified | CPT/HCPCS: 99212 ==

== ENCOUNTER → 2024-02-29 12:37 | Outpatient (REF) | payer MEDICARE, SELFPAY | LOC: HO.SL 12:37 | PROVIDERS: PCP Internal Medicine; Visit Provider Internal Medicine Pulmonary Disease | DX: G47.33 Obstructive sleep apnea (adult) (pediatric) (principal) | CPT/HCPCS: 95806 ==

== ENCOUNTER → 2024-02-29 12:54 | Outpatient (BNV) | payer MEDICARE, SELFPAY | PROVIDERS: PCP Internal Medicine; Visit Provider Internal Medicine | DX: R06.83 Snoring (principal); G47.10 Hypersomnia, unspecified | CPT/HCPCS: 95806 ==

== ENCOUNTER 2024-03-11 13:06 | Outpatient (AMB) | payer MEDICARE, SELFPAY ==
--- NOTE | 2024-03-11 13:16 | A.OFFPC_ITS ---
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 Accompanied by: Spouse Allergies bee pollen [BEE STINGS] Allergy (Severe, Verified 03/11/24 13:44) SWELLING,WELTS latex [LATEX] Allergy (Mild, Verified 03/11/24 13:44) RASH simvastatin Adverse Reaction (Intermediate, Verified 03/11/24 13:44) myalgia Medication List - Last Reconciled 03/11/24 by Erlinda Newell MD albuterol sulfate 90 mcg/actuation 2 puffs inhalation Q6H PRN 30 days azelastine 1 spray intranasal BID PRN baclofen 20 mg PO NEEDED PRN celecoxib (Celebrex) 200 mg PO BID cholecalciferol (vitamin D3) 25 mcg PO DAILY 90 days ciclopirox 0.77% 1 appl topical BID cyanocobalamin (vitamin B-12) 1,000 mcg IM QMONTH docusate sodium (Colace) 100 mg PO BID 30 days epinephrine 0.3 mg (0.3 mL) IM Q10M PRN 30 days famotidine 40 mg PO BEDTIME fluticasone propion-salmeterol 500-50 mcg/dose (Wixela Inhub) 1 inh inhalation BID 30 days ipratropium bromide 17 mcg/actuation 2 puffs inhalation TID 30 days ipratropium-albuterol 0.5 mg-3 mg(2.5 mg base)/3 mL 3 mL inhalation Q4-6H PRN 30 days ketoconazole 2% 2 appl topical DAILY lovastatin 10 mg PO BEDTIME 90 days methylcellulose (laxative) (Citrucel) 1,000 mg PO BID montelukast 10 mg PO BEDTIME 90 days ukohoywl-ydsxclorv-SN 3.5-10,000-1 mg/mL-unit/mL-% 1 drp otic (ears) DAILY pantoprazole (Protonix) 40 mg PO BID 30 days sennosides (Doreen-leora) 25.8 mg (3 x 8.6 mg) PO BEDTIME 90 days tacrolimus 0.1% 1 appl topical BID triamcinolone acetonide 0.025% 1 appl topical BID Tobacco use date assessed: 06/22/23 Fall risk assessment: No Falls in past year Last assessed Fall Risk: 03/11/24 Dental Screening Dental Screen Date: 03/11/24 Did you have a dental visit in the last 12 months?: Yes Did you have a dental problem in the last 6 months where you did not have access to dental care?: No Was dental information given to patient?: Patient has dentist HPI HPI Comments History of Present Illness Details The patient is a 63-year-old female presenting for a routine follow-up regarding her chronic medical conditions and to discuss recent test results. She has a history of allergic rhinitis, noted by her use of nasal spray, and a significant allergy profile including latex and reaction to simvastatin that caused myalgias. She uses epinephrine as needed for anaphylaxis. The patient is diagnosed with obesity, as indicated by a body mass index (BMI) of 35.6. While recent weight is down to 201 pounds, weight management remains a concern. She reports no specific exercise regimen. B12 deficiency is under the care of hematology/oncology, with regular follow-up. Constipation is managed with Colace and RICH as needed. Hyperlipidemia, managed with lovastatin, appears to be under control. For gastroesophageal reflux disease, she has transitioned from omeprazole to pantoprazole, resulting in improved symptom control. Muscle spasms are managed with baclofen as needed, and she denies any ongoing issues. She has experienced occasional shortness of breath but no chest pain, indicating stable asthma for which she follows with pulmonology and uses Wixela twice daily as part of her management. The patient underwent a colonoscopy last year, which revealed a tubular adenoma; a repeat is advised in five years. Additionally, her recent sleep study showed minimal snoring and no significant findings. FORMERLY [facility], LAT[facility] Medical History (Updated 03/11/24 @ 16:17 by Erlinda Newell MD) Hx of diverticulitis of colon Abscess Wears hearing aid in both ears Seasonal allergies Colon cancer screening Physical exam Tremors of nervous system High ankle sprain of right lower extremity Otitis media of right ear History of skin cancer Osteoarthritis of left knee Preoperative clearance Anemia COVID-19 vaccine series completed History of COVID-19 Well woman exam Screening for cervical cancer Hearing loss GERD (gastroesophageal reflux disease) Bilateral otitis media HLD (hyperlipidemia) Primary osteoarthritis of right knee Osteoarthritis of right knee Encounter for preoperative pulmonary examination Family history of Crohn's disease Hx of irritable bowel syndrome Wears hearing aid in both ears History of basal cell carcinoma Arthritis Bronchitis Asthma Surgical History Hx of surgical procedure (12/08/23) Hx of basal cell carcinoma excision History of left knee surgery Status post total left knee replacement Hx of total knee replacement (~01/2020) Status post total right knee replacement History of tonsillectomy History of reversal of ileostomy Hx of ileostomy History of colostomy reversal History of colon resection Hx of tubal ligation History of esophagogastroduodenoscopy (EGD) H/O colonoscopy Family History Father Colitis COPD (chronic obstructive pulmonary disease) Mother Diabetes Mental health disorder Hypertension Stroke Sister Lung cancer Ulcerative colitis Rheumatoid aortitis Paternal Grandmother Stomach cancer Family/Other Breast cancer Ovarian cancer Brother No problems noted. 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 Azam Navarro, Aaliyah Lawrence, Yosvany Miranda and colleagues, with an educational julia from [employer]. Review of Systems Const All systems reviewed & are unremarkable except as noted in HPI and below Card Denies chest pain at rest, Denies chest pain with activity, Denies edema, Denies irregular heart rhythm, Denies claudication, Denies dyspnea, Denies dyspnea on exertion, Denies orthopnea, Denies paroxysmal nocturnal dyspnea and Denies slow heart rate Resp Denies cough, Denies dyspnea and Denies dyspnea on exertion Physical exam (Primary Care) Vital Signs: Last Vital Signs Pulse 61 03/11/24 13:28 BP 140/70 H 03/11/24 13:28 Pulse Ox 98 03/11/24 13:28 Oxygen Delivery Method Room Air 03/11/24 13:28 BMI result Body Mass Index 35.6 BMI Assessment/Plan discussion: High BMI High, discussed plan: lifestyle, weight reduction, dietary and physical activity Tobacco/Smoking Status: Tobacco use Status Tobacco use date assessed 06/22/23 03/11/24 13:20 Patient Tobacco Use Status Never used Tobacco 03/11/24 13:20 e-Cigarette/Vaping Use Never Used 03/11/24 13:20 Thrive Assessment: Date of Thrive Assessment Date Thrive assessed 06/22/23 03/11/24 13:20 Resp Effort & Inspection: normal respiratory effort Auscultation: clear to auscultation bilaterally Cardio Jugular venous distension: no JVD Rate: regular rate Rhythm: regular rhythm Heart sounds: S1 normal heart sound present and S2 normal heart sound present Extrem General: Yes full ROM Coding Level of Care Code Est Pt Level 4 (82854) Complex EM visit Add On G2211 Diagnoses Gastroesophageal reflux disease, unspecified whether esophagitis present K21.9 Esophagitis presence: esophagitis presence not specified Pure hypercholesterolemia E78.00 Hyperlipidemia type: pure hypercholesterolemia Chronic idiopathic constipation K59.04 Moderate persistent asthma without complication J45.40 Asthma complication type: uncomplicated B12 deficiency anemia D51.9 Muscle spasm M62.838 Time Spent (min) 24 Assessment & Plan Assessment & Plan (1) GERD (gastroesophageal reflux disease): Code(s): K21.9 - Gastro-esophageal reflux disease without esophagitis Category: Medical Qualifiers: Esophagitis presence: esophagitis presence not specified Qualified Code (s): K21.9 - Gastro-esophageal reflux disease without esophagitis (2) HLD (hyperlipidemia): Code(s): E78.5 - Hyperlipidemia, unspecified Category: Medical Qualifiers: Hyperlipidemia type: pure hypercholesterolemia Qualified Code(s): E78.00 - Pure hypercholesterolemia, unspecified (3) Chronic idiopathic constipation: Code(s): K59.04 - Chronic idiopathic constipation Category: Medical (4) Moderate persistent asthma: Code(s): J45.40 - Moderate persistent asthma, uncomplicated Category: Medical Qualifiers: Asthma complication type: uncomplicated Qualified Code(s): J45.40 - Moderate persistent asthma, uncomplicated (5) B12 deficiency anemia: Code(s): D51.9 - Vitamin B12 deficiency anemia, unspecified Category: Medical (6) Muscle spasm: Code(s): M62.838 - Other muscle spasm Category: Medical Plan - Continue current management for allergic rhinitis and monitor for any exacerbations. - Encourage weight loss strategies to address obesity, with specific attention to dietary and exercise modifications. - Maintain current level monitoring and follow-up with hematology/oncology. - Continue using Colace and RICH for constipation management. - Continue lovastatin for hyperlipidemia and monitor lipid levels regularly. - Monitor and adjust pantoprazole dosage as needed for gastroesophageal reflux disease. - Continue as-needed baclofen for muscle spasms. - Monitor for any asthma symptoms, encourage adherence to Wixela and follow-up with pulmonology. - Follow-up with gastroenterology for repeat colonoscopy in five years. Patient was informed and verbally consented to the use of an ambient scribe for clinic note documentation during this visit. During this visit, we discussed the patient's chronic conditions and recent test results. I informed the patient that her recent sleep study was normal, showing only minimal snoring. We talked about the importance of weight management given the obesity and emphasized the role of dietary changes and exercise. We reviewed her medication regimen and affirmed that current treatments for allergic rhinitis, constipation, and hyperlipidemia are effective. Management of her GERD with pantoprazole was noted as improved, an important aspect of her care. The plan is to ensure continual follow-up and adherence to treatment plans, especially considering her history of a tubular adenoma and awaiting the next colonoscopy. We will continue to monitor B12 levels through hematology and adjust treatments as necessary for optimal management of her asthma and other conditions. Patient Instructions: - Continue all current medications as prescribed. - Maintain dietary modifications and increased physical activity for weight management. - Monitor for symptoms of allergic reactions and use Epipen as needed. - Follow hematology recommendations for B12 supplementation. - Use nasal spray and Wixela as directed for respiratory symptoms. - Schedule a new ENT consultation as we discussed. - Follow-up fasting blood work in June. - Report any sudden changes in symptoms or new concerns promptly.
[2024-03-11 13:28] VITALS: BP 140/70; PULSE 61; O2SAT 98; BMI 35.6
== END 2024-03-11 14:02 | disposition home or self-care (01) ==
PROVIDERS: PCP Internal Medicine; Visit Provider Internal Medicine
DX: K21.9 Gastro-esophageal reflux disease without esophagitis (principal); E78.00 Pure hypercholesterolemia, unspecified; K59.04 Chronic idiopathic constipation; J45.40 Moderate persistent asthma, uncomplicated; D51.9 Vitamin B12 deficiency anemia, unspecified; M62.838 Other muscle spasm

== ENCOUNTER → 2024-03-11 13:06 | Outpatient (BNVA) | payer MEDICARE, SELFPAY | PROVIDERS: PCP Internal Medicine; Visit Provider Internal Medicine | DX: K21.9 Gastro-esophageal reflux disease without esophagitis (principal); E78.00 Pure hypercholesterolemia, unspecified; K59.04 Chronic idiopathic constipation; J45.40 Moderate persistent asthma, uncomplicated; D51.9 Vitamin B12 deficiency anemia, unspecified; M62.838 Other muscle spasm | CPT/HCPCS: 99212 ==

== ENCOUNTER 2024-05-02 09:32 | Outpatient (AMB) | payer MEDICARE, SELFPAY ==
[2024-05-02 09:33] VITALS: BP 128/66; PULSE 92; O2SAT 97; BMI 35.7
--- NOTE | 2024-05-02 09:33 | A.OFFVIS_ITS ---
Vital Signs 05/02/24 09:33 Height 5 ft 3 in Weight 201 lb 8.04 oz BMI 35.7 BP 128/66 Blood Pressure Location Rt brachial Position Sitting Pulse 92 Pulse Source Pulse Oximeter Pulse Oximetry (%) 97 Oxygen Delivery Method Room Air Intake Visit Reasons: follow up [facility]IC Intake Note: ESTABLISHED PATIENT Reason; ~ 2-3 mos FU Changes/concerns? Pt states that the pantoprazole has been working well. Pt would like to discuss citrucel and culturelle, difficulties with obtaining them. 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 Allergies bee pollen [BEE STINGS] Allergy (Severe, Verified 05/02/24 09:34) SWELLING,WELTS latex [LATEX] Allergy (Mild, Verified 05/02/24 09:34) RASH simvastatin Adverse Reaction (Intermediate, Verified 05/02/24 09:34) myalgia HPI HPI follow up CIC: Details: Assessment & Plan (1) Gastric ulcer: Comment: discovered on 2019 EGD with erosive gastritis question related to NSAIDs Code(s): K25.9 - Gastric ulcer, unspecified as acute or chronic, without hemorrhage or perforation Category: Medical (2) GERD (gastroesophageal reflux disease): Code(s): K21.9 - Gastro-esophageal reflux disease without esophagitis Category: Medical Qualifiers: Esophagitis presence: esophagitis presence not specified Qualified Code(s): K21.9 - Gastro-esophageal reflux disease without esophagitis (3) Chronic idiopathic constipation: Code(s): K59.04 - Chronic idiopathic constipation Category: Medical Plan She continues on her omeprazole, famotidine and senna and Colace. She had her labial cyst removed but now she has 2 more in the inguinal areas. She was told not to take her omeprazole and famotidine while she is on abs - she just started today. She is still getting hoarse and she just saw her ENT and he said her vocal cords are still red. We will change form o2o 20mg bid to pantoprazole 40mg bid. She also will be having a sleep study soon r/t snoring. ROV 8 weeks. Medications: New pantoprazole (Protonix) 40 mg PO BID 60 tabs 6RF 30 days K21.9 - Gastro- esophageal reflux disease without esophagitis, K25.9 - Gastric ulcer, unspecified as acute or chronic, without hemorrhage or perforation Discontinued omeprazole Discontinued Reason: Doctor's Order 20 mg PO BID 30 days 60 caps 6RF K21.9 - Gastro-esophageal reflux disease without esophagitis . TODAY'S VISIT She is doing well. She has concerns about getting her fiber and probiotics as both her citrucel and the CUlturelle are getting hard to find. I suggest Benefiber and she can consider ExactFlat or [employer] or even [employer] brand. She is having better GERD control with the pantorpazole and her itchy throat is resolved. She is getting over an URI and was on prdenisone and and abx and this has uset her stooling somewhat, which is quite common. She can stop the famotidine at night since she has bid pantorpazole. She was told by the surgeon that her intermittent LLQ pain that resolves with rubbing is an inguinal hernia. She was told she also has a right inguinal hernia and an small umbilical hernia. ROV 6 mos. FORMERLY [facility], [facility] Medical History Hx of diverticulitis of colon Abscess Wears hearing aid in both ears Seasonal allergies Colon cancer screening Physical exam Tremors of nervous system High ankle sprain of right lower extremity Otitis media of right ear History of skin cancer Osteoarthritis of left knee Preoperative clearance Anemia COVID-19 vaccine series completed History of COVID-19 Well woman exam Screening for cervical cancer Hearing loss GERD (gastroesophageal reflux disease) Bilateral otitis media HLD (hyperlipidemia) Primary osteoarthritis of right knee Osteoarthritis of right knee Encounter for preoperative pulmonary examination Family history of Crohn's disease Hx of irritable bowel syndrome Wears hearing aid in both ears History of basal cell carcinoma Arthritis Bronchitis Asthma Surgical History Hx of surgical procedure (12/08/23) Hx of basal cell carcinoma excision History of left knee surgery Status post total left knee replacement Hx of total knee replacement (~01/2020) Status post total right knee replacement History of tonsillectomy History of reversal of ileostomy Hx of ileostomy History of colostomy reversal History of colon resection Hx of tubal ligation History of esophagogastroduodenoscopy (EGD) H/O colonoscopy Family History Father Colitis COPD (chronic obstructive pulmonary disease) Mother Diabetes Mental health disorder Hypertension Stroke Sister Lung cancer Ulcerative colitis Rheumatoid aortitis Paternal Grandmother Stomach cancer Family/Other Breast cancer Ovarian cancer Brother No problems noted. 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 occupational exposures/hazards: No Cognitive needs: No Hearing needs: Yes Vision needs: Yes Female Reproductive History Menstrual Age of Menarche: 11 Review of Systems Const Denies fatigue, Denies fever(s), Denies night sweats, Denies poor appetite and Denies weight loss Eyes Details: glasses Reports requires corrective lenses ENT Reports Normal hearing present, Denies dental pain, Denies dysphagia, Denies hearing loss, Denies mouth pain, Denies odynophagia, Denies throat swelling, Denies tongue swelling and Reports other (Dentition adequate) Card Reports no additional complaints Resp Reports chest congestion and Reports cough GI Details: Reports abdominal pain, Denies melena, Denies bloating, Denies hematochezia, Reports constipation, Denies GI cramping, Denies dysphagia, Denies excessive flatus, Denies early satiety, Reports heartburn, Denies diarrhea, Denies nausea, Denies odynophagia, Denies vomiting and Denies hematemesis Skin/Breast Denies pruritus, Denies lesions, Denies rash and Denies jaundice Neuro Reports Normal hearing present and Denies Abnormal speech present Endo Denies fatigue Aller/Immun Denies throat swelling and Denies tongue swelling Physical Exam Vital Signs: BMI result Body Mass Index 35.7 Const General: cooperative, no acute distress, well developed and well groomed Nutritional Appearance: well nourished and obese morbidly obese Orientation/consciousness: oriented to person, oriented to place and oriented to time Limitations: No language barrier HEENT Head: Yes normocephalic and Yes atraumatic Eyes General: appearance normal, both eyes and all related structures Pupils: Equal, round and reactive pupils present Neck Neck: Yes normal visual inspection and Yes no lymphadenopathy Thyroid: Thyroid normal Resp Effort & Inspection: normal respiratory effort and able to speak in complete sentences Auscultation: clear to auscultation bilaterally Cardio Rate: regular rate Rhythm: regular rhythm Heart sounds: Normal, physiologic split S2 sound present Peripheral pulses: radial pulses present and posterior tibial pulses present GI Inspection: No distended, Yes Abdominal panniculus present and Yes obesity Palpation (GI): Soft to palpation, nontender, no guarding, not rigid and No hepatosplenomegaly present Percussion: Yes normal to percussion Auscultation: normal bowel sounds Rectal Exam - Female: deferred Skin General skin exam: no rashes or lesions noted, turgor normal, skin not dry, no jaundice, No spider nevi and no striae Rashes: no rashes Nails: normal Neuro General: oriented to person, oriented to place and oriented to time Cranial nerves: Yes Equal, round and reactive pupils present and Yes Normal hearing present Speech: No Abnormal speech present Extrem General: Yes normal to inspection, No clubbing, No cyanosis and No edema Psych Appearance: grossly normal and well kempt Mental Status: mental status grossly normal Speech and movement: Normal speech and movement present Affect: normal affect Attitude: cooperative Thought process: Normal thought process present and not confabulating Thought content: Normal thought content present Insight: Good insight present (Psych) Judgement: Good judgement present (Psych) Assessment & Plan Assessment & Plan (1) Chronic idiopathic constipation: Code(s): K59.04 - Chronic idiopathic constipation Category: Medical (2) Gastric ulcer: Comment: discovered on 2019 EGD with erosive gastritis question related to NSAIDs Code(s): K25.9 - Gastric ulcer, unspecified as acute or chronic, without hemorrhage or perforation Category: Medical (3) Ileal erosions: Comment: uncertain etiology discovered on 2019 colonoscopy patient has a family history of Crohn's but also extensive NSAID use with a negative [employer] genetics study this will bear watching Code(s): K63.3 - Ulcer of intestine Category: Medical (4) GERD (gastroesophageal reflux disease): Code(s): K21.9 - Gastro-esophageal reflux disease without esophagitis Category: Medical Qualifiers: Esophagitis presence: esophagitis presence not specified Qualified Code(s): K21.9 - Gastro-esophageal reflux disease without esophagitis Plan She is doing well. She has concerns about getting her fiber and probiotics as both her citrucel and the CUlturelle are getting hard to find. I suggest Benefiber and she can consider ExactFlat or [employer] or even [employer]. She is having better GERD control with the pantorpazole and her itchy throat is resolved. She is getting over an URI and was on prdenisone and and abx and this has uset her stooling somewhat, which is quite common. She can stop the famotidine at night since she has bid pantorpazole. She was told by the surgeon that her intermittent LLQ pain that resolves with rubbing is an inguinal hernia. She was told she also has a right inguinal hernia and an small umbilical hernia. ROV 6 mos. Coding Level of Care Code Est Pt Level 3 (51332) Diagnoses Chronic idiopathic constipation K59.04 Gastric ulcer K25.9 Ileal erosions K63.3 Gastroesophageal reflux disease, unspecified whether esophagitis present K21.9 Esophagitis presence: esophagitis presence not specified
== END 2024-05-02 10:03 | disposition home or self-care (01) ==
PROVIDERS: PCP Internal Medicine; Visit Provider Nurse Practitioner
DX: K59.04 Chronic idiopathic constipation (principal); K25.9 Gastric ulcer, unspecified as acute or chronic, without hemorrhage or perforation; K63.3 Ulcer of intestine; K21.9 Gastro-esophageal reflux disease without esophagitis
CPT/HCPCS: 99213

== ENCOUNTER → 2024-05-02 09:32 | Outpatient (BNVA) | payer MEDICARE, SELFPAY | PROVIDERS: PCP Internal Medicine; Visit Provider Nurse Practitioner | DX: K59.04 Chronic idiopathic constipation (principal); K25.9 Gastric ulcer, unspecified as acute or chronic, without hemorrhage or perforation; K63.3 Ulcer of intestine; K21.9 Gastro-esophageal reflux disease without esophagitis | CPT/HCPCS: 99212 ==

== ENCOUNTER 2024-06-24 09:51 | Outpatient (AMB) | payer BC, SELFPAY ==
--- NOTE | 2024-06-24 10:07 | MHC.OFFVIS ---
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 No complaints. Last Pap/HPV was negative in 06/15 Last Mammogram was BI-RADS 1 in 02/14 Last Colonoscopy was done in 07/13, the recommendation was to repeat in 3-5 years Last DEXA scan was done in 07/15 [facility] Medical History (Updated 06/24/24 @ 10:30 by Roverto Dahl MD) Well woman exam Hx of diverticulitis of colon Abscess Wears hearing aid in both ears Seasonal allergies Colon cancer screening Physical exam Tremors of nervous system High ankle sprain of right lower extremity Otitis media of right ear History of skin cancer Osteoarthritis of left knee Preoperative clearance Anemia COVID-19 vaccine series completed History of COVID-19 Screening for cervical cancer Hearing loss GERD (gastroesophageal reflux disease) Bilateral otitis media HLD (hyperlipidemia) Primary osteoarthritis of right knee Osteoarthritis of right knee Encounter for preoperative pulmonary examination Family history of Crohn's disease Hx of irritable bowel syndrome Wears hearing aid in both ears History of basal cell carcinoma Arthritis Bronchitis Asthma Surgical History Hx of surgical procedure (12/08/23) Hx of basal cell carcinoma excision History of left knee surgery Status post total left knee replacement Hx of total knee replacement (~01/2020) Status post total right knee replacement History of tonsillectomy History of reversal of ileostomy Hx of ileostomy History of colostomy reversal History of colon resection Hx of tubal ligation History of esophagogastroduodenoscopy (EGD) H/O colonoscopy Family History Father Colitis COPD (chronic obstructive pulmonary disease) Mother Diabetes Mental health disorder Hypertension Stroke Sister Lung cancer Ulcerative colitis Rheumatoid aortitis Paternal Grandmother Stomach cancer Family/Other Breast cancer Ovarian cancer Brother No problems noted. 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 Current occupational exposures/hazards: No Cognitive needs: No Hearing needs: Yes Vision needs: Yes Female Reproductive History Menstrual Age of Menarche: 11 control method: permanent sterilization Date of last pap smear: 06/08/21 Date of Mammogram: 02/29/24 Review of Systems Const All systems reviewed & are unremarkable except as noted in HPI and below Card Reports as per HPI Resp Reports as per HPI GI Reports as per HPI and Reports no additional complaints Reports as per HPI Physical Exam Vital Signs: Last Vital Signs BP 116/68 06/24/24 10:08 BMI result Body Mass Index 36.0 Const General: cooperative, healthy appearing and comfortable Chest Chest palpation & inspection: normal inspection of the chest and normal palpation of entire chest wall Breast/axilla inspection: normal inspection of the breasts and normal inspection of the axillae Breast/axilla palpation: normal palpation of the breasts, normal palpation of the axillae and no axillary lymphadenopathy Resp Effort & Inspection: normal respiratory effort Auscultation: clear to auscultation bilaterally Percussion: percussion normal Cardio Palpation: normal PMI Rate: regular rate Rhythm: regular rhythm Heart sounds: no murmurs and no rubs Peripheral pulses: Peripheral pulses 2+ throughout GI Inspection: Yes normal to inspection Palpation (GI): Soft to palpation, nontender, no guarding, not rigid and No hepatosplenomegaly present Percussion: Yes normal to percussion Auscultation: normal bowel sounds Rectal Exam - Female: deferred General: Yes bladder normal to palpation External Female Exam: No lesion Speculum Exam - Vagina: normal appearance of the vagina, normal palpation, normal vaginal discharge and not erythematous Speculum Exam - Cervix: normal appearance of the cervix and normal palpation Bimanual exam- vagina & uterus: normal bimanual exam, normal palpation, uterine size normal, bladder normal to palpation, consistency normal and normal palpation Bimanual Exam- Adnexa, other: normal adnexae, no masses and no tenderness Assessment & Plan Assessment & Plan (1) Well woman exam: Code(s): Z01.419 - Encounter for gynecological examination (general) (routine) without abnormal findings Category: Medical Plan: Co testing not indicated since the patient 's age is above 65 with no history of abnormal Pap smears last 25 years. Counseled the patient about the recommended dietary allowance of 1200 mg of Calcium & 800 IU of vitamin D. Instructions given to patient to schedule next screening Mammogram in 02/15. The patient was instructed to perform monthly self-breast exams and to schedule an annual exam in a year; All questions answered and the patient verbalized understanding. Orders: Orders XR DEXA axial skeleton Today Z78.0 - Asymptomatic menopausal state Coding Level of Care Code Est Pt Prev Care >65y(52753) Diagnoses Well woman exam Z01.419
[2024-06-24 10:08] VITALS: BP 116/68; BMI 36.0
--- OUTSIDE RECORDS SUMMARY | 2024-06-24 11:02 | XMS_ITS | Clinical Summary ---
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 Name Role Phone Unavailable Primary Care Provider Unavailabl e Immunizations Name Administration Dates Next Due Influenza, seasonal, injectable, preservative fr ee 01/15/2024 Social History Tobacco Use Types Packs/Day Years Used Date Smoking Tobacco: Never Assessed Comments Unknown Sex and Gender Information Value Date Recorded Sex Assigned at Female 01/16/2024 2:19 PM EDT Legal Sex Female 2:17 PM EDT Gender Identity Female 01/16/2024 2:19 PM EDT Sexual Orientation Don't know 01/16/2024 2: 19 PM EDT Plan of Treatment Health Maintenance Due Date Last Done Comments CT Colonography 1958 Colonoscopy 1958 Colorectal Cancer Screening 1958 Depression Screening 1958 FIT DNA/Cologuard 1958 FIT 1958 FOBT 1958 SDOH Screening 1958 Sigmoidoscopy 1958 Alcohol/Substance Use Screening 1970 Tobacco Screening 1970 Hepatitis C Screening 1976 Mammogram 1998 Pneumococcal Vaccine: 50+ Years (2 of 2 - PCV) 01/25/2008 01/24/2007 Zoster Vaccines (1 of 2) 2008 DTaP/Tdap/Td Vaccines (2 - Td or Tdap) 02/05/2017 02/05/2007 RSV Patients and Patients Aged 60 years or older (1 - Risk 60-74 years 1-dose series) 2018 COVID-19 Vaccine ( - 2023- season) 2023 Influenza Vaccine Completed 01/15/2024, , 03/29/2010, Additional history exists HIB Vaccines Aged Out No longer eligi ble based on patient's age to complete this topic HPV Vaccines Aged Out No longer eligi ble based on patient's age to complete this topic Hepatitis A Vaccines Aged Out No long er eligible based on patient's age to complete this topic Hepatitis B Vaccines Aged Out No long er eligible based on patient's age to complete this topic IPV Vaccines Aged Out No longer eligi ble based on patient's age to complete this topic Meningococcal Vaccine Aged Out No chandrakant enrike eligible based on patient's age to complete this topic RSV under 20 months Aged Out No longe r eligible based on patient's age to complete this topic Rotavirus Vaccines Aged Out No longer eligible based on patient's age to complete this topic Insurance [employer] [place] [place] PPO
== END 2024-06-24 10:45 | disposition home or self-care (01) ==
PROVIDERS: Visit Provider Obstetrics & Gynecology
DX: Z01.419 Encounter for gynecological examination (general) (routine) without abnormal findings (principal)
CPT/HCPCS: 99397; 99459

== ENCOUNTER → 2024-06-24 09:51 | Outpatient (BNVA) | payer BC, SELFPAY | PROVIDERS: Visit Provider Obstetrics & Gynecology | DX: Z01.419 Encounter for gynecological examination (general) (routine) without abnormal findings (principal) | CPT/HCPCS: G0101 ==

== ENCOUNTER 2024-07-09 07:16 | Outpatient (REF) | payer BC, SELFPAY ==
--- OUTSIDE RECORDS SUMMARY | 2024-07-09 07:19 | XMS_ITS | Clinical Summary ---
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
[2024-07-09 10:37] LABS: Cholesterol 179 mg/dL (<200); HDL Cholesterol 62 mg/dL (>40); LDL Cholesterol Calculated 105 mg/dL (<100); Triglycerides 62 mg/dL (<150)
== END 2024-07-09 07:17 | disposition home or self-care (01) ==
LOC: HO.HMGCLDS 07:16
PROVIDERS: PCP Internal Medicine; Visit Provider Internal Medicine
DX: E78.5 Hyperlipidemia, unspecified (principal)
CPT/HCPCS: 36415; 80061

== ENCOUNTER 2024-07-18 10:00 | Outpatient (AMB) | payer BC, SELFPAY ==
--- NOTE | 2024-07-18 10:12 | A.OFFPC_ITS ---
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 Required: No Accompanied by: Self / Same As Patient Allergies bee pollen [BEE STINGS] Allergy (Severe, Verified 07/18/24 10:28) SWELLING,WELTS latex [LATEX] Allergy (Mild, Verified 07/18/24 10:28) RASH simvastatin Adverse Reaction (Intermediate, Verified 07/18/24 10:28) myalgia Medication List - Last Reconciled 07/18/24 by Erlinda Newell MD albuterol sulfate 90 mcg/actuation 2 puffs inhalation Q6H PRN 30 days azelastine 1 spray intranasal BID PRN baclofen 20 mg PO NEEDED PRN celecoxib (Celebrex) 200 mg PO BID cholecalciferol (vitamin D3) 25 mcg PO DAILY 90 days ciclopirox 0.77% 1 appl topical BID cyanocobalamin (vitamin B-12) 1,000 mcg IM QMONTH docusate sodium (Colace) 100 mg PO BID 30 days epinephrine 0.3 mg (0.3 mL) IM Q10M PRN 30 days famotidine 40 mg PO BEDTIME fluticasone propion-salmeterol 500-50 mcg/dose (Wixela Inhub) 1 inh inhalation BID 30 days ipratropium bromide 17 mcg/actuation 2 puffs inhalation TID 30 days ipratropium-albuterol 0.5 mg-3 mg(2.5 mg base)/3 mL 3 mL inhalation Q4-6H PRN 30 days ketoconazole 2% 2 appl topical DAILY lovastatin 10 mg PO BEDTIME 90 days methylcellulose (laxative) (Citrucel) 1,000 mg PO BID montelukast 10 mg PO BEDTIME 90 days gomeaill-qmtxdqgvt-RN 3.5-10,000-1 mg/mL-unit/mL-% 1 drp otic (ears) DAILY pantoprazole 40 mg PO BID sennosides (Doreen-leora) 25.8 mg (3 x 8.6 mg) PO BEDTIME 90 days tacrolimus 0.03% 0.03 appl topical DAILY triamcinolone acetonide 0.025% 1 appl topical BID Tobacco use date assessed: 07/18/24 Fall risk assessment: No Falls in past year Last assessed Fall Risk: 07/18/24 Dental Screening Dental Screen Date: 07/18/24 Did you have a dental visit in the last 12 months?: Yes Did you have a dental problem in the last 6 months where you did not have access to dental care?: No Was dental information given to patient?: Patient has dentist HPI HPI Comments History of Present Illness Details The patient is a 64-year-old female presenting for a routine physical examination. Her medical history includes osteopenia managed with calcium and vitamin D supplements, following a diagnosis made through bone density scans scheduled last in June 2023. She described receiving a steroid injection last month for thinning of her rotator cuff, suggesting persistent issues with her shoulder. She manages visual disorders, specifically cataracts and early-stage macular degeneration, with supplements such as L-lysine and vitamins, sourced over the counter. Her gastrointestinal issues, notably GERD, are treated with pantoprazole alongside managing constipation with docusate as needed. Past surgical interventions include knee replacements and multiple abdominal procedu res involving her colon and resulting in a temporary colostomy. Her comprehensive medication regimen includes medications for lipid management, acid reflux, and allergies, with attention to her recorded sensitivities to bees, latex, and simvastatin. Additionally, a family history of several chronic conditions and diseases contributes contextually to her current health focus and maintenance plans. - Received Tdap vaccine in 2019. - Pneumococcal vaccine administered prio r to age 63. - Recent colonoscopy performed in 2022, with the next scheduled in five years. - Mammogram completed in January 2023. - Bone density scan scheduled for June 2025. - Routine monitoring of fasting blood samayoa gar performed with a result of 88 mg/dL. [facility] Medical History (Updated 07/18/24 @ 21:08 by Erlinda Newell MD) Physical exam Well woman exam Hx of diverticulitis of colon Abscess Wears hearing aid in both ears Seasonal allergies Colon cancer screening Tremors of nervous system High ankle sprain of right lower extremity Otitis media of right ear History of skin cancer Osteoarthritis of left knee Preoperative clearance Anemia COVID-19 vaccine series completed History of COVID-19 Screening for cervical cancer Hearing loss GERD (gastroesophageal reflux disease) Bilateral otitis media HLD (hyperlipidemia) Primary osteoarthritis of right knee Osteoarthritis of right knee Encounter for preoperative pulmonary examination Family history of Crohn's disease Hx of irritable bowel syndrome Wears hearing aid in both ears History of basal cell carcinoma Arthritis Bronchitis Asthma Surgical History Hx of surgical procedure (12/08/23) Hx of basal cell carcinoma excision History of left knee surgery Status post total left knee replacement Hx of total knee replacement (~01/2020) Status post total right knee replacement History of tonsillectomy History of reversal of ileostomy Hx of ileostomy History of colostomy reversal History of colon resection Hx of tubal ligation History of esophagogastroduodenoscopy (EGD) H/O colonoscopy Family History (Updated 07/18/24 @ 10:36 by Erlinda Newell MD) Father Colitis COPD (chronic obstructive pulmonary disease) Ulcerative colitis Mother Diabetes Mental health disorder Hypertension Stroke Sister Lung cancer Rheumatoid aortitis Crohn's disease Paternal Grandmother Stomach cancer Family/Other Breast cancer Ovarian cancer Brother No problems noted. 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 1. Little interest or pleasure in doing things: not at all 2. Feeling down, depressed, or hopeless: not at all 3. Trouble falling or staying asleep, or sleeping too much: not at all 4. Feeling tired or having little energy: not at all 5. Poor appetite or overeating: not at all 6. Feeling bad about yourself - or that you are a failure or have let yourself or your family down: not at all 7. Trouble concentrating on things, such as reading the newspaper or watching television: not at all 8. Moving or speaking so slowly that other people could have noticed. Or the opposite - being so fidgety or restless that you have been moving around a lot more than usual: not at all 9. Thoughts that you would be better off or of hurting yourself in some way: not at all Total score: 0 Depression Screening Interpretation: Negative Depression Screening Done: Yes 81775 - PHQ-9 Billing: Yes Source: Developed by Drs. Azam Navarro, Aaliyah Lawrence, Yosvany Miranda and colleagues, with an educational julia from [employer]. Thrive Questionnaire Date Thrive assessed: 07/18/24 I am a: Patient What is your living situation today?: I have a steady place to live Within the past 12 months, did the food you bought not last and you didn't have the money to get more?: Never true Within the past 12 months, did you worry whether your food would run out before you got money to buy more?: Never true Do you have trouble paying for medicines?: No Do you have trouble getting transportation to medical appointments?: No Do you have trouble paying your heating and electricity bill?: No Do you have trouble taking care of your child, family member or friend?: No Do you have trouble with day-to-day activities such as bathing, preparing meals, shopping, managing finances, etc.?: No Are you currently unemployed and looking for a job?: I choose not to answer this question Are you interested in more education?: I choose not to answer this question Please select the resources that you would like help with: None Currently or been in a relationship where the following occur: No concerns reported THRIVE Score: 0 AUDIT C Alcohol Use Questionnaire (AUDIT-C) 1. How often do you have a drink containing alcohol?: Never Total Score: 0 Score Reviewed/Action Taken: No KENAN-7 AMB Questionnaire KENAN-7 Date KENAN - 7 assessed: 07/18/24 Feeling nervous, anxious, or on edge: 0 = Not at all Not being able to stop or control worryin = Not at all Worrying too much about different things: 0 = Not at all Trouble relaxin = Not at all Being so restless that it is hard to sit still: 0 = Not at all Becoming easily annoyed or irritable: 0 = Not at all Feeling afraid as if something awful might happen: 0 = Not at all Total KENAN-7 score (0-4 normal; 5-9 mild; 10-14 moderate; 15-21 severe): 0 Source: Developed by Drs. Azam Navarro, Aaliyah Lawrence, Yosvany Miranda and colleagues, with an educational julia from [employer]. KENAN-7 Assessment Billing KENAN-7 Assessment Tool: KENAN-7 Assessment 39917 Review of Systems Const All systems reviewed & are unremarkable except as noted in HPI and below Card Denies chest pain at rest, Denies chest pain with activity, Denies edema, Denies irregular heart rhythm, Denies claudication, Denies dyspnea, Denies dyspnea on exertion, Denies orthopnea, Denies paroxysmal nocturnal dyspnea and Denies slow heart rate Resp Denies cough, Denies dyspnea and Denies dyspnea on exertion GI Denies abdominal pain, Denies change in bowel habits, Denies excessive flatus, Denies nausea and Denies vomiting Denies urinary incontinence, Denies urinary hesitancy and Denies urinary urgency Musc Denies atrophy, Denies deformity and Denies limited range of motion Skin/Breast Denies bleeding lesions, Denies changing lesions and Denies rash Physical exam (Primary Care) Vital Signs: Last Vital Signs BP 130/70 07/18/24 10:14 BMI result Body Mass Index 36.3 BMI Assessment/Plan discussion: High BMI High, discussed plan: lifestyle, weight reduction, dietary and physical activity Tobacco/Smoking Status: Tobacco use Status Tobacco use date assessed 07/18/24 07/18/24 10:19 Patient Tobacco Use Status Never used Tobacco 07/18/24 10:14 e-Cigarette/Vaping Use Never Used 07/18/24 10:14 PHQ-9: PHQ-9 Score PHQ-9: Total score 0 07/18/24 10:31 Depression Screening Interpretation: Negative Thrive Assessment: Date of Thrive Assessment Date Thrive assessed 07/18/24 07/18/24 10:14 Currently or been in a relationship where the following occur: No concerns reported HENMT Head: Yes normal to inspection, Yes normocephalic and Yes atraumatic Ears: external ears normal Eyes General: appearance normal, both eyes and all related structures Eyelids: Yes eyelids normal Conjunctivae: conjunctivae normal Neck Neck: Yes normal visual inspection and Yes supple Resp Effort & Inspection: normal respiratory effort Auscultation: clear to auscultation bilaterally Cardio Jugular venous distension: no JVD Rate: regular rate Rhythm: regular rhythm Heart sounds: S1 normal heart sound present and S2 normal heart sound present GI Inspection: Yes normal to inspection Palpation (GI): Soft to palpation and nontender Auscultation: normal bowel sounds Skin General skin exam: no rashes or lesions noted Neuro General: no focal motor deficits Extrem General: Yes full ROM Psych Appearance: grossly normal Coding Level of Care Code Est Pt Prev Care >65y(65022) Diagnoses Physical exam Z00.00 Additional Codes KENAN-7 Assessment Billing - KENAN-7 Assessment Tool: KENAN-7 Assessment 57114 ([id number]) PHQ-9 - 54861 - PHQ-9 Billing: Yes ([id number]) Time Spent (min) 31 Assessment & Plan Assessment & Plan (1) Physical exam: Code(s): Z00.00 - Encounter for general adult medical examination without abnormal findings Category: Medical Plan We will maintain current strategies for managing osteopenia with calcium and vitamin D supplements, alongside planned future bone density evaluations. For eye health concerning cataracts and macular degeneration, continued use of supporting supplements is encouraged. Rotator cuff issues post-steroid injection are to be managed with potential non-surgical interventions including therapeutic exercises. Any decision for surgery could be revisited based on symptom severity progression. Osteoarthritis and spondylolisthesis symptom management will include posture adjustments and optional physical therapy to reduce pain. Existing GERD treatment with pantoprazole will continue, and constipation is managed as needed with docusate. Vigilance regarding allergies to bees, latex, and statins is paramount, ensuring continued adherence to therapeutic medications. Screening tests reveal stable metabolic function, with continued emphasis on regular monitoring through scheduled healthcare assessments. Patient was informed and verbally consented to the use of an ambient scribe for clinic note documentation during this visit. I addressed concerns including improved attention to visual health maintenance with appropriate self-care supplementation for cataracts and macular degeneration. The management of osteopenia was reviewed, reinforcing the telma efits of supplements. The shoulder joint's condition was acknowledged, and current relief methods evaluated, potentially expanding to surgical options based upon future assessment. Continued GERD control and gastrointestinal system health care were confirmed in alignment with the overall wellness plan. Discussed family disease predisposition, ensuring awareness in health-related activities and consultations. Current adjustments in medication and allergy management strategies were reiterated. Screening and follow-up adherence are underlined to ensure ongoing early detection and intervention, ultimately supporting general wellness objectives. Medications: Discontinued famotidine Discontinued Reason: Patient Completed Course 40 mg PO BEDTIME 30 tabs 6RF Patient Instructions: - Continue calcium and vitamin D supplementation for bone health. - Maintain regular commercial interior designer visits and gwdy-[id number] supplements for eye conditions. - Follow current regimen for GERD management and take docusate as needed for constipation. - Remain observant of any allergic reactions, particularly to bees, latex, and medications. - Monitor shoulder symptoms post-injection and consider therapeutic exercises. - Plan for bi-annual health screenings, including scheduled colonoscopy and mammograms. - Discuss new or worsening symptoms during regular check-ups.
[2024-07-18 10:14] VITALS: BP 130/70; BMI 36.3
--- OUTSIDE RECORDS SUMMARY | 2024-07-18 12:36 | XMS_ITS | Clinical Summary ---
Author Organization [facility] Address [address] [facility] [place] [address] Care Team Providers Care Liquor Runner Name Role Phone Erlinda Newell MD Primary Care Provider Daphnie lucio Allergies Active Allergy Reactions Severity Noted Date Comments Bee Stings 05/01/2012 Latex Rash/Dermatitis 06/30/2014 Seasonal Allergies 05/01/2012 Tetracycline Hcl 07/26/2017 Medications Medication Sig Dispensed Refills Start Date End Date Status oxaprozin (DAYPRO) 600 MG tablet Take 1,200 mg by mouth daily. 0 Active hydrocortisone 2.5 % lotion Apply 1 - 2 drops to affected areas as needed 59 mL 1 06/28/2013 Active Sennosides (SENNA) 8.6 MG Cap Take 8.6 mg by mouth 2 times daily. 0 Active folic acid (FOLVITE) 1 MG tablet 0 09/03/2014 Active VENTOLIN HFA 108 (90 BASE) MCG/ACT Aero Soln USE 2 INHALATIONS FOUR TIMES A DAY NEEDED 18 g 3 07/25/2017 Active Beclomethasone Dipropionate (QNASL) 80 MCG/ACT Aero SolnIndications:Asth ma, unspecified asthma severity, unspecified whether complicated, unspecified whether persistent,Allergic rhinitis, unspecified chronicity, unspecified seasonality, unspecified trigger,Seasonal allergic rhinitis, unspecified chronicity, unspecified trigger,Multiple environmental allergies 1 [place] by Nasal route 2 times daily. 1 Inhaler 0 08/02/2017 Active Cholecalciferol (VITAMIN D3) 2000 UNITS Tab Take 1 Tab by mouth daily. 0 Active Calcium 600 MG Tab Take 1 Tab by mouth every other day. 0 Active baclofen (LIORESAL) 20 MG tablet Take 20 mg by mouth at bedtime as needed. 0 Active ranitidine (ZANTAC) 150 MG tablet Take 150 mg by mouth 2 times daily. 0 Active ketoconazole (NIZORAL) 2 % cream Apply topically 2 times daily. 0 Active desonide (DESOWEN) 0.05 % cream Apply topically 2 times daily. 0 Active tacrolimus (PROTOPIC) 0.03 % ointment Apply topically 2 times daily. 0 Active ketoconazole (NIZORAL) 2 % shampoo Apply topically daily as needed. 0 Active Clobetasol Propionate 0.05 % Shampoo Apply topically. 0 Active Linaclotide 72 MCG Cap Take 1 Cap by mouth daily. 0 Active montelukast (SINGULAIR) 10 MG tablet Take 1 Tab by mouth at bedtime. 90 Tab 4 10/10/2018 Active Active Problems Problem Noted Date HIstory of Perforated diverticulum 07/26 Overview: April 2014, with colostomy, then ileostomy, reversal and closure Dr. Ag at [facility] Irritable bowel syndrome with constipati on 07/26/2017 Iron deficiency anemia 07/26/2017 Thalamic pain syndrome (hyperesthetic) 0 07/26/2017 Lactose intolerance 07/26/2017 Dyslipidemia 02/04/2013 Diverticulosis Psoriasis Osteoarthritis Asthma Allergic rhinitis Immunizations Name Administration Dates Next Due Influenza (> 6 Months) 04/04/2011,03/29/2010,04/2008 Pneumoccoccal(Adult) Polysaccharide PPSV23 01/24 Tdap (Adacel) 02/05/2007 Family History Medical History Relation Name Comments cancer Father kidney CA Breast Father's side aunt, two cous ins Diabetes Mother CAD, HTN, [place] CA Breast Mother's side 1 cousin Cancer, Other Mother's side 2 cousin CA Colon Negative Hx Relation Name Status Comments Father Father's side Mother Mother's side 1 Mother's side 2 Social History Tobacco Use Types Packs/Day Years Used Date Smoking Tobacco: Never Smokeless Tobacco: Never Alcohol Use Standard Drinks/Week Comments Yes 0 (1 standard drink = 0.6 oz pur e alcohol) rare Sex Assigned at Date Recorded Not on file Last Filed Vital Signs Vital Sign Reading Time Taken Comments Blood Pressure 118/58 08/07/2018 9:17 AM EDT Pulse 71 08/07/2018 9:17 AM EDT Temperature 36.7 ??C (98 ??F) 06/30/2014 9:51 AM EDT Respiratory Rate 16 08/07/2018 9:17 AM EDT Oxygen Saturation 98% 08/07/2018 9:17 AM EDT Inhaled Oxygen Concentration - - Weight 81.2 kg (179 lb) 08/07/2018 9:17 AM EDT Height 160 cm (5' 3 ) 08/07/2018 9:17 AM EDT Body Mass Index 31.71 08/07/2018 9:17 AM EDT Plan of Treatment Health Maintenance Due Date Last Done Comments Covid-19 Vaccine (#1) 1960 HEPATITIS C SCREENING 1976 SHINGLES VACCINE (1 of 2) 2008 COLON CANCER SCREENING 04/24/2015 6 (External Completion of test per patient (Patient reports normal results)) MAMMOGRAM 06/09/2015 06/09/2014, 06/04/2013, 07/2012 DTAP/TDAP/TD (2 - Td or Tdap) 02/05/2017 02/05/2007 CHOLESTEROL SCREENING 10/14/2018 10/14/2013 , 05/08/2013, 11/01/2012, Additional history exists BONE DENSITY SCREENING 2023 PNEUMOCOCCAL VACCINE (2 - PCV) 2023 01/24/2007 INFLUENZA (#1) 2023 04/04/2011, 03/29/2010, BMI CHECK/ADVISE 04/24/2024 10/08/2014, 10/08/2013, 06/10/2013 Care Teams Liquor Runner Relationship Specialty Start Date End Date Erlinda Newell MD PCP - General Internal Medicine 09/02/14
--- OUTSIDE RECORDS SUMMARY | 2024-07-18 12:36 | XMS_ITS | Encounter Summary ---
Author Organization [facility] Address [address] [place] [address] Care Team Providers Care Biochemistry Specialist Name Role Phone Ye Smith MD Primary Care Provider Erlinda Newell MD Primary Care Provider Daphnie lucio Reason for Referral * Specialist (Routine) - Authorized/Booked Specialty Diagnoses / Procedures Referred By Gaston ceballos Referred To Contact Cardiology Diagnoses Palpitation Elevated C-reactive protein (CRP) Procedures REFERRAL TO CARDIOLOGY Ye Smith MD [address] [place] [address] Card[place] [address] Referral ID Status Reason Start Date Expiration Date V isits Requested Visits Authorized NOT REQUIRED Authorized/ Booked 01/03/2013 01/03/2014 1 1 Encounter Details Date Type Department Care Team Description 12/28/2012 Pt. Non Urgent Medical Question Adult Medicine [facility] - [address] [address] Ye Smith MD [address] [place] [address] Palpitation (Primary Dx); Elevated C-reactive protein (CRP) Social History Tobacco Use Types Packs/Day Years Used Date Smoking Tobacco: Never Alcohol Use Standard Drinks/Week Comments Yes 0 (1 standard drink = 0.6 oz pur e alcohol) rare Sex Assigned at Date Recorded Not on file documented as of this encounter Progress Notes * Alise Priest M.A. - 12/28/2012 9:48 AM EDTFrom: MANSOOR BERNAL To: Ye Smith MD Sent: MonDec 28, 2012 9:45 AM Subject: CRP My results are back, is there anything I need to do? Dr. Willingham told me in the past it is not my arthritis as I have osteoarthritis. Mansoor Bernal documented in this encounter Plan of Treatment Not on file documented as of this encounter Visit Diagnoses Diagnosis Palpitation- Primary Palpitations Elevated C-reactive protein (CRP) documented in this encounter Care Teams Biochemistry Specialist Relationship Specialty Start Date End Date Ye Smith MD [address] [place] [id number] PCP - General Internal Medicine 12/22/11 09/01/14 Erlinda Newell MD [address] [place] [id number] PCP - General Internal Medicine 09/02/14 documented as of this encounter
--- OUTSIDE RECORDS SUMMARY | 2024-07-18 12:36 | XMS_ITS | Encounter Summary ---
Author Organization [facility] Address [address] [place] [address] Care Team Providers Care Front Desk Representative Name Role Phone Ye Smith MD Primary Care Provider [phone] Erlinda Newell MD Primary Care Provider Daphnie lucio Encounter Details Date Type Department Care Team Description 06/20/2013 Artist'S Representative Report Medical Records [address] [place] [address] Alexis Gaines Social History Tobacco Use Types Packs/Day Years Used Date Smoking Tobacco: Never Alcohol Use Standard Drinks/Week Comments Yes 0 (1 standard drink = 0.6 oz pur e alcohol) rare Sex Assigned at Date Recorded Not on file documented as of this encounter Plan of Treatment Not on file documented as of this encounter Visit Diagnoses Not on filedocumented in this encounter Care Teams Front Desk Representative Relationship Specialty Start Date End Date Ye Smith MD [address] [place] [id number] PCP - General Internal Medicine 12/22/11 09/01/14 Erlinda Newell MD [address] [place] [id number] PCP - General Internal Medicine 09/02/14 documented as of this encounter
--- OUTSIDE RECORDS SUMMARY | 2024-07-18 12:36 | XMS_ITS | Encounter Summary ---
Author Organization [facility] Address [address] [place] [address] Care Team Providers Care Temper Mill Roller Name Role Phone Erlinda Newell MD Primary Care Provider Daphnie lucio Encounter Details Date Type Department Care Team Description 12/21/2015 Pt. Non Urgent Medical Question Cardiology - [address] [address] Oralia Briscoe PA-C [address] [place] [address] Social History Tobacco Use Types Packs/Day Years Used Date Smoking Tobacco: Never Alcohol Use Standard Drinks/Week Comments Yes 0 (1 standard drink = 0.6 oz pur e alcohol) rare Sex Assigned at Date Recorded Not on file documented as of this encounter Progress Notes * Romelia Blank L.P.N. - 12/21/2015 10:32 AM EDTFrom: Sharron Marilynn Lauren To: Oralia Briscoe PA-C Sent: 12/21/2015 9:47 AM EDT Subject: Lipid Panel Vinicio Barton, Haven't seen you in a while, my primary Dr. Cisneros at [facility] did my panel. My insurancewill still let me see you if needed. Cholesterol 255, Triglyceride 88, HDL 57, LDL 181. My weight is 158.6 , height 63. BMI 28.09, BP 118/62, heart rate 64. My Labs are from [facility], Had 4 surgeries for perforated bowel last year, and on a lot of meds and b12 shots with getting iron infusions. Sharronsee Aguilar documented in this encounter Plan of Treatment Not on file documented as of this encounter Visit Diagnoses Not on filedocumented in this encounter Care Teams Temper Mill Roller Relationship Specialty Start Date End Date Erlinda Newell MD PCP - General Internal Medicine 09/02/14 documented as of this encounter
--- OUTSIDE RECORDS SUMMARY | 2024-07-18 12:36 | XMS_ITS | Encounter Summary ---
Author Organization [facility] Address [address] [place] [address] Care Team Providers Care Airport Operations Officer Name Role Phone Ye Smith MD Primary Care Provider [phone] Erlinda Newell MD Primary Care Provider Daphnie lucio Encounter Details Date Type Department Care Team Description 04/21/2014 Resaw Operator Report Medical Records [address] [place] [address] Nnamdi Ho Social History Tobacco Use Types Packs/Day Years Used Date Smoking Tobacco: Never Alcohol Use Standard Drinks/Week Comments Yes 0 (1 standard drink = 0.6 oz pur e alcohol) rare Sex Assigned at Date Recorded Not on file documented as of this encounter Plan of Treatment Not on file documented as of this encounter Visit Diagnoses Not on filedocumented in this encounter Care Teams Airport Operations Officer Relationship Specialty Start Date End Date Ye Smith MD [address] [place] [id number] PCP - General Internal Medicine 12/22/11 09/01/14 Erlinda Newell MD [address] [place] [id number] PCP - General Internal Medicine 09/02/14 documented as of this encounter
--- OUTSIDE RECORDS SUMMARY | 2024-07-18 12:36 | XMS_ITS | Encounter Summary ---
Author Organization [facility] Address [address] [place] [address] Care Team Providers Care Bow Maker Custom Name Role Phone Erlinda Newell MD Primary Care Provider Daphnie lucio Reason for Visit * Reason Onset Date Comments refill request 10/10/2018 Encounter Details Date Type Department Care Team Description 10/10/2018 Refill Internal Medicine - [address], [address] [place] [address] Erlinda Newell MD refill request Social History Tobacco Use Types Packs/Day Years Used Date Smoking Tobacco: Never Smokeless Tobacco: Never Alcohol Use Standard Drinks/Week Comments Yes 0 (1 standard drink = 0.6 oz pur e alcohol) rare Sex Assigned at Date Recorded Not on file documented as of this encounter Miscellaneous Notes * Telephone Encounter - Oralia Grewal - 10/10/2018 8:55 AM EDT Patient would like script to be: E-PRESCRIBED/FAXED TO PHARMACY WHEN WAS THE PATIENT'S LAST APPOINTMENT WITH THE PRESCRIBING PROVIDER? 08.02.2017 Does patient have an upcoming appointment? no (THE MEDICATION REQUESTED IS ON THE MED LIST ABOVE) All of the medications requested were on the CURRENT MEDS list Did you check the Pharmacy information above?: NO Patient wants: 90 -day supply Is this a mail order prescription request ? YES Patients current insurance carrier is: Payor: JUAN/AILEEN POS / Plan: PPO $20 DAISY [id number] / ProductType: PPO [id number] documented in this encounter Plan of Treatment Not on file documented as of this encounter Visit Diagnoses Not on filedocumented in this encounter Care Teams Bow Maker Custom Relationship Specialty Start Date End Date Erlinda Newell MD PCP - General Internal Medicine 09/02/14 documented as of this encounter
--- OUTSIDE RECORDS SUMMARY | 2024-07-18 12:36 | XMS_ITS | Encounter Summary ---
Author Organization [facility] Address [address] [place] [address] Care Team Providers Care Public Relations Director Name Role Phone Erlinda Newell MD Primary Care Provider Daphnie lucio Encounter Details Date Type Department Care Team Description 06/17/2015 Recoil Spring Winder Report Medical Records [address] [place] [address] Azalia Canales MD Social History Tobacco Use Types Packs/Day Years Used Date Smoking Tobacco: Never Alcohol Use Standard Drinks/Week Comments Yes 0 (1 standard drink = 0.6 oz pur e alcohol) rare Sex Assigned at Date Recorded Not on file documented as of this encounter Plan of Treatment Not on file documented as of this encounter Visit Diagnoses Not on filedocumented in this encounter Care Teams Public Relations Director Relationship Specialty Start Date End Date Erlinda Newell MD PCP - General Internal Medicine 09/02/14 documented as of this encounter
== END 2024-07-18 10:48 | disposition home or self-care (01) ==
LOC: HO.HMCH 10:00
PROVIDERS: PCP Internal Medicine; Visit Provider Internal Medicine
DX: Z00.00 Encounter for general adult medical examination without abnormal findings (principal)

== ENCOUNTER → 2024-07-18 10:00 | Outpatient (BNVA) | payer BC, SELFPAY | PROVIDERS: PCP Internal Medicine; Visit Provider Internal Medicine | DX: Z00.00 Encounter for general adult medical examination without abnormal findings (principal); K21.9 Gastro-esophageal reflux disease without esophagitis; M85.80 Other specified disorders of bone density and structure, unspecified site | CPT/HCPCS: 96127 ==

== ENCOUNTER 2024-07-19 08:58 | Outpatient (AMB) | payer BC, SELFPAY ==
[2024-07-19 09:10] VITALS: BP 122/74; PULSE 78; O2SAT 97; BMI 36.7
--- NOTE | 2024-07-19 09:10 | MHC.OFFVIS ---
Vital Signs 07/19/24 09:10 Height 5 ft 3 in Weight 207 lb BMI 36.7 BP 122/74 Blood Pressure Location Rt brachial Position Sitting Pulse 78 Pulse Source Doppler Pulse Oximetry (%) 97 Oxygen Delivery Method Room Air Intake Visit Reasons: COPD Allergies bee pollen [BEE STINGS] Allergy (Severe, Verified 07/19/24 09:15) SWELLING,WELTS latex [LATEX] Allergy (Mild, Verified 07/19/24 09:15) RASH simvastatin Adverse Reaction (Intermediate, Verified 07/19/24 09:15) myalgia HPI HPI COPD: Details: 64-year-old lady, nonsmoker, followed for underlying moderate persistent asthma, GERD, and environmental allergies. She continues on Wixela, duo nebs, and albuterol MDI with good control of her asthma symptoms. She has been using Singulair and as needed ipratropium bromide for her environmental allergies. She denies recent exacerbations. Patient had her home sleep study that did not show any significant sleep apnea. [facility] Medical History (Updated 07/19/24 @ 09:31 by Ced Link MD) Physical exam Well woman exam Hx of diverticulitis of colon Abscess Wears hearing aid in both ears Seasonal allergies Colon cancer screening Tremors of nervous system High ankle sprain of right lower extremity Otitis media of right ear History of skin cancer Osteoarthritis of left knee Preoperative clearance Anemia COVID-19 vaccine series completed History of COVID-19 Screening for cervical cancer Hearing loss GERD (gastroesophageal reflux disease) Bilateral otitis media HLD (hyperlipidemia) Primary osteoarthritis of right knee Osteoarthritis of right knee Encounter for preoperative pulmonary examination Family history of Crohn's disease Hx of irritable bowel syndrome Wears hearing aid in both ears History of basal cell carcinoma Arthritis Bronchitis Asthma Surgical History Hx of surgical procedure (12/08/23) Hx of basal cell carcinoma excision History of left knee surgery Status post total left knee replacement Hx of total knee replacement (~01/2020) Status post total right knee replacement History of tonsillectomy History of reversal of ileostomy Hx of ileostomy History of colostomy reversal History of colon resection Hx of tubal ligation History of esophagogastroduodenoscopy (EGD) H/O colonoscopy Family History (Updated 07/18/24 @ 10:36 by Erlinda Newell MD) Father Colitis COPD (chronic obstructive pulmonary disease) Ulcerative colitis Mother Diabetes Mental health disorder Hypertension Stroke Sister Lung cancer Rheumatoid aortitis Crohn's disease Paternal Grandmother Stomach cancer Family/Other Breast cancer Ovarian cancer Brother No problems noted. 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 Current occupational exposures/hazards: No Cognitive needs: No Hearing needs: Yes Vision needs: Yes Female Reproductive History Menstrual Age of Menarche: 11 Review of Systems Const Denies daytime sleepiness, Denies excessive sweating, Denies fatigue, Denies fever(s), Denies lethargy, Denies malaise, Denies night sweats, Denies snoring and Denies weight loss Eyes Denies blurry vision and Denies itchy eyes ENT Denies nasal congestion, Denies post nasal drip, Denies sinus pain, Denies sinus pressure and Denies other ( Thrush) Card Denies chest pain, Denies pedal edema, Denies dyspnea, Denies orthopnea and Denies paroxysmal nocturnal dyspnea Resp Denies cough, Denies hemoptysis, Denies excessive phlegm production, Denies dyspnea, Denies snoring and Denies wheezing GI Denies abdominal pain and Denies heartburn Musc Denies myalgias, Denies arthralgias and Denies joint swelling Skin/Breast Denies rash Neuro Denies memory loss and Denies seizure-like activity Psych Denies abnormal sleep pattern, Denies anxiety and Denies memory loss Endo Denies excessive sweating, Denies fatigue and Denies heat intolerance Senthil/Lymph Denies easy bruising Aller/Immun Denies itchy eyes, Denies seasonal rhinorrhea and Denies wheezing Physical Exam Vital Signs: Last Vital Signs Pulse 78 07/19/24 09:10 BP 122/74 07/19/24 09:10 Pulse Ox 97 07/19/24 09:10 Oxygen Delivery Method Room Air 07/19/24 09:10 BMI result Body Mass Index 36.7 Const General: no acute distress and alert Nutritional Appearance: obese Orientation/consciousness: Other orientation findings ( oriented) HEENT Head: Yes atraumatic Eyes General: appearance normal, both eyes and all related structures Sclerae: sclerae normal EOM: EOMs intact bilaterally Neck Neck: Yes supple Lymphatic: no lymphadenopathy noted Resp Effort & Inspection: normal respiratory effort and no use of accessory muscles Auscultation: clear to auscultation bilaterally Cardio Rate: regular rate Rhythm: regular rhythm Heart sounds: no gallops, no murmurs and no rubs Skin General skin exam: other ( warm) Extrem General: No clubbing, No cyanosis and No edema Assessment & Plan Assessment & Plan (1) Moderate persistent asthma: Code(s): J45.40 - Moderate persistent asthma, uncomplicated Category: Medical Qualifiers: Asthma complication type: uncomplicated Qualified Code(s): J45.40 - Moderate persistent asthma, uncomplicated Plan: Well controlled on current regimen of Wixela, duo nebs, and albuterol MDI. Continue current regimen. (2) Environmental allergies: Code(s): Z91.09 - Other allergy status, other than to drugs and biological substances Category: Medical Plan: Well controlled on Singulair and nasal ipratropium. Continue current regimen. Medications: Refilled fluticasone propion-salmeterol 500-50 mcg/dose (Wixela Inhub) 1 inh inhalation BID 60 ea 6RF 30 days epinephrine 0.3 mg (0.3 mL) IM Q10M PRN 2 ea 6RF Anaphylaxis 30 days Coding Level of Care Code Est Pt Level 4 (24241) Diagnoses Moderate persistent asthma without complication J45.40 Asthma complication type: uncomplicated Environmental allergies Z91.09
== END 2024-07-19 09:29 | disposition home or self-care (01) ==
PROVIDERS: PCP Internal Medicine; Visit Provider Internal Medicine Pulmonary Disease
DX: J45.40 Moderate persistent asthma, uncomplicated (principal); Z91.09 Other allergy status, other than to drugs and biological substances
CPT/HCPCS: 99214

== ENCOUNTER → 2024-07-19 08:58 | Outpatient (BNVA) | payer BC, SELFPAY | PROVIDERS: PCP Internal Medicine; Visit Provider Internal Medicine Pulmonary Disease ==

== ENCOUNTER 2024-08-08 08:04 | Outpatient (AMB) | payer MEDICARE, SELFPAY ==
[2024-08-08 08:08] VITALS: BP 114/70; PULSE 68; TEMP 36.8; O2SAT 97
--- NOTE | 2024-08-08 08:08 | MHC.OFFWIV ---
Intake Vital Signs 08/08/24 08:08 Weight 208 lb BP 114/70 Blood Pressure Location Lt brachial Position Sitting Pulse 68 Pulse Source Pulse Oximeter Temp 98.3 F Temp Source Oral Pulse Oximetry (%) 97 Oxygen Delivery Method Room Air Intake Visit Reasons: EP-rt ear infection Intake Note: Patient here for right ear pain that has been present since last week. Patient Tobacco Use Status: Never used Tobacco Allergies bee pollen [BEE STINGS] Allergy (Severe, Verified 08/08/24 08:12) SWELLING,WELTS latex [LATEX] Allergy (Mild, Verified 08/08/24 08:12) RASH simvastatin Adverse Reaction (Intermediate, Verified 08/08/24 08:12) myalgia Do you need a note to return to daycare/school/sports/work: No HPI HPI Comments History of Present Illness Details History - The patient is a 64-year-old female presenting with ear infection and ear pain. - Symptoms began in the right ear one week ago and have progressively worsened despite the use of prescribed ear drops. - The patient notes increased redness and spreading pain in the neck. - Past medical history includes recurrent ear infections, with the right ear more commonly involved. - The right ear is currently more symptomatic, with impacts including cessation of hearing aid use in this ear. - Sees Dr Wright for ENT and has new ENT appt in October Physical Exam General: Cooperative, healthy appearing, comfortable and no acute distress Orientation/consciousness: Patient oriented x3 Limitations: No limitations Head: Normal to inspection Ears: external ears normal and TM right with bulging erythema and effusion, TM left normal Nose: Normal external nose present, Normal nares present and No nasal discharge present Face and sinus: Normal facial exam Eyes: Appearance normal, both eyes and all related structures Neck: Normal visual inspection Respiratory: Normal respiratory effort, able to speak in complete sentences, Actively coughing, no respiratory distress, not tachypneic, no tripod positioning and no use of accessory muscles Skin: No rashes or lesions noted Neuro: Patient oriented x3 Extremities: Normal to inspection and Yes no clubbing, cyanosis or edema [facility] Medical History (Updated 08/08/24 @ 08:31 by Aspen Grimaldo PA-C) Physical exam Well woman exam Hx of diverticulitis of colon Abscess Wears hearing aid in both ears Seasonal allergies Colon cancer screening Tremors of nervous system High ankle sprain of right lower extremity Otitis media of right ear History of skin cancer Osteoarthritis of left knee Preoperative clearance Anemia COVID-19 vaccine series completed History of COVID-19 Screening for cervical cancer Hearing loss GERD (gastroesophageal reflux disease) Bilateral otitis media HLD (hyperlipidemia) Primary osteoarthritis of right knee Osteoarthritis of right knee Encounter for preoperative pulmonary examination Family history of Crohn's disease Hx of irritable bowel syndrome Wears hearing aid in both ears History of basal cell carcinoma Arthritis Bronchitis Asthma Surgical History Hx of surgical procedure (12/08/23) Hx of basal cell carcinoma excision History of left knee surgery Status post total left knee replacement Hx of total knee replacement (~01/2020) Status post total right knee replacement History of tonsillectomy History of reversal of ileostomy Hx of ileostomy History of colostomy reversal History of colon resection Hx of tubal ligation History of esophagogastroduodenoscopy (EGD) H/O colonoscopy Family History (Updated 07/18/24 @ 10:36 by Erlinda Newell MD) Father Colitis COPD (chronic obstructive pulmonary disease) Ulcerative colitis Mother Diabetes Mental health disorder Hypertension Stroke Sister Lung cancer Rheumatoid aortitis Crohn's disease Paternal Grandmother Stomach cancer Family/Other Breast cancer Ovarian cancer Brother No problems noted. 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 Current occupational exposures/hazards: No Cognitive needs: No Hearing needs: Yes Vision needs: Yes Female Reproductive History Menstrual Age of Menarche: 11 Review of Systems Const All systems reviewed & are unremarkable except as noted in HPI and below Physical Exam Vital Signs: Last Vital Signs Temp 98.3 F 08/08/24 08:08 Pulse 68 08/08/24 08:08 BP 114/70 08/08/24 08:08 Pulse Ox 97 08/08/24 08:08 Oxygen Delivery Method Room Air 08/08/24 08:08 Assessment & Plan Assessment & Plan (1) Otitis media: Code(s): H66.90 - Otitis media, unspecified, unspecified ear Qualifiers: Otitis media type: serous Chronicity: acute Laterality: right Recurrence: recurrent Qualified Code(s): H65.04 - Acute serous otitis media, recurrent, right ear Plan: VSS, pt well appearing and PE remarkable for right OM. The patient is diagnosed with Acute Otitis Media in the right ear. Amoxicillin is prescribed at a dosage of twice daily for seven days, with consideration for a shorter course if symptoms betzaida by day five. The therapeutic rationale is to address the likely bacterial etiology of the middle ear infection. The patient is informed about the absence of known drug allergies, which supports the selection of Amoxicillin. The patient should seek further medical evaluation if there is no significant improvement. Patient was informed and verbally consented to the use of an ambient scribe for clinic note documentation during this visit Medications: New amoxicillin 875 mg PO Q12H 14 tabs 0RF Coding Level of Care Code Est Pt Level 3 (21663) Diagnoses Recurrent acute serous otitis media of right ear H65.04 Otitis media type: serous Chronicity: acute Laterality: right Recurrence: recurrent
--- OUTSIDE RECORDS SUMMARY | 2024-08-08 08:11 | XMS_ITS | Clinical Summary ---
Author Organization [employer] Address [address] [place] [address] Care Team Providers Care Enterprise Manager Name Role Phone Unavailable Primary Care Provider [...] topic Meningococcal Vaccine Aged Out No chandrakant ernike eligible based on patient's age to complete this topic RSV under 20 months Aged Out No longe r eligible based on patient's age to complete this topic Rotavirus Vaccines Aged Out No longer eligible based on patient's age to complete this topic Insurance [employer]PO
== END 2024-08-08 08:45 | disposition home or self-care (01) ==
PROVIDERS: PCP Internal Medicine; Visit Provider Physician Assistant
DX: H65.04 Acute serous otitis media, recurrent, right ear (principal)

== ENCOUNTER → 2024-08-08 08:04 | Outpatient (BNVA) | payer MEDICARE, SELFPAY | PROVIDERS: PCP Internal Medicine; Visit Provider Physician Assistant | DX: H65.04 Acute serous otitis media, recurrent, right ear (principal) | CPT/HCPCS: 99212 ==

== ENCOUNTER 2024-11-05 09:41 | Outpatient (AMB) | payer MEDICARE, SELFPAY ==
[2024-11-05 09:56] VITALS: BP 136/59; PULSE 86; RESP 17; O2SAT 98; BMI 35.5
--- NOTE | 2024-11-05 09:56 | MHC.OFFVIS ---
Vital Signs 11/05/24 09:56 Height 5 ft 3 in Weight 200 lb 9.93 oz BMI 35.5 BP 136/59 L Blood Pressure Location Lt brachial Position Sitting Respiration 17 Pulse 86 Pulse Source Pulse Oximeter Pulse Oximetry (%) 98 Oxygen Delivery Method Room Air Intake Visit Reasons: 6 MO F/U GERD/IBS Allergies bee pollen (BEE STINGS) Allergy (Severe, Verified 08/08/24 08:12) SWELLING,WELTS latex (LATEX) Allergy (Mild, Verified 08/08/24 08:12) RASH simvastatin Adverse Reaction (Intermediate, Verified 08/08/24 08:12) myalgia HPI HPI 6 MO F/U GERD/IBS: Details: Assessment & Plan (1) Chronic idiopathic constipation: Code(s): K59.04 - Chronic idiopathic constipation Category: Medical (2) Gastric ulcer: Comment: discovered on 2019 EGD with erosive gastritis question related to NSAIDs Code(s): K25.9 - Gastric ulcer, unspecified as acute or chronic, without hemorrhage or perforation Category: Medical (3) Ileal erosions: Comment: uncertain etiology discovered on 2019 colonoscopy patient has a family history of Crohn's but also extensive NSAID use with a negative [employer] genetics study this will bear watching Code(s): K63.3 - Ulcer of intestine Category: Medical (4) GERD (gastroesophageal reflux disease): Code(s): K21.9 - Gastro-esophageal reflux disease without esophagitis Category: Medical Qualifiers: Esophagitis presence: esophagitis presence not specified Qualified Code(s): K21.9 - Gastro-esophageal reflux disease without esophagitis Plan She is doing well. She has concerns about getting her fiber and probiotics as both her citrucel and the CUlturelle are getting hard to find. I suggest Benefiber and she can consider [employer] or Needl or even Sterio[employer]me brand. She is having better GERD control with the pantorpazole and her itchy throat is resolved. She is getting over an URI and was on prdenisone and and abx and this has uset her stooling somewhat, which is quite common. She can stop the famotidine at night since she has bid pantorpazole. She was told by the surgeon that her intermittent LLQ pain that resolves with rubbing is an inguinal hernia. She was told she also has a right inguinal hernia and an small umbilical hernia. ROV 6 mos. TODAYS VISIT She is on bid pantorprazole, fiber and a probiotic. She buys her colace and senna along with the probiotic and fiber which her insurance does not pay for. ROV 6 mos. [facility] Medical History (Updated 08/08/24 @ 08:31 by Aspen Grimaldo PA-C) Physical exam Well woman exam Hx of diverticulitis of colon Abscess Wears hearing aid in both ears Seasonal allergies Colon cancer screening Tremors of nervous system High ankle sprain of right lower extremity Otitis media of right ear History of skin cancer Osteoarthritis of left knee Preoperative clearance Anemia COVID-19 vaccine series completed History of COVID-19 Screening for cervical cancer Hearing loss GERD (gastroesophageal reflux disease) Bilateral otitis media HLD (hyperlipidemia) Primary osteoarthritis of right knee Osteoarthritis of right knee Encounter for preoperative pulmonary examination Family history of Crohn's disease Hx of irritable bowel syndrome Wears hearing aid in both ears History of basal cell carcinoma Arthritis Bronchitis Asthma Surgical History Hx of surgical procedure (12/08/23) Hx of basal cell carcinoma excision History of left knee surgery Status post total left knee replacement Hx of total knee replacement (~01/2020) Status post total right knee replacement History of tonsillectomy History of reversal of ileostomy Hx of ileostomy History of colostomy reversal History of colon resection Hx of tubal ligation History of esophagogastroduodenoscopy (EGD) H/O colonoscopy Family History (Updated 07/18/24 @ 10:36 by Erlinda Newell MD) Father Colitis COPD (chronic obstructive pulmonary disease) Ulcerative colitis Mother Diabetes Mental health disorder Hypertension Stroke Sister Lung cancer Rheumatoid aortitis Crohn's disease Paternal Grandmother Stomach cancer Family/Other Breast cancer Ovarian cancer Brother No problems noted. 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 occupational exposures/hazards: No Cognitive needs: No Hearing needs: Yes Vision needs: Yes Female Reproductive History Menstrual Age of Menarche: 11 Review of Systems Const Denies fatigue, Denies fever(s), Denies night sweats, Denies poor appetite and Denies weight loss Eyes Details: glasses Reports requires corrective lenses ENT Reports Normal hearing present, Denies throat swelling and Denies tongue swelling GI Details: Reports constipation, Reports heartburn and Reports diarrhea Skin/Breast Denies pruritus, Denies lesions, Denies rash and Denies jaundice Neuro Reports Normal hearing present and Denies Abnormal speech present Endo Denies fatigue Aller/Immun Denies throat swelling and Denies tongue swelling Physical Exam Vital Signs: Last Vital Signs Pulse 86 11/05/24 09:56 Resp 17 11/05/24 09:56 BP 136/59 L 11/05/24 09:56 Pulse Ox 98 11/05/24 09:56 Oxygen Delivery Method Room Air 11/05/24 09:56 BMI result Body Mass Index 35.5 Const General: cooperative, no acute distress, well developed and well groomed Nutritional Appearance: well nourished, obese and overweight Orientation/consciousness: oriented to person, oriented to place and oriented to time Limitations: No language barrier, ambulation with cane, ambulation with walker and wheelchair HEENT Head: Yes normocephalic and Yes atraumatic Eyes General: appearance normal, both eyes and all related structures Pupils: Equal, round and reactive pupils present Neck Neck: Yes normal visual inspection and Yes no lymphadenopathy Thyroid: Thyroid normal Resp Effort & Inspection: normal respiratory effort and able to speak in complete sentences Auscultation: clear to auscultation bilaterally Cardio Rate: regular rate Rhythm: regular rhythm Heart sounds: Normal, physiologic split S2 sound present Peripheral pulses: radial pulses present and posterior tibial pulses present GI Inspection: No distended and No Abdominal panniculus present Palpation (GI): Soft to palpation, nontender, no guarding, not rigid, No hepatosplenomegaly present and Hepatosplenomegaly present Percussion: Yes normal to percussion Auscultation: normal bowel sounds Rectal Exam - Female: deferred Skin General skin exam: no rashes or lesions noted, turgor normal, skin not dry, no jaundice, No spider nevi and no striae Rashes: no rashes Nails: normal Neuro General: oriented to person, oriented to place and oriented to time Cranial nerves: Yes Equal, round and reactive pupils present and Yes Normal hearing present Speech: No Abnormal speech present Extrem General: Yes normal to inspection, No clubbing, No cyanosis and No edema Psych Appearance: grossly normal and well kempt Mental Status: mental status grossly normal Speech and movement: Normal speech and movement present Affect: normal affect Attitude: cooperative Thought process: Normal thought process present and not confabulating Thought content: Normal thought content present Insight: Good insight present (Psych) Judgement: Good judgement present (Psych) Assessment & Plan Assessment & Plan (1) GERD (gastroesophageal reflux disease): Code(s): K21.9 - Gastro-esophageal reflux disease without esophagitis Category: Medical Qualifiers: Esophagitis presence: esophagitis presence not specified Qualified Code(s): K21.9 - Gastro-esophageal reflux disease without esophagitis (2) Chronic idiopathic constipation: Code(s): K59.04 - Chronic idiopathic constipation Category: Medical (3) Gastric ulcer: Comment: discovered on 2019 EGD with erosive gastritis question related to NSAIDs Code(s): K25.9 - Gastric ulcer, unspecified as acute or chronic, without hemorrhage or perforation Category: Medical Plan She is on bid pantorprazole, fiber and a probiotic. She buys her colace and senna along with the probiotic and fiber which her insurance does not pay for. ROV 6 mos. Medications: Refilled pantoprazole 40 mg PO BID 180 tabs 2RF K21.9 - Gastro-esophageal reflux disease without esophagitis, K25.9 - Gastric ulcer, unspecified as acute or chronic, without hemorrhage or perforation Coding Level of Care Code Est Pt Level 3 (63492) Diagnoses Gastroesophageal reflux disease, unspecified whether esophagitis present K21.9 Esophagitis presence: esophagitis presence not specified Chronic idiopathic constipation K59.04 Gastric ulcer K25.9
--- OUTSIDE RECORDS SUMMARY | 2024-11-05 10:24 | XMS_ITS | Clinical Summary ---
Author Organization [employer] Address [address] [place] [address] Care Team Providers Care Clean Energy Policy Analyst Name Role Phone Unavailable Primary Care Provider Unavailabl e Immunizations Immunization Administration Dates Next Due Influenza, seasonal, injectable, [...] 60-74 years 1-dose series) 2018 COVID-19 Vaccine (1 - season) 2023 Influenza Vaccine (#1) 2024 , 04/04/2011, 03/29/2010, Additional history exists HIB Vaccines Aged [...] patient's age to complete this topic Meningococcal B Vaccine Aged Out No l onger eligible based on patient's age to complete [...]
--- OUTSIDE RECORDS SUMMARY | 2024-11-05 10:24 | XMS_ITS | Encounter Summary ---
Author Organization [facility] Address [address] [place] [address] Care Team Providers Care Payroll Services Analyst Name Role Phone Ye Smith MD Primary Care Provider [phone] Erlinda Newell MD Primary Care Provider Daphnie lucio Encounter Details Date Type Department Care Team Description 12/08/2013 Pt. Non Urgent Medical Question Adult Medicine [facility] [address] [place] [address] [id number] Ye Smith MD [address] [place] [address] [id number] Social History Tobacco Use Types Packs/Day Years Used Date Smoking Tobacco: Never Alcohol Use Standard Drinks/Week Comments Yes 0 (1 standard drink = 0.6 oz pur e alcohol) rare Sex Assigned at Date Recorded Not on file documented as of this encounter Progress Notes * Nohemy Serrano L.P.N. - 12/09/2013 10:00 AM EDTFrom: Sharron Personuld To: Ye Smith MD Sent: 12/08/2013 6:01 PM EDT Subject: Medication Hello Dr. Smith, I am writing to you in regards to my Angel Aguilar. He needs a new prescription for his Lovastatin when he called, they told him he needed to come in to be seen. So he says he is not coming in to be seen as you told him he didn't need to come in for a year. Is it a possibility that it could be reordered and just order blood work if needed. He took his last dose on Monday the . Or could you call him and talk to him, I tried to get him just to make an appointment, but he will not. Sharron Aguilar documented in this encounter Plan of Treatment Not on file documented as of this encounter Visit Diagnoses Not on filedocumented in this encounter Care Teams Payroll Services Analyst Relationship Specialty Start Date End Date Ye Smith MD [address] [place] [id number] PCP - General Internal Medicine 12/22/11 09/01/14 Erlinda Newell MD [address] [place] [id number] PCP - General Internal Medicine 09/02/14 documented as of this encounter
--- OUTSIDE RECORDS SUMMARY | 2024-11-05 10:24 | XMS_ITS | Patient Health Record ---
[facility] Address [address] [facility] [place] [address] Care Team Providers Care Copy Director Name Role Phone Erlinda Marvin MD Primary Care Provider Unavail able Black, Raina Unavailable [phone] Allergies Allergen (clinical drug ingredient) Drug/Non Drug Allergy documented on EMR Reaction Allergy Type Onset Date Status Adhesive Tape (uncoded) Unknown Allergy Active Latex Latex (uncoded) mild reaction Allergy Active ibuprofen Advil can't take Drug Allergy Active Aleve can't take Drug Allergy Active Motrin can't take Drug Allergy Active tetracycline Tetracycline HCl rash Drug Allergy Active Reason For Referral No Information Medications Medication SIG (Take, Route, Frequency, Duration) Notes Start Date End Date Status Montelukast Sodium 10 MG 1 tablet Orally Once a day; Duration: 30 day(s) Active Clobetasol Propionate Active Folic Acid 1 MG 1 tablet Orally Once a day; Duration: 30 day(s) Active Tacrolimus 0.03 % 1 application to affected area Externally Twice a day Active Vitamin D3 2000 UNIT 1 capsule Orally On ce a day; Duration: 30 day(s) Active Culturelle - as directed Orally Active Linzess 72 MCG 1 capsule on an empt y stomach Orally Once a day; Duration: 30 day(s) Active Calcium Active Vitamin B12 Active Gas-X 80 MG 1 tablet after meals and at bedtime as needed Orally Four times a day Active Lovastatin 10 MG 1 tablet with the evening meal Orally Once a day; Duration: 30 day(s) Active Baclofen 20 MG 1 tablet with food o r milk Orally every 8 hrs; Duration: 30 day(s) Active Senna 8.6 MG 2 tablets at bedtime as needed Orally Once a day; Duration: 30 day(s) Active Zantac 150 MG 1 tablet at bedtime Orally Once a day; Duration: 30 day(s) Active Benadryl Active Cephalexin 500 MG 1 tablet Orally Twic e a day; Duration: 5 days Not-Taking Oxaprozin 600 MG as directed Orally 1 in AM/2 in PM Active Desonide 0.05 % 1 application to affected area Externally Twice a day Active Ketoconazole 2 % 1 application to affected area Externally Once a day Active Ventolin HFA 108 (90 Base) MCG/ACT 2 puffs as needed Inhalation every 6 hrs Active Social History Tobacco Use: Social History Observation Description Date Details (start date - stop date) Never Smoker NA - NA Tobacco Use/Smoking Question Answer Notes Are you a: nonsmoker Additional Findings: Tobacco Non-User Current no n-smoker Alcohol Screen Question Answer Notes Did you have a drink containing alcohol in the p ast year? No Points 0 Interpretation Negative Tobacco use other than smoking: Question Answer Notes Are you an other tobacco user? No Problems Problem Type SNOMED Code ICD Code Onset Dates Problem Status W/U Status Risk Notes Problem Non-pressure chronic ulcer of other part of right foot limited to breakdown of skin (L97.511) Active confirmed Plan Of Treatment Pending Test Test Name Order Date [id number] NAIL, 1-08/06/2018 [id number] NAIL, 1-11/12/2018 [id number] Plate 08/19/2019 Insurance Providers Payer Name Payer Address Payer Phone Subscriber Number Group Number Insured Name Patient Relationship to Insured Coverage Start Date Coverage End Date [facility] [id number] [place] [address] [phone] [id number] Sharron Aguilar Self - patient is the insured Medical (General) History Medical History History ICD Code Anemia Arthritis asthma Back,Hip,and Knee pain Cataracts Diverticulosis Psoriasis/eczema Chicken pox Irritable bowel syndrome Raynauds disease without gangrene I73.00 Surgical History Surgery Date(Month/Year) tonsillectomy and adenoidectomy 1964 tubal ligation 1980 bowel surgery x3 2014, 2015 ileostomy closure 2015 Hospitalization History Reason Date(Month/Year) Urgent care for fractured foot 01/07/2019
== END 2024-11-05 10:20 | disposition home or self-care (01) ==
LOC: HO.HGI 09:42
PROVIDERS: PCP Internal Medicine; Visit Provider Nurse Practitioner
DX: K21.9 Gastro-esophageal reflux disease without esophagitis (principal); K59.04 Chronic idiopathic constipation; K25.9 Gastric ulcer, unspecified as acute or chronic, without hemorrhage or perforation
CPT/HCPCS: 99213

== ENCOUNTER → 2024-11-05 09:41 | Outpatient (BNVA) | payer MEDICARE, SELFPAY | PROVIDERS: PCP Internal Medicine; Visit Provider Nurse Practitioner | DX: K21.9 Gastro-esophageal reflux disease without esophagitis (principal); K59.04 Chronic idiopathic constipation; K25.9 Gastric ulcer, unspecified as acute or chronic, without hemorrhage or perforation | CPT/HCPCS: 99212 ==

== ENCOUNTER 2025-01-20 09:15 | Outpatient (REF) | payer BC, SELFPAY ==
--- NOTE | ~2025-01-20 | XR_ITS ---
EXAMINATION: XR SHOULDER, RIGHT CLINICAL INFORMATION: M25.511 - Pain in right shoulder COMPARISON: None available. TECHNIQUE: AP external rotation, Grashey, scapular Y, and axillary views of the right shoulder. FINDINGS: There are moderate degenerative changes the AC joint with osteophytes. Glenohumeral joint demonstrates minimal degenerative irregularity and glenoid marginal osteophytes. There is no dislocation. XR/XR shoulder RT min 2V IMPRESSION: Moderate AC joint arthropathy and minimal degenerative change in the glenohumeral joint. Electronically signed by: Niraj Alaniz MD 01/20/2025 11:03 AM EDT
== END 2025-01-20 09:16 | disposition home or self-care (01) ==
LOC: HO.XRAY 09:15
PROVIDERS: PCP Internal Medicine; Visit Provider Internal Medicine
DX: M25.511 Pain in right shoulder (principal); E78.00 Pure hypercholesterolemia, unspecified; K21.9 Gastro-esophageal reflux disease without esophagitis; K59.04 Chronic idiopathic constipation; J45.40 Moderate persistent asthma, uncomplicated; L40.9 Psoriasis, unspecified
CPT/HCPCS: 73030

== ENCOUNTER 2025-01-20 09:15 | Outpatient (AMB) | payer BC, SELFPAY ==
[2025-01-20 09:21] VITALS: BP 110/62; PULSE 68; RESP 18; TEMP 36.2; O2SAT 98; BMI 36.8
--- NOTE | 2025-01-20 09:21 | A.OFFPC_ITS ---
Vital Signs 01/20/25 09:21 Height 5 ft 3 in Weight 207 lb 8 oz BMI 36.8 BP 110/62 Blood Pressure Location Lt brachial Position Sitting Respiration 18 Pulse 68 Pulse Source Pulse Oximeter Temp 97.1 F Temp Source Temporal Artery Scan Pulse Oximetry (%) 98 Oxygen Delivery Method Room Air Intake Visit Reasons: asthma Doubling Machine Operator Required: No Accompanied by: Self / Same As Patient Allergies bee pollen (BEE STINGS) Allergy (Severe, Verified 01/20/25 09:45) SWELLING,WELTS latex (LATEX) Allergy (Mild, Verified 01/20/25 09:45) RASH simvastatin Adverse Reaction (Intermediate, Verified 01/20/25 09:45) myalgia Medication List - Last Reconciled 01/20/25 by Erlinda Newell MD albuterol sulfate 90 mcg/actuation 2 puffs inhalation Q6H PRN 30 days azelastine 1 spray intranasal BID PRN baclofen 20 mg PO NEEDED PRN celecoxib (Celebrex) 200 mg PO BID cholecalciferol (vitamin D3) 25 mcg PO DAILY 90 days ciclopirox 0.77% 1 appl topical BID cyanocobalamin (vitamin B-12) 1,000 mcg IM QMONTH docusate sodium (Colace) 100 mg PO BID 30 days epinephrine 0.3 mg (0.3 mL) IM Q10M PRN 30 days fluticasone propion-salmeterol 500-50 mcg/dose (Wixela Inhub) 1 inh inhalation BID 30 days ipratropium bromide 17 mcg/actuation 2 puffs inhalation TID 30 days ipratropium-albuterol 0.5 mg-3 mg(2.5 mg base)/3 mL 3 mL inhalation Q4-6H PRN 30 days lovastatin 10 mg PO BEDTIME 90 days methylcellulose (laxative) (Citrucel) 1,000 mg PO BID montelukast 10 mg PO BEDTIME 90 days pantoprazole 40 mg PO BID sennosides (Doreen-leora) 25.8 mg (3 x 8.6 mg) PO BEDTIME 90 days tacrolimus 0.03% 0.03 appl topical DAILY triamcinolone acetonide 0.025% 1 appl topical BID Tobacco use date assessed: 01/20/25 Fall risk assessment: No Falls in past year Last assessed Fall Risk: 01/20/25 Dental Screening Dental Screen Date: 01/20/25 Did you have a dental visit in the last 12 months?: Yes Did you have a dental problem in the last 6 months where you did not have access to dental care?: No Was dental information given to patient?: Patient has dentist HPI HPI Comments History of Present Illness Details The patient is a 64-year-old female presenting with follow-up on chronic conditions, including right shoulder pain and asthma management. The patient reports persistent right shoulder pain, which has been ongoing since at least May when she received a corticosteroid injection that was ineffective. She has a history of rotator cuff thinning noted on x-rays two years ago, and the pain is exacerbated by activities such as driving. The patient describes the pain as radiating down her arm, although it does not cause numbness. Asthma is well-controlled with current medications, including a rescue inhaler and Wixela. The patient also manages intermittent constipation with Colace and other medications as needed. The patient has a history of psoriasis and eczema, which are managed with topical treatments. She reports two episodes of presyncope, both occurring in the morning, which required her to grab onto something for support. These episodes have not been previously experienced, and recent blood work was normal, including hemoglobin levels. [facility] Medical History (Updated 01/20/25 @ 09:56 by Erlinda Newell MD) Physical exam Well woman exam Hx of diverticulitis of colon Abscess Wears hearing aid in both ears Seasonal allergies Colon cancer screening Tremors of nervous system High ankle sprain of right lower extremity Otitis media of right ear History of skin cancer Osteoarthritis of left knee Preoperative clearance Anemia COVID-19 vaccine series completed History of COVID-19 Screening for cervical cancer Hearing loss GERD (gastroesophageal reflux disease) Bilateral otitis media HLD (hyperlipidemia) Primary osteoarthritis of right knee Osteoarthritis of right knee Encounter for preoperative pulmonary examination Family history of Crohn's disease Hx of irritable bowel syndrome Wears hearing aid in both ears History of basal cell carcinoma Arthritis Bronchitis Asthma Surgical History Hx of surgical procedure (12/08/23) Hx of basal cell carcinoma excision History of left knee surgery Status post total left knee replacement Hx of total knee replacement (~01/2020) Status post total right knee replacement History of tonsillectomy History of reversal of ileostomy Hx of ileostomy History of colostomy reversal History of colon resection Hx of tubal ligation History of esophagogastroduodenoscopy (EGD) H/O colonoscopy Family History Father Colitis COPD (chronic obstructive pulmonary disease) Ulcerative colitis Mother Diabetes Mental health disorder Hypertension Stroke Sister Lung cancer Rheumatoid aortitis Crohn's disease Paternal Grandmother Stomach cancer Family/Other Breast cancer Ovarian cancer Brother No problems noted. 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 Current occupational exposures/hazards: No Cognitive needs: No Hearing needs: Yes Vision needs: Yes Female Reproductive History Menstrual Age of Menarche: 11 Questionnaire Thrive Questionnaire Date Thrive assessed: 07/18/24 I am a: Patient What is your living situation today?: I have a steady place to live Within the past 12 months, did the food you bought not last and you didn't have the money to get more?: Never true Within the past 12 months, did you worry whether your food would run out before you got money to buy more?: Never true Do you have trouble paying for medicines?: No Do you have trouble getting transportation to medical appointments?: No Do you have trouble paying your heating and electricity bill?: No Do you have trouble taking care of your child, family member or friend?: No Do you have trouble with day-to-day activities such as bathing, preparing meals, shopping, managing finances, etc.?: No Are you currently unemployed and looking for a job?: I choose not to answer this question Are you interested in more education?: I choose not to answer this question Please select the resources that you would like help with: None Currently or been in a relationship where the following occur: No concerns reported THRIVE Score: 0 KENAN-7 AMB Questionnaire KENAN-7 Date KENAN - 7 assessed: 07/18/24 Source: Developed by Drs. Azam Navarro, Aaliyah Lawrence, Yosvany Miranda and colleagues, with an educational julia from [employer]. Review of Systems Const All systems reviewed & are unremarkable except as noted in HPI and below Card Denies chest pain at rest, Denies chest pain with activity, Denies edema, Denies irregular heart rhythm, Denies claudication, Denies dyspnea, Denies dyspnea on exertion, Denies orthopnea, Denies paroxysmal nocturnal dyspnea and Denies slow heart rate Resp Denies cough, Denies dyspnea and Denies dyspnea on exertion GI Denies abdominal pain, Denies change in bowel habits, Denies excessive flatus, Denies nausea and Denies vomiting Denies urinary incontinence, Denies urinary hesitancy and Denies urinary urgency Physical exam (Primary Care) Vital Signs: Last Vital Signs Temp 97.1 F 01/20/25 09:21 Pulse 68 01/20/25 09:21 Resp 18 01/20/25 09:21 BP 110/62 01/20/25 09:21 Pulse Ox 98 01/20/25 09:21 Oxygen Delivery Method Room Air 01/20/25 09:21 BMI result Body Mass Index 36.8 BMI Assessment/Plan discussion: High BMI High, discussed plan: lifestyle, weight reduction, dietary and physical activity Tobacco/Smoking Status: Tobacco use Status Tobacco use date assessed 01/20/25 01/20/25 09:30 Patient Tobacco Use Status Never used Tobacco 01/20/25 09:30 e-Cigarette/Vaping Use Never Used 01/20/25 09:30 Thrive Assessment: Date of Thrive Assessment Date Thrive assessed 07/18/24 01/20/25 09:30 Currently or been in a relationship where the following occur: No concerns reported Resp Effort & Inspection: normal respiratory effort Auscultation: clear to auscultation bilaterally Cardio Jugular venous distension: no JVD Rate: regular rate Rhythm: regular rhythm Heart sounds: S1 normal heart sound present and S2 normal heart sound present GI Inspection: Yes normal to inspection Palpation (GI): Soft to palpation and nontender Auscultation: normal bowel sounds Extrem Right upper extremity: shoulder/upper arm Details: abnormal ROM Details: pain with active ROM Details: in ABduction and in extension Coding Level of Care Code Est Pt Level 4 (36070) Diagnoses Pure hypercholesterolemia E78.00 Hyperlipidemia type: pure hypercholesterolemia Gastroesophageal reflux disease, unspecified whether esophagitis present K21.9 Esophagitis presence: esophagitis presence not specified Chronic idiopathic constipation K59.04 Right shoulder pain M25.511 Moderate persistent asthma without complication J45.40 Asthma complication type: uncomplicated Psoriasis L40.9 Time Spent (min) 22 Assessment & Plan Assessment & Plan (1) HLD (hyperlipidemia): Code(s): E78.5 - Hyperlipidemia, unspecified Category: Medical Qualifiers: Hyperlipidemia type: pure hypercholesterolemia Qualified Code(s): E78.00 - Pure hypercholesterolemia, unspecified (2) GERD (gastroesophageal reflux disease): Code(s): K21.9 - Gastro-esophageal reflux disease without esophagitis Category: Medical Qualifiers: Esophagitis presence: esophagitis presence not specified Qualified Code(s): K21.9 - Gastro-esophageal reflux disease without esophagitis (3) Chronic idiopathic constipation: Code(s): K59.04 - Chronic idiopathic constipation Category: Medical (4) Right shoulder pain: Code(s): M25.511 - Pain in right shoulder Category: Medical (5) Moderate persistent asthma: Code(s): J45.40 - Moderate persistent asthma, uncomplicated Category: Medical Qualifiers: Asthma complication type: uncomplicated Qualified Code(s): J45.40 - Moderate persistent asthma, uncomplicated (6) Psoriasis: Code(s): L40.9 - Psoriasis, unspecified Category: Medical Plan Plan Patient was informed and verbally consented to the use of an ambient scribe for clinic note documentation during this visit. 1. Pain in right shoulder M25.511 The patient will be referred to an quality measurement specialist for further evaluation of the right shoulder pain, which may involve imaging studies such as an x-ray to assess for any degenerative changes. Physical therapy was attempted two years ago but was not successful, leading to corticosteroid injections, which provided temporary relief. 2. Unspecified asthma, uncomplicated J45.909 The patient's asthma is well-controlled with current medications, including a rescue inhaler and Wixela. 3. Constipation, unspecified K59.00 The patient manages intermittent constipation with Colace and other medications as needed. 4. Dermatitis, unspecified L30.9 The patient continues to manage psoriasis and eczema with topical treatments. Orders: Orders XR shoulder RT min 2V Today M25.511 - Pain in right shoulder Referrals Orthopedics Referral M25.511 - Pain in right shoulder
--- OUTSIDE RECORDS SUMMARY | 2025-01-20 09:57 | XMS_ITS | Patient Health Record ---
[facility] Address [address] [place] [address] Care Team Providers Care Senior Cyber Security Analyst Name Role Phone Erlinda Marvin MD Primary Care Provider Unavail able Black, Raina Unavailable [phone] Allergies Allergen (clinical drug ingredient) Drug/Non Drug [...] Treatment Pending Test Test Name Order Date [id number] NAIL, 1-08/06/2018 [id number] NAIL, 1-11/12/2018 [id number] Plate 08/19/2019 Insurance Providers Payer Name Payer Address Payer Phone Subscriber Number Group Number Insured Name Patient Relationship to Insured Coverage Start Date Coverage End Date [facility] [address] [place] [address] [phone] [id number] Sharron Aguilar Self - patient is the [...]
--- OUTSIDE RECORDS SUMMARY | 2025-01-20 09:57 | XMS_ITS | Clinical Summary ---
Author Organization [facility] Address [address] [place] [address] Care Team Providers Care Coping Machine Assembler Name Role Phone Unavailable Primary Care Provider [...] series) 2018 COVID-19 Vaccine (1 - season) 2024 Influenza Vaccine (#1) 2024 4, 04/04/2011, 03/29/2010, Additional history exists HIB Vaccines [...]
== END 2025-01-20 10:19 | disposition home or self-care (01) ==
LOC: HO.HMCH 09:16
PROVIDERS: PCP Internal Medicine; Visit Provider Internal Medicine
DX: E78.00 Pure hypercholesterolemia, unspecified (principal); K21.9 Gastro-esophageal reflux disease without esophagitis; K59.04 Chronic idiopathic constipation; M25.511 Pain in right shoulder; J45.40 Moderate persistent asthma, uncomplicated; L40.9 Psoriasis, unspecified

== ENCOUNTER → 2025-01-20 10:32 | Outpatient (BNV) | payer BC, SELFPAY | PROVIDERS: PCP Internal Medicine; Visit Provider Radiology Diagnostic Radiology | DX: M19.011 Primary osteoarthritis, right shoulder (principal) | CPT/HCPCS: 73030 ==

== ENCOUNTER 2025-01-30 13:42 | Outpatient (AMB) | payer MEDICARE, SELFPAY ==
--- NOTE | 2025-01-30 13:44 | A.OFFVIS_ITS ---
Vital Signs 01/30/25 13:45 Height 5 ft 3 in Weight 209 lb BMI 37.0 BP 138/62 Blood Pressure Location Rt brachial Position Sitting Pulse 85 Pulse Source Pulse Oximeter Pulse Oximetry (%) 98 Oxygen Delivery Method Room Air Intake Visit Reasons: COPD Allergies bee pollen (BEE STINGS) Allergy (Severe, Verified 01/30/25 13:50) SWELLING,WELTS latex (LATEX) Allergy (Mild, Verified 01/30/25 13:50) RASH simvastatin Adverse Reaction (Intermediate, Verified 01/30/25 13:50) myalgia HPI HPI COPD: Details: 64-year-old lady, nonsmoker, followed for underlying moderate persistent asthma, GERD, and environmental allergies. She continues on Wixela, duo nebs, and albuterol MDI with good control of her asthma symptoms. She has been using azelastine for her environmental allergies. She denies recent exacerbations. [facility] Medical History Physical exam Well woman exam Hx of diverticulitis of colon Abscess Wears hearing aid in both ears Seasonal allergies Colon cancer screening Tremors of nervous system High ankle sprain of right lower extremity Otitis media of right ear History of skin cancer Osteoarthritis of left knee Preoperative clearance Anemia COVID-19 vaccine series completed History of COVID-19 Screening for cervical cancer Hearing loss GERD (gastroesophageal reflux disease) Bilateral otitis media HLD (hyperlipidemia) Primary osteoarthritis of right knee Osteoarthritis of right knee Encounter for preoperative pulmonary examination Family history of Crohn's disease Hx of irritable bowel syndrome Wears hearing aid in both ears History of basal cell carcinoma Arthritis Bronchitis Asthma Surgical History Hx of surgical procedure (12/08/23) Hx of basal cell carcinoma excision History of left knee surgery Status post total left knee replacement Hx of total knee replacement (~01/2020) Status post total right knee replacement History of tonsillectomy History of reversal of ileostomy Hx of ileostomy History of colostomy reversal History of colon resection Hx of tubal ligation History of esophagogastroduodenoscopy (EGD) H/O colonoscopy Family History Father Colitis COPD (chronic obstructive pulmonary disease) Ulcerative colitis Mother Diabetes Mental health disorder Hypertension Stroke Sister Lung cancer Rheumatoid aortitis Crohn's disease Paternal Grandmother Stomach cancer Family/Other Breast cancer Ovarian cancer Brother No problems noted. 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 Current occupational exposures/hazards: No Cognitive needs: No Hearing needs: Yes Vision needs: Yes Female Reproductive History Menstrual Age of Menarche: 11 Review of Systems Const Denies daytime sleepiness, Denies excessive sweating, Denies fatigue, Denies fever(s), Denies lethargy, Denies malaise, Denies night sweats, Denies snoring and Denies weight loss Eyes Denies blurry vision and Denies itchy eyes ENT Denies nasal congestion, Denies post nasal drip, Denies sinus pain, Denies sinus pressure and Denies other ( Thrush) Card Denies chest pain, Denies pedal edema, Denies dyspnea, Denies orthopnea and Denies paroxysmal nocturnal dyspnea Resp Denies cough, Denies hemoptysis, Denies excessive phlegm production, Denies dyspnea, Denies snoring and Denies wheezing GI Denies abdominal pain and Denies heartburn Musc Denies myalgias, Denies arthralgias and Denies joint swelling Skin/Breast Denies rash Neuro Denies memory loss and Denies seizure-like activity Psych Denies abnormal sleep pattern, Denies anxiety and Denies memory loss Endo Denies excessive sweating, Denies fatigue and Denies heat intolerance Senthil/Lymph Denies easy bruising Aller/Immun Denies itchy eyes, Denies seasonal rhinorrhea and Denies wheezing Physical Exam Vital Signs: Last Vital Signs Pulse 85 01/30/25 13:45 BP 138/62 01/30/25 13:45 Pulse Ox 98 01/30/25 13:45 Oxygen Delivery Method Room Air 01/30/25 13:45 BMI result Body Mass Index 37.0 Const General: no acute distress and alert Nutritional Appearance: obese Orientation/consciousness: Other orientation findings ( oriented) HEENT Head: Yes atraumatic Eyes General: appearance normal, both eyes and all related structures Sclerae: sclerae normal EOM: EOMs intact bilaterally Neck Neck: Yes supple Lymphatic: no lymphadenopathy noted Resp Effort & Inspection: normal respiratory effort and no use of accessory muscles Auscultation: clear to auscultation bilaterally Cardio Rate: regular rate Rhythm: regular rhythm Heart sounds: no gallops, no murmurs and no rubs Skin General skin exam: other ( warm) Extrem General: No clubbing, No cyanosis and No edema Assessment & Plan Assessment & Plan (1) Moderate persistent asthma: Code(s): J45.40 - Moderate persistent asthma, uncomplicated Category: Medical Qualifiers: Asthma complication type: uncomplicated Qualified Code(s): J45.40 - Moderate persistent asthma, uncomplicated Plan: Well controlled on current regimen of Wixela, duo nebs, and albuterol MDI. Continue current regimen. (2) Environmental allergies: Code(s): Z91.09 - Other allergy status, other than to drugs and biological substances Category: Medical Plan: Well controlled on azelastine and Singulair. Continue current regimen. Coding Level of Care Code Est Pt Level 4 (55931) Diagnoses Moderate persistent asthma without complication J45.40 Asthma complication type: uncomplicated Environmental allergies Z91.09
[2025-01-30 13:45] VITALS: BP 138/62; PULSE 85; O2SAT 98; BMI 37.0
== END 2025-01-30 14:00 | disposition home or self-care (01) ==
LOC: HO.HPS 13:43
PROVIDERS: PCP Internal Medicine; Visit Provider Internal Medicine Pulmonary Disease
DX: J45.40 Moderate persistent asthma, uncomplicated (principal); Z91.09 Other allergy status, other than to drugs and biological substances
CPT/HCPCS: 99214

== ENCOUNTER → 2025-01-30 13:42 | Outpatient (BNVA) | payer MEDICARE, SELFPAY | PROVIDERS: PCP Internal Medicine; Visit Provider Internal Medicine Pulmonary Disease | DX: J45.40 Moderate persistent asthma, uncomplicated (principal); Z91.09 Other allergy status, other than to drugs and biological substances | CPT/HCPCS: 99212 ==

== ENCOUNTER 2025-03-24 14:19 | Outpatient (REF) | payer MEDICARE, SELFPAY ==
--- NOTE | ~2025-03-24 | MM_ITS ---
EXAMINATION: MM SCREENING DIGITAL BREAST TOMOSYNTHESIS, BILATERAL CLINICAL INFORMATION: Screening. Asymptomatic. COMPARISON: Mammography: Comparison is made with available priors TECHNIQUE: Digital breast mammography with tomosynthesis is performed in both the craniocaudal and mediolateral oblique views along with computer-aided detection (CAD). FINDINGS: There are scattered areas of fibroglandular density. There are no significant masses, abnormal calcifications, or other abnormalities. MM/MM tomosynthesis screening BI IMPRESSION: No mammographic evidence of malignancy. ASSESSMENT: BI-RADS Category 1: Negative RECOMMENDATION: Routine annual mammography screening. 1 year F/U This examination should not preclude the clinical evaluation of a suspicious palpable abnormality. This patient's information was entered into a reminder system with a target due date for their next mammogram. Electronically signed by: Bridget Lee DO 03/24/2025 04:03 PM AMIE
--- OUTSIDE RECORDS SUMMARY | 2025-03-24 17:43 | XMS_ITS | Clinical Summary ---
Author Organization [facility] Address [address] [place] [address] Care Team Providers Care Rolled Ham Lacer Name Role Phone Erlinda Newell MD Primary [...] unspecified chronicity, unspecified trigger,Multiple environmental allergies 1 [place] by Nasal route 2 times daily. 1 [...] ileostomy, reversal and closure Dr. Ag at [facility] Irritable bowel syndrome with constipati on 07/26/2017 [...] two cous ins Diabetes Mother CAD, HTN, DC CA Breast Mother's side 1 cousin Cancer, [...] 69 08/07/2018 9:17 AM EDT Temperature 36.7 C (98 F) 06/30/2014 9:51 AM EDT Respiratory Rate 16 [...] PNEUMOCOCCAL VACCINE (2 - PCV) 2023 01/24/2007 BMI CHECK/ADVISE 04/24/2024 10/08/2014, 10/08/2013, 06/10/2013 INFLUENZA (#1) 2024 04/04/2011, 03/29/2010, Care Teams Rolled Ham Lacer Relationship Specialty Start Date End Date Erlinda Newell MD PCP - General Internal Medicine 09/02/14
--- OUTSIDE RECORDS SUMMARY | 2025-03-24 17:43 | XMS_ITS | Encounter Summary ---
Author Organization [facility] Address [address] [place] [address] Care Team Providers Care Web Analytics Specialist Name Role Phone Erlinda Newell MD Primary Care Provider Daphnie lucio Encounter Details Date Type Department Care Team Description 12/21/2015 Pt. Non Urgent Medical Question Cardiology - [address] [address] Oralia Briscoe PA-C [address] [place] [id number] Social History Tobacco Use Types Packs/Day Years [...] a while, my primary Dr. Cisneros at [place] did my panel. My insurancewill still let me see you if needed. Cholesterol 255, Triglyceride 88, HDL 57, LDL 181. My weight is 158.6 , height 63. BMI 28.09, BP 118/62, heart rate 64. My Labs are from [facility], Had 4 surgeries for perforated bowel last year, and on a lot of meds and b12 shots with getting iron infusions. [place] Aguilar documented in this encounter Plan of Treatment Not on file documented as of this encounter Visit Diagnoses Not on filedocumented in this encounter Care Teams Web Analytics Specialist Relationship Specialty Start Date End Date Erlinda Newell MD PCP - General Internal Medicine 09/02/14 documented as of this encounter
--- OUTSIDE RECORDS SUMMARY | 2025-03-24 17:43 | XMS_ITS | Encounter Summary ---
Author Organization [facility] Address [address] [place] [address] Care Team Providers Care Boiler Out Name Role Phone Erlinda Newell MD Primary Care Provider Daphnie lucio Encounter Details Date Type Department Care Team Description 12/23/2015 Release of Information Medical Records [address] [place] [address] Abstract, Provider Social History Tobacco Use Types Packs/Day Years Used Date Smoking Tobacco: Never Alcohol Use Standard Drinks/Week Comments Yes 0 (1 standard drink = 0.6 oz pur e alcohol) rare Sex Assigned at Date Recorded Not on file documented as of this encounter Plan of Treatment Not on file documented as of this encounter Visit Diagnoses Not on filedocumented in this encounter Care Teams Boiler Out Relationship Specialty Start Date End Date Erlinda Newell MD PCP - General Internal Medicine 09/02/14 documented as of this encounter
--- OUTSIDE RECORDS SUMMARY | 2025-03-24 17:43 | XMS_ITS | Encounter Summary ---
Author Organization [facility] Address [address] [place] [address] Care Team Providers Care Warehouse Processor Name Role Phone Ye Smith MD Primary Care Provider [phone] Erlinda Newell MD Primary Care Provider Daphnie lucio Encounter Details Date Type Department Care Team Description 12/08/2013 Pt. Non Urgent Medical Question Adult Medicine [facility] [address] [place] [address] [phone] Ye Smith MD [address] [place] [address] [phone] Social History Tobacco Use Types Packs/Day Years Used Date Smoking Tobacco: Never Alcohol Use Standard Drinks/Week Comments Yes 0 (1 standard drink = 0.6 oz pur e alcohol) rare Sex Assigned at Date Recorded Not on file documented as of this encounter Progress Notes * Nohemy Serrano L.P.N. - 12/09/2013 10:00 AM EDTFrom: Sharron Aguilar To: Ye Smith MD Sent: 12/08/2013 6:01 [...] on filedocumented in this encounter Care Teams Warehouse Processor Relationship Specialty Start Date End Date Ye Smith MD [address] [place] [id number] PCP - General Internal Medicine 12/22/11 09/01/14 Erlinda Newell MD [address] [place] [id number] PCP - General Internal Medicine 09/02/14 documented as of this encounter
--- OUTSIDE RECORDS SUMMARY | 2025-03-24 17:43 | XMS_ITS | Encounter Summary ---
Author Organization [facility] Address [address] [place] [address] Care Team Providers Care Plc Programmer Name Role Phone Erlinda Newell MD Primary Care Provider Daphnie lucio Encounter Details Date Type Department Care Team Description 06/17/2015 Collar Stay Fuser Tender Report Medical Records [address] [place] [address] Azalia Canales MD Social History Tobacco Use [...] on filedocumented in this encounter Care Teams Plc Programmer Relationship Specialty Start Date End Date Erlinda Newell MD PCP - General Internal Medicine 09/02/14 documented as of this encounter
--- OUTSIDE RECORDS SUMMARY | 2025-03-24 17:43 | XMS_ITS | Data Portability ---
Author Organization [place] - [facility], Allergy Address [address] [place] [address] Care Team Providers Care Galley Worker Name Role Phone ORLANDO WORTHY Primary Care Provider ORLANDO WORTHY Referring Provider [phone] Assessment Encounter Date Assessment Date Assessment LastModified by Organization Details LastModified Time 11/13/2024 11/13/2024 1. Conductive Hearing Loss Plan updated hearing test post-treatment of ear infection using Ciprodex drops. Objective is to determine hearing changes and suitability of current hearing aids. 2. Recurrent Otitis Media with Effusion Initiating Ciprodex drops to address right ear infection and inflammation. Follow-up in two weeks with a PA to assess resolution. Further intervention will depend on infection resolution. May benefit from evaluation with Dr. Rose 3. Eustachian Tube Dysfunction Continued monitoring post-treatment of current infection to determine need for further interventions, such as PE tubes or balloon dilatation 4. Asthma Maintain current management regimen. Review symptoms for any change in severity. Atypical Dermatitis Management with topical treatments as prescribed previously. Review condition at follow-up. Psoriasis Observation and routine dermatological follow-up to monitor symptoms and update management as needed based on current atypical dermatitis presentation. Check labs including IgE level and eosinophil count to see if there is a component of eczema Gastroesophageal Reflux Disease (GERD) Laryngoscopy recommended to assess vocal cord status due to GERD influence. Procedure Documentation: - Ear Canal Cleaning: Patient consented to ear canal cleaning of right ear to alleviate symptoms. The process included cleaning of debris and assessment of infection severity. [email or web address] Not available 11/13/2024 11:07:40 12/04/2024 12/04/2024 64 year old female, with a history of right myringotomy tube placement in April [address] Wright, presents for reevaluation of right otorrhea and hoarseness. Residual debris was suctioned from the right external auditory canal. Patient tolerated the procedure well. Right tympanic membrane perforation is dry and stable with resolution of the infection. Left tympanic membrane is intact but generally thickened. Audiometric testing today demonstrates mild to moderate mixed hearing loss bilaterally, left greater than right, which is relatively stable compared to her audiogram done at Dr. Wright's office in July 2022. I recommend consultation with Dr. Rose to discuss right-sided tympanoplasty versus balloon dilation given her chronic perforation and history of recurrent otitis media. Patient is interested in pursuing this and we will arrange an appointment at her earliest convenience. Not available 12/04/2024 16:13:37 02/24/2025 02/24/2025 64 year old female, with a history of right myringotomy tube placement back in [place] [address] Wright, presents for follow up of right otorrhea. Perforation appears stable with no further drainage or signs of infection today. Water precautions were reiterated. Patient will follow up with Dr. Rose next week as originally scheduled for surgical consultation. All questions were answered. 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 The left medial canal is completely scarred closed with obliteration of the tympanic membrane. The right medial canal has circumferential swelling and inflammation which has narrowed the ear canal by about 90%. The tympanic membrane has been partially obliterated on the right but as far as I can tell there is no sign of perforation based on her tympanometry. Today we discussed the idiopathic nature of medial canal fibrosis and the fact that these ears have been chronically inflamed for a very long time resulting in fibrosis of the medial canal. This explains the conductive hearing loss that she has bilaterally on top of her baseline sensorineural hearing loss. I would like to treat the ears with a topical antifungal regimen including clotrimazole drops in the right ear 3 times a day for 3 weeks as well as clotrimazole/beta methasone cream to be applied to the external auditory canal 3 times a day. I will see her back in about 4 weeks for reevaluation. We discussed that surgery is not indicated in this context as removal of scar tissue is almost certain to result in recurrence. She will continue to work with her male infertility specialist to maximize her performance with amplification technology. [email or web address] Not available 03/03/2025 11:11:50 Plan of Treatment Reminders Order Date Submit Date Provider Last Modified By Organization Details Last Modified Time Details Appointments Test Results 10 2024 11:20A M JOSSY ROSE MD Not available Not available Not available Lab unlisted lab - allergens , zone 1 2024 025 FELIPA [facility], [address], [place], [address], 11/14/2024 21:16:59 ige, total, serum 2024 025 FELIPA [facility], [address], [place], [address], 11/14/2024 21:17:00 CBC w/ auto diff 2024 025 [email or web address] [facility], [address], [place], [address], 11/26/2024 09:26:51 Referral None recorded. Procedures None recorded. Surgeries None recorded. Imaging None recorded. Medication Orders clotrimaz ole-betam ethasone 1 %-0.05 % topical cream 2024 025 [facility] #[id number], [address] [place], [address], 03/03/2025 11:06:38 clotrimaz ole 1 % topical solution 2024 025 [facility] #[id number], [address] [place], [address], 03/03/2025 11:06:39 azelastin e 137 mcg (0.1 %) nasal spray 2024 025 [facility] #[id number], [address] [place], [address], 12/04/2024 16:14:32 ciproflox acin 0.3 %-dexamet hasone 0.1 % ear drops,agustin pension 2024 025 [facility] #[id number], [id number] [facility], [address], 02/19/2025 05:02:13 Patient TargetsNo targets recorded. Patient Instructions Encounter Date Encounter Id Patient Instructions Last Modified By Organization Details Last Modified Time 11/13/2024 [id number] Please note: Parts of this encounter note have been generated by AI based on audio conversation. Patient consent was required prior to utilizing this technology. Content review was required prior to finalizing the note. [email or web address] Not available 11/13/2024 09:17:38 Reason for Referral None Reported. Results Created Date Observation Date Name Description Value Unit Range Abnormal Flag Note LastModifiedBy Organization Detail LastModifiedTime 11/14/1911/13/2024 ALLER GENS, ZONE 1 class description Commen t Level s of Speci fic IgE Class Descr iptio n of Class ----- ----- ----- ----- ----- -- ----- ----- ----- ----- ----- < 0.10 0 Negat ambrosio 0.10 - 0.31 0/I Equiv ocal/ Low 0.32 - 0.55 I Low 0.56 - 1.40 II Moder ate 1.41 - 3.90 III High 3.91 - 19.00 IV Very High 19.01 - 100.0 0 V Very High >100. 00 Very High Not Available [facility] ([facility]) [address] [place], [address], 11/14/2024 21:16:59 11/14/19 25 11/14/2024 ALLER GENS, ZONE 1 F808-EpM D pteronyssinu s <0.10 kU/L class 0 Not Available [facility] ([facility]) [address] [place], [address], 11/14/2024 21:16:59 11/14/19 25 11/14/2024 ALLER GENS, ZONE 1 D629-EvZ D farinae <0.10 kU/L class 0 Not Available [facility] ([facility]) [address] [facility], [place], [address], 11/14/2024 21:16:59 11/14/19 25 11/14/2024 ALLER GENS, ZONE 1 N192-KnW CAT dander <0.10 kU/L class 0 Not Available [facility] ([facility]) [address] [facility], [place], [address], 11/14/2024 21:16:59 11/14/19 25 11/14/2024 ALLER GENS, ZONE 1 L192-AjI dog dander <0.10 kU/L class 0 Not Available [facility] ([facility]) [address] [facility], [place], [address], 11/14/2024 21:16:59 11/14/19 25 11/14/2024 ALLER GENS, ZONE 1 g499-KqA bermuda grass <0.10 kU/L class 0 Not Available [facility] ([facility]) [address] [place], [address], 11/14/2024 21:16:59 11/14/19 25 11/14/2024 ALLER GENS, ZONE 1 a186-QrK bluegrass, [facility] centery <0.10 kU/L class 0 Not Available [facility] ([facility]) [address] [place], [address], 11/14/2024 21:16:59 11/14/19 25 11/14/2024 ALLER GENS, ZONE 1 w845-GiK bahia grass <0.10 kU/L class 0 Not Available [facility] ([facility]) [address] [place], [address], 11/14/2024 21:16:59 11/14/19 25 11/14/2024 ALLER GENS, ZONE 1 T854-JiH cockroach, serbian <0.10 kU/L class 0 Not Available [facility] ([facility]) [address] [place], [address], 11/14/2024 21:16:59 11/14/19 25 11/14/2024 ALLER GENS, ZONE 1 O949-ZeP penicillium chrysogen <0.10 kU/L class 0 Not Available [facility] ([facility]) [address] [place], [address], 11/14/2024 21:16:59 11/14/19 25 11/14/2024 ALLER GENS, ZONE 1 C965-DhG cladosporium herbarum <0.10 kU/L class 0 Not Available [facility] ([facility]) [address] [place], [address], 11/14/2024 21:16:59 11/14/19 25 11/14/2024 ALLER GENS, ZONE 1 I308-YmQ aspergillus fumigatus <0.10 kU/L class 0 Not Available [facility] ([facility]) [address] [place], [address], 11/14/2024 21:16:59 11/14/19 25 11/14/2024 ALLER GENS, ZONE 1 Y963-ImN mucor racemosus <0.10 kU/L class 0 Not Available [facility] ([facility]) [address] [place], [address], 11/14/2024 21:16:59 11/14/19 25 11/14/2024 ALLER GENS, ZONE 1 J080-AqT alternaria alternata <0.10 kU/L class 0 Not Available [facility] ([facility]) [address] [place], [address], 11/14/2024 21:16:59 11/14/19 25 11/14/2024 ALLER GENS, ZONE 1 P230-JjD stemphylium herbarum <0.10 kU/L class 0 Not Available [facility] ([facility] [facility]) [address], [place], [address], 11/14/2024 21:16:59 11/14/19 25 11/14/2024 ALLER GENS, ZONE 1 W374-DxV common silver birch <0.10 kU/L class 0 Not Available [facility] ([place] [facility]) [address], [place], [address], 11/14/2024 21:16:59 11/14/19 25 11/14/2024 ALLER GENS, ZONE 1 H973-XjJ oak, white <0.10 kU/L class 0 Not Available [facility] ([facility] [facility]) [address], [place], [address], 11/14/2024 21:16:59 11/14/19 25 11/14/2024 ALLER GENS, ZONE 1 H386-BwW elm, serbian <0.10 kU/L class 0 Not Available [facility] ([place] [facility]) [address], [place], [address], 11/14/2024 21:16:59 11/14/19 25 11/14/2024 ALLER GENS, ZONE 1 Q542-QxD bryan, white <0.10 kU/L class 0 Not Available [facility] ([facility]) [address] [facility], [place], [address], 11/14/2024 21:16:59 11/14/19 25 11/14/2024 ALLER GENS, ZONE 1 N503-WcG maple/box elder <0.10 kU/L class 0 Not Available [facility] ([place] [facility]) [address], [place], [address], 11/14/2024 21:16:59 11/14/19 25 11/14/2024 ALLER GENS, ZONE 1 Y671-FeV hazelnut tree <0.10 kU/L class 0 Not Available [facility] ([place] [facility]) [address], [place], [address], 11/14/2024 21:16:59 11/14/19 25 11/14/2024 ALLER GENS, ZONE 1 D504-XxB hickory, white <0.10 kU/L class 0 Not Available [facility] ([place] [facility]) [address], [place], [address], 11/14/2024 21:16:59 11/14/19 25 11/14/2024 ALLER GENS, ZONE 1 L420-OnT white mulberry <0.10 kU/L class 0 Not Available [facility] ([place] [facility]) [address], [place], [address], 11/14/2024 21:16:59 11/14/19 25 11/14/2024 ALLER GENS, ZONE 1 Q099-MaP cedar, mountain <0.10 kU/L class 0 Not Available [facility] ([place] [facility]) [address], [place], [address], 11/14/2024 21:16:59 11/14/19 25 11/14/2024 ALLER GENS, ZONE 1 B359-PcO ragweed, short <0.10 kU/L class 0 Not Available [facility] ([place] [facility]) [address], [place], [address], 11/14/2024 21:16:59 11/14/19 25 11/14/2024 ALLER GENS, ZONE 1 M363-OzK mugwort <0.10 kU/L class 0 Not Available [facility] ([place] [facility]) [address], [place], [address], 11/14/2024 21:16:59 11/14/19 25 11/14/2024 ALLER GENS, ZONE 1 R668-GyX plantain, venezuelan <0.10 kU/L class 0 Not Available [facility] ([place] [facility]) [address], [place], [address], 11/14/2024 21:16:59 11/14/19 25 11/14/2024 ALLER GENS, ZONE 1 L040-JhO pigweed, common <0.10 kU/L class 0 Not Available [facility] ([facility]) [address] [facility], [place], [address], 11/14/2024 21:16:59 11/14/19 25 11/14/2024 ALLER GENS, ZONE 1 K438-LwO sheep sorrel <0.10 kU/L class 0 Not Available [facility] ([facility]) [address] [facility], [place], [address], 11/14/2024 21:16:59 11/14/19 25 11/14/2024 ALLER GENS, ZONE 1 G253-BoJ nettle <0.10 kU/L class 0 Not Available [facility] ([facility]) [address] [facility], [place], [address], 11/14/2024 21:16:59 11/14/19 25 11/14/2024 IMMUN OGLOB ULIN E, TOTAL immunoglobul in E, total 11 IU/mL 6-495 Not Available [facility] ([facility]) [address] [facility], [place], [address], 11/14/2024 21:17:00 11/14/19 25 08/16/2022 audio gram No observ ation record ed. [email or web address] Not Available 2024 09:54:10 12/05/19 audio gram No observ ation record ed. [email or web address] Not Available 2024 17:47:14 Result Notes None recorded. Problems Name Problem SNOMED Code Status Onset Date Resolution Date Notes Provider Name and Address Organization Details Recorded Time Otorrhea of right ear 8263408941712 106 Active 2024 MILAGROS ZUÑIGA MD [address] [place] [address], [facility] JENNIFFER bernal, [address] [place] [address] - [facility] 07/23/202 5 09:15:40 Myringitis 47327317 Active 2024 MILAGROS ZUÑIGA MD [address] [facility], [place], [address], [facility] - [facility] 5 09:15:45 Chronic hoarseness 6938608640595 Active 2024 MILAGROS ZUÑIGA MD [address] [facility], [place], [address], [facility] - [facility] [place] 09:15:51 Gastroesoph ageal reflux disease 657194311 Active 2024 MILAGROS ZUÑIGA MD [address] [facility], [place], [address], [facility] - [facility] 5 09:16:00 Allergic rhinitis 85915024 Active 2024 MILAGROS ZUÑIGA MD [address] [facility], [email or web address], [address], [facility] - [facility] 5 09:19:12 Mixed conductive and sensorineur al hearing loss, bilateral 156044674 Active 2024 TONY CARNEY [address] [facility], [place], [address], [facility] - [facility] 5 10:57:50 Central perforation of right tympanic membrane 7042588689502 101 Active 2024 BEE URIBE [address] [facility], [place], [address], [place] - [facility] 5 16:05:49 Psoriasis 1029048 Active 2024 BEE URIBE [address] [facility], [place], [address], [facility] - [facility] 5 16:09:25 Seasonal allergic rhinitis 487077980 Active 2024 BEE URIBE [address] [address], [facility] [place], [address], [facility] - [facility] 16:14:11 Chronic mycotic otitis externa 362126314 Active 2024 JOSSY ROSE MD [address] [address], [facility] [place], [address], [facility] - [facility] 10:57:17 Dermal mycosis 43238005 Active 2024 JOSSY ROSE MD [address] [address], [facility] [place], [address], [facility] - [facility] 10:57:17 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 Procedures Surgical History Date Name Laterality Status Provider Name and Address Organization Details Recorded Time 12/05/19 25 Comp Audio with Tymps - 37521 & 17754 completed TONY CARNEY [address] [place] [address], [address], [facility] - [facility] 12/04/2024 10:47:59 12/05/19 25 FOL_DP completed BEE URIBE [address] [place] [address], [address], [facility] - [facility] 12/04/2024 16:11:37 tonsillectomy completed Oralia Saldana [place] - [facility] 11/13/2024 10:34:23 total knee replacement completed Oralia Saldana [place] - [facility] 11/13/2024 10:34:54 Myringotomy Tube Placement completed Oralia Saldana [place] - [facility] 11/13/2024 10:35:10 Imaging Results None recorded. Procedure Notes None recorded. Medical Equipment None Reported. Allergies Allergen ID Allergen Name Allergen Category Reaction Reaction Severity Criticality Documentation Date Start Date Code Code System Note Provider Name and Address Organization Details Recorded Time 431491 bee pollen environme nt,medica tion Not available Not available Not available 11/13/2024 56518 7 RxNorm Oralia Shana go [place] - [facility] 5 10:33:26 715091 latex environme nt,medica tion Not available Not available Not available 11/13/2024 66904 91 RxNorm Oralia go [place] - [facility] 5 10:33:43 244410 simvastat in medicatio n Not available Not available Not available 11/13/2024 34264 RxNorm Oralia Shana go [place] - [facility] 5 10:33:51 Medications Name Sig Start Date Stop Date Status Note LastModified by Organization Details LastModified Time celecoxib 200 mg capsule TAKE 1 CAPSULE TWICE DAILY active Not Available Not Available No t Available amoxicillin 500 mg capsule TAKE 4 CAPS BY MOUTH ONCE 1 HOUR PRIOR TO DENTAL APPT 03/03 completed Not Available Not Available Not Available ipratropium 0.5 mg-albutero l 3 mg (2.5 mg base)/3 mL nebulizatio n soln TAKE 3 ML INHALED EVERY 4 TO 6 HOURS NEEDED FOR SHORTNESS OF BREATH FOR 30 DAYS active Not Available Not Available No t Available ketoconazol e 2 % shampoo PLEASE SEE ATTACHED FOR DETAILED DIRECTION S active Not Available Not Available No t Available azithromyci n 250 mg tablet TAKE 2 TABLETS BY MOUTH TODAY, THEN TAKE 1 TABLET DAILY FOR 4 DAYS DIRECTED 11/13 completed Not Available Not Available Not Available famotidine 40 mg tablet TAKE 1 TABLET AT BEDTIME 11/13 completed Not Available Not Available Not Available prednisone 20 mg tablet TAKE 2 TABLETS BY MOUTH DAILY 11/13 completed Not Available Not Available Not Available lovastatin 10 mg tablet TAKE 1 TABLET AT BEDTIME active Not Available Not Available No t Available baclofen 20 mg tablet TAKE 1 TABLET BY MOUTH AT BEDTIME DIRECTED active Not Available Not Available No t Available amoxicillin 875 mg tablet TAKE 1 TABLET BY MOUTH EVERY 12 HOURS 11/13 completed Not Available Not Available Not Available triamcinolo ne acetonide 0.025 % topical cream PLEASE SEE ATTACHED FOR DETAILED DIRECTION S active Not Available Not Available No t Available pantoprazol e 40 mg tablet,sasha yed release TAKE 1 TABLET BY MOUTH TWICE A DAY active Not Available Not Available No t Available clotrimazol e-betametha sone 1 %-0.05 % topical cream APPLY TO THE SKIN OF THE AFFECTED EXTERNAL EAR CANAL WITH FINGERTIP 3 TIMES PER DAY FOR 2 WEEKS 2024 active Not Available Not Available Not Avai lable tacrolimus 0.03 % topical ointment PLEASE SEE ATTACHED FOR DETAILED DIRECTION S active Not Available Not Available No t Available clotrimazol e 1 % topical solution APPLY 4 DROPS TO THE AFFECTED EAR 3 TIMES A DAY FOR 2 WEEKS 2024 active Not Available Not Available Not Avai lable folic acid 1 mg tablet Take 1 tablet every day by oral route. active Not Available Not Available No t Available montelukast 10 mg tablet TAKE 1 TABLET BY MOUTH EVERY DAY AT BEDTIME FOR 90 DAYS active Not Available Not Available No t Available azelastine 137 mcg (0.1 %) nasal spray SPRAY 2 SPRAYS BY INTRANASA L ROUTE TWICE A DAY active Not Available Not Available No t Available epinephrine 0.3 mg/0.3 mL injection, auto-inject or INJECT 0.3MG EVERY 10 MINUTES NEEDED FOR ANAPHYLAX IS FOR 30 DAYS active Not Available Not Available No t Available cefuroxime axetil 500 mg tablet TAKE 1 BY MOUTH EVERY 12 HOURS 11/13 completed Not Available Not Available Not Available doxycycline hyclate 100 mg tablet TAKE 1 BY MOUTH EVERY 12 HOURS 11/13 completed Not Available Not Available Not Available Ventolin HFA 90 mcg/actuati on aerosol inhaler Inhale 2 puffs every 4 hours by inhalatio n route. active Not Available Not Available No t Available neomycin-po lymyxin-hyd rocort 3.5 mg-10,000 unit/mL-1 % ear drops,susp INSTILL 5 DROPS INTO BOTH EARS DAILY 11/13 completed Not Available Not Available Not Available ciclopirox 0.77 % topical cream PLEASE SEE ATTACHED FOR DETAILED DIRECTION S active Not Available Not Available No t Available vitamin K84-bbueq acid injection solution Take by injection route. active Not Available Not Available No t Available ciprofloxac in 0.3 %-dexametha sone 0.1 % ear drops,suspe nsion Instill 4 drops twice a day by otic route for 7 days. 02/19 completed Not Available Not Available Not Available Wixela Inhub 500 mcg-50 mcg/dose powder for inhalation USE 1 INHALATIO N ORALLY TWICE DAILY active Not Available Not Available No t Available Vitals Date Recorded Body height Body mass index (BMI) Body weight Provider Name and Address Organization Details Last Updated DateTime 11/13/2024 160.02 cm 35.4 kg/m2 25887.47 g Oralia Sald[place] - [facility] 11/13/2024 08:40:46 Date Recorded Body height Provider Name an d Address Organization Details Last Updated DateTime 12/04/2024 160.02 cm SANDRO AIDE [place] - [facility] 12/04/2024 09:34:36 Date Recorded Body height Body mass index (BMI) Body weight Provider Name and Address Organization Details Last Updated DateTime 02/24/2025 160.02 cm 36.5 kg/m2 90350.03 g Aura Bond [place] - [facility] 02/24/2025 11:33:38 Date Recorded Body height Body mass index (BMI) Body weight Provider Name and Address Organization Details Last Updated DateTime 03/03/2025 160.02 cm 36.5 kg/m2 93759.03 g Orlando Starr [place] - [facility] 03/03/2025 10:35:33 Social History None recorded. Functional Status None recorded. Mental Status None recorded. Family History Nothing Reported. Medical History Condition Response Allergies/Hayfever Y Hearing Loss Y Cancer Y Asthma Y Anemia Y Gynecological HistoryNo gynecological history recorded. Obstetrics History GPAL:G 0 P 0 0 0 0 Past Encounters Encounter ID Performer Location Encounter Start Date Encounter Closed Date Diagnosis/Indication Diagnosis SNOMED-CT Code Diagnosis ICD10 Code Diagnosis IMO Codes Diagnosis Note [id number] MILAGROS CHAN MD [facility] [address] [address] 11/13/2024 08:18:48 11/13/2024 09:21:07 Otorrhea of right ear [id number] 481773 H92.11 9629807 Myringitis 58847921 H73. 20 11534 Chronic hoarseness 07003 76915 105 R49.0 3526058 Gastroesop hageal reflux disease 982972146 K21.9 95793965 Allergic rhinitis 255711 04 J30.89 [id number] BEE URIBE [facility] [address] [address] 12/04/2024 09:27:32 12/04/2024 11:57:17 Otorrhea of right ear 7688212226 104511 H92.11 4128237 Resolved. Gastroesop hageal reflux disease 424254880 K21.9 56502419 Continue with pantoprazo le as prescribed . 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 Recommend azelastine for postnasal drip and nasal congestion . Mixed cond uctive and sensorineural hearing loss, bilateral [id number] H90.6 0685285 Audiologic al evaluation results:Ri ght ear:Mild to moderate mixed hearing loss with excellent word recognitio n.Left ear:Mild to moderately -severe mixed hearing loss with excellent word recognitio n. Tympanomet ry:Right Ear:Type BLeft Ear:Type B Central pe rforation of right tympanic membrane [id number] 109745 H72.01 1367303 Allergic rhinitis 420741 J30 See above. Psoriasis 3295285 L40.9 42136 Patient may use ciclopirox /triamcino lone cream prescribed by her dermatolog ist as needed for ear itching and dry canal skin. [id number] BEE URIBE [facility] of [address] [address] 02/24/2025 11:05:20 02/24/2025 12:00:26 Otorrhea of right ear 0814018789 168516 H92.11 5845788 Resolved. Central pe rforation of right tympanic membrane 6978197889 968716 H72.01 0386894 Mixed cond uctive and sensorineural hearing loss, bilateral 421678811 H90.6 6130643 Chronic hoarseness 58404 55444 105 R49.0 2833889 See above. Allergic rhinitis 213938 04 J30.89 Continue azelastine for nasal congestion and postnasal drip which is likely contributi ng to her hoarseness . Gastroesop hageal reflux disease 407477704 K21.9 51424788 Continue with pantoprazo le as prescribed . Psoriasis 6611991 L40.9 73246 Patient may use ciclopirox /triamcino lone cream prescribed by her dermatolog ist as needed for ear itching and dry canal skin. [id number] JOSSY ROSE MD [facility] of [address] [place] [address] 03/03/2025 10:22:03 03/03/2025 11:11:11 Chronic mycotic otitis externa 363011640 H60.399 Dermal mycosis 03510816 B36.9 The skin of the bilateral external auditory canal is showing signs of fungal dermatitis . Recommend applicatio n of clotrimazo le/betamet hasone cream to be applied by fingertip to the external auditory meatus three times a day for 3 weeks. Patient may repeat this as necessary for recurrence of symptoms. Prescripti on sent to patient's pharmacy. Avoidance of Q-tips recommende d to reduce the risk of recurrence . Acquired s tenosis of external ear canal secondary to inflammation 34367638 H61.323 31496098 Otorrhea of right ear 10 43305117 381403 H92.11 6690277 Mixed cond uctive and sensorineural hearing loss, bilateral 132435217 H90.6 6344424 Health Concerns Section Related Observation LastModified by Organization Detai ls LastModified Time None Recorded Concern Status LastModified by Organization Details LastModified Time None Recorded Advance Directives Directive None Recorded Payers Insurance Date Sequence Insurance Name Policy Number Policy Khan Covered Member ID Khan Member ID Guarantor Name 03/03/2025 1 CLARA (PPO) [id number] Sharron Aguilar [id number] Sharron Aguilar Notes Date Note Type Note Provider Name and Address Organization Details Recorded Time 11/13/2024 text/html The patient is a 64-year-old female presenting with persistent ear infections and hearing loss. 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 The right ear frequently poses difficulties, previously treated with a pressure-equalizing tube, and the patient has relied on polymyxin neomycin hydrocortisone drops for managing infections. Her asthma is routinely managed without recent exacerbations. She identifies with allergic rhinitis and references episodic allergy symptoms. Medical history highlights psoriasis development, now presenting as atypical dermatitis requiring topical management. The patient also recognizes GERD with consequential vocal modifications as a continuous ailment. MILAGROS SPEAR MD [address] [facility],[place] [address], [place], [address], [facility] 11/13/2024 11:07:52 12/04/2024 text/html ROS as noted in the [facility] 64 year old female presents for reevaluation of right otorrhea and hoarseness. Patient completed a 7-day course of Ciprodex drops and reports resolution of the drainage. She has a history of recurrent ear infections since childhood. Patient had a right myringotomy tube placed back in [place] [address] 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 She has been wearing binaural amplification since the age of 28 due to neurosensory hearing loss. Patient has secondary complaint of hoarseness for the past 10 years, which has worsened over time. She currently takes Singulair and Wixela for her asthma/allergies. Patient endorses occasional postnasal drip. She underwent SCIT in the past with minimal improvement. Patient also has acid reflux which is being managed with pantoprazole. JOSSY ROSE MD [address] [facility] [address], [place], [address], [facility] 12/05/2024 10:53:38 02/24/2025 text/html ROS as noted in the [facility] 64 year old female, with a history of right myringotomy tube placement back in [place] [address] Wright, presents for follow up of right otorrhea. Patient called the office on 02/04/25 requesting a refill for Ciprodex as she developed recurrent drainage from the right ear. She completed the drops after a week of use with resolution of symptoms. No acute concerns to report today. MEET NOONAN MD [address] [facility] [address], [place], [address], [facility] 02/28/2025 08:55:32 03/03/2025 text/html 64-year-old female former patient of Dr. Wright who put a tympanostomy tube in the right ear back in April 2015. She has had episodic right otorrhea. Most recently treated with topical Ciprodex drops. Patient referred to me to discuss surgical closure of the perforation. Patient reports having discharge once or twice a month in general. She does maintain dry ear precautions in the right ear. Recent audiogram showed significant mixed hearing loss bilaterally in the presence of flat tympanometry. Currently using binaural amplification dispensed by [employer] in [place]. She has been using amplification technology for 3 decades. Patient reports that she has been having lifelong problems with her ears dating back to childhood. The tympanostomy tube was placed due to chronic blockage and hearing loss sensation in the right ear. After placement of the tube, patient noted some improvement in the hearing.Patient reports significantly itchy ears. She has been treated by a PA in dermatology with topical triamcinolone, tacrolimus, and ciclopirox cream JOSSY ROSE MD [address] [place] [address], [address], [place] - [facility] 03/03/2025 11:12:27 OBGyn Episode No OBEpisode recorded.
--- OUTSIDE RECORDS SUMMARY | 2025-03-24 17:43 | XMS_ITS | Encounter Summary ---
Author Organization [facility] Address [address] [place] [address] Care Team Providers Care Leasing Manager Name Role Phone Ye Smith MD Primary Care Provider [phone] Erlinda Newell MD Primary Care Provider Daphnie lucio Reason for Referral * Specialist (Routine) - Authorized/Booked Specialty Diagnoses / Procedures Referred By Gaston ceballos Referred To Contact Cardiology Diagnoses Palpitation Elevated C-reactive protein (CRP) Procedures REFERRAL TO CARDIOLOGY Ye Smith MD [address] [place] [address] [place] [address] Referral ID Status Reason Start Date Expiration Date V isits Requested Visits Authorized NOT REQUIRED Authorized/ Booked 01/03/2013 01/03/2014 1 1 Encounter Details Date Type Department Care Team Description 12/28/2012 Pt. Non Urgent Medical Question Adult Medicine [facility] - [address] [address] Ye Smith MD [address] [place] [address] Palpitation (Primary Dx); Elevated C-reactive protein (CRP) [...] (CRP) documented in this encounter Care Teams Leasing Manager Relationship Specialty Start Date End Date Ye Smith MD [address] [place] [address] PCP - General Internal Medicine 12/22/11 09/01/14 Erlinda Newell MD [address] [place] [address] PCP - General Internal Medicine 09/02/14 documented as of this encounter
--- OUTSIDE RECORDS SUMMARY | 2025-03-24 17:43 | XMS_ITS | Clinical Summary ---
Author Organization [employer] Address [address] [facility] [address] [place] [address] Care Team Providers Care Electrician'S Helper Name Role Phone Unavailable Primary Care Provider [...] (2 of 2 - PCV) 01/25/2008 01/24/2007 RSV Patients and Patients Aged 60 years or older (1 - Risk 50-74 years 1-dose series) 2008 Zoster Vaccines (1 of 2) 2008 DTaP/Tdap/Td Vaccines (2 - Td or Tdap) 02/05/2017 02/05/2007 COVID-19 Vaccine (1 - season) 2024 Influenza Vaccine (#1) 2024 , 04/04/2011, 03/29/2010, [...]
--- OUTSIDE RECORDS SUMMARY | 2025-03-24 17:44 | XMS_ITS | Encounter Summary ---
Author Organization [facility] Address [address] [place] [address] Care Team Providers Care Technology Services Manager Name Role Phone Ye Smith MD Primary Care Provider [phone] Erlinda Newell MD Primary Care Provider Daphnie lucio Reason for Visit * Reason Onset Date Comments Urinary Frequency/Urgency/Burning 04/23/2014 Encounter Details Date Type Department Care Team Description 04/23/2014 Telephone Adult Medicine [address] [id number] Benjamin José PA-C Urinary Frequency/Urgency/Burnin g Social History Tobacco Use Types Packs/Day Years Used Date Smoking Tobacco: Never Alcohol Use Standard Drinks/Week Comments Yes 0 (1 standard drink = 0.6 oz pur e alcohol) rare Sex Assigned at Date Recorded Not on file documented as of this encounter Miscellaneous Notes * Telephone Encounter - Nohemy Loving R.N. - 04/23/2014 2:31 PM EST [phone] (home) Call #1 placed to patient. She states she is still having uti symptoms. She just completed Bactrim x 3 days and pyridium x 3 days for UTI. She continues to c/o abdominal pressure and discomfort when urinating. No fever. Ther are no appts left for today at any site. APpt scheduled for 04/25/14 @ 830am with Shanta Vega I did advise patient if she is unable to wait to be seen she can go to a walk in u/c site or the er. She agrees, * Telephone Encounter - Bridget Glez - 04/23/2014 2:21 PM EST PT IS CALLING BACK. * Telephone Encounter - Sofie Moran - 04/23/2014 1:00 PM EST EBOLA: Effective 01/29/14 If patient complains of a temperature greater than 101.5 ask if they have traveled to [place], [place], [place] or [place] or been in contact with anyone who has. Document responses in this message and send to triage. Symptoms patient is presenting: Patient seen Monday by Benjamin José for uti, she finished all medication and is still having pain in pelvic area , Please call How long has patient had these symptoms?: 3 days PCP: Ye Smith Payor: JUAN/PPO POS / Plan: PPO $20 [id number] / Product Type: PPO [id number] documented in this encounter Plan of Treatment Not on file documented as of this encounter Visit Diagnoses Not on filedocumented in this encounter Care Teams Technology Services Manager Relationship Specialty Start Date End Date Ye Smith MD [address] [place] [address] PCP - General Internal Medicine 12/22/11 09/01/14 Erlinda Newell MD [address] [place] [address] PCP - General Internal Medicine 09/02/14 documented as of this encounter
--- OUTSIDE RECORDS SUMMARY | 2025-03-24 17:44 | XMS_ITS | Continuity of Care Document ---
Author Organization [place] - [facility], [facility] Address [address] [place] [address] Care Team Providers Care Excel Developer Name Role Phone ERLINDA WORTHY Primary Care Provider ERLINDA WORTHY Referring Provider Assessment Encounter Date Assessment Date Assessment LastModified by Organization Details LastModified Time 03/03/2025 03/03/2025 Both ears are showing signs [...] day for 3 weeks as well as clotrimazole/betam ethasone cream to be applied to the external auditory canal 3 times a day. I will see her back in about 4 weeks for reevaluation. We discussed that surgery is not indicated in this context as removal of scar tissue is almost certain to result in recurrence. She will continue to work with her cyber forensic specialist to maximize her performance with amplification technology. [email or web address] Not available 03/03/2025 11:11:50 Plan of Treatment Reminders Order Date Submit Date Provider Last Modified By Organization Details Last Modified Time Details Appointments Test Results 10 2024 11:20A M JOSSY ROSE MD Not available Not available Not available Lab None recorded. Referral None recorded. Procedures None recorded. Surgeries None recorded. Imaging None recorded. Medication Orders clotrimaz ole-betam ethasone 1 %-0.05 % topical cream 2024 025 [facility]/Pharmacy #[id number], [id number] [place], [address], 03/03/2025 11:06:38 clotrimaz ole 1 % topical solution 2024 025 [facility]/Pharmacy #[id number], [address] [place], [address], 03/03/2025 11:06:39 Patient TargetsNo targets recorded. Patient InstructionsNo instructions recorded. Reason for Referral None Reported. Problems Name Problem SNOMED Code Status Onset Date Resolution Date Notes Provider Name and Address Organization Details Recorded Time Otorrhea of right ear 1423275984947 106 Active 2024 MILAGROS ZUÑIGA MD [address] [address], [facility] [place], [address], [facility] - [facility] 5 09:15:40 Myringitis 70203019 Active 2024 MILAGROS ZUÑIGA MD [address] [address], [facility] [place], [address], [place] - [facility] 5 09:15:45 Chronic hoarseness 3649726631557 Active 2024 MILAGROS ZUÑIGA MD [address] [address], [facility] [place], [address], [place] - [facility] 5 09:15:51 Gastroesoph ageal reflux disease 291162257 Active 2024 MILAGROS ZUÑIGA MD [address] [address], [facility] [place], [address], [facility] - [facility] 5 09:16:00 Allergic rhinitis 87528049 Active 2024 MILAGROS ZUÑIGA MD [address] [address], [place], [address], [facility] - [facility] 5 09:19:12 Mixed conductive and sensorineur al hearing loss, bilateral 350657023 Active 2024 TONY CARNEY [address] [address], [place], [address], [facility] - [facility] 10:57:50 Central perforation of right tympanic membrane 8766383538221 101 Active 2024 BEE URIBE [address] [address], [place], [address], [facility] - [facility] 16:05:49 Psoriasis 6553383 Active 2024 BEE URIBE [address] [address], [place], [address], [facility] - [facility] 16:09:25 Seasonal allergic rhinitis 316682493 Active 2024 BEE URIBE [address] [address], [place], [address], [facility] - [facility] 16:14:11 Chronic mycotic otitis externa 757692616 Active 2024 JOSSY ROSE MD [address] [address], [place], [address], [facility] - [facility] 5 10:57:17 Dermal mycosis 69699574 Active 2024 JOSSY ROSE MD [address] [facility] E [facility], [employer] [place], [address], 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 - [facility] 10:59:07 Problem Notes None recorded. Procedures Surgical History Date Name Laterality Status Provider Name and Address Organization Details Recorded Time 12/05/19 25 Comp Audio with Tymps - 00138 & 99989 completed TONY CARNEY [address] [facility] [address], [place], [address], [facility] - [facility] 12/04/2024 10:47:59 12/05/19 25 FOL_DP completed BEE URIBE [address] [facility] [address], [place], [address], [facility] - [facility] 12/04/2024 16:11:37 tonsillectomy completed Oralia Saldana [place] - [facility] 11/13/2024 10:34:23 total knee replacement completed Oralia Saldana [facility] 11/13/2024 10:34:54 Myringotomy Tube Placement completed Oralia Saldana [facility] 11/13/2024 10:35:10 Imaging Results None recorded. Procedure Notes None recorded. Medical Equipment None Reported. Allergies Allergen ID Allergen Name Allergen Category Reaction Reaction Severity Criticality Documentation Date Start Date Code Code System Note Provider Name and Address Organization Details Recorded Time 646200 bee pollen environme nt,medica tion Not available Not available Not available 11/13/2024 64309 7 RxNorm Oralia go [place] - [facility] 5 10:33:26 737087 latex environme nt,medica tion Not available Not available Not available 11/13/2024 91390 91 RxNorm Oralia go [place] - [facility] 5 10:33:43 224604 simvastat in medicatio n Not available Not available Not available 11/13/2024 69709 RxNorm Oralia go [place] - [facility] 10:33:51 Medications Name Sig Start Date Stop [...] Available Not Available No t Available vitamin M63-bzhcy acid injection solution Take by injection route. [...] Updated DateTime 03/03/2025 160.02 cm 36.5 kg/m2 33642.03 g Erlinda Starr [place] - [facility] 03/03/2025 10:35:33 Social History None recorded. Functional Status None recorded. Mental Status None recorded. Family History Nothing Reported. Medical History Condition Response Allergies/Hayfever Y Cancer Y Anemia Y Hearing Loss Y Asthma Y Gynecological HistoryNo gynecological history recorded. Obstetrics History GPAL:G 0 P 0 0 0 0 Past Encounters Encounter ID Performer Location Encounter Start Date Encounter Closed Date Diagnosis/Indication Diagnosis SNOMED-CT Code Diagnosis ICD10 Code Diagnosis IMO Codes Diagnosis Note [id number] BEE URIBE [facility] [address] [address] 02/24/2025 11:05:20 02/24/2025 12:00:26 Otorrhea of right ear 6619686184 267224 H92.11 5924302 Resolved. Central pe rforation of right tympanic membrane 0700968052 775951 H72.01 6404605 Mixed cond uctive and sensorineural hearing loss, bilateral 848460950 H90.6 8706788 Chronic hoarseness 12044 01805 105 R49.0 9456174 See above. Allergic rhinitis 527996 04 J30.89 Continue azelastine for nasal congestion and postnasal drip which is likely contributi ng to her hoarseness . Gastroesop hageal reflux disease 635956396 K21.9 79157621 Continue with pantoprazo le as prescribed . Psoriasis 4747429 L40.9 37837 Patient may use ciclopirox /triamcino lone cream prescribed by her dermatolog ist as needed for ear itching and dry canal skin. [id number] JOSSY ROSE MD [facility] of [address] [address] 03/03/2025 10:22:03 03/03/2025 11:11:11 Chronic mycotic otitis externa 363907682 H60.399 Dermal mycosis 47632677 B36.9 The skin of the bilateral external [...] of external ear canal secondary to inflammation 14630675 H61.323 90445352 Otorrhea of right ear 10 95849012 378263 H92.11 9399443 Mixed cond uctive and sensorineural hearing loss, bilateral 364216971 H90.6 7574248 Health Concerns Section Related Observation LastModified by Organization Angie sandoval LastModified Time None Recorded Concern Status LastModified by Organization Details LastModified Time None Recorded Payers Encounter Date Sequence Insurance Name Policy Number Policy Khan Covered Member ID Khan Member ID Guarantor Name 03/03/2025 1 [employer]EN[employer]FFER (PPO) [id number] Sharron Aguilar [id number] Sharron Aguilar Notes Date Note Type Note Provider Name and Address Organization Details Recorded Time 03/03/2025 text/html 64-year-old female former patient of [...] tympanometry. Currently using binaural amplification dispensed by [employer] in [place]. She has been using amplification technology for [...] tacrolimus, and ciclopirox cream JOSSY ROSE MD [address] [place] [address], [address], [facility] - [facility] 03/03/2025 11:12:27 OBGyn Episode No OBEpisode recorded.
--- OUTSIDE RECORDS SUMMARY | 2025-03-24 17:44 | XMS_ITS | Continuity of Care Document ---
Author Organization [place] - [facility], [facility] Address [address] [place] [address] Care Team Providers Care Energy Technician Name Role Phone ORLANDO WORTHY Primary Care Provider [phone] ORLANDO WORTHY Referring Provider [phone] Assessment Encounter Date Assessment Date Assessment LastModified by Organization Details LastModified Time 02/24/2025 02/24/2025 64 year old female, with a history of right myringotomy tube placement back in [place] [address] Wright, presents for follow up of right otorrhea. Perforation appears stable with no further drainage or signs of infection today. Water precautions were reiterated. Patient will follow up with Dr. Rose next week as originally scheduled for surgical consultation. All questions were answered. [email or web address] Not available 02/27/2025 00:05:08 Plan of Treatment Reminders Order Date Submit Date Provider Last Modified By Organization Details Last Modified Time Details Appointments Test Results 10 2024 11:20A M JOSSY ROSE MD Not available Not available Not available Lab None recorded . Referral None recorded . Procedures None recorded . Surgeries None recorded . Imaging None recorded . Medication Orders None recorded . Patient TargetsNo targets recorded. Patient InstructionsNo instructions recorded. Reason for Referral None Reported. Problems Name Problem SNOMED Code Status Onset Date Resolution Date Notes Provider Name and Address Organization Details Recorded Time Otorrhea of right ear 8649351848266 106 Active 2024 MILAGROS ZUÑIGA MD [address], [address], [place] - [facility] 09:15:40 Myringitis 56688078 Active 2024 MILAGROS ZUÑIGA MD [address] [place], [place], [address], [facility] - [facility] 5 09:15:45 Chronic hoarseness 5119054507968 Active 2024 MILAGROS ZUÑIGA MD 100 [facility] [place], [place], [address], [facility] - [facility] 5 09:15:51 Gastroesoph ageal reflux disease 095257075 Active 2024 MILAGROS ZUÑIGA MD 100 [facility], [place], [address], [facility] - [facility] 5 09:16:00 Allergic rhinitis 02832604 Active 2024 MILAGROS ZUÑIGA MD 100 [facility], [place], [address], [facility] - [facility] 5 09:19:12 Mixed conductive and sensorineur al hearing loss, bilateral 692697481 Active 2024 TONY CARNEY 100 [facility], [place], [address], [facility] - [facility] 5 10:57:50 Central perforation of right tympanic membrane 2217677419231 101 Active 2024 BEE URIBE 100 [facility], [place], [address], [facility] - [facility] 5 16:05:49 Psoriasis 9895412 Active 2024 BEE URIBE 100 [facility] [place], [place], [address], [facility] - [facility] 5 16:09:25 Seasonal allergic rhinitis 439702892 Active 2024 BEE URIBE 100 [facility] [place], [place], [address], [facility] - [facility] 16:14:11 Chronic mycotic otitis externa 279824130 Active 2024 JOSSY ROSE MD [address] [address], [place], [address], [facility] - [facility] 10:57:17 Dermal mycosis 03907240 Active 2024 JOSSY ROSE MD [address] [address], [place], [address], [facility] - [facility] 10:57:17 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 Procedures Surgical History Date Name Laterality Status Provider Name and Address Organization Details Recorded Time 12/05/19 Comp Audio with Tymps - 03937 & 39214 completed TONY CARNEY [address], [address], [facility] - [facility] 12/04/2024 10:47:59 12/05/19 FOL_DP completed BEE URIBE [address] [place] [address], [address], [facility] - [facility] 12/04/2024 16:11:37 tonsillectomy completed Oralia Saldana [place] - [facility] 11/13/2024 10:34:23 total knee replacement completed Oralia Saldana [place] - [facility] 11/13/2024 10:34:54 Myringotomy Tube Placement completed Oralia Saldana [place] - [facility] 11/13/2024 10:35:10 Imaging Results None recorded. Procedure Notes None recorded. Medical Equipment None Reported. Allergies Allergen ID Allergen Name Allergen Category Reaction Reaction Severity Criticality Documentation Date Start Date Code Code System Note Provider Name and Address Organization Details Recorded Time 353049 bee pollen environme nt,medica tion Not available Not available Not available 11/13/2024 04593 7 RxNorm Oralia Shana null, [place] - [facility] 5 10:33:26 569464 latex environme nt,medica tion Not available Not available Not available 11/13/2024 82441 91 RxNorm Oralia Saldana null, [place] - [facility] 10:33:43 114051 simvastat in medicatio n Not available Not available Not available 11/13/2024 33832 RxNorm Oralia Shana null, [place] - [facility] 5 10:33:51 Medications Name Sig Start Date [...] Available Not Available No t Available vitamin V26-peuhl acid injection solution Take by injection route. [...] Updated DateTime 02/24/2025 160.02 cm 36.5 kg/m2 60642.03 g Aura Bond [place] - [facility] 02/24/2025 11:33:38 Social History None recorded. Functional Status None [...] ICD10 Code Diagnosis IMO Codes Diagnosis Note 00233 BEE URIBE [facility] of [address] [address] 02/24/2025 11:05:20 02/24/2025 12:00:26 Otorrhea of right ear 8389582543 565669 H92.11 9224885 Resolved. Central pe rforation of right tympanic membrane 7210243949 223997 H72.01 4812120 Mixed cond uctive and sensorineural hearing loss, bilateral 419623650 H90.6 3659395 Chronic hoarseness 64095 17332 105 R49.0 8759335 See above. Allergic rhinitis 463140 04 J30.89 Continue azelastine for nasal congestion and postnasal drip which is likely contributi ng to her hoarseness . Gastroesop hageal reflux disease 381849861 K21.9 31129133 Continue with pantoprazo le as prescribed . Psoriasis 6650661 L40.9 40997 Patient may use ciclopirox /triamcino lone cream prescribed by her dermatolog ist as needed for ear itching and dry canal skin. Health Concerns Section Related Observation LastModified by Organization Detai ls LastModified Time None Recorded Concern Status LastModified by Organization Details LastModified Time None Recorded Payers Encounter Date Sequence Insurance Name Policy Number Policy Khan Covered Member ID Khan Member ID Guarantor Name 02/24/2025 1 [employer]IN[employer] (PPO) [id number] Sharron gAuilar [id number] Sharron Aguilar Notes Date Note Type Note Provider Name and Address Organization Details Recorded Time 02/24/2025 text/html ROS as noted in the HPI 64 year old female, with a history [...] concerns to report today. MEET NOONAN MD [address] [place] [address], [place], [address], [facility] - [facility] 02/28/2025 08:55:32 OBGyn Episode No OBEpisode recorded.
--- OUTSIDE RECORDS SUMMARY | 2025-03-24 17:44 | XMS_ITS | Encounter Summary ---
Author Organization [facility] Address [address] [place] [address] Care Team Providers Care Shower Enclosure Installer Name Role Phone Ye Smith MD Primary Care Provider [phone] Erlinda Newell MD Primary Care Provider Daphnie lucio Encounter Details Date Type Department Care Team Description 05/11/2012 Seo Executive Report Medical Records [address] [place] [id number] Abstract, Provider Social History Tobacco Use Types [...] on filedocumented in this encounter Care Teams Shower Enclosure Installer Relationship Specialty Start Date End Date Ye Smith MD [address] [place] [address] [id number] PCP - General Internal Medicine 12/22/11 09/01/14 Erlinda Newell MD [address] [place] [id number] PCP - General Internal Medicine 09/02/14 documented as of this encounter
== END 2025-03-24 14:20 | disposition home or self-care (01) ==
LOC: HO.MAMMO 14:19
PROVIDERS: Visit Provider Internal Medicine
DX: Z12.31 Encounter for screening mammogram for malignant neoplasm of breast (principal)
CPT/HCPCS: 77063; 77067

== ENCOUNTER → 2025-03-24 14:45 | Outpatient (BNV) | payer MEDICARE, SELFPAY | PROVIDERS: Visit Provider Internal Medicine | DX: Z12.31 Encounter for screening mammogram for malignant neoplasm of breast (principal) | CPT/HCPCS: 77063; 77067 ==

== ENCOUNTER 2025-04-10 14:14 | Outpatient (AMB) | payer BC, SELFPAY ==
--- NOTE | 2025-04-10 14:36 | A.OFFVIS_ITS ---
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 Patient reports off and on pain for about a year and a half. She states that she had a 2 injection one about a year ago and the other about 6 months. Patient reports that the last injection gave her 3 months of relief. She states that her pain is worse when she is picking things up and lifting her arm and driving. He pain is on the anterior aspect of the shoulder and moves down to her deltiod. Allergies bee pollen (BEE STINGS) Allergy (Severe, Verified 04/10/25 14:39) SWELLING,WELTS latex (LATEX) Allergy (Mild, Verified 04/10/25 14:39) RASH simvastatin Adverse Reaction (Intermediate, Verified 04/10/25 14:39) myalgia HPI Comments Details: History of Present Illness The patient is a 64 year old female presenting with right shoulder pain. She is right-hand dominant and has been experiencing this pain for the last couple of years. She reports receiving two cortisone injections from an outside facility, one in May 2022 and another a year prior to that. The previous clinician suspected a rotator cuff issue. The injections were administered without ultrasound guidance. She attempted physical therapy before the first injection but could not participate due to severe pain, and has not participated in physical therapy since. Her symptoms include difficulty lifting objects and pain that occurs after driving for more than a couple of hours, which sometimes radiates down into her arm but stops before the elbow. She occasionally uses Tylenol and a heat pack for severe pain. Pain Description - Location: right shoulder - Onset: has been bothering her for the last couple of years - Radiation: pain sometimes radiates from the shoulder down into the arm, stopping before the elbow - Exacerbating Factors: driving for more than a couple of hours and lifting things - Relieving Factors: Tylenol and heat packs for severe pain - Functional Interference: unable to perform activities of daily living such as fastening her bra Results - Imaging: Review of outside x-rays shows some arthritis in the right acromioclavicular joint. ON LICENSE OF [facility] Medical History Physical exam Well woman exam Hx of diverticulitis of colon Abscess Wears hearing aid in both ears Seasonal allergies Colon cancer screening Tremors of nervous system High ankle sprain of right lower extremity Otitis media of right ear History of skin cancer Osteoarthritis of left knee Preoperative clearance Anemia COVID-19 vaccine series completed History of COVID-19 Screening for cervical cancer Hearing loss GERD (gastroesophageal reflux disease) Bilateral otitis media HLD (hyperlipidemia) Primary osteoarthritis of right knee Osteoarthritis of right knee Encounter for preoperative pulmonary examination Family history of Crohn's disease Hx of irritable bowel syndrome Wears hearing aid in both ears History of basal cell carcinoma Arthritis Bronchitis Asthma Surgical History Hx of surgical procedure (12/08/23) Hx of basal cell carcinoma excision History of left knee surgery Status post total left knee replacement Hx of total knee replacement (~01/2020) Status post total right knee replacement History of tonsillectomy History of reversal of ileostomy Hx of ileostomy History of colostomy reversal History of colon resection Hx of tubal ligation History of esophagogastroduodenoscopy (EGD) H/O colonoscopy Family History Father Colitis COPD (chronic obstructive pulmonary disease) Ulcerative colitis Mother Diabetes Mental health disorder Hypertension Stroke Sister Lung cancer Rheumatoid aortitis Crohn's disease Paternal Grandmother Stomach cancer Family/Other Breast cancer Ovarian cancer Brother No problems noted. 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 - Reports inability to lift with the right arm and limited internal rotation, preventing her from fastening her bra. Physical Exam Exam Exam: Physical Exam - Musculoskeletal: Right shoulder forward flexion and abduction lacking about 20 degrees. ER to end range. Able to reach T12. Negative crossbody reach. 3/5 strength with empty can. NVI. Assessment & Plan Assessment & Plan (1) Rotator cuff arthropathy of right shoulder: Code(s): M12.811 - Other specific arthropathies, not elsewhere classified, right shoulder Category: Medical Plan 1. Right Shoulder Pain The patient's chronic right shoulder pain, present for several years, has not resolved with prior interventions including two cortisone injections and a failed attempt at physical therapy. Physical exam findings, particularly a positive empty can test, are suggestive of rotator cuff pathology. While x-rays show some acromioclavicular joint arthritis, this is not thought to be the sole cause of her symptoms. Given the chronicity of symptoms and lack of response to conservative measures, an MRI of the right shoulder is recommended to evaluate for a rotator cuff tear. The rationale for the MRI, including assessing the severity of a potential tear and determining if surgical repair is needed to prevent future complications like cuff tear arthropathy, was discussed. An order for the MRI will be placed, and the hospital will contact the patient to schedule. She was advised to contact the office if she does not receive a call to schedule within two weeks. She will follow-up after the MRI is obtained, sooner if needed. Consent The rationale for obtaining a right shoulder MRI was discussed with the patient, including the need to assess for a rotator cuff tear and determine if surgical intervention is warranted to prevent progressive damage. The patient verbally agreed to proceed with the recommended MRI. Patient was informed and verbally consented to the use of an ambient scribe for clinic note documentation during this visit. Orders: Orders MR shoulder RT wo con Today M12.811 - Other specific arthropathies, not elsewhere classified, right shoulder Coding Level of Care Code Est Pt Level 4 (85920) Add On Problem Visit Only Diagnoses Rotator cuff arthropathy of right shoulder M12.811
--- OUTSIDE RECORDS SUMMARY | 2025-04-10 18:28 | XMS_ITS | Continuity of Care Document ---
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 Fortunately there is no sign of active infection or inflammation at this point. No need for any further topical drops. [email or web address] Not available 04/08/2025 11:29:35 Plan of Treatment Reminders Order Date Submit Date Provider Last Modified By Organization Details Last Modified Time Details Appointments Establish ed 15 2025 11:15A M GINA WOLFE PA-C Not available Not available Not available Lab None recorded. Referral None recorded. Procedures None recorded. Surgeries None recorded. Imaging None recorded. Medication Orders clotrimaz ole-betam ethasone 1 %-0.05 % topical cream 2024 025 [facility]/Pharmacy #[id number], [address] [facility], [address], 04/08/2025 11:29:08 Patient TargetsNo targets recorded. Patient InstructionsNo instructions recorded. Reason for Referral None Reported. Results Created Date Observation Date Name Description Value Unit Range Abnormal Flag Note LastModifiedBy Organization Detail LastModifiedTime 04/08/20 25 audio gram No observ ation record ed. BARCODE Not Available 2024 14:18:20 Result Notes None recorded. Problems Name Problem SNOMED Code Status Onset Date Resolution Date Notes Provider Name and Address Organization Details Recorded Time Otorrhea of right ear 4590683272346 106 Active 2024 MILAGROS ZUÑIGA MD [address], [place], [address], [facility] - [facility] 5 09:15:40 Myringitis 87334588 Active 2024 MILAGROS ZUÑIGA MD [address] [facility], [place], [address], [facility] - [facility] [place] 5 09:15:45 Chronic hoarseness 9687487460213 Active 2024 MILAGROS ZUIÑGA MD 100 [facility],[address], [place], [address], [facility] - [facility] [place] 5 09:15:51 Gastroesoph ageal reflux disease 180550829 Active 2024 MILAGROS ZUÑIGA MD 100 [facility], [address], [place], [address], [facility] - [facility] [place] 5 09:16:00 Allergic rhinitis 66378916 Active 2024 MILAGROS ZUÑIGA MD [address] [facility],[address], [place], [address], [facility] - [facility] [place] 5 09:19:12 Mixed conductive and sensorineur al hearing loss, bilateral 616927998 Active 2024 TONY CARNEY [address], [place], [address], [facility] - [facility] [place] 5 10:57:50 Psoriasis 0022078 Active 2024 BEE URIBE [address] [facility], [place], [address], [place] - [facility] [place] 16:09:25 Seasonal allergic rhinitis 517784851 Active 2024 BEE URIBE [address] [address], [place], [address], [facility] - [facility] [place] 16:14:11 Chronic mycotic otitis externa 115452033 Active 2024 JOSSY ROSE MD [address] [address], [place], [address], [facility] - [facility] [place] 10:57:17 Dermal mycosis 36347205 Active 2024 JOSSY ROSE MD [address] [address], [place], [address], 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 - [facility] [place] 10:59:07 Problem Notes None recorded. Procedures Surgical History Date Name Laterality Status Provider Name and Address Organization Details Recorded Time 04/08/20 25 Comp Audio with Tymps - 12830 & 52875 completed JAIDEN JHA, AUD 100 [facility],[address], [address], [facility] - [facility] [place] 04/08/2025 11:43:51 12/05/19 25 Comp Audio with Tymps - 80678 & 46992 completed SAV OVALLE, AUD 100 [facility],[address], [address], [facility] - [facility] [place] 12/04/2024 10:47:59 12/05/19 25 FOL_DP completed BEE URIBE 100 [facility],[address], [address], [facility] - [facility] [place] 12/04/2024 16:11:37 tonsillectomy completed Oralia Saldana [place] - [facility] 11/13/2024 10:34:23 total knee replacement completed Oralia Saldana [place] - [facility] 11/13/2024 10:34:54 Myringotomy Tube Placement completed Oralia Saldana [place] - [facility] 11/13/2024 10:35:10 Imaging Results None recorded. Procedure Notes None recorded. Medical Equipment None Reported. Allergies Allergen ID Allergen Name Allergen Category Reaction Reaction Severity Criticality Documentation Date Start Date Code Code System Note Provider Name and Address Organization Details Recorded Time 689898 bee pollen environme nt,medica tion Not available Not available Not available 11/13/2024 87506 7 RxNorm Oralia go [place] - [facility] 10:33:26 996985 latex environme nt,medica tion Not available Not available Not available 11/13/2024 83116 91 RxNorm Oralia go [place] - [facility] 10:33:43 199408 simvastat in medicatio n Not available Not available Not available 11/13/2024 86628 RxNorm Oralia go [place] - [facility] 10:33:51 Medications Name Sig Start Date Stop [...] 3 TIMES A DAY FOR 2 WEEKS active Not Available Not Available No t Available folic acid 1 mg tablet Take 1 [...] Available Not Available No t Available vitamin L23-vvjyb acid injection solution Take by injection route. [...] Available Vitals Date Recorded Body height Body weight Provider Name and Address Organization Details Last Updated DateTime 04/08/2025 160.02 cm 67551.44 g Erlinda Starr [place] - [facility] 04/08/2025 11:08:50 Social History None recorded. Functional Status None recorded. Mental Status None recorded. Family History Nothing Reported. Medical History Condition Response Allergies/Hayfever Y Anemia Y Hearing Loss Y Cancer Y Asthma Y Gynecological HistoryNo gynecological history recorded. Obstetrics History GPAL:G 0 P 0 0 0 0 Past Encounters Encounter ID Performer Location Encounter Start Date Encounter Closed Date Diagnosis/Indication Diagnosis SNOMED-CT Code Diagnosis ICD10 Code Diagnosis IMO Codes Diagnosis Note [id number] JOSSY ROSE MD [facility] of [address] [address] 04/08/2025 10:57:37 04/08/2025 12:03:31 Chronic mycotic otitis externa 550841258 H60.399 Acquired s tenosis of external ear canal secondary to inflammation 47815856 H61.323 10326912 Mixed cond uctive and sensorineural hearing loss, bilateral 640646258 H90.6 6638499 Audiometri c testing repeated in light of the change in physical exam. There has been some worsening in the hearing in the left ear. 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 Dermal mycosis 99446035 B36.9 The skin of the bilateral external auditory canal overall looks better but is still showing signs of fungal dermatitis . Recommend applicatio n of clotrimazo le/betamet hasone cream to be applied by fingertip to the external auditory meatus three times a day for 1 weeks. Patient may repeat this as necessary for recurrence of symptoms. Prescripti on sent to patient's pharmacy. Avoidance of Q-tips recommende d to reduce the risk of recurrence . Health Concerns Section Related Observation LastModified by Organization Detai ls LastModified Time None Recorded Concern Status LastModified by Organization Details LastModified Time None Recorded Payers Encounter Date Sequence Insurance Name Policy Number Policy Khan Covered Member ID Khan Member ID Guarantor Name 04/08/2025 1 [employer] (PPO) [id number] Sharron Aguilar [id number] Sharron Aguilar Notes Date Note Type Note Provider Name and Address Organization Details Recorded Time 04/08/2025 text/html 64-year-old female with lifelong problems with her ears dating back to childhood. 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 The left medial canal is completely scarred shut medially with obliteration of the tympanic membrane. 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 Patient turns for reevaluation. JOSSY ROSE MD [address] [place] [address], [address], [facility] - [facility] 04/08/2025 13:00:20 OBGyn Episode No OBEpisode recorded.
--- OUTSIDE RECORDS SUMMARY | 2025-04-10 18:28 | XMS_ITS | Continuity of Care Document ---
Author Organization [place] - [facility], [facility] Address [address] [place] [address] Care Team Providers Care Maintenance Carpenter Name Role Phone ORLANDO WORTHY Primary Care Provider ORLANDO WORTHY Referring Provider [phone] ORLANDO WORTHY Primary Care Provider ORLANDO WORTHY Referring Provider [phone] Assessment Encounter Date Assessment Date Assessment LastModified [...] None recorded. Imaging None recorded. Medication Orders None recorded. Patient TargetsNo targets recorded. Patient InstructionsNo instructions [...] Details Recorded Time Otorrhea of right ear 0504852449114 106 Active 2024 MILAGROS ZUÑIGA MD 100 [facility],[address], [place], [address], [facility] - [facility] [place] 5 09:15:40 Myringitis 02910091 Active 2024 MILAGROS ZUÑIGA MD 100 [facility],[address], [place], [address], [facility] - [facility] [place] 5 09:15:45 Chronic hoarseness 4930671949219 Active 2024 MILAGROS ZUÑIGA MD 100 [facility],[address], [place], [address], [facility] - [facility] [place] 09:15:51 Gastroesoph ageal reflux disease 451164153 Active 2024 MILAGROS ZUÑIGA MD 100 [facility],[address], [place], [address], [facility] - [facility] [place] 09:16:00 Allergic rhinitis 95331106 Active 2024 MILAGROS ZUÑIGA MD 100 [facility],[address], [place], [address], [facility] - [facility] [place] 5 09:19:12 Mixed conductive and sensorineur al hearing loss, bilateral 600620085 Active 2024 TONY CARNEY [address] [facility] [place], [place], [address], [facility] - [facility] [place] 5 10:57:50 Psoriasis 4250682 Active 2024 BEE URIBE [address] [facility] [place], [place], [address], [facility] - [facility] [place] 5 16:09:25 Seasonal allergic rhinitis 044500307 Active 2024 BEE URIBE [address] [address], [place], [address], [place] - [facility] [place] 16:14:11 Chronic mycotic otitis externa 935365457 Active 2024 JOSSY ROSE MD [address] [address], [place], [address], [place] [facility] [place] 10:57:17 Dermal mycosis 89852251 Active 2024 JOSSY ROSE MD [address] [address], [place], [address], [place] [facility] [place] 10:57:17 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 Procedures Surgical History Date Name Laterality Status Provider Name and Address Organization Details Recorded Time 04/08/20 25 Comp Audio with Tymps - 64571 & 75138 completed JAIDEN JHA, [address], [address], [facility] - [facility] [place] 04/08/2025 11:43:51 12/05/19 25 Comp Audio with Tymps - 18021 & 19539 completed SAV OVALLE, TONY [address] [place] [address], [address], [facility] - [facility] [place] 12/04/2024 10:47:59 12/05/19 25 FOL_DP completed BEE URIBE [address], [address], [facility] - [facility] [place] 12/04/2024 16:11:37 tonsillectomy completed Oralia Saldana [place] - [facility] [place] 11/13/2024 10:34:23 total knee replacement completed Oralia Saldana [place] - [facility] [place] 11/13/2024 10:34:54 Myringotomy Tube Placement completed Oralia Saldana [place] - [facility] 11/13/2024 10:35:10 Imaging Results None recorded. Procedure Notes None recorded. Medical Equipment None Reported. Allergies Allergen ID Allergen Name Allergen Category Reaction Reaction Severity Criticality Documentation Date Start Date Code Code System Note Provider Name and Address Organization Details Recorded Time 628626 bee pollen environme nt,medica tion Not available Not available Not available 11/13/2024 80880 7 RxNorm Oralia go [place] - [facility] 10:33:26 983299 latex environme nt,medica tion Not available Not available Not available 11/13/2024 32322 91 RxNorm Oralia go [place] - [facility] 10:33:43 533583 simvastat in medicatio n Not available Not available Not available 11/13/2024 93567 RxNorm Oralia go [place] - [facility] 10:33:51 Medications Name Sig Start Date Stop [...] Available Not Available No t Available vitamin R29-dzjru acid injection solution Take by injection route. [...] Updated DateTime 02/24/2025 160.02 cm 36.5 kg/m2 37567.03 g Aura Bond [place] - [facility] 02/24/2025 11:33:38 Social History None recorded. Functional [...] ICD10 Code Diagnosis IMO Codes Diagnosis Note [id number] BEE URIBE [facility] of [address] [address] 02/24/2025 11:05:20 02/24/2025 12:00:26 Otorrhea of right ear 5402668103 288778 H92.11 9155625 Resolved. Central pe rforation of right tympanic membrane 4861308634 906307 H72.01 8624983 Mixed cond uctive and sensorineural hearing loss, bilateral 985899134 H90.6 9558526 Chronic hoarseness 06452 96869 105 R49.0 9590117 See above. Allergic rhinitis 594733 04 J30.89 Continue azelastine for nasal congestion and postnasal drip which is likely contributi ng to her hoarseness . Gastroesop hageal reflux disease 469261215 K21.9 56460163 Continue with pantoprazo le as prescribed . Psoriasis 1094293 L40.9 94288 Patient may use ciclopirox /triamcino lone cream [...] Khan Member ID Guarantor Name 02/24/2025 1 [place] [id number] Sharron Aguilar [id number] Sharron Aguilar Notes Date Note Type [...] concerns to report today. MEET NOONAN MD [address] [place] [address], [place], [address], [facility] - [facility] 02/28/2025 08:55:32 OBGyn Episode No OBEpisode recorded.
--- OUTSIDE RECORDS SUMMARY | 2025-04-10 18:28 | XMS_ITS | Continuity of Care Document ---
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 Not available 03/03/2025 11:11:50 Plan of Treatment [...] 1 %-0.05 % topical cream 2024 025 [facility]/Pharmacy #[id number], [address] [place], [address], 03/03/2025 11:06:38 clotrimaz ole 1 % topical solution 2024 025 [facility]/Pharmacy #[id number], [address] [place], [address], 03/03/2025 11:06:39 Patient TargetsNo targets recorded. Patient [...] Details Recorded Time Otorrhea of right ear 0247916751786 106 Active 2024 MILAGROS ZUÑIGA MD [address] [place] [address], [place], [address], [facility] - [facility] 5 09:15:40 Myringitis 63493081 Active 2024 MILAGROS ZUÑIGA MD [address] [place] [address], [place], [address], [facility] - [facility] [place] 5 09:15:45 Chronic hoarseness 0256089924910 Active 2024 MILAGROS ZUÑIGA MD [address] [place] [address], [place], [address], [place] - [facility] [place] 5 09:15:51 Gastroesoph ageal reflux disease 154333231 Active 2024 MILAGROS ZUÑIGA MD 100 [facility], E [facility], [place], [address], [place] [facility] [place] 5 09:16:00 Allergic rhinitis 67541661 Active 2024 MILAGROS ZUÑIGA MD 100 [facility] E [facility], [place], [address], [place] [facility] [place] 5 09:19:12 Mixed conductive and sensorineur al hearing loss, bilateral 708434199 Active 2024 TONY CARNEY 100 [facility], E [facility], [place], [address], [place] [facility] [place] 5 10:57:50 Psoriasis 7075459 Active 2024 BEE URBIE 100 [facility] E [facility], [place], [address], [place] [facility] [place] 16:09:25 Seasonal allergic rhinitis 134780397 Active 2024 BEE URIBE 100 [facility] [address], [place], [address], [place] [facility] [place] 5 16:14:11 Chronic mycotic otitis externa 392364215 Active 2024 JOSSY ROSE MD 100 [facility] [address], [place], [address], [place] [facility] [place] 5 10:57:17 Dermal mycosis 41724535 Active 2024 JOSSY ROSE MD 100 [facility], [address], [place], [address], [place] [facility] [place] 5 10:57:17 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 [address], [place], [address], [place] [facility] 10:59:07 Problem Notes None recorded. Procedures Surgical History Date Name Laterality Status Provider Name and Address Organization Details Recorded Time 04/08/20 25 Comp Audio with Tymps - 20129 & 25089 completed JAIDEN JHA, AUD 100 [facility],[address], [address], [facility] - [facility] [place] 04/08/2025 11:43:51 12/05/19 25 Comp Audio with Tymps - 01372 & 08320 completed SAV OVALLE, [facility] [address], [address], [facility] - [facility] 12/04/2024 10:47:59 12/05/19 25 FOL_DP completed BEE URIBE [address], [address], [facility] - [facility] 12/04/2024 16:11:37 tonsillectomy completed Oralia Saldana [place] - [facility] [place] 11/13/2024 10:34:23 total knee replacement completed Oralia Saldana [place] - [facility] [place] 11/13/2024 10:34:54 Myringotomy Tube Placement completed Oralia Saldana [place] - [facility] [place] 11/13/2024 10:35:10 Imaging Results None recorded. Procedure Notes None recorded. Medical Equipment None Reported. Allergies Allergen ID Allergen Name Allergen Category Reaction Reaction Severity Criticality Documentation Date Start Date Code Code System Note Provider Name and Address Organization Details Recorded Time 678680 bee pollen environme nt,medica tion Not available Not available Not available 11/13/2024 04304 7 RxNorm Oralia Shana go [place] - [facility] 10:33:26 408007 latex environme nt,medica tion Not available Not available Not available 11/13/2024 10702 91 RxNorm Oralia go [place] - [facility] [place] 10:33:43 690106 simvastat in medicatio n Not available Not available Not available 11/13/2024 46014 RxNorm Oralia go [place] - [facility] 10:33:51 Medications Name Sig Start Date [...] Available Not Available No t Available vitamin H04-tpaoy acid injection solution Take by injection route. [...] Updated DateTime 03/03/2025 160.02 cm 36.5 kg/m2 08756.03 g Erlinda Starr [place] - [facility] 03/03/2025 10:35:33 Social History None recorded. [...] ICD10 Code Diagnosis IMO Codes Diagnosis Note [id number] BEE URIBE [facility] of [address] [address] 02/24/2025 11:05:20 02/24/2025 12:00:26 Otorrhea of right ear 2256261841 312881 H92.11 2005428 Resolved. Central pe rforation of right tympanic membrane 3626576790 586729 H72.01 3227315 Mixed cond uctive and sensorineural hearing loss, bilateral 401249549 H90.6 9066080 Chronic hoarseness 98053 64378 105 R49.0 6042075 See above. Allergic rhinitis 303193 04 J30.89 Continue azelastine for nasal congestion and postnasal drip which is likely contributi ng to her hoarseness . Gastroesop hageal reflux disease 114443826 K21.9 42839699 Continue with pantoprazo le as prescribed . Psoriasis 1336194 L40.9 61392 Patient may use ciclopirox /triamcino lone cream prescribed by her dermatolog ist as needed for ear itching and dry canal skin. [id number] JOSSY ROSE MD [facility] of [address] [address] 03/03/2025 10:22:03 03/03/2025 11:11:11 Chronic mycotic otitis externa 581487979 H60.399 Dermal mycosis 35155496 B36.9 The skin of the bilateral external [...] of external ear canal secondary to inflammation 87846016 H61.323 56847275 Otorrhea of right ear 10 93917213 274178 H92.11 0497278 Mixed cond uctive and sensorineural hearing loss, bilateral 702706038 H90.6 3148548 Health Concerns Section Related Observation LastModified by Organization Detai ls LastModified Time None Recorded Concern Status LastModified by Organization Details LastModified Time None Recorded Payers Encounter Date Sequence Insurance Name Policy Number Policy Khan Covered Member ID Khan Member ID Guarantor Name 03/03/2025 1 [employer]IN[employer]FFER (PPO) [id number] Sharron Aguilar [id number] Sharron Aguilar Notes Date Note Type [...] tympanometry. Currently using binaural amplification dispensed by [employer] in [place]. She has been using amplification technology for [...] tacrolimus, and ciclopirox cream JOSSY ROSE MD [address] [place] [address], [address], [facility] - [facility] 03/03/2025 11:12:27 OBGyn Episode No OBEpisode recorded.
--- OUTSIDE RECORDS SUMMARY | 2025-04-10 18:28 | XMS_ITS | Patient Health Record ---
[facility] Organization [facility] Address [address] [facility] [place] [facility] [place] [address] Care Team Providers Care Director Radiation Oncology Name Role Phone Erlinda Marvin MD Primary Care Provider Unavail able Black, Raina Unavailable [phone] Allergies Allergen (clinical drug ingredient) Drug/Non Drug [...] Treatment Pending Test Test Name Order Date 00400-[id number] NAIL, 1-08/06/2018 [id number] NAIL, 1-11/12/2018 90032-Wkrpsdfk Plate 08/19/2019 Insurance Providers Payer Name Payer Address Payer Phone Subscriber Number Group Number Insured Name Patient Relationship to Insured Coverage Start Date Coverage End Date [facility] [id number] [place] [address] [phone] [id number] Sharron Aguilar Self - patient is the [...]
--- OUTSIDE RECORDS SUMMARY | 2025-04-10 18:29 | XMS_ITS | Clinical Summary ---
Author Organization [employer] Address [address] [facility] 7t [place] [address] Care Team Providers Care Aquarium Specialist Name Role Phone Unavailable Primary Care Provider [...]
--- OUTSIDE RECORDS SUMMARY | 2025-04-10 18:29 | XMS_ITS | Data Portability ---
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 [email or web address] Not available 03/03/2025 11:11:50 04/08/2025 04/08/2025 The previously patent right external auditory canal has now completely scarred shut and obliterated medially. Fortunately there is no sign of active infection or inflammation at this point. No need for any further topical drops. [email or web address] Not available 04/08/2025 11:29:35 Plan of Treatment Reminders Order Date Submit Date Provider Last Modified By Organization Details Last Modified Time Details Appointments Establish ed 15 2025 11:15A M GINA WOLFE PA-C Not available Not available Not available Lab unlisted lab - allergens , zone 1 2024 025 ALAMOGORDO [facility], [address], [place], [address], 11/14/2024 21:16:59 ige, total, serum 2024 025 [facility]OG[facility]O [facility], [address], [place], [address], 11/14/2024 21:17:00 CBC w/ auto diff 2024 025 [email or web address] [facility], [address], [place], [address], 11/26/2024 09:26:51 Referral None recorded. Procedures None recorded. Surgeries None recorded. Imaging None recorded. Medication Orders clotrimaz ole-betam ethasone 1 %-0.05 % topical cream 2024 025 AL[facility]OG[facility]O [id number], [address] [place], [address], 04/08/2025 11:29:08 clotrimaz ole-betam ethasone 1 %-0.05 % topical cream 2024 025 [id number], [address] [facility] [place], [address], 03/03/2025 11:06:38 clotrimaz ole 1 % topical solution 2024 [id number], [address] [facility] [place], [address], 03/03/2025 11:06:39 azelastin e 137 mcg (0.1 %) nasal spray 2024 [id number], [address] [facility] [place], [address], 12/04/2024 16:14:32 ciproflox acin 0.3 %-dexamet hasone 0.1 % ear drops,agustin pension 2024 [id number] [address] [facility] [place], [address], 02/19/2025 05:02:13 Patient TargetsNo targets recorded. Patient Instructions Encounter Date Encounter Id Patient Instructions Last Modified By Organization Details Last Modified Time 11/13/2024 [id number] Please note: Parts of this encounter note [...] >100. 00 Very High Not Available [facility] ([facility]) [address] [place], [address], 11/14/2024 21:16:59 11/14/19 25 11/14/2024 ALLER GENS, ZONE 1 D756-AtB D pteronyssinu s <0.10 kU/L class 0 Not Available [facility] ([facility]) [address] [place], [address], 11/14/2024 21:16:59 11/14/19 25 11/14/2024 ALLER GENS, ZONE 1 Q882-VzD D farinae <0.10 kU/L class 0 Not Available [facility] ([facility]) [address] [place], [address], 11/14/2024 21:16:59 11/14/19 25 11/14/2024 ALLER GENS, ZONE 1 X048-VdW CAT dander <0.10 kU/L class 0 Not Available [facility] ([facility]) [address] [place], [address], 11/14/2024 21:16:59 11/14/19 25 11/14/2024 ALLER GENS, ZONE 1 V864-NvT dog dander <0.10 kU/L class 0 Not Available [facility] ([facility]) [address] [place], [address], 11/14/2024 21:16:59 11/14/19 25 11/14/2024 ALLER GENS, ZONE 1 v400-QoA bermuda grass <0.10 kU/L class 0 Not Available [facility] ([facility]) [address] [place], [address], 11/14/2024 21:16:59 11/14/19 25 11/14/2024 ALLER GENS, ZONE 1 f854-KlZ bluegrass, [place] <0.10 kU/L class 0 Not Available [facility] ([facility]) [address] [place], [address], 11/14/2024 21:16:59 11/14/19 25 11/14/2024 ALLER GENS, ZONE 1 i748-ExM bahia grass <0.10 kU/L class 0 Not Available [facility] ([facility]) [address] [place], [address], 11/14/2024 21:16:59 11/14/19 25 11/14/2024 ALLER GENS, ZONE 1 X920-IsX cockroach, swazi <0.10 kU/L class 0 Not Available [facility] ([facility]) [address] [place], [address], 11/14/2024 21:16:59 11/14/19 25 11/14/2024 ALLER GENS, ZONE 1 N296-TtK penicillium chrysogen <0.10 kU/L class 0 Not Available [facility] ([facility]) [address] [place], [address], 11/14/2024 21:16:59 11/14/19 25 11/14/2024 ALLER GENS, ZONE 1 Q167-FeA cladosporium herbarum <0.10 kU/L class 0 Not Available [facility] ([facility]) [address] [place], [address], 11/14/2024 21:16:59 11/14/19 25 11/14/2024 ALLER GENS, ZONE 1 T910-OoK aspergillus fumigatus <0.10 kU/L class 0 Not Available [facility] ([facility]) [address] [place], [address], 11/14/2024 21:16:59 11/14/19 25 11/14/2024 ALLER GENS, ZONE 1 O378-GpH mucor racemosus <0.10 kU/L class 0 Not Available [facility] ([facility]) [address] [place], [address], 11/14/2024 21:16:59 11/14/19 25 11/14/2024 ALLER GENS, ZONE 1 A564-NsK alternaria alternata <0.10 kU/L class 0 Not Available [facility] ([facility]) [address] [place], [address], 11/14/2024 21:16:59 11/14/19 25 11/14/2024 ALLER GENS, ZONE 1 V206-VsV stemphylium herbarum <0.10 kU/L class 0 Not Available [facility] ([facility]) [address] [place], [address], 11/14/2024 21:16:59 11/14/19 25 11/14/2024 ALLER GENS, ZONE 1 G688-DbZ common silver birch <0.10 kU/L class 0 Not Available [facility] ([facility]) [address] [place], [address], 11/14/2024 21:16:59 11/14/19 25 11/14/2024 ALLER GENS, ZONE 1 M599-EdY oak, white <0.10 kU/L class 0 Not Available [facility] ([facility]) [address] [place], [address], 11/14/2024 21:16:59 11/14/19 25 11/14/2024 ALLER GENS, ZONE 1 R161-TwK elm, swazi <0.10 kU/L class 0 Not Available [facility] ([facility]) [address] [place], [address], 11/14/2024 21:16:59 11/14/19 25 11/14/2024 ALLER GENS, ZONE 1 Q399-AvF bryan, white <0.10 kU/L class 0 Not Available [facility] ([facility]) [address] [facility], [place], [address], 11/14/2024 21:16:59 11/14/19 25 11/14/2024 ALLER GENS, ZONE 1 J343-UjD maple/box elder <0.10 kU/L class 0 Not Available [facility] ([facility]) [address] [facility], [place], [address], 11/14/2024 21:16:59 11/14/19 25 11/14/2024 ALLER GENS, ZONE 1 A048-VmB hazelnut tree <0.10 kU/L class 0 Not Available [facility] ([facility]) [address] [facility], [place], [address], 11/14/2024 21:16:59 11/14/19 25 11/14/2024 ALLER GENS, ZONE 1 Q288-WkA hickory, white <0.10 kU/L class 0 Not Available [facility] ([facility]) [address] [facility], [place], [address], 11/14/2024 21:16:59 11/14/19 25 11/14/2024 ALLER GENS, ZONE 1 E144-IzP white mulberry <0.10 kU/L class 0 Not Available [facility] ([facility]) [address] [facility], [place], [address], 11/14/2024 21:16:59 11/14/19 25 11/14/2024 ALLER GENS, ZONE 1 S195-EkA cedar, mountain <0.10 kU/L class 0 Not Available [facility] ([facility]) [address] [facility], [place], [address], 11/14/2024 21:16:59 11/14/19 25 11/14/2024 ALLER GENS, ZONE 1 N939-TlV ragweed, short <0.10 kU/L class 0 Not Available [facility] ([facility]) [address], [place], [address], 11/14/2024 21:16:59 11/14/19 25 11/14/2024 ALLER GENS, ZONE 1 K604-UvW mugwort <0.10 kU/L class 0 Not Available [facility] ([facility]) [address] [facility], [place], [address], 11/14/2024 21:16:59 11/14/19 25 11/14/2024 ALLER GENS, ZONE 1 X256-YtW plantain, mauritanian <0.10 kU/L class 0 Not Available [facility] ([facility]) [address] [facility], [place], [address], 11/14/2024 21:16:59 11/14/19 25 11/14/2024 ALLER GENS, ZONE 1 I759-CwP pigweed, common <0.10 kU/L class 0 Not Available [facility] ([facility]) [address], [place], [address], 11/14/2024 21:16:59 11/14/19 25 11/14/2024 ALLER GENS, ZONE 1 R522-BpO sheep sorrel <0.10 kU/L class 0 Not Available [facility] ([facility]) [address] [facility], [place], [address], 11/14/2024 21:16:59 11/14/19 25 11/14/2024 ALLER GENS, ZONE 1 A742-LuH nettle <0.10 kU/L class 0 Not Available [facility] ([facility]) [address] [facility], [place], [address], 11/14/2024 21:16:59 11/14/19 25 11/14/2024 IMMUN OGLOB ULIN E, TOTAL immunoglobul in E, total 11 IU/mL 6-495 Not Available [facility]) [address] [facility], [place], [address], 11/14/2024 21:17:00 11/14/19 25 08/16/2022 audio gram No observ ation record ed. [email or web address] Not Available 2024 09:54:10 12/05/19 audio gram No observ ation record ed. BARCODE Not Available 2024 17:47:14 04/08/20 audio gram No observ ation record ed. BARCODE Not Available 2024 14:18:20 Result Notes None recorded. Problems Name Problem SNOMED Code Status Onset Date Resolution Date Notes Provider Name and Address Organization Details Recorded Time Otorrhea of right ear 1345271621061 106 Active 2024 MILAGROS ZUÑIGA MD [address] [place] [address], [place], [address], [facility] - [facility] 09:15:40 Myringitis 44055357 Active 2024 MILAGROS ZUÑIGA MD [address] [place] [address], [place], [address], [facility] - [facility] 09:15:45 Chronic hoarseness 4538833121642 Active 2024 MILAGROS ZUÑIGA MD [address] [place] [address], [place], [address], [facility] - [facility] 09:15:51 Gastroesoph ageal reflux disease 290242824 Active 2024 MILAGROS ZUÑIGA MD [address] [place] [address], [place], [address], [facility] - [facility] 09:16:00 Allergic rhinitis 78516264 Active 2024 MILAGROS ZUÑIGA MD [address] [place] [address], [place], [address], [facility] - [facility] 09:19:12 Mixed conductive and sensorineur al hearing loss, bilateral 243238325 Active 2024 SAV OVALLE, TONY [address] [facility],[place] [address], [place], [address], [place] - [facility] 5 10:57:50 Psoriasis 0561980 Active [address] [facility], [address] [facility] [place], [place], [address], [place] [facility] 5 16:09:25 Seasonal allergic rhinitis 556263938 Active [address] 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 - [facility] 5 10:59:07 Problem Notes None recorded. Procedures Surgical History Date Name Laterality Status Provider Name and Address Organization Details Recorded Time 04/08/20 25 Comp Audio with Tymps - 20810 & 21157 completed TONY BELL [address] [facility],[address], [address], [facility] - [facility] 04/08/2025 11:43:51 12/05/19 25 Comp Audio with Tymps - 65428 & 66747 completed SAV OVALLE, TONY [address] [facility],[address], [address], [place] - [facility] 12/04/2024 10:47:59 12/05/19 25 FOL_DP completed BEE URIBE [address] [address], [place], [address], [facility] - [facility] 12/04/2024 16:11:37 tonsillectomy completed Oralia Saldana [place] - [facility] 11/13/2024 10:34:23 total knee replacement completed Oralia Saldana [facility] 11/13/2024 10:34:54 Myringotomy Tube Placement completed Oralia Saldana [facility] 11/13/2024 10:35:10 Imaging Results None recorded. Procedure Notes None recorded. Medical Equipment None Reported. Allergies Allergen ID Allergen Name Allergen Category Reaction Reaction Severity Criticality Documentation Date Start Date Code Code System Note Provider Name and Address Organization Details Recorded Time 178764 bee pollen environme nt,medica tion Not available Not available Not available 11/13/2024 68792 7 RxNorm Oralia go [place] - [facility] 10:33:26 636642 latex environme nt,medica tion Not available Not available Not available 11/13/2024 11448 91 RxNorm Oralia go [facility] 10:33:43 586509 simvastat in medicatio n Not available Not available Not available 11/13/2024 90821 RxNorm Oralia go [place] [facility] 10:33:51 Medications Name Sig Start Date [...] Available Not Available No t Available vitamin V35-tptdu acid injection solution Take by injection route. [...] Updated DateTime 11/13/2024 160.02 cm 35.4 kg/m2 16593.47 g Oralia Saldana [place] - [facility] 11/13/2024 08:40:46 Date Recorded Body height Provider Name an d Address Organization Details Last Updated DateTime 12/04/2024 160.02 cm SANDRO NOBLE [place] [facility] 12/04/2024 09:34:36 Date Recorded Body height Body mass index (BMI) Body weight Provider Name and Address Organization Details Last Updated DateTime 02/24/2025 160.02 cm 36.5 kg/m2 48640.03 g Aura Bond [place] [facility] 02/24/2025 11:33:38 Date Recorded Body height Body mass index (BMI) Body weight Provider Name and Address Organization Details Last Updated DateTime 03/03/2025 160.02 cm 36.5 kg/m2 12694.03 g Orlando Starr [place] - [facility] 03/03/2025 10:35:33 Date Recorded Body height Body weight Provider Name and Address Organization Details Last Updated DateTime 04/08/2025 160.02 cm 95106.44 g Orlando Starr [place] [facility] 04/08/2025 11:08:50 Social History None recorded. Functional Status None recorded. Mental Status None recorded. Family History Nothing Reported. Medical History Condition Response Allergies/Hayfever Y Anemia Y Cancer Y Hearing Loss Y Asthma Y Gynecological HistoryNo gynecological history recorded. Obstetrics History GPAL:G 0 P 0 0 0 0 Past Encounters Encounter ID Performer Location Encounter Start Date Encounter Closed Date Diagnosis/Indication Diagnosis SNOMED-CT Code Diagnosis ICD10 Code Diagnosis IMO Codes Diagnosis Note [id number] MILAGROS CHAN MD [facility] [address] [address] 11/13/2024 08:18:48 11/13/2024 09:21:07 Otorrhea of right ear 9743408606 917667 H92.11 0070031 Myringitis 60734562 H73. 20 80977 Chronic hoarseness 76902 13828 105 R49.0 7344685 Gastroesop hageal reflux disease 280193841 K21.9 35354226 Allergic rhinitis 270747 04 J30.89 [id number] BEE URIBE [facility] [address] [address] 12/04/2024 09:27:32 12/04/2024 11:57:17 Otorrhea of right ear 7934832825 757322 H92.11 1000513 Resolved. Gastroesop hageal reflux disease 143888542 K21.9 12190713 Continue with pantoprazo le as prescribed . 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 Recommend azelastine for postnasal drip and nasal congestion . Mixed cond uctive and sensorineural hearing loss, bilateral 198311147 H90.6 4290714 Audiologic al evaluation results:Ri ght ear:Mild to moderate mixed hearing loss with excellent word recognitio n.Left ear:Mild to moderately -severe mixed hearing loss with excellent word recognitio n. Tympanomet ry:Right Ear:Type BLeft Ear:Type B Central pe rforation of right tympanic membrane 5983651157 026316 H72.01 0661758 Allergic rhinitis 962202 04 J30.89 See above. Psoriasis 1754448 L40.9 87590 Patient may use ciclopirox /triamcino lone cream prescribed by her dermatolog ist as needed for ear itching and dry canal skin. [id number] BEE URIBE [facility] [address] [address] 02/24/2025 11:05:20 02/24/2025 12:00:26 Otorrhea of right ear 9383554850 990706 H92.11 5612213 Resolved. Central pe rforation of right tympanic membrane 7406477367 227512 H72.01 7151584 Mixed cond uctive and sensorineural hearing loss, bilateral 562554019 H90.6 1592172 Chronic hoarseness 90789 76260 105 R49.0 5922837 See above. Allergic rhinitis 102756 04 J30.89 Continue azelastine for nasal congestion and postnasal drip which is likely contributi ng to her hoarseness . Gastroesop hageal reflux disease 711552549 K21.9 32492820 Continue with pantoprazo le as prescribed . Psoriasis 4547208 L40.9 57597 Patient may use ciclopirox /triamcino lone cream prescribed by her dermatolog ist as needed for ear itching and dry canal skin. [id number] JOSSY ROSE MD [facility] [address] [address] 03/03/2025 10:22:03 03/03/2025 11:11:11 Chronic mycotic otitis externa 421967222 H60.399 Dermal mycosis 75460980 B36.9 The skin of the bilateral external [...] of external ear canal secondary to inflammation 21579272 H61.323 72053053 Otorrhea of right ear 10 04390782 987192 H92.11 5230165 Mixed cond uctive and sensorineural hearing loss, bilateral 986579151 H90.6 9680513 [id number] JOSSY ROSE MD [facility] [address] [address] 04/08/2025 10:57:37 04/08/2025 12:03:31 Chronic mycotic otitis externa 001531659 H60.399 Acquired s tenosis of external ear canal secondary to inflammation 98511282 H61.323 76416759 Mixed cond uctive and sensorineural hearing loss, bilateral 229054715 H90.6 4741375 Audiometri c testing repeated in light of the change in physical exam. There has been some worsening in the hearing in the left ear. 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 Dermal mycosis 65315065 B36.9 The skin of the bilateral external [...] Khan Member ID Guarantor Name 04/08/2025 1 CLARA (PPO) [id number] Sharron Aguilar [id number] Sharron Aguilar Notes Date Note Type [...] a continuous ailment. MILAGROS SPEAR MD [address] [facility],[address], [address], [facility] 11/13/2024 11:07:52 12/04/2024 text/html ROS as noted in the [facility] 64 year old female presents for reevaluation [...] managed with pantoprazole. JOSSY ROSE MD [address] [facility],[address], [address], [facility] 12/05/2024 10:53:38 02/24/2025 text/html ROS as noted in the [facility] 64 year old female, with a history [...] to report today. MEET NOONAN MD [address] [facility] [address], [place], [address], [place] - [facility] 02/28/2025 08:55:32 03/03/2025 text/html 64-year-old female former [...] tympanometry. Currently using binaural amplification dispensed by [employer] in [place]. She has been using amplification technology for [...] tacrolimus, and ciclopirox cream JOSSY ROSE MD [address] 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 Patient turns for reevaluation. JOSSY ROSE MD [address] [facility],[address], [address], [facility] - [facility] 04/08/2025 13:00:20 OBGyn Episode No OBEpisode recorded.
== END 2025-04-10 15:00 | disposition home or self-care (01) ==
LOC: HO.HOS 14:14
PROVIDERS: PCP Internal Medicine; Visit Provider Physician Assistant
DX: M12.811 Other specific arthropathies, not elsewhere classified, right shoulder (principal)
CPT/HCPCS: 99214